=== PATIENT | male | born 1950 | race Caucasian/White ===

== ENCOUNTER 2022-05-01 18:00 | Inpatient (IN) ==
[2022-05-01] MEDS ORDERED: SODIUM CHLORIDE 0.9% 500 ML IV ONE (18:33)
[2022-05-01] MEDS ORDERED: METOPROLOL TARTRATE 1 MG/ML VIAL IV STA (18:33)
--- NOTE | 2022-05-01 18:46 | Emergency Department Note ---
Impression & Plan Breathlessness, Hypoxia, Multiple lung nodules, Elevated troponin, Tachycardia ED Provider Note Provider: Aniceto Tavarez MD DATE OF SERVICE: 04/26/2022 CHIEF COMPLAINT: Referred due to pneumonia x-ray HISTORY OF PRESENT ILLNESS: Patient is a 72-year-old gentleman previous history of hypertension but has not seen a doctor in several years presenting today after initial visits to urgent care last week and completion of blood work and x-ray today because them to be referred here. Patient evidently has been ill since Julio for about a week or 2. Has been short of breath for sometimes. States gets winded and lightheaded but has not collapsed. A bit of chest pressure and beating of the heart at times. Denies any nausea vomiting or abdominal pain. Denies leg swelling. Very distant history of smoking but quit a long time ago. Had a negative COVID test and started on an antibiotic Augmentin end of last week from urgent care. Finally had the recommended x-ray and blood work today and referred here. X-ray reportedly with findings concerning for some possible pneumonia. Patient feels short of breath and very fatigued. PAST MEDICAL HISTORY: As noted above MEDICATIONS: Denies current medications SOCIAL HISTORY: Distant history of smoking, retired PHYSICAL EXAM: GENERAL: alert and oriented in no acute distress on stretcher Head: normocephalic and atraumatic EYES: No injection, discharge or icterus. NECK: Trachea midline. Supple. ENT: Mucous membranes pink and moist. Pharynx without erythema or exudate. LUNGS: Airway patent. No retractions. Breath sounds clear without significant wheezing. HEART: Irregular and at times tachycardic rate and rhythm. No chest wall tenderness ABDOMEN: Soft and non-tender, without guarding or rebound. SKIN: Acyanotic, warm, dry, without rashes EXTREMITIES: Without swelling, tenderness or deformity NEUROLOGICAL: No focal deficits. No aphasia. No facial droop or slurred speech. Ambulatory. EK bpm appears to be fairly regular narrow complex tachycardia with occasional PVCs but not clearly atrial fibrillation. No clear ST segment elevation with a right bundle branch block. QTc 461. CONTINUOUS CARDIAC MONITORING: was ordered and showed a heart rate of 90s-150s bpm in normal sinus rhythm to sinus tachycardia superiors of narrow complex tachycardia with frequent PVCs Patient's laboratory studies and imaging reviewed. Differential includes Reactive airway disease, pneumonia, pneumothorax, COPD, CHF, infections, cardiac ischemia, pulmonary embolism, musculoskeletal, gastrointestinal, as well as other pathologies. IMPRESSION/MEDICAL DECISION MAKING: Short of breath and fatigue for some time worse the last several weeks. X-ray of completed earlier concerning with bilateral airspace opacities. Blood work thoroughly reviewed without significant anemia or leukocytosis. Mild troponin elevation. We will repeat troponin but having some palpitations and pressure in his chest. Telemetry appears to show episodes of regular narrow complex tachycardia at times that then resolves with episodes of PVCs and bigeminy with heart rates into the 90s up to the 150s. Very irregular and does not seem to be A. fib. Could possibly represent an SVT versus sinus tachycardia. Given some IV fluid. We will complete a CT of the chest to exclude PE as well as further differentiation of the lung findings noted on the imaging. COVID flu test sent. Patient will require admission. Hypoxic into the high 90s. Does not seem to have significant swelling in the lower extremities and lower suspicion for heart failure. Troponin mildly elevated at 51.7 on the recheck compared to 43 at 1717 hrs. We will give a dose of aspirin. Doubt acute ACS but wonder if some of this is from his transient episodes of elevated heart rate. Some magnesium supplementation ordered as well. Negative COVID and influenza testing. CT report without evidence of PE but questions possible pneumonia and a bit of pulmonary edema however more significantly pulmonary nodules and lymphadenopathy concerning for metastatic disease. Did discuss with patient and his family member at bedside. Discussed the need for further work-up here. Discussed possibility this could represent oncological process but unsure pending further work-up and biopsy. He was in agreement. Given some Ativan for anxiety. Given the question of pneumonia on the scan findings, given a dose of ceftriaxone. Daughter in law wishes to be closely involved in care with all developments particularly with further treatment plan in the morning. We will attempt to arrange a chair/recliner as the patient is more comfortable sitting. DIAGNOSIS: Hypoxia, elevated troponin, palpitations, lung masses/lymphadenopathy DISPOSITION: Hospitalist will evaluate Patient was agreeable with this plan. Past Med/Surg History Social History Smoking Status: Never smoker Preferred Language: Fijian Feels Safe at Home: Yes Allergies Allergies Allergy/AdvReac Type Severity Reaction Status Date / Time No Known Allergies Allergy Verified 05/01/22 21:09 Home Meds Home Medications Medication Instructions Recorded Confirmed albuterol sulfate 90 mcg/actuation 2 puff inhalation Q4H PRN 05/01/22 05/01/22 aerosol inhaler Shortness Of Breath Or Wheezing amoxicillin 875 mg-potassium 1 tab PO BID 05/01/22 05/01/22 clavulanate 125 mg tablet clotrimazole 10 mg daisha 10 mg PO 5XD 05/01/22 05/01/22 Results & Data (ED) Vital Signs Vital Signs - 24 hr 05/01/22 18:05 05/01/22 20:23 05/01/22 22:15 Temperature 36.9 C Temperature Source Temporal Artery Scan Pulse Rate 160 H Pulse Rate [Finger] 96 H 96 H Pulse Rhythm [Finger] Irregular Respiratory Rate 22 20 20 Respiratory Effort / Characteristics Non-Labored Spontaneous Short of Breath Short of Breath Blood Pressure 152/89 H Blood Pressure [Right Arm] 155/100 H 160/91 H Blood Pressure Mean 110 Blood Pressure Mean [Right Arm] 118 114 Blood Pressure Position [Right Arm] Sitting Pulse Oximetry 89 L 92 92 Oxygen Delivery Method Room Air Nasal Cannula Nasal Cannula Oxygen Flow Rate 3 4 Sepsis Recent Fever Within 48 Hours No Sepsis New/Unexplained Change in Mental Status N/A Sepsis Action Taken by Nursing No Action Required 05/01/22 22:40 05/01/22 22:41 Temperature Temperature Source Pulse Rate 89 Pulse Rate [Finger] Pulse Rhythm [Finger] Respiratory Rate 22 20 Respiratory Effort / Characteristics Blood Pressure Blood Pressure [Right Arm] Blood Pressure Mean Blood Pressure Mean [Right Arm] Blood Pressure Position [Right Arm] Pulse Oximetry 85 L 88 L Oxygen Delivery Method Nasal Cannula Oxymask Oxygen Flow Rate 4 6 Sepsis Recent Fever Within 48 Hours Sepsis New/Unexplained Change in Mental Status Sepsis Action Taken by Nursing Laboratory Data Lab Results 05/01/22 05/01/22 Range/Units 18:19 18:50 Magnesium 1.7 (1.7-2.4) mg/dl Troponin I High Sens 51.7 H* (0-20) pg/ml SARS-CoV-2 (PCR) NEGATIVE (Negative) Influenza Type A (PCR) Negative (Neg) Influenza Type B (PCR) Negative (Neg) RSV (RT-PCR) Negative (Neg) Administered Medications Discontinued Medications Aspirin (Aspirin 81 Mg Chew) 324 mg PO NOW STA Stop: 05/01/22 19:54 Last Admin: 05/01/22 20:12 Dose: 324 mg Documented By: NUBIA Sodium Chloride (Nss) 500 mls @ 999 mls/hr IV .Q31M ONE Stop: 05/01/22 19:03 Last Infusion: 05/01/22 21:26 Dose: 0 mls/hr Documented By: Admin: 05/01/22 20:12 Dose: 999 mls/hr Documented By: NUBIA Magnesium Sulfate/Dextrose (Magnesium Sulfate / D5w) 1 gm in 100 mls @ 200 mls/hr IV Q30M ASHLEY Stop: 05/01/22 20:53 Last Infusion: 05/01/22 21:56 Dose: 0 mls/hr Documented By: Admin: 05/01/22 21:04 Dose: 200 mls/hr Documented By: Infusion: 05/01/22 20:55 Dose: 0 mls/hr Documented By: Admin: 05/01/22 20:13 Dose: 200 mls/hr Documented By: NUBIA Ceftriaxone Sodium (Rocephin) 2,000 mg in 70 mls @ 140 mls/hr IV NOW STA Stop: 05/01/22 21:34 Last Infusion: 05/01/22 22:48 Dose: 0 mls/hr Documented By: Admin: 05/01/22 22:12 Dose: 140 mls/hr Documented By: MATT Ioversol (Optiray 320 500ml) 122 ml IV ONCE ONE Stop: 05/01/22 19:54 Last Admin: 05/01/22 19:56 Dose: 122 ml Documented By: JHOANA Lorazepam (Lorazepam 2 Mg/1 Ml Vial) 1 mg IV NOW STA Stop: 05/01/22 20:54 Last Admin: 05/01/22 21:03 Dose: 1 mg Documented By: NUBIA Metoprolol Tartrate (Metoprolol Tartrate 1 Mg/Ml Vial) 5 mg IV NOW STA Stop: 05/01/22 18:34 Last Admin: 05/01/22 18:50 Dose: Not Given Documented By: NRB Imaging Data Radiologist's Impression: Chest CTA 05/01/22 18:33 CHEST CTA for PULMONARY ARTERIES CT DOSE: 390.96 mGy.cm HISTORY: Shortness of breath. PE, tachy, PNA vs PE TECHNIQUE: Multiaxial CT images of the chest were performed following the intravenous administration of contrast to evaluate the pulmonary arteries. Maximal intensity projection images were also obtained. A dose lowering technique was utilized adhering to the principles of ALARA. COMPARISON STUDY: None. FINDINGS: Moderate anterior wedging at T5. This is likely chronic. No acute fractures identified within the chest. No suspicious lytic or blastic osseous lesions. No pneumothorax. The central airways are patent. Mild emphysema. There are innumerable scattered pulmonary nodules measuring up to 2 cm. There are small bilateral pleural effusions with mild interlobular septal thickening consistent with pulmonary edema. There are also patchy airspace opacities within the bilateral lower lobes posteriorly. Pneumobilia is present within the liver. The visualized spleen and adrenal glands are unremarkable. No pericardial effusion. The heart is borderline enlarged. There is a small hiatus hernia. The thyroid gland enhances normally. Extensive mediastinal and bilateral hilar lymphadenopathy. The hilar lymph nodes result in mild mass effect within the central pulmonary arteries. A dominant subcarinal lymph node measures approximately 3.1 x 3.0 cm. Normal caliber thoracic aorta with no evidence for a dissection. Mild respiratory motion artifact. No filling defects within the pulmonary arteries to suggest a pulmonary embolus. IMPRESSION: 1. No evidence for a pulmonary embolus. 2. Innumerable bilateral pulmonary nodules as well as mediastinal and bilateral hilar lymphadenopathy. This is consistent with metastatic disease. 3. Mild interstitial pulmonary edema and small bilateral pleural effusions. 4. Patchy airspace opacities within the bilateral lower lobes which could represent a superimposed pneumonia. ACT 112: Negative or not required by law. Electronically signed by: Tang Lyons M.D. 05/01/2022 8:48 PM Discharge Plan Visit Data Chief Complaint: Abnormal Labs/Diagnostic Testing Stated Complaint: REF BY DOC,ABNORMAL LABS ED Provider: Aniceto Tavarez Discharge Problem: Breathlessness, Hypoxia, Multiple lung nodules, Elevated troponin, Tachycardia Patient Disposition: Being Evaluated by Hospitalist Forms Stand Alone Forms: My [facility] Prescriptions Prescriptions: No Action clotrimazole 10 mg daisha 10 mg PO 5XD Rx Instructions: STARTED 04/26/22 FOR 14 DAYS. albuterol sulfate 90 mcg/actuation HFA aerosol inhaler 2 puff INHALATION Q4H PRN (Reason: Shortness Of Breath Or Wheezing) amoxicillin-pot clavulanate 875-125 mg tablet 1 tab PO BID Rx Instructions: STARTED 04/26/22 FOR 10 DAYS. Referrals Referrals: PCP,NO [Physician] -
[2022-05-01 19:34] LABS: Magnesium 1.7 mg/dl (1.7-2.4)
[2022-05-01 19:38] LABS: Troponin I High Sensitivity 51.7 pg/ml (0-20)
[2022-05-01] MEDS ORDERED: OPTIRAY 320 500ml IV ONE (19:53)
[2022-05-01] MEDS ORDERED: ASPIRIN 81 MG CHEW PO STA (19:53)
[2022-05-01 20:01] LABS: Influenza A virus by PCR Negative (Neg); Influenza B virus by PCR Negative (Neg); RSV by PCR Negative (Neg); SARS CoV2 RNA(COVID-19) Ceph NEGATIVE (Negative)
[2022-05-01] MEDS: MAGNESIUM SULFATE / D5W 1 GM/100 ML BAG IV SCH ×2 (20:13→21:04)
--- NOTE | 2022-05-01 20:50 | CT Scan Report ---
CHEST CTA for PULMONARY ARTERIES CT DOSE: 390.96 mGy.cm HISTORY: Shortness of breath. PE, tachy, PNA vs PE TECHNIQUE: Multiaxial CT images of the chest were performed following the intravenous administration of contrast to evaluate the pulmonary arteries. Maximal intensity projection images were also obtaine d. A dose lowering technique was utilized adhering to the principles of ALARA. COMPARISON STUDY: None. FINDINGS: Moderate anterior wedging at T5. This is likely chronic. No acute fractures identified with in the chest. No suspicious lytic or blastic osseous lesions. No pneumothorax. The central airways ar e patent. Mild emphysema. There are innumerable scattered pulmonary nodules measuring up to 2 cm. The re are small bilateral pleural effusions with mild interlobular septal thickening consistent with pul monary edema. There are also patchy airspace opacities within the bilateral lower lobes posteriorly. Pneumobilia is present within the liver. The visualized spleen and adrenal glands are unremarkable. N o pericardial effusion. The heart is borderline enlarged. There is a small hiatus hernia. The thyroid gland enhances normally. Extensive mediastinal and bilateral hilar lymphadenopathy. The hilar lymph nodes result in mild mass effect within the central pulmonary arteries. A dominant subcarinal lymph n ode measures approximately 3.1 x 3.0 cm. Normal caliber thoracic aorta with no evidence for a dissect ion. Mild respiratory motion artifact. No filling defects within the pulmonary arteries to suggest a pulmonary embolus. IMPRESSION: 1. No evidence for a pulmonary embolus. 2. Innumerable bilateral pulmonary nodules as well as mediastinal and bilateral hilar lymphadenopathy . This is consistent with metastatic disease. 3. Mild interstitial pulmonary edema and small bilateral pleural effusions. 4. Patchy airspace opacities within the bilateral lower lobes which could represent a superimposed pn eumonia. ACT 112: Negative or not required by law. Electronically signed by: Tang Lyons M.D. 05/01/2022 8:48 PM
[2022-05-01] MEDS ORDERED: LORazepam 2 MG/1 ML VIAL IV STA (20:53)
[2022-05-01] MEDS ORDERED: cefTRIAXone SODIUM 2,000 MG/70 ML BAG IV STA (21:05)
[2022-05-01] MEDS ORDERED: LEVALBUTEROL 1.25MG/0.5ML NEB NEB PRN (23:25)
[2022-05-01] MEDS ORDERED: ALBUTEROL HFA 8 GM INHALER INH PRN (23:25)
[2022-05-01] MEDS ORDERED: ACETAMINOPHEN 325 MG TAB PO PRN (23:25)
[2022-05-01] MEDS ORDERED: NITROGLYCERIN SL 0.4 MG/TAB TAB SL PRN (23:25)
[2022-05-01] MEDS ORDERED: POLYETHYLENE (MIRALAX) 17 GM PACK PO PRN (23:25)
[2022-05-01] MEDS ORDERED: DEXTROSE 50% 50 ML SYRINGE IV PRN (23:32)
[2022-05-01] MEDS ORDERED: GLUCOSE 10 TAB/TUBE PO PRN (23:32)
[2022-05-01] MEDS ORDERED: GLUCOSE 40% GEL 15 GM TUBE PO PRN (23:32)
[2022-05-01] MEDS ORDERED: CARBOHYDRATES FOR HYPOGLYCEMIA PO PRN (23:32)
[2022-05-01] MEDS ORDERED: GLUCAGON FOR INJ 1 MG VIAL SQ PRN (23:32)
[2022-05-01] MEDS ORDERED: METOPROLOL TARTRATE 1 MG/ML VIAL IV PRN (23:34)
[2022-05-01] MEDS ORDERED: methylPREDNISolone 60 MG in SYRINGE 0 ML IV STA (23:56)
[2022-05-02] MEDS ORDERED: ENOXAPARIN INJ 40 MG/0.4 ML SYR SQ STA (00:04)
[2022-05-02] MEDS: SODIUM CHLORIDE 0.9% 1000ML 1,000 ML IV SCH ×2 (01:01→13:38)
[2022-05-02] MEDS: DOXYCYCLINE HYCLATE 100 MG in DEXTROSE 5% 100 ML IV SCH ×2 (01:03→14:07)
[2022-05-02] MEDS: CLOTRIMAZOLE 10 MG TROCHE BUCCAL SCH ×6 (01:05→19:13)
[2022-05-02] MEDS: INSULIN ASPART PER UNIT SC SCH ×5 (01:17→21:50)
--- NOTE | 2022-05-02 01:40 | History and Physical Report ---
DATE OF ADMISSION: 05/01/2022. CHIEF COMPLAINT: Shortness of breath. HISTORY OF PRESENT ILLNESS: This is a 72-year-old male with past medical history significant for hypertension, dyslipidemia, prediabetes, history of tobacco abuse, history of hepatitis B surface antigen positive. Currently, did not see doctors for some time, says since the last couple of months, he is feeling short of breath. He went to urgent care last week and prescribed Augmentin for possible pneumonia and he was referred here. The patient states he is sometimes coughing, sometimes get some blood in it and he was feeling dizzy while ambulating. Denies any fever or chills, sometimes chest pressure, palpitations. No headache, no blurred visions, no earache, no runny nose, no sore throat. Appetite is okay. No difficulty swallowing. No nausea, no vomiting. Denies any abdominal pain. He was constipated, but says that has resolved. He did not notice any blood in the stools. Normal bladder movements. Currently no swelling in the legs, requiring oxygen in the ER.Had episodes of on and off of tachycardia in ER. ALLERGIES: No known drug allergies. PAST MEDICAL HISTORY: As mentioned above. PAST SURGICAL HISTORY: Colonoscopy, EGD, cholecystectomy. MEDICATIONS: The patient is on albuterol 2 puffs inhalation q. 4 hours p.r.n., Augmentin 1 tablet p.o. b.i.d., clotrimazole 10 mg buccal for 14 days. FAMILY HISTORY: Significant for mother had diabetes; father of pneumonia. SOCIAL HISTORY: He says he quit smoking 12 years ago. Denies alcohol or drug use. REVIEW OF SYSTEMS: As per HPI. Rest of the systems is negative. PHYSICAL EXAMINATION: GENERAL: The patient is of moderate build, not in acute distress. VITAL SIGNS: Temperature 36.9, pulse 94. Currently, blood pressure 155/107, oxygen 93% on OxyMask. HEENT: Pupils equal, round and reactive to light. Oral mucosa moist. NECK: No JVD, no neck masses. CARDIOVASCULAR: S1 and S2 heard. Tachycardia. No murmurs. RESPIRATORY SYSTEM: Normal AP diameter. No accessory muscle use. No wheezing or crackles. ABDOMEN: Soft, bowel sounds present, nontender, no distention. CENTRAL NERVOUS SYSTEM: Cranial nerves II through XII are grossly intact, nonfocal. EXTREMITIES: No edema, no erythema. LABORATORY DATA: WBC 5.1, hemoglobin 13.6, hematocrit 41, platelets 199. Sodium 141, potassium 3.7, chloride 106, bicarb 28, BUN 20, creatinine 0.7, serum glucose 221, calcium 9.3, magnesium 1.7, total bilirubin 0.5, AST 42, ALT 52, alkaline phosphatase 84. Troponin I high sensitivity 1.7. BNP 41. SARS-CoV-2 PCR negative. Influenza A and B PCR negative. RSV PCR negative. IMAGING STUDIES: Chest x-ray, multifocal bilateral airspace opacities, favor viral atypical pneumonia. CTA chest showing no evidence of pulmonary embolus. Innumerable bilateral pulmonary nodules as well as mediastinal bilateral hilar lymphadenopathy consistent with metastatic disease, mild interstitial pulmonary edema, small bilateral effusions, patchy airspace opacities within the bilateral lower lobes, which could represent superimposed pneumonia. EKG: Sinus tachycardia at a rate of 146, no PVCs available. ASSESSMENT AND PLAN: This is a 72-year-old male who presents with ongoing shortness of breath. 1. Shortness of breath. CT chest showing multiple lung nodules possible metastatic disease and superimposed pneumonia. The patient quit smoking 12 years ago. We will empirically start him on Rocephin and doxycycline nebs around the clock and p.r.n.IV steroids. Consult Pulmonary in the a.m. and closely monitor. We will also get a CT of the abd/ pelvis to look for any primary. 2. Elevated troponin. We will follow serial enzymes, echocardiogram. Monitor in the tele floor. 3. Tachycardia, questionable atrial fibrillation versus supraventricular tachycardia. Currently, received a dose of iv lopressor in the ER. We will place on IV Lopressor p.r.n. Follow echocardiogram. Monitor in the tele. Consult Cardiology for further recommendations. 4. History of hepatitis B surface antigen positive. We will get a hepatitis panel. 5. History of prediabetes, Will follow HbA1c levels. Monitor the blood sugars. ISS 6. Hyperlipidemia. Currently not taking any medication. Follow lipid profile. 7. Deep venous thrombosis prophylaxis. We will place him on Lovenox. DISPOSITION: Closely monitor in the tele floor. Level 1 full code. Expect to discharge home and follow with family doctor. Job ID: [id number] [facility] HOSPITALJenae
[2022-05-02 04:49] LABS: Hematocrit (blood only) 42.4 % (40.1-51.0); Hemoglobin 13.6 g/dl (14.0-18.0); Mean Corpuscular Hgb Conc 32.1 g/dL (32.0-36.0); Mean Corpuscular Volume 90.4 fL (80.0-100.0); Mean Platelet Volume 10.3 fL (9.4-12.4); Platelet Count 189 K/uL (130-400); RDW Coefficient of Variation 12.7 % (11.5-14.5); RDW Standard Deviation 41.7 fL (36.4-46.3); Red Blood Count 4.69 M/uL (4.63-6.08); White Blood Count 6.28 K/ul (4.8-10.8)
[2022-05-02 05:08] LABS: Basophils # (auto) 0.02 K/uL (0-0.2); Basophils % (auto) 0.3 %; Eosinophils # (auto) 0.01 K/uL (0-0.50); Eosinophils % (auto) 0.2 %; Immature Granulocytes # (auto) 0.02 K/uL (0.00-0.02); Immature Granulocytes % (auto) 0.3 %; Lymphocytes # (auto) 0.43 K/uL (1.2-3.4); Lymphocytes % (auto) 6.8 %; Monocytes # (auto) 0.06 K/uL (0.24-0.82); Neutrophils # (auto) 5.74 K/uL (1.4-6.5); Neutrophils % (auto) 91.4 %
[2022-05-02 05:19] LABS: Calcium 8.9 mg/dl (8.5-10.1); Creatinine Clr Calc Pharmacy 90.3 ml/min; Est GFR (African American) 114.8 ml/min; Est GFR (Non-African American) 99.1 ml/min; Magnesium 1.9 mg/dl (1.7-2.4); Potassium 4.5 mmol/L (3.5-5.1)
[2022-05-02] MEDS: LEVALBUTEROL 1.25MG/0.5ML NEB NEB SCH ×3 (06:57→19:37)
--- NOTE | 2022-05-02 08:05 | Electrocardiogram Report ---
Test Reason : Blood Pressure : / mmHG Vent. Rate : 146 BPM Atrial Rate : 078 BPM P-R Int : 000 ms QRS Dur : 116 ms QT Int : 296 ms P-R-T Axes : 000 046 040 degrees QTc Int : 461 ms Poor data quality, interpretation may be adversely affected Atrial fibrillation with rapid ventricular response with premature ventricular or aberrantly conducte d complexes Right bundle branch block Abnormal ECG No previous ECGs available Confirmed by Demond Dinh ([id number]) on 05/02/2022 8:05:39 AM Referred By: Luc Guevara Confirmed By:Demond Dnih
--- NOTE | 2022-05-02 08:07 | Pulmonary Consultation ---
Date of Consultation May 02, 2022 Assessment & Plan (1) Multiple lung nodules: (2) Mediastinal adenopathy: (3) Abnormal CT scan of lung: (4) Hypoxia: Plan Impression: 72-year-old male with prior history of tobacco abuse presenting with innumerable pulmonary nodules and areas of airspace consolidation with extensive mediastinal adenopathy. Pattern is concerning for malignancy. Other diagnoses such as sarcoid would be in the differential as well. Atypical infections felt to be much less likely. Recommendations: 1. Findings were reviewed with the patient. Recommended a tissue diagnosis. We discussed bronchoscopy with endobronchial ultrasound and transbronchial needl e aspiration. The patient is agreeable to proceed. This will be scheduled for today. Patient will be made NPO. We will check coagulation studies. 2. Depending on results of bronchoscopy, the patient may require additional imaging including MRI brain with and without contrast. He may require medical oncology consultation. 3. Continue supplemental oxygen titrated to keep saturations at or above 88%. 4. Patient's been initiated on antibiotics for suspected infection. He does not report fevers and does not have leukocytosis. Will check procalcitonin. Will obtain cultures at the time of bronchoscopy. Continue antibiotics for now. Above recommendations and plan were extensively discussed with patient. Questions were answered to the best my ability. He expressed understanding and is in agreement with plan as outlined. History of Present Illness Attending Physician: Cody Simmons MD History of Present Illness Asked by hospitalist to evaluate this patient with an abnormal CT scan. History is obtained from discussion with the patient as well as review electronic medical record. The patient is a 72-year-old male with a 43-44-djde-year history of tobacco abuse who quit smoking about 10 years ago. Patient presented to the emergency room due to progressive shortness of breath over the last several weeks. He was apparently seen in urgent care within the last week and started on Augmentin for questionable pneumonia. He does not report any significant sputum production. He has a dry cough. He was found to be hypoxemic in the emergency room and started on oxygen. CT scan demonstrated multiple pulmonary nodules with extensive mediastinal adenopathy. The patient denies any prior personal history of malignancy. No family history of cancer or lung disease that he is aware of. He lives alone but does have family in the area. 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 He denies any unintentional weight loss. No new neurological complaints. He cannot recall having had prior CT scanning performed. Allergies Allergy/AdvReac Type Severity Reaction Status Date / Time No Known Allergies Allergy Verified 05/01/22 21:09 Home Medications Medication Instructions Recorded Confirmed Type albuterol sulfate 90 mcg/actuation 2 puff inhalation Q4H PRN 05/01/22 05/01/22 History aerosol inhaler Shortness Of Breath Or Wheezing amoxicillin 875 mg-potassium 1 tab PO BID 05/01/22 05/01/22 History clavulanate 125 mg tablet clotrimazole 10 mg daisha 10 mg PO 5XD 05/01/22 05/01/22 History Patient History Social History Smoking Status: Never smoker Hx Alcohol Use: No Hx Substance Use: No Preferred Language: Danish Communication Ability: Effective 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 Otherwise unremarkable 12 point review of systems Physical Exam Constitutional: WD/WN, vitals as above ENMT: Mallampati Class: III Neck: trachea midline, no thyromegaly Respiratory: normal respiratory effort, lungs clear to auscultation Cardiovascular: RRR, no murmur, no edema Gastrointestinal (Abdomen): normal bowel sounds, soft, nontender, no hepatosplenomegaly Musculoskeletal: Extremities: extremities normal to inspection Skin: no rashes, warm and dry Neurologic: Nonfocal exam Lymphatic: no cervical lymphadenopathy Results & Data Results & Data ([facility]) Vital Signs (Past 12 Hours) Vital Signs Pulse Pulse Resp BP Pulse Ox Pulse Ox O2 Del Method 05/02/22 06:57 81 18 94 Oxymask 05/02/22 04:00 67 20 145/72 H 92 Oxymask 05/02/22 01:00 85 22 107/72 92 Oxymask 05/02/22 00:00 98 H 20 154/96 H 93 Oxymask 05/02/22 00:00 93 05/01/22 23:00 94 H 22 151/107 H 93 Oxymask 05/01/22 22:41 89 20 88 L Oxymask 05/01/22 22:40 22 85 L Nasal Cannula 05/01/22 22:15 96 H 20 160/91 H 92 Nasal Cannula 05/01/22 20:23 96 H 20 155/100 H 92 Nasal Cannula O2 Del Method O2 Flow Rate O2 Flow Rate 05/02/22 06:57 10 05/02/22 04:00 10 05/02/22 01:00 9 05/02/22 00:00 9 05/02/22 00:00 Oxymask 9 05/01/22 23:00 9 05/01/22 22:41 6 05/01/22 22:40 4 05/01/22 22:15 4 05/01/22 20:23 3 Critical Care Results & Data Vital Signs (Past 12 Hours) Vital Signs Pulse Pulse Resp BP Pulse Ox Pulse Ox O2 Del Method 05/02/22 06:57 81 18 94 Oxymask 05/02/22 04:00 67 20 145/72 H 92 Oxymask 05/02/22 01:00 85 22 107/72 92 Oxymask 05/02/22 00:00 98 H 20 154/96 H 93 Oxymask 05/02/22 00:00 93 05/01/22 23:00 94 H 22 151/107 H 93 Oxymask 05/01/22 22:41 89 20 88 L Oxymask 05/01/22 22:40 22 85 L Nasal Cannula 05/01/22 22:15 96 H 20 160/91 H 92 Nasal Cannula 05/01/22 20:23 96 H 20 155/100 H 92 Nasal Cannula O2 Del Method O2 Flow Rate O2 Flow Rate 05/02/22 06:57 10 05/02/22 04:00 10 05/02/22 01:00 9 05/02/22 00:00 9 05/02/22 00:00 Oxymask 9 05/01/22 23:00 9 05/01/22 22:41 6 05/01/22 22:40 4 05/01/22 22:15 4 05/01/22 20:23 3 Lab & Micro Results (Past 24 Hours) RBC 4.69 M/uL (4.63-6.08) 05/02/22 WBC 6.28 K/ul (4.8-10.8) 05/02/22 Hgb 13.6 g/dl (14.0-18.0) L 05/02/22 Hct 42.4 % (40.1-51.0) 05/02/22 MCV 90.4 fL (80.0-100.0) 05/02/22 MCH 29.0 pg (25.0-34.0) 05/02/22 MCHC 32.1 g/dL (32.0-36.0) 05/02/22 RDW Standard Deviation 41.7 fL (36.4-46.3) 05/02/22 RDW Coefficient of Variation 12.7 % (11.5-14.5) 05/02/22 Plt Count 189 K/uL (130-400) 05/02/22 MPV 10.3 fL (9.4-12.4) 05/02/22 Neutrophils (%) (Auto) 91.4 % 05/02/22 Lymphocytes (%) (Auto) 6.8 % 05/02/22 Monocytes # (Auto) 0.06 K/uL (0.24-0.82) L 05/02/22 Eosinophils # (Auto) 0.01 K/uL (0-0.50) 05/02/22 Immature Granulocyte % (Auto) 0.3 % 05/02/22 Neutrophils # (Auto) 5.74 K/uL (1.4-6.5) 05/02/22 Lymphocytes # (Auto) 0.43 K/uL (1.2-3.4) L 05/02/22 Monocytes # (Auto) 0.06 K/uL (0.24-0.82) L 05/02/22 Eosinophils # (Auto) 0.01 K/uL (0-0.50) 05/02/22 Basophils # (Auto) 0.02 K/uL (0-0.2) 05/02/22 Immature Granulocyte # (Auto) 0.02 K/uL (0.00-0.02) 3 Na 140 mmol/L (136-145) 05/02/22 K 4.5 mmol/L (3.5-5.1) 05/02/22 Cl 105 mmol/L (98-107) 05/02/22 CO2 31 mmol/L (21-32) 05/02/22 Anion Gap 4 (3-11) 05/02/22 BUN 11 mg/dl (6-23) 05/02/22 Creatinine 0.61 mg/dl (0.6-1.4) 05/02/22 Estimated GFR ( Amer) 114.8 ml/min 05/02/22 Estimated GFR (Non-Af Amer) 99.1 ml/min 05/02/22 BUN/Creatinine Ratio 18.0 (10-20) 05/02/22 Glu 181 mg/dl (70-99(Fasting)) H 05/02/22 Ca 8.9 mg/dl (8.5-10.1) 05/02/22 Mg 1.9 mg/dl (1.7-2.4) 05/02/22 04:40 Calcium Level 8.9 mg/dl (8.5-10.1) 05/02/22 04:40 Diagnostic Findings (Past 24 Hours) Chest CTA 05/01/22 18:33 CHEST CTA for PULMONARY ARTERIES CT DOSE: 390.96 mGy.cm HISTORY: Shortness of breath. PE, tachy, PNA vs PE TECHNIQUE: Multiaxial CT images of the chest were performed following the intravenous administration of contrast to evaluate the pulmonary arteries. Maximal intensity projection images were also obtained. A dose lowering technique was utilized adhering to the principles of ALARA. COMPARISON STUDY: None. FINDINGS: Moderate anterior wedging at T5. This is likely chronic. No acute fractures identified within the chest. No suspicious lytic or blastic osseous lesions. No pneumothorax. The central airways are patent. Mild emphysema. There are innumerable scattered pulmonary nodules measuring up to 2 cm. There are small bilateral pleural effusions with mild interlobular septal thickening consistent with pulmonary edema. There are also patchy airspace opacities within the bilateral lower lobes posteriorly. Pneumobilia is present within the liver. The visualized spleen and adrenal glands are unremarkable. No pericardial effusion. The heart is borderline enlarged. There is a small hiatus hernia. The thyroid gland enhances normally. Extensive mediastinal and bilateral hilar lymphadenopathy. The hilar lymph nodes result in mild mass effect within the central pulmonary arteries. A dominant subcarinal lymph node measures appro ximately 3.1 x 3.0 cm. Normal caliber thoracic aorta with no evidence for a dissection. Mild respiratory motion artifact. No filling defects within the pulmonary arteries to suggest a pulmonary embolus. IMPRESSION: 1. No evidence for a pulmonary embolus. 2. Innumerable bilateral pulmonary nodules as well as mediastinal and bilateral hilar lymphadenopathy. This is consistent with metastatic disease. 3. Mild interstitial pulmonary edema and small bilateral pleural effusions. 4. Patchy airspace opacities within the bilateral lower lobes which could represent a superimposed pneumonia. ACT 112: Negative or not required by law. Electronically signed by: Tang Lyons M.D. 05/01/2022 8:48 PM I & O Totals 24 Hours 05/01/22 05/02/22 05/03/22 06:59 06:59 06:59 Intake Total 880 / 880 Output Total 1140 / 1140 Balance -260 / -260 Cumulative 05/01/22 18:00 thru 05/02/22 06:34 Intake Total 880 Output Total 1140 Balance -260 RT Ventilator Mngmt (Last Documented) Ventilator Ordered Settings Respiratory Rate 18 05/02/22 0 6:57 Ventilator - PT Measurements Respiratory Rate 18 PG Care Time/CCT Total # of Minutes Spent Total Time Spent with Patient: Total time spent is greater than 50% in coordination of care (as documented) at patient's floor/unit and/or counseling patient: Coding Level of Care Code 18810 INT INP/OBS CARE 3/75MIN Diagnoses Multiple lung nodules R91.8 Mediastinal adenopathy R59.[address] scan of lung R91.8 Hypoxia R09.02
--- NOTE | 2022-05-02 09:10 | Hospitalist Progress Note ---
Date of Service May 02, 2022 Assessment & Plan (1) Paroxysmal atrial fibrillation: Plan: This is a 72-year-old male who presents with ongoing shortness of breath. 1. Shortness of breath. CT chest showing multiple lung nodules possible metastatic disease and jacobo perimposed pneumonia. The patient quit smoking 12 years ago. Empirically started on Rocephin and doxycycline nebs around the clock and p.r.n.IV steroids. Pulmonary medicine consulted, and patient underwent bronchoscopy with biopsy today. Currently patient is on high flow nasal cannula. Continue to closely monitor on telemetry. CT of the abd/ pelvis to look for any primary - pending Brain MRI ordered, to look for possible metastases Oncology and palliative medicine consulted as well. 2. Elevated troponin. reviewed serial enzymes, echocardiogram. Monitor in the tele floor. Troponin elevation secondary to tachycardia/demand Echo LV is normal in size. Moderate concentric LVH. LV wall motion is normal. EF 60 to 65%. Aortic valve sclerosis moderate, without significant aortic valvular stenosis. There is mild mitral valve annular calcification. The mitral valve leaflets are mildly redundant with borderline prolapse of posterior leaflet. There is mild mitral regurg. LA size is normal. Doppler findings do not suggest pulmonary hypertension. 3. A. fib with RVR, spontaneously converted back to sinus. Received a dose of iv lopressor in the ER. Seen by cardiology, and started on low-dose beta-ezekiel. Plan to discuss anticoagulation. 4. History of hepatitis B surface antigen positive.Hepatitis panel ordered. 5. History of prediabetes, Will follow HbA1c levels. Monitor the blood sugars. ISS 6. Hyperlipidemia. Currently not taking any medication. Follow lipid profile. DVT prophylaxis. We will place him on Lovenox. DISPOSITION:tele floor. Code: full code (2) Abnormal CT scan of lung: (3) Mediastinal adenopathy: Admission and Anticipated Discharge Date Admission Date: May 01, 2022 Subjective Patient seen in follow-up of acute hypoxic respiratory failure. Multiple nodules noted on CT chest. Underwent bronchoscopy/biopsy by pulmonary medicine Currently on high flow nasal cannula Appears comfortable, and reports no complaints. Denies any chest pain palpitations. Feels hungry, asking about advancing diet. Cardiology also consulted as patient had episode of A. fib with RVR Review of Systems Review of Systems: All systems reviewed & are unremarkable except as noted in Subjective Physical Exam Physical Exam: GENERAL: The patient is of moderate build, not in acute distress. HEENT: Pupils equal, round and reactive to light. Oral mucosa moist. NECK: No JVD, no neck masses. CARDIOVASCULAR: S1 and S2 heard. RRR. No murmurs. RESPIRATORY: Normal AP diameter. No accessory muscle use. No wheezing or crackles. ABDOMEN: Soft, bowel sounds present, nontender, no distention. NEURO:Awake alert, able to answer simple questions appropriately. No facial asymmetry, moves extremities EXTREMITIES: No edema, no erythema. Results & Data Results & Data ([facility]) Vital Signs (Past 12 Hours) Vital Signs Pulse Pulse Resp BP Pulse Ox Pulse Ox O2 Del Method 05/02/22 06:57 81 18 94 Oxymask 05/02/22 04:00 67 20 145/72 H 92 Oxymask 05/02/22 01:00 85 22 107/72 92 Oxymask 05/02/22 00:00 98 H 20 154/96 H 93 Oxymask 05/02/22 00:00 93 05/01/22 23:00 94 H 22 151/107 H 93 Oxymask 05/01/22 22:41 89 20 88 L Oxymask 05/01/22 22:40 22 85 L Nasal Cannula 05/01/22 22:15 96 H 20 160/91 H 92 Nasal Cannula O2 Del Method O2 Flow Rate O2 Flow Rate 05/02/22 06:57 10 05/02/22 04:00 10 05/02/22 01:00 9 05/02/22 00:00 9 05/02/22 00:00 Oxymask 9 05/01/22 23:00 9 05/01/22 22:41 6 05/01/22 22:40 4 05/01/22 22:15 4 Laboratory Results 05/02/22 05/02/22 05/02/22 Range/Units 05:43 04:40 04:40 WBC (4.8-10.8) K/ul RBC (4.63-6.08) M/uL Hgb (14.0-18.0) g/dl Hct (40.1-51.0) % MCV (80.0-100.0) fL MCH (25.0-34.0) pg MCHC (32.0-36.0) g/dL RDW Std Deviation (36.4-46.3) fL RDW Coeff of Dean (11.5-14.5) % Plt Count (130-400) K/uL MPV (9.4-12.4) fL Immature Gran % (Auto) % Neut % (Auto) % Lymph % (Auto) % Cochran % (Auto) % Eos % (Auto) % Baso % (Auto) % Neut # (Auto) (1.4-6.5) K/uL Lymph # (Auto) (1.2-3.4) K/uL Cochran # (Auto) (0.24-0.82) K/uL Eos # (Auto) (0-0.50) K/uL Baso # (Auto) (0-0.2) K/uL Immature Gran # (Auto) (0.00-0.02) K/uL Sodium 140 (136-145) mmol/L Potassium 4.5 D (3.5-5.1) mmol/L Chloride 105 (98-107) mmol/L Carbon Dioxide 31 (21-32) mmol/L Anion Gap 4 (3-11) BUN 11 (6-23) mg/dl Creatinine 0.61 (0.6-1.4) mg/dl Est Cr Clr Drug Dosing 90.3 ml/min Est GFR ( Amer) 114.8 ml/min Est GFR (Non-Af Amer) 99.1 ml/min BUN/Creatinine Ratio 18.0 (10-20) Glucose 181 H (70-99(Fasting)) mg/dl POC Glucose 168 H (70-99) mg/dl Calcium 8.9 (8.5-10.1) mg/dl Magnesium 1.9 (1.7-2.4) mg/dl Troponin I High Sens (0-20) pg/ml SARS-CoV-2 (PCR) (Negative) Hepatitis A IgM Ab Hep Bs Antigen Hep Bs Ag Confirmation Hep B Core IgM Ab Hepatitis C Ab (EIA) Pending Hep C Ab Signal/Cutoff Pending Influenza Type A (PCR) (Neg) Influenza Type B (PCR) (Neg) RSV (RT-PCR) (Neg) 05/02/22 05/02/22 05/02/22 Range/Units 04:40 04:40 01:15 WBC 6.28 (4.8-10.8) K/ul RBC 4.69 (4.63-6.08) M/uL Hgb 13.6 L (14.0-18.0) g/dl Hct 42.4 (40.1-51.0) % MCV 90.4 (80.0-100.0) fL MCH 29.0 (25.0-34.0) pg MCHC 32.1 (32.0-36.0) g/dL RDW Std Deviation 41.7 (36.4-46.3) fL RDW Coeff of Dean 12.7 (11.5-14.5) % Plt Count 189 (130-400) K/uL MPV 10.3 (9.4-12.4) fL Immature Gran % (Auto) 0.3 % Neut % (Auto) 91.4 % Lymph % (Auto) 6.8 % Cochran % (Auto) 1.0 % Eos % (Auto) 0.2 % Baso % (Auto) 0.3 % Neut # (Auto) 5.74 (1.4-6.5) K/uL Lymph # (Auto) 0.43 L (1.2-3.4) K/uL Cochran # (Auto) 0.06 L (0.24-0.82) K/uL Eos # (Auto) 0.01 (0-0.50) K/uL Baso # (Auto) 0.02 (0-0.2) K/uL Immature Gran # (Auto) 0.02 (0.00-0.02) K/uL Sodium (136-145) mmol/L Potassium (3.5-5.1) mmol/L Chloride (98-107) mmol/L Carbon Dioxide (21-32) mmol/L Anion Gap (3-11) BUN (6-23) mg/dl Creatinine (0.6-1.4) mg/dl Est Cr Clr Drug Dosing ml/min Est GFR ( Amer) ml/min Est GFR (Non-Af Amer) ml/min BUN/Creatinine Ratio (10-20) Glucose (70-99(Fasting)) mg/dl POC Glucose 126 H (70-99) mg/dl Calcium (8.5-10.1) mg/dl Magnesium (1.7-2.4) mg/dl Troponin I High Sens (0-20) pg/ml SARS-CoV-2 (PCR) (Negative) Hepatitis A IgM Ab Pending Hep Bs Antigen Pending Hep Bs Ag Confirmation Pending Hep B Core IgM Ab Pending Hepatitis C Ab (EIA) Pending Hep C Ab Signal/Cutoff Pending Influenza Type A (PCR) (Neg) Influenza Type B (PCR) (Neg) RSV (RT-PCR) (Neg) 05/01/22 05/01/22 Range/Units 18:50 18:19 WBC (4.8-10.8) K/ul RBC (4.63-6.08) M/uL Hgb (14.0-18.0) g/dl Hct (40.1-51.0) % MCV (80.0-100.0) fL MCH (25.0-34.0) pg MCHC (32.0-36.0) g/dL RDW Std Deviation (36.4-46.3) fL RDW Coeff of Dean (11.5-14.5) % Plt Count (130-400) K/uL MPV (9.4-12.4) fL Immature Gran % (Auto) % Neut % (Auto) % Lymph % (Auto) % Cochran % (Auto) % Eos % (Auto) % Baso % (Auto) % Neut # (Auto) (1.4-6.5) K/uL Lymph # (Auto) (1.2-3.4) K/uL Cochran # (Auto) (0.24-0.82) K/uL Eos # (Auto) (0-0.50) K/uL Baso # (Auto) (0-0.2) K/uL Immature Gran # (Auto) (0.00-0.02) K/uL Sodium (136-145) mmol/L Potassium (3.5-5.1) mmol/L Chloride (98-107) mmol/L Carbon Dioxide (21-32) mmol/L Anion Gap (3-11) BUN (6-23) mg/dl Creatinine (0.6-1.4) mg/dl Est Cr Clr Drug Dosing ml/min Est GFR ( Amer) ml/min Est GFR (Non-Af Amer) ml/min BUN/Creatinine Ratio (10-20) Glucose (70-99(Fasting)) mg/dl POC Glucose (70-99) mg/dl Calcium (8.5-10.1) mg/dl Magnesium 1.7 (1.7-2.4) mg/dl Troponin I High Sens 51.7 H* (0-20) pg/ml SARS-CoV-2 (PCR) NEGATIVE (Negative) Hepatitis A IgM Ab Hep Bs Antigen Hep Bs Ag Confirmation Hep B Core IgM Ab Hepatitis C Ab (EIA) Hep C Ab Signal/Cutoff Influenza Type A (PCR) Negative (Neg) Influenza Type B (PCR) Negative (Neg) RSV (RT-PCR) Negative (Neg) Medications Administered Current Inpatient Medications Acetaminophen (Acetaminophen 325 Mg Tab) 650 mg PO Q4H PRN PRN Reason: Pain or Fever Stop: 05/31/22 23:24 Albuterol (Albuterol Hfa 8 Gm Inhaler) 2 puffs INH Q4H PRN PRN Reason: Shortness Of Breath Or Wheezing Stop: 05/31/22 23:24 Clotrimazole (Clotrimazole 10 Mg Josiah) 10 mg BUCCAL [id number] ASHLEY Stop: 05/08/22 16:01 Last Admin: 05/02/22 06:30 Dose: 10 mg Dextrose (Dextrose 50% 50 Ml Syringe) 25 - 50 ml IV UD PRN; Protocol PRN Reason: Hypoglycemia Protocol Stop: 05/31/22 23:31 Enoxaparin Sodium (Enoxaparin Inj 40 Mg/0.4 Ml Syr) 40 mg SQ HS ASHLEY Stop: 06/01/22 20:59 Glucagon (Glucagon For Inj 1 Mg Vial) 1 mg SQ UD PRN; Protocol PRN Reason: Hypoglycemia Protocol Stop: 05/31/22 23:31 Glucose (Glucose 40% Gel 15 Gm Tube) 15 - 30 gm PO UD PRN; Protocol PRN Reason: Hypoglycemia Protocol Stop: 05/31/22 23:31 Glucose (Glucose 10 Tab/Tube) 4 - 8 tab PO UD PRN; Protocol PRN Reason: Hypoglycemia Treatment Stop: 05/31/22 23:31 Sodium Chloride (Nss 1000ml) 1,000 mls @ 80 mls/hr IV .[id number] [facility] Stop: 05/31/22 23:24 Last Admin: 05/02/22 01:01 Dose: 80 mls/hr Ceftriaxone Sodium 2,000 mg/ (Dextrose) 70 mls @ 100 mls/hr IV Q24H ASHLEY; Protocol Stop: 05/09/22 21:59 Doxycycline Hyclate 100 mg/ (Dextrose) 110 mls @ 50 mls/hr IV Q12H ASHLEY Stop: 05/08/22 23:24 Last Infusion: 05/02/22 03:12 Dose: Infused Methylprednisolone 40 mg/ (Syringe) 0.64 mls @ 1.5 mls/min IV BID [facility] Stop: 06/01/22 08:59 Insulin Aspart (Insulin Aspart Per Unit) 0 units SC Q6 ASHLEY Stop: 06/01/22 00:00 Last Admin: 05/02/22 06:00 Dose: 1 units Levalbuterol HCl (Levalbuterol 1.25mg/0.5ml Neb) 1.25 mg NEB TIDR ASHLEY; Protocol Stop: 06/01/22 06:59 Last Admin: 05/02/22 06:57 Dose: 1.25 mg Levalbuterol HCl (Levalbuterol 1.25mg/0.5ml Neb) 1.25 mg NEB Q2H PRN; Protocol PRN Reason: Shortness Of Breath Or Wheezing Stop: 05/31/22 23:24 Metoprolol Tartrate (Metoprolol Tartrate 1 Mg/Ml Vial) 5 mg IV Q6 PRN PRN Reason: Tachycardia Stop: 06/01/22 00:00 Miscellaneous (Carbohydrates For Hypoglycemia ) 15 - 30 gm PO UD PRN PRN Reason: Hypoglycemia Protocol Stop: 05/31/22 23:31 Nitroglycerin (Nitroglycerin Sl 0.4 Mg/Tab Tab) 0.4 mg SL UD PRN PRN Reason: Chest Pain Stop: 05/31/22 23:24 Polyethylene Glycol (Polyethylene (Miralax) 17 Gm Pack) 17 gm PO DAILY PRN PRN Reason: Constipation Stop: 05/31/22 23:24
[2022-05-02] MEDS: methylPREDNISolone 40 MG in SYRINGE 0 ML IV SCH ×2 (09:14→21:54)
[2022-05-02 09:42] LABS: INR 1.1 (0.9-1.1); Partial Thromboplastin Time 27.8 Seconds (21.0-31.0); Prothrombin Time 11.2 Seconds (9.0-12.0)
[2022-05-02] MEDS ORDERED: MIDAZOLAM HCL 5 MG/ML 1 ML VIAL ONE (09:48)
[2022-05-02] MEDS ORDERED: fentaNYL citrate 100 MCG/2 ML VIAL ONE (09:48)
--- NOTE | 2022-05-02 10:03 | Pre Anesthesia Assessment ---
Date of Service May 02, 2022 Pre Sedation Assessment Vital Signs Temp Pulse Pulse Resp BP BP Pulse Ox 05/02/22 06:57 81 18 94 05/02/22 04:00 67 20 145/72 H 92 05/02/22 01:00 85 22 107/72 92 05/02/22 00:00 98 H 20 154/96 H 93 05/02/22 00:00 05/01/22 23:00 94 H 22 151/107 H 93 05/01/22 22:41 89 20 88 L 05/01/22 22:40 22 85 L 05/01/22 22:15 96 H 20 160/91 H 92 05/01/22 20:23 96 H 20 155/100 H 92 05/01/22 18:05 36.9 C 160 H 22 152/89 H 89 L Pulse Ox O2 Del Method O2 Del Method O2 Flow Rate O2 Flow Rate 05/02/22 06:57 Oxymask 10 05/02/22 04:00 Oxymask 10 05/02/22 01:00 Oxymask 9 05/02/22 00:00 Oxymask 9 05/02/22 00:00 93 Oxymask 9 05/01/22 23:00 Oxymask 9 05/01/22 22:41 Oxymask 6 05/01/22 22:40 Nasal Cannula 4 05/01/22 22:15 Nasal Cannula 4 05/01/22 20:23 Nasal Cannula 3 05/01/22 18:05 Room Air Pre-Sedation Airway Assessment Smoking Status: Never smoker Hx Sleep Apnea: No Short, Thick Neck: No Thyromental Distance: > or= 3.5 Finger Breadths Oral Cavity: + Dentures Mallampati Class: III ASA: ASA3 NPO Status Date of Last Intake of Fluids: 05/02/22 Time of Last Intake of Fluids: 06:00 Last Oral Intake of Fluids Comment: sips with pills Date of Last Intake of Solid Food: 05/01/22 Time of Last Intake of Solid Foods: 20:00 Notes The planned sedation has been discussed with the patient. Informed Consent was obtained. I have identified the patient, determined the appropriateness of sedation and have assessed the patient immediately prior to the procedure. All medicine(s) and interventions are by my order.
--- NOTE | 2022-05-02 10:37 | Post Anesthesia Assessment ---
Date of Service May 02, 2022 Post Sedation Assessment Vital Signs Temp Pulse Pulse Resp BP BP Pulse Ox 05/02/22 10:30 95 H 14 154/113 H 97 05/02/22 10:25 84 14 151/70 H 93 05/02/22 10:20 85 14 150/85 H 91 05/02/22 10:15 85 14 144/78 H 93 05/02/22 10:10 88 16 153/79 H 95 05/02/22 06:57 81 18 94 05/02/22 04:00 67 20 145/72 H 92 05/02/22 01:00 85 22 107/72 92 05/02/22 00:00 98 H 20 154/96 H 93 05/02/22 00:00 05/01/22 23:00 94 H 22 151/107 H 93 05/01/22 22:41 89 20 88 L 05/01/22 22:40 22 85 L 05/01/22 22:15 96 H 20 160/91 H 92 05/01/22 20:23 96 H 20 155/100 H 92 05/01/22 18:05 36.9 C 160 H 22 152/89 H 89 L Pulse Ox O2 Del Method O2 Del Method O2 Flow Rate O2 Flow Rate 05/02/22 10:30 High Flow Nasal Cannula 05/02/22 10:25 High Flow Nasal Cannula 05/02/22 10:20 High Flow Nasal Cannula 05/02/22 10:15 High Flow Nasal Cannula 05/02/22 10:10 High Flow Nasal Cannula 05/02/22 06:57 Oxymask 10 05/02/22 04:00 Oxymask 10 05/02/22 01:00 Oxymask 9 05/02/22 00:00 Oxymask 9 05/02/22 00:00 93 Oxymask 9 05/01/22 23:00 Oxymask 9 05/01/22 22:41 Oxymask 6 05/01/22 22:40 Nasal Cannula 4 05/01/22 22:15 Nasal Cannula 4 05/01/22 20:23 Nasal Cannula 3 05/01/22 18:05 Room Air Discharge Sedation Level of Care: Fast Track Phase II Post Sedation Plan On clinical assessment, the patient appears to have tolerated the sedation without complications. Patient is recovering as anticipated. Patient will continue to be monitored by nursing and may be discharged when sedation discharge criteria are met per below protocol. Upon Completions of procedure up to 15 minutes continue every 5 minute vital signs and the P.A.R. score; then discharge to a Phase I or Fast Track to Phase II per the following guidelines: * Discharge Patient to appropriate Phase II area if PAR is 8 or greater or return to pre- procedure baseline. The post - procedure orders will be as directed. * If PAR score is less than 8 or not return to pre-procedure baseline then patient will follow Phase I monitoring till PAR is reached for Phase II. The Phase I may be done in procedure room or may call to secure a Phase I area. * If naloxone or flumazenil are used for reversal, hold in Phase I for continued monitoring from when last reversal dose was given for a minimum of 60 minutes or longer pending the nurse and/or physician discretion of patient condition before discharge to Phase II. Please call the Sedation Physician to re-evaluate and complete post-note for discharge to Phase II area. Do NOT discharge from procedure sedation or Phase 1 until post- sedation evaluation note is complete by procedure /sedation MD Sedation Discharge Instructions to be given to the patient at discharge to home.
--- NOTE | 2022-05-02 10:57 | Procedure Note ---
Procedure Note Date of Service May 02, 2022 Note Procedure: Fiberoptic bronchoscopy Endobronchial ultrasound evaluation during bronchoscopy Endobronchial ultrasound with transbronchial needle aspiration of lymph nodes, single station Endobronchial biopsy of endobronchial lesion Conscious sedation Provider: Pedro Luis Hammonds MD Consent: Signed by patient and timeout verified prior to procedure. Sedation start: 1009 Sedation end: 1040 Conscious sedation: 125 mcg fentanyl, 5 mg Versed, topical lidocaine per RT protocol Estimated blood loss: 10 mL Indication: Abnormal CT scan Procedure: Patient was brought to the bronchoscopy suite. Consent was verified. Appropriate radiographic studies had been reviewed prior to the procedure. Standard monitoring was applied. Oxygen was administered via high flow nasal cannula as well as the facemask. After topical anesthesia of the airways per respiratory therapy protocol, the fiberoptic scope was advanced through the oropharynx via the bite-block. Oropharynx was unremarkable. Vocal cords were visualized and were normal in f unction and appearance. Topical anesthesia of the cords was achieved with instillation of lidocaine through the scope. Scope was then passed through the vocal cords. The trachea was slightly tortuous. Main marek was splayed. Anesthesia of the lower airways was achieved with instillation of lidocaine through the scope. A sequential and systematic examination of the lower airways was conducted. The right-sided airways were patent and the mucosa appeared hyperemic with prominent submucosal lymphatics. Left-sided airways were then examined. The left mainstem bronchus was widely patent. The takeoff to the left upper lobe and lingula was also patent. Just distal to the takeoff of the left upper lobe at L C2, there was a friable mucosal lesion extending from the 7 o'clock position and occluding 80 to 90% of the airway extending into the left lower lobe. I was able to pass the scope beyond this lesion and the distal airways appeared patent including the superior segment. The fiberoptic bronchoscope was then removed and the endobronchial ultrasound passed into the airway via the bite-block and through the vocal cords. A survey of mediastinal lymph node stations was conducted. Pathologic adenopathy was identified in the 4R and 7 stations. There was small lymph nodes identified in 4L. No significant adenopathy in the 10 or 11 L regions. Small mediastinal adenopathy identified in 10 R. The scope was then directed to the level 4R station. A total of 8 passes using a 21-gauge needle were conducted. Rapid onsite pathology confirmed adequacy of the specimen. The endobronchial ultrasound scope was then withdrawn. The fiberoptic scope was readvanced through the airway via the bite-block. It was directed to the left lower lobe. Forceps were used to take a single biopsy of the endobronchial lesion. Significant bleeding ensued requiring instillation of chilled saline to obtain hemostasis. At that point time the patient had a slight decrease in his oxygen saturations to 86% and developed tachycardia with heart rate in the 130s. It was deemed prudent to avoid any additional procedures so the scope was withdrawn once hemostasis was confirmed. Patient was returned to the recovery room. Impression: 1. Endobronchial lesion within the left lower lobe, status post endobronchial biopsy 2. Extensive mediastinal and hilar adenopathy. Status post endobronchial ultrasound fine-needle aspiration of level 4R lymph node. Await final pathology 3. Recommend hematology oncology consultation and consideration of palliative care consultation and discussion regarding CODE STATUS. Coding CPT Codes Pulmonary/Thoracic - Pulmonary and Thoracic: 57272 Bronchoscopy w bronchial or endobronchial bx ([id number]) Pulmonary/Thoracic - Pulmonary and Thoracic: 84110 Bronchoscopy, w/EBUS 1 or 2 mediastinal ([id number]) Sedation/Anesthesia - Sedation/Anesthesia: 33564 Mod Sedation by the same physician;Init15 Min Child Age 5 & Up ([id number]) Sedation/Anesthesia - Sedation/Anesthesia: 48150 Mod Sedation by the same physician; Ea [id number] Minutes ([id number]) [facility] [place]odes (Charges) Pulmonary/Thoracic Procedure 1: Pulmonary and Thoracic: 42166 Bronchoscopy w bronchial or endobronchial bx Procedure 2: Pulmonary and Thoracic: 81384 Bronchoscopy, w/EBUS 1 or 2 mediastinal Sedation/Anesthesia Procedure 3: Sedation/Anesthesia: 16073 Mod Sedation by the same physician;Init15 Min Child Age 5 & Up Total Sedation Time (minutes): 35 Procedure 4: Sedation/Anesthesia: 36881 Mod Sedation by the same physician; Ea [id number] Minutes
--- NOTE | 2022-05-02 11:24 | XRay Report ---
XR chest 1V portable CLINICAL HISTORY: Post Bronchoscopy COMPARISON STUDY: Chest radiograph and chest CT May 01, 2022. FINDINGS: There is no pneumothorax following bronchoscopy. Small bilateral pleural effusions are agai n noted. Interstitial thickening persists. Mediastinal and bilateral hilar lymphadenopathy as well as innumerable pulmonary nodules are better are better depicted on prior chest CT. IMPRESSION: 1. No pneumothorax status post bronchoscopy. 2. Pulmonary nodules, airspace opacities and mediastinal and bilateral hilar lymphadenopathy better d epicted on prior chest CT. 3. Small bilateral pleural effusions. Interstitial pulmonary edema. ACT 112: Negative or not required by law. Electronically signed by: Bernardo Phelps M.D. 05/02/2022 11:21 AM
[2022-05-02] MEDS ORDERED: Nursing to Pharmacy Communication SCH (17:00)
--- NOTE | 2022-05-02 17:36 | Cardiology Consultation ---
Date of Consultation May 02, 2022 Assessment & Plan (1) Paroxysmal atrial fibrillation: (2) Elevated troponin: Plan 72-year-old male referred for evaluation after recent treatment for possible pneumonia with notable history of increasing dyspnea times several months. CT and chest x-ray revealed pulmonary mass confirmed on bronchoscopy now status postbiopsy. On initial presentation patient found to be in atrial fibrillation with rapid response with spontaneous conversion to sinus rhythm Recommendations: We will add low-dose beta-ezekiel to her regimen to hopefully reduce episodes of atrial fibrillation and control rates of occurring. We will need to discuss anticoagulation as clinical course progresses. Echocardiogram will be reviewed. Repeat EKG in a.m. given mild elevation troponin likely secondary to rate and current demands History of Present Illness Reason for Consultation: Paroxysmal atrial fibrillation Requesting Physician: Dr. Simmons Attending Physician: Cody Simmons MD History of Present Illness Patient is a 72-year-old male without prior history of cardiac disease per patient description. Underlying history of hypertension, type 2 diabetes mellitus, Hyperlipidemia. Patient currently on no medication other than treatme nt of upper respiratory infection recently. Per report patient with increasing dyspnea for several weeks or months. Sought evaluation at urgent care and was treated for possible pneumonia with oral r egimen. Chest x-ray performed in evaluation after initial treatment demonstrated concerning findings and patient referred to emergency room. On presentation patient found to be in a narrow complex tachycardia/atrial fibrillation. Patient was treated with 5 mg IV metoprolol with ultimate conversion to sinus rhythm. He is referred now for further evaluation. Patient poor historian but denies prior history of cardiac disease or arrhythmias. Has not sought medical care until recent events Chest x-ray and CT scan suggest pulmonary malignancy with patient undergoing bronchoscopy today demonstrating endobronchial lesion and hilar adenopathy Time of examination patient in sinus rhythm and in no distress Allergies Allergy/AdvReac Type Severity Reaction Status Date / Time No Known Allergies Allergy Verified 05/01/22 21:09 Home Medications Medication Instructions Recorded Confirmed Type albuterol sulfate 90 mcg/actuation 2 puff inhalation Q4H PRN 05/01/22 05/01/22 History aerosol inhaler Shortness Of Breath Or Wheezing amoxicillin 875 mg-potassium 1 tab PO BID 05/01/22 05/01/22 History clavulanate 125 mg tablet clotrimazole 10 mg daisha 10 mg PO 5XD 05/01/22 05/01/22 History Patient History Social History Smoking Status: Never smoker Hx Alcohol Use: No Hx Substance Use: No Preferred Language: Mongolian Communication Ability: Effective Repairer Controller Tester Required: No Beliefs That Will Affect Care: None Current Living Situation: Alone Feels Safe at Home: Yes Assistive Devices: None Review of Systems Review of Systems: All systems reviewed & are unremarkable except as noted in HPI & below Physical Exam Constitutional: + ill appearing; no acute distress Eyes: PERRL, conjunctivae normal, anicteric sclerae ENMT: external ear and nose normal, oropharynx normal Neck: trachea midline, no thyromegaly Cardiovascular: Rate/Rhythm: regular rate and regular rhythm Gastrointestinal (Abdomen): normal bowel sounds, soft, nontender, no hepatosplenomegaly Results & Data ([facility]) Vital Signs (Past 12 Hours) Vital Signs Temp Pulse Pulse Resp BP Pulse Ox O2 Del Method 05/02/22 14:00 36.7 C 77 20 152/74 H 95 Nasal Cannula 05/02/22 14:55 75 20 90 High Flow Nasal Cannula 05/02/22 12:20 79 05/02/22 14:27 High Flow Nasal Cannula 05/02/22 14:21 36.6 C 73 28 H 158/81 H 89 L High Flow Nasal Cannula 05/02/22 13:27 79 19 93 High Flow Nasal Cannula 05/02/22 13:20 36.6 C 77 26 H 148/78 H 91 High Flow Nasal Cannula 05/02/22 12:50 36.5 C 77 26 H 141/70 H 92 High Flow Nasal Cannula 05/02/22 12:20 36.5 C 76 26 H 138/79 90 High Flow Nasal Cannula 05/02/22 13:11 79 19 95 High Flow Nasal Cannula 05/02/22 12:00 79 16 133/68 91 High Flow Nasal Cannula 05/02/22 10:00 Oxymask, High Flow Nasal Cannula 05/02/22 11:30 85 16 145/72 H 91 High Flow Nasal Cannula 05/02/22 11:15 77 16 145/72 H 92 High Flow Nasal Cannula 05/02/22 11:08 74 16 148/81 H 93 High Flow Nasal Cannula 05/02/22 10:30 95 H 14 154/113 H 97 High Flow Nasal Cannula 05/02/22 10:25 84 14 151/70 H 93 High Flow Nasal Cannula 05/02/22 10:20 85 14 150/85 H 91 High Flow Nasal Cannula 05/02/22 10:15 85 14 144/78 H 93 High Flow Nasal Cannula 05/02/22 11:00 80 16 137/67 91 High Flow Nasal Cannula 05/02/22 10:45 86 16 133/68 90 Oxymask, High Flow Nasal Cannula 05/02/22 10:35 88 16 137/70 86 L Oxymask, High Flow Nasal Cannula 05/02/22 10:10 88 16 153/79 H 95 High Flow Nasal Cannula 05/02/22 06:57 81 18 94 Oxymask O2 Flow Rate FiO2 05/02/22 14:00 05/02/22 14:55 30 60 05/02/22 12:20 05/02/22 14:27 25 50 05/02/22 14:21 25 50 05/02/22 13:27 25 50 05/02/22 13:20 30 80 05/02/22 12:50 30 80 05/02/22 12:20 30 100 05/02/22 13:11 30 80 05/02/22 12:00 05/02/22 10:00 05/02/22 11:30 05/02/22 11:15 05/02/22 11:08 05/02/22 10:30 05/02/22 10:25 05/02/22 10:20 05/02/22 10:15 05/02/22 11:00 05/02/22 10:45 05/02/22 10:35 05/02/22 10:10 05/02/22 06:57 10
[2022-05-02] MEDS ORDERED: FUROSEMIDE INJ 20 MG/2 ML VIAL IV ONE (18:42)
[2022-05-02] MEDS: METOPROLOL SUCC 25MG EXT REL TAB PO SCH (20:59)
[2022-05-02] MEDS: cefTRIAXone SODIUM 2,000 MG in DEXTROSE 5% 50 ML IV SCH (21:30)
[2022-05-02] MEDS ORDERED: MoRPHine SULFATE 2 MG/ML CARP IV STA (23:31)
[2022-05-03] MEDS: DOXYCYCLINE HYCLATE 100 MG CAP PO SCH (00:15)
[2022-05-03] MEDS ORDERED: OPTIRAY 350 100ml IV ONE (00:46)
[2022-05-03] MEDS ORDERED: GADOBUTROL 65ML VIAL IV ONE (01:15)
[2022-05-03] MEDS: DOXYCYCLINE HYCLATE 100 MG in DEXTROSE 5% 100 ML IV SCH ×2 (02:14→12:52)
[2022-05-03 07:03] LABS: Hemoglobin 12.6 g/dl (14.0-18.0); Mean Corpuscular Hemoglobin 28.8 pg (25.0-34.0); Mean Corpuscular Hgb Conc 32.3 g/dL (32.0-36.0); Mean Platelet Volume 10.1 fL (9.4-12.4); Platelet Count 215 K/uL (130-400); RDW Coefficient of Variation 12.4 % (11.5-14.5); RDW Standard Deviation 40.8 fL (36.4-46.3); Red Blood Count 4.38 M/uL (4.63-6.08); White Blood Count 7.11 K/ul (4.8-10.8)
[2022-05-03] MEDS: LEVALBUTEROL 1.25MG/0.5ML NEB NEB SCH ×3 (07:11→19:32)
[2022-05-03] MEDS: CLOTRIMAZOLE 10 MG TROCHE BUCCAL SCH ×6 (07:29→20:52)
[2022-05-03 07:39] LABS: BUN Creatinine Ratio 28.4 (10-20); Calcium 9.2 mg/dl (8.5-10.1); Est GFR (African American) 102.2 ml/min; Est GFR (Non-African American) 88.2 ml/min; Magnesium 1.8 mg/dl (1.7-2.4); Potassium 4.7 mmol/L (3.5-5.1)
--- NOTE | 2022-05-03 07:41 | CT Scan Report ---
ABDOMEN AND PELVIS CT WITH IV CONTRAST CT DOSE: 413.16 mGy.cm HISTORY: metastatic pulmonary disease. Primary? TECHNIQUE: Multiaxial CT images of the abdomen and pelvis were performed following the use of intrave nous contrast. A dose lowering technique was utilized adhering to the principles of ALARA. COMPARISON STUDY: Chest CTA 05/01/2022. FINDINGS: Focal indentation at the superior endplate of L1 favors a Schmorl's node. Innumerable bilat eral pulmonary nodules, patchy bilateral lower lobe densities, and small bilateral pleural effusions are again noted. Interlobular septal thickening likely represents a superimposed pulmonary edema. No pneumoperitoneum. No pneumatosis. No suspicious lytic or blastic osseous lesions. There is a small hi atus hernia. Prior cholecystectomy. Pneumobilia. No hepatic masses. Wedge-shaped hypodensity within t he splenic dome consistent with a splenic infarct. Normal right adrenal gland. There is an indetermin ate 16 mm left adrenal gland nodule. The main portal vein is patent. No retroperitoneal lymphadenopat hy. Calcified plaque within the normal caliber abdominal aorta. No pelvic lymphadenopathy or pelvic f ree fluid. The bladder is unremarkable. The prostate gland is mildly enlarged. No bowel wall thickeni ng or obstruction. Normal appendix. Bile duct dilatation may be due to the patient's postcholecystect torito state. The pancreas enhances normally. Small wedge-shaped hypodensity within the upper pole of th e right kidney favors a small renal infarct. The left kidney enhances normally. No hydronephrosis. IMPRESSION: 1. No evidence for metastatic disease within the abdomen or pelvis. 2. Innumerable bilateral pulmonary nodules again noted. This could represent metastatic disease or po ssibly septic pulmonary emboli. 3. 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 4. Mild pulmonary edema and small bilateral pleural effusions persist. 5. No bowel wall thickening or obstruction. 6. A 16 mm indeterminate left adrenal nodule. ACT 112: Negative or not required by law. Electronically signed by: Tang Lyons M.D. 05/03/2022 7:39 AM
--- NOTE | 2022-05-03 07:59 | Oncology Consultation ---
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 Bronchoscopy/EBUS with biopsies performed yesterday with pathology pending. Discussion with pathology indicates that he likely has adenocarcinoma of the lung. Discussed my thoughts with patient, his son and brother. Explained to them that imaging studies are concerning for metastatic disease. -Discussed treatment options for stage IV lung cancer including targeted treatment if he has an actionable mutation or combination chemoimmunotherapy treatment if no actionable mutation is found on NGS. -Since he is very symptomatic requiring 10 L oxygen per minute, would recommend evaluation by radiation oncology to see if palliative radiation to the lung would be an option for initial treatment since response may be more rapid with radiation treatment -His imaging studies are concerning for septic emboli. Would recommend work-up for underlying infection with blood cultures. 2D echocardiogram was unremarkable Thank you for this consult. Oncology will continue following patient while in the hospital. Please feel free to call if you have any further questions History of Present Illness Reason for Consultation: probable new metastatic cancer Attending Physician: Cody Simmons MD History of Present Illness Mr. Penaloza is a pleasant 72-year-old gentleman with history of hypertension, prediabetes as well as reported history positive hepatitis B surface antigen who presented to the ER at [facility] on 05/01/2022 after being referred from urgent care. He presented to urgent care last week with complaints of shortness of breath for which he was placed on Augmentin due to concern for pneumonia. Chest x-ray obtained at while in the ED on 05/01/2022 revealed multifocal bilateral airspace opacities favor a viral/atypical pneumonia. CTA chest revealed no evidence for a pulmonary embolus, Innumerable bilateral pulmonary nodules as well as mediastinal and bilateral hilar lymphadenopathy consistent with metastatic disease, mild interstitial pulmonary edema and small bilateral pleural effusions as well as patchy airspace opacities within the bilateral lower lobes which could represent a superimposed pneumonia.bronchoscopy/EBUS with biopsies performed by pulmonology on 05/02/2022 revealed endobronchial lesion within the left lower lobe which was biopsied as well as extensive mediastinal and hilar adenopathy with EBUS FNA of level 4R lymph node. Final pathology was pending at the time of today's visit but per discussion with pathology was concerning for adenocarcinoma of the lung. He had a CT abdomen and pelvis performed yesterday which revealed innumerable bilateral pulmonary nodules possibly representing metastatic disease or septic pulmonary emboli, Splenic and right renal infarcts, mild pulmonary edema and small bilateral pleural effusions as well as 16 mm indeterminate left adrenal nodule. During my evaluation of patient today, he endorses shortness of breath. States that he quit smoking about 10 years ago but prior to that smoked 1 to 2 packs of cigarettes per day 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 Advanced care planning/counseling discussion Cancer related pain Dyspnea and respiratory abnormalities Palliative care encounter Social History Smoking Status: Never smoker Hx Alcohol Use: No Hx Substance Use: No Preferred Language: Upper Sorbian Communication Ability: Effective Arts Administrator Or Manager Required: No Beliefs That Will Affect Care: Quaker Current Living Situation: Alone Feels Safe at Home: Yes Assistive Devices: None Review of Systems Review of Systems: All systems reviewed & are unremarkable except as noted in HPI & below Physical Exam Constitutional: WD/WN, vitals as above Eyes: PERRL, conjunctivae normal, anicteric sclerae Respiratory: normal respiratory effort, lungs clear to auscultation Cardiovascular: Rate/Rhythm: + irregularly irregular Results & Data ([facility]) Vital Signs (Past 12 Hours) Vital Signs Temp Pulse Pulse Resp BP BP Pulse Ox 05/03/22 07:36 36.8 C 60 18 147/73 H 95 05/03/22 07:13 70 18 94 05/02/22 22:00 87 05/03/22 02:30 36.3 C L 79 18 154/72 H 95 05/02/22 20:15 05/03/22 00:00 05/02/22 23:09 36.5 C 82 20 140/64 93 05/02/22 22:06 85 94 05/02/22 20:53 108 H 153/85 H Pulse Ox O2 Del Method O2 Del Method O2 Flow Rate O2 Flow Rate 05/03/22 07:36 Nasal Cannula 2 05/03/22 07:13 Oxymask 10 05/02/22 22:00 05/03/22 02:30 Oxymask 12 05/02/22 20:15 Oxymask 15 05/03/22 00:00 94 Oxymask 14 05/02/22 23:09 High Flow Nasal Cannula 15 05/02/22 22:06 Nasal Cannula 15 05/02/22 20:53
--- NOTE | 2022-05-03 07:59 | Hospitalist Progress Note ---
Date of Service May 03, 2022 Assessment & Plan (1) Paroxysmal atrial fibrillation: Plan: Lung adenocarcinoma, with metastases This is a 72-year-old male who presents with ongoing shortness of breath. 1. Shortness of breath. CT chest showing multiple lung nodules possible metastatic disease and superimposed pneumonia. The patient quit smoking 12 years ago. Empirically started on Rocephin and doxycycline nebs around the clock and p.r.n.IV steroids. Pulmonary medicine consulted, and patient underwent bronchoscopy with biopsy Biopsy c/w metastatic adenocarcinoma, lung primary. Currently patient is on oxymask 9L Continue to closely monitor on telemetry. CT of the abd/ pelvis to look for any primary 1. No evidence for metastatic disease within the abdomen or pelvis. 2. Innumerable bilateral pulmonary nodules again noted. This could represent metastatic disease or possibly septic pulmonary emboli. 3. 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 4. Mild pulmonary edema and small bilateral pleural effusions persist. 5. No bowel wall thickening or obstruction. 6. A 16 mm indeterminate left adrenal nodule. Because of possible septic emboli appearance, blood cultures also ordered - pending Brain MRI ordered, to look for possible metastases - negative Oncology and palliative medicine consulted as well. Discussed with medical oncology, and consulted radiation oncology as well. 2. Elevated troponin. reviewed serial enzymes, echocardiogram. Monitor in the tele floor. Troponin elevation secondary to tachycardia/demand Echo LV is normal in size. Moderate concentric LVH. LV wall motion is normal. EF 60 to 65%. Aortic valve sclerosis moderate, without significant aortic valvular stenosis. There is mild mitral valve annular calcification. The mitral valve leaflets are mildly redundant with borderline prolapse of posterior leaflet. There is mild mitral regurg. LA size is normal. Doppler findings do not suggest pulmonary hypertension. 3. A. fib with RVR, spontaneously converted back to sinus. Received a dose of iv lopressor in the ER. Seen by cardiology, and started on low-dose beta-ezekiel. Plan to discuss anticoagulation. 4. History of hepatitis B surface antigen positive.Hepatitis panel ordered. 5. History of prediabetes, Will follow HbA1c levels. Monitor the blood sugars. ISS 6. Hyperlipidemia. Currently not taking any medication. Follow lipid profile. DVT prophylaxis.Lovenox. DISPOSITION:tele floor. Code: full code (2) Abnormal CT scan of lung: (3) Mediastinal adenopathy: Admission and Anticipated Discharge Date Admission Date: May 01, 2022 Subjective Patient seen in follow-up of acute hypoxic respiratory failure. Multiple nodules noted on CT chest. Underwent bronchoscopy/biopsy by pulmonary medicine Currently on 9L Oxymask Appears comfortable, and reports no complaints. Denies any chest pain or palpitations. Discussed with oncology over the phone this AM, CT abdomen results. Ordered blood cultures. Review of Systems Review of Systems: All systems reviewed & are unremarkable except as noted in Subjective Physical Exam Physical Exam: GENERAL: The patient is of moderate build, not in acute distress. on oxymask HEENT: Pupils equal, round and reactive to light. Oral mucosa moist. NECK: No JVD, no neck masses. CARDIOVASCULAR: S1 and S2 heard. RRR. No murmurs. RESPIRATORY: Normal AP diameter. No accessory muscle use. No wheezing or crackles. ABDOMEN: Soft, bowel sounds present, nontender, no distention. NEURO:Awake alert, able to answer simple questions appropriately. No facial asymmetry, moves extremities EXTREMITIES: No edema, no erythema. Results & Data Results & Data ([facility]) Vital Signs (Past 12 Hours) Vital Signs Temp Pulse Pulse Resp BP BP Pulse Ox 05/03/22 07:36 36.8 C 60 18 147/73 H 95 05/03/22 07:13 70 18 94 05/02/22 22:00 87 05/03/22 02:30 36.3 C L 79 18 154/72 H 95 05/02/22 20:15 05/03/22 00:00 05/02/22 23:09 36.5 C 82 20 140/64 93 05/02/22 22:06 85 94 05/02/22 20:53 108 H 153/85 H Pulse Ox O2 Del Method O2 Del Method O2 Flow Rate O2 Flow Rate 05/03/22 07:36 Nasal Cannula 2 05/03/22 07:13 Oxymask 10 05/02/22 22:00 05/03/22 02:30 Oxymask 12 05/02/22 20:15 Oxymask 15 05/03/22 00:00 94 Oxymask 14 05/02/22 23:09 High Flow Nasal Cannula 15 05/02/22 22:06 Nasal Cannula 15 05/02/22 20:53 Laboratory Results 05/03/22 05/03/22 05/03/22 Range/Units 07:27 06:47 06:47 WBC 7.11 (4.8-10.8) K/ul RBC 4.38 L (4.63-6.08) M/uL Hgb 12.6 L (14.0-18.0) g/dl Hct 39.0 L (40.1-51.0) % MCV 89.0 (80.0-100.0) fL MCH 28.8 (25.0-34.0) pg MCHC 32.3 (32.0-36.0) g/dL RDW Std Deviation 40.8 (36.4-46.3) fL RDW Coeff of Dean 12.4 (11.5-14.5) % Plt Count 215 (130-400) K/uL MPV 10.1 (9.4-12.4) fL PT (9.0-12.0) Seconds INR (0.9-1.1) APTT (21.0-31.0) Seconds PTT Ratio Sodium 138 (136-145) mmol/L Potassium 4.7 (3.5-5.1) mmol/L Chloride 100 (98-107) mmol/L Carbon Dioxide 33 H (21-32) mmol/L Anion Gap 5 (3-11) BUN 23 (6-23) mg/dl Creatinine 0.81 (0.6-1.4) mg/dl Est Cr Clr Drug Dosing 68.0 ml/min Est GFR ( Amer) 102.2 ml/min Est GFR (Non-Af Amer) 88.2 ml/min BUN/Creatinine Ratio 28.4 H (10-20) Glucose 174 H (70-99(Fasting)) mg/dl POC Glucose 152 H (70-99) mg/dl Calcium 9.2 (8.5-10.1) mg/dl Phosphorus 4.0 (2.5-4.9) mg/dl Magnesium 1.8 (1.7-2.4) mg/dl Procalcitonin (0-0.5) ng/ml 05/02/22 05/02/22 05/02/22 Range/Units 20:20 16:41 16:40 WBC (4.8-10.8) K/ul RBC (4.63-6.08) M/uL Hgb (14.0-18.0) g/dl Hct (40.1-51.0) % MCV (80.0-100.0) fL MCH (25.0-34.0) pg MCHC (32.0-36.0) g/dL RDW Std Deviation (36.4-46.3) fL RDW Coeff of Dean (11.5-14.5) % Plt Count (130-400) K/uL MPV (9.4-12.4) fL PT (9.0-12.0) Seconds INR (0.9-1.1) APTT (21.0-31.0) Seconds PTT Ratio Sodium (136-145) mmol/L Potassium (3.5-5.1) mmol/L Chloride (98-107) mmol/L Carbon Dioxide (21-32) mmol/L Anion Gap (3-11) BUN (6-23) mg/dl Creatinine (0.6-1.4) mg/dl Est Cr Clr Drug Dosing ml/min Est GFR ( Amer) ml/min Est GFR (Non-Af Amer) ml/min BUN/Creatinine Ratio (10-20) Glucose (70-99(Fasting)) mg/dl POC Glucose 172 H 252 H 141 H (70-99) mg/dl Calcium (8.5-10.1) mg/dl Phosphorus (2.5-4.9) mg/dl Magnesium (1.7-2.4) mg/dl Procalcitonin (0-0.5) ng/ml 05/02/22 05/02/22 05/02/22 Range/Units 13:28 08:53 08:53 WBC (4.8-10.8) K/ul RBC (4.63-6.08) M/uL Hgb (14.0-18.0) g/dl Hct (40.1-51.0) % MCV (80.0-100.0) fL MCH (25.0-34.0) pg MCHC (32.0-36.0) g/dL RDW Std Deviation (36.4-46.3) fL RDW Coeff of Dean (11.5-14.5) % Plt Count (130-400) K/uL MPV (9.4-12.4) fL PT 11.2 (9.0-12.0) Seconds INR 1.1 (0.9-1.1) APTT 27.8 (21.0-31.0) Seconds PTT Ratio 1.0 Sodium (136-145) mmol/L Potassium (3.5-5.1) mmol/L Chloride (98-107) mmol/L Carbon Dioxide (21-32) mmol/L Anion Gap (3-11) BUN (6-23) mg/dl Creatinine (0.6-1.4) mg/dl Est Cr Clr Drug Dosing ml/min Est GFR ( Amer) ml/min Est GFR (Non-Af Amer) ml/min BUN/Creatinine Ratio (10-20) Glucose (70-99(Fasting)) mg/dl POC Glucose 166 H (70-99) mg/dl Calcium (8.5-10.1) mg/dl Phosphorus (2.5-4.9) mg/dl Magnesium (1.7-2.4) mg/dl Procalcitonin < 0.05 (0-0.5) ng/ml Medications Administered Current Inpatient Medications Acetaminophen (Acetaminophen 325 Mg Tab) 650 mg PO Q4H PRN PRN Reason: Pain or Fever Stop: 05/31/22 23:24 Last Admin: 05/02/22 20:49 Dose: 650 mg Albuterol (Albuterol Hfa 8 Gm Inhaler) 2 puffs INH Q4H PRN PRN Reason: Shortness Of Breath Or Wheezing Stop: 05/31/22 23:24 Clotrimazole (Clotrimazole 10 Mg Josiah) 10 mg BUCCAL [id number] ASHLEY Stop: 05/08/22 16:01 Last Admin: 05/03/22 07:29 Dose: Not Given Dextrose (Dextrose 50% 50 Ml Syringe) 25 - 50 ml IV UD PRN; Protocol PRN Reason: Hypoglycemia Protocol Stop: 05/31/22 23:31 Enoxaparin Sodium (Enoxaparin Inj 40 Mg/0.4 Ml Syr) 40 mg SQ HS ASHLEY Stop: 06/01/22 20:59 Glucagon (Glucagon For Inj 1 Mg Vial) 1 mg SQ UD PRN; Protocol PRN Reason: Hypoglycemia Protocol Stop: 05/31/22 23:31 Glucose (Glucose 40% Gel 15 Gm Tube) 15 - 30 gm PO UD PRN; Protocol PRN Reason: Hypoglycemia Protocol Stop: 05/31/22 23:31 Glucose (Glucose 10 Tab/Tube) 4 - 8 tab PO UD PRN; Protocol PRN Reason: Hypoglycemia Treatment Stop: 05/31/22 23:31 Ceftriaxone Sodium 2,000 mg/ (Dextrose) 70 mls @ 100 mls/hr IV Q24H [facility]; Protocol Stop: 05/09/22 21:59 Last Infusion: 05/02/22 21:59 Dose: Infused Doxycycline Hyclate 100 mg/ (Dextrose) 110 mls @ 50 mls/hr IV Q12H [facility] Stop: 05/08/22 23:24 Last Infusion: 05/03/22 04:43 Dose: Infused Methylprednisolone 40 mg/ (Syringe) 0.64 mls @ 1.5 mls/min IV BID [facility] Stop: 06/01/22 08:59 Last Admin: 05/02/22 21:54 Dose: 1.5 mls/min Insulin Aspart (Insulin Aspart Per Unit) 0 units SC ACHS [facility] Stop: 06/01/22 16:59 Last Admin: 05/02/22 21:50 Dose: Not Given Levalbuterol HCl (Levalbuterol 1.25mg/0.5ml Neb) 1.25 mg NEB TIDR ASHLEY; Protocol Stop: 06/01/22 06:59 Last Admin: 05/03/22 07:11 Dose: 1.25 mg Levalbuterol HCl (Levalbuterol 1.25mg/0.5ml Neb) 1.25 mg NEB Q2H PRN; Protocol PRN Reason: Shortness Of Breath Or Wheezing Stop: 05/31/22 23:24 Metoprolol Succinate (Metoprolol Succ 25mg Ext Rel Tab) 12.5 mg PO BID [facility] Stop: 06/01/22 20:59 Last Admin: 05/02/22 20:59 Dose: 12.5 mg Metoprolol Tartrate (Metoprolol Tartrate 1 Mg/Ml Vial) 5 mg IV Q6 PRN PRN Reason: Tachycardia Stop: 06/01/22 00:00 Miscellaneous (Carbohydrates For Hypoglycemia ) 15 - 30 gm PO UD PRN PRN Reason: Hypoglycemia Protocol Stop: 05/31/22 23:31 Nitroglycerin (Nitroglycerin Sl 0.4 Mg/Tab Tab) 0.4 mg SL UD PRN PRN Reason: Chest Pain Stop: 05/31/22 23:24 Polyethylene Glycol (Polyethylene (Miralax) 17 Gm Pack) 17 gm PO DAILY PRN PRN Reason: Constipation Stop: 05/31/22 23:24
[2022-05-03] MEDS: INSULIN ASPART PER UNIT SC SCH ×4 (08:16→21:34)
[2022-05-03] MEDS: METOPROLOL SUCC 25MG EXT REL TAB PO SCH ×2 (08:19→21:47)
[2022-05-03] MEDS: methylPREDNISolone 40 MG in SYRINGE 0 ML IV SCH ×2 (08:20→21:44)
--- NOTE | 2022-05-03 08:26 | Magnetic Resonance Report ---
Brain MRI WITH AND WITHOUT CONTRAST HISTORY: Pulmonary nodules. lung lesions, eval for metastatic dz TECHNIQUE: Multiplanar multisequence MRI of the brain was performed both before and after the intrave nous administration of contrast. COMPARISON STUDY: None. FINDINGS: Motion artifact. There is no mass, hematoma, midline shift, or acute infarct. The paranasal sinuses are clear. The mastoid air cells are clear. The ventricles and sulci demonstrate mild age-re lated involutional changes. Scattered foci of T2 hyperintensity seen within the periventricular and s ubcortical white matter are nonspecific but suggestive of mild microvascular ischemic changes. The ma abhijit vascular flow voids at the skull base are well-maintained. No enhancing intracranial lesions to s uggest metastatic disease. IMPRESSION: 1. Motion artifact. 2. No acute infarct or intracranial hemorrhage. 3. No intracranial lesions to suggest metastatic disease. ACT 112: Negative or not required by law. Electronically signed by: Tang Lyons M.D. 05/03/2022 8:24 AM
--- NOTE | 2022-05-03 09:31 | Palliative Care Consultation ---
Date of Consultation May 03, 2022 Assessment & Plan (1) Palliative care encounter: Met with pt/family. Provided overview of Palliative Medicine, a subspecialty that provides specialized medical care for people living with a serious illness by offering a focus on quality of life. Palliative Medicine is often conflated with hospice: I advised patient/family that Palliative and hospice can be partners but we are not the same. It is important to understand the difference so that we may be informed, and not afraid. Palliative Medicine works to improve QOL through reduction of symptom burden/more control over their illness, for both the patient and family. Palliative medicine clinicians are board certified, specially-trained and another member of the patient's medical care team. We often provide an extra layer of support because our care is based on the needs of the patient, not the prognosis; as such, it's appropriate at any age/advancing stage of a serious illness and can be provided along with curative treatment. Palliative Medicine clinicians are also trained in advanced communication methodologies, to facilitate complex discussions about advanced illness planning, which are needed to help assure that the treatment choices match the patient's goals, aka delivering Goal Concordant care. Finally, we discussed that hospice is a visiting nurse service that focuses on care delivered at the very end of life for patients with terminal illness, with life expectancy less than 6 month. (2) Advanced care planning/counseling discussion: We discussed that cancer patients experience significant symptom and psychosocial burden for which the early integration of supportive oncology with palliative medicine (early findings from the research of [facility]) help address a growing need to manage patients comprehensively, with an emphasis on symptom control, nutritional and psychosocial support, and pharmaceutical review. Palliative care consultation in patients with advanced cancer is not only associated with an improvement in the quality of oncology care, but also a reduction in downstream healthcare utilization. In Ramo et al 2017, when the automatic palliative medicine consult was triggered by specific oncology criteria, 30-day readmission rates and use of chemotherapy after discharge declined, whereas hospice referrals and uptake of support services post- discharge increased. Patients with advanced cancer admitted to an acute care hospital often have short life expectancies and high morbidity - for these patients, the integration of palliative care has improved symptom burden, reduced patient and caregiver distress, increased referral to hospice, and improved outcomes. Pt is aware he has a lung cancer and that it is metastatic. What is less clear is his grasp of how this translates to an incurable albeit potentially controllable cancer. I advised Mcihi and family that cancer today can be managed like a chronic illness and therapy options have come a long way from "only chemo." We spoke about how chronic/progressive disease has a declining trajectory over time where facets of patient self-identity and independence are lost. Every acute event leads to a further decline, resulting- many times, in a new baseline. Advised that the greatest priority is to determine what matters most to pt, then family and to develop a plan of care that is aligned with those priorities. A discussion was held with patient, his son Michi Cortez and his nephew Margarito at the bedside, to determine the Goals of Care (GOC). We spoke about using The Five Questions approach for goals of care delineation, because we want everyone to understand what his goals are, in other words, what is our patient "fighting" for? I asked the followin. What is your understanding of where you are and of your illness?Michi states he knows he has a lung cancer but the medical teams have to tell him what to do, he is not the expert and this si why he came to us. He does not seem to solidly grasp the implication that this metastatic cancer is Stage IV and incurable thought it may well be something he can live with as a chronic cancer illness. He repeatedly states "If they think they can heal me, cure me then I will take 'the poison' {I clarified that he is referring to chemo} but if they say they can't, then I gonna , just let me . That's what." 2. Your fears or worries for the future:He worries about burdening his son and causing sadness. He wants help but is unsure what that will look like or what he needs right now. 3. Your goals and priorities:get options figured out so I can make some choices 4. What outcomes are unacceptable to you? What are you willing to sacrifice and not?:Michi does not want to pursue treatments that will not assure a good outcome: "I don't want to do something that will waste my time." 5. As your disease progresses and your life begins to change even more, what would a good day look like? Michi was unable to answer this question/states he would look to medical team to provide these answers. I tried to address code status and Michi could only say that as medical providers we should know what to do. I explained that medical teams need input from our patients because we want to deliver care that is in accordance with our patient's wishes, goals and preferences for themselves. we do not want to do anything to him that he does not want done, which is why these conversations are so vital. Michi Cortez seemed to have more understanding of the concerns. I reviewed CPR survival: Only about 10% of patients who have bpc-ia-aqeipmck sudden cardiac arrest survive to hospital discharge, with many survivors having neurologic impairment. This rate is even lower among patients with serious coexisting conditions, ie chance of survival to hospital discharge for in- hospital CPR in older people is low to moderate (15%) and decreases with age, comorbidities, performance status and frailty: for pts > 70 yo, more than half of the patients who initially survived resuscitation in the hospital before hospital discharge. The pooled survival to discharge after in-hospital CPR was 1 8% for patients between 70 and 79 years old, 15% for patients between 80 and 89 years old and 11% for patients of 90 years and older. (Danny AVALOSY, Renny LJ, Eros F, et al. Trends in short- and long-term survival among iqj-[id number]-[id number] cardiac arrest patients alive at hospital arrival. Circulation 2014;130:1883- 1890. AND Cheyenne C, Adolph T, Robert R, et al. Performance of clinical risk scores to predict mortality and neurological outcome in cardiac arrest patients. Resuscitation 2019;136:21-29.) I specifically advised patient and family that CPR can be helpful when the reason we need it is from an underlying, fixable issue but when the need for CPR arises from complications of an advanced, incurable medical illness such as Stage IV met lung cancer, then it will not help, reverse or cure the underlying issue to adv Stage IV lung cancer. Furthermore, patient's extensive smoking history portends a high likelihood of smoking related lung disease, for which CPR is also not likely to be of significant benefit in the context of adv COPD/smoking related + Stage IV met lung cancer. I encouraged patient to keep an open mind as he explores options with Dr Alonso later today. I encouraged him to ask questions about the risks/benefits as well as potentials for anticipated survivals with options presented and to weight these risks.benefits against his own wishes for himself and what benefits would mean the most to him. The total time spent in this ACP discussion was 60 min face to face with pt and family as outlined above. (3) Dyspnea and respiratory abnormalities: improved from admission though he is requiring face mask oxygen. He denies air hunger or other distressing symptoms at this time. 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 Patient has some guarded emotions and he was at times impatient with our discussion. He feels very strongly that medical providers should be making the decisions for him about cancer treatment, CPR etc. He has trouble understanding why his input into these matters is important but I am hopeful that with some time and private discussions as a family, some decisions will emerge. Son exhibits some PTSD like behavior as we moved through the discussion and patient discussed his 's cancer journey, which began when their son was young and required he come along for the cancer clinic visits. This should be taken into consideration when discussions are held, I believe we are triggering some painful memories. Michi CORTEZ is the only child, there are no siblings. Patient is Sic[place] and holds fast to his deeply ingrained cultural beliefs and jew. Running Rigger support will be important and I have notified Chapfelicity Gleason. Patient designates his son as HCP, I suggest a POLST be completed prior to DC if pt is willing to make a decision about code status. If not, either a straighforward [place] State Adv Directive can be completed OR we can follow [place] Act 169 for NOK decision making which would designate son as HCP. Palliative Medicine will continue to follow this patient. Thank you for this consult. Iesha Lockett DNP Clinical Director, Palliative Medicine History of Present Illness Reason for Consultation: " On 05/02/22 @ 16:16 Pedro Luis Hammonds Wrote To Inez Fofana metastatic cancer" Attending Physician: Cody Simmons MD History of Present Illness Per excellent admission note: "This is a 72-year-old male with past medical history significant for hypertension, dyslipidemia, prediabetes, history of tobacco abuse, history of hepatitis B surface antigen positive. Currently, did not see doctors for some time, says since the last couple of months, he is feeling short of breath. He went to urgent care last week and prescribed Augmentin for possible pneumonia and he was referred here. The patient states he is sometimes coughing, sometimes get some blood in it and he was feeling dizzy while ambulating. Denies any fever or chills, sometimes chest pressure, palpitations. No headache, no blurred visions, no earache, no runny nose, no sore throat. Appetite is okay. No difficulty swallowing. No nausea, no vomiting. Denies any abdominal pain. He was constipated, but says that has resolved. He did not notice any blood in the stools. Normal bladder movements. Currently no swelling in the legs, requiring oxygen in the ER.Had episodes of on and off of tachycardia in ER." The Chest CT demonstrated multiple lung nodules, suspicious for metastatic disea se along with a superimposed PNA. CT abdomen and pelvis performed today which revealed innumerable bilateral pulmonary nodules possibly representing metastatic disease or septic pulmonary emboli, Splenic and right renal infarcts, mild pulmonary edema and small bilateral pleural effusions as well as 16 mm indeterminate left adrenal nodule. Dr. hammonds performed a bronchoscopy 05/02/2022, which revealed endobronchial lesion within LLL along with extensive mediastinal and hilar adenopathy, EBUS FNA of level 4R lymph node--> preliminary results = probable adenocarcinoma. These findings were reviewed with pt. An initial GOC discussion was held, pt noted to be unsure and deferring to medical providers. Palliative Medicine was consulted to assist with clarifying the GOC and ACP for this pt with newly discovered advanced metastatic lung cancer. Pt is seen with son and nephew present. Patient and his nephew are both from [facility]) in [place]. 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 He lives alone in a single story home with 13 steps to the basement laundry room, in [facility]. There are no pets at home, he has never fallen or had any syncopal episodes.His son and nephew both live towards [facility]. Pt shares he knows about cancer, his from cancer and son used to have to go with her when she went for her treatments because he was too young to be left alone. Patient states he is a former smoker who quit 15 yr ago, prior to this he smoked 2PPD for about 40 years. Pt states he believes he has good support from his friends and neighbors. He does not anticipate having support issues. Pt denies chest pain, headaches, visual changes, loss of weight or appetite, n/v/d/c. Pt admits to dyspnea that has been increasing for a few weeks and some generalized fatigue. He has trouble sleeping which is a lifelong affliction, his family admits he always snores but they have never noticed apnea or any choking/gurgling sounds. He has never been seen by a lung doctor prior to this admission, was never evaluated for smoking related disease. No history of prior PFT. He states he would go for an annual physical most years but in general had good health and did not feel he needed to be seen by numerous specialists. Pt is aware he has a lung cancer and that it is metastatic. 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 Advanced care planning/counseling discussion Cancer related pain Dyspnea and respiratory abnormalities Palliative care encounter Social History Smoking Status: Never smoker Hx Alcohol Use: No Hx Substance Use: No Preferred Language: Brazilian Communication Ability: Effective Area Operations Director Required: No Beliefs That Will Affect Care: None Current Living Situation: Alone Feels Safe at Home: Yes Assistive Devices: None Review of Systems Review of Systems: All systems reviewed & are unremarkable except as noted in Subjective Physical Exam Physical Exam: semi reclined in bed intermittent bronchitic cough some use of accessory muscle coarse rhonchi superimposed on diminished lung field mild barrel chest RRR Abd soft, non tender JAQUEZ, following commands; pt sat up unassisted, removed face mask and ambulated by himself to use the bathroom AAOx3 Skin pale, +warm, no ecchymoses Results & Data ([facility]) Vital Signs (Past 12 Hours) Vital Signs Temp Pulse Pulse Resp BP BP Pulse Ox 05/03/22 07:36 36.8 C 60 18 147/73 H 95 05/03/22 07:13 70 18 94 05/02/22 22:00 87 05/03/22 02:30 36.3 C L 79 18 154/72 H 95 05/03/22 00:00 05/02/22 23:09 36.5 C 82 20 140/64 93 05/02/22 22:06 85 94 Pulse Ox O2 Del Method O2 Del Method O2 Flow Rate O2 Flow Rate 05/03/22 07:36 Nasal Cannula 2 05/03/22 07:13 Oxymask 10 05/02/22 22:00 05/03/22 02:30 Oxymask 12 05/03/22 00:00 94 Oxymask 14 05/02/22 23:09 High Flow Nasal Cannula 15 05/02/22 22:06 Nasal Cannula 15 Laboratory Results reviewed Diagnostic Findings reviewed PG Care Time/CCT Total # of Minutes Spent Total Time Spent with Patient: Total time spent is greater than 50% in coordination of care (as documented) at patient's floor/unit and/or counseling patient: I spent 100 minutes overall addressing this complicated case: 10 in medical data review/discussion with referring provider(s) and/or preparation for the visit 75 in direct interaction with the patient and family (60 of 75min) spent on Advance Care Planning/Goals of Care discussions as detailed above in note (must be >16min) 5 in subsequent review and synthesis of assessment and plan 10 in communicating with other providers regarding the patient's case: oncology, CM, primary team Prolonged Care Time Prolonged Care Time: Yes Advanced Care Planning 79093 Advanced Care Planning Additional 30 Min Coding Level of Care Code New Pt INP/OBS CONSULT LVL 5, 80 MIN Patient Type New History Comprehensive Exam Comprehensive Medical Decision Making High Complexity Diagnoses Palliative care encounter Z51.5 Advanced care planning/counseling discussion Z71.89 Dyspnea and respiratory abnormalities R06.00; R06.89 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
[2022-05-03 11:12] LABS: HBSAG REACTIVE (NON-REACTIVE); Hepatitis A Antibody IgM NON-REACTIVE (NON-REACTIVE); Hepatitis B Core Antibody IgM NON-REACTIVE (NON-REACTIVE)
--- NOTE | 2022-05-03 11:25 | Electrocardiogram Report ---
Test Reason : Blood Pressure : / mmHG Vent. Rate : 068 BPM Atrial Rate : 068 BPM P-R Int : 180 ms QRS Dur : 126 ms QT Int : 396 ms P-R-T Axes : 062 029 040 degrees QTc Int : 421 ms Normal sinus rhythm Right bundle branch block Moderate voltage criteria for LVH, may be normal variant Abnormal ECG When compared with ECG of 01-MAY-2022 18:13, Sinus rhythm has replaced Atrial fibrillation Vent. rate has decreased BY 78 BPM T wave inversion no longer evident in Anterior leads Confirmed by Carmine Bran ([id number]) on 05/03/2022 11:25:17 AM Referred By: Luc Guevara Confirmed By:Carmine Bran
--- NOTE | 2022-05-03 14:00 | Cardiology Progress Note ---
Date of Service May 03, 2022 Assessment & Plan (1) Paroxysmal atrial fibrillation: (2) Elevated troponin: Plan 72-year-old male referred for evaluation after recent treatment for possible pneumonia with notable history of increasing dyspnea times several months. CT and chest x-ray revealed pulmonary mass confirmed on bronchoscopy now status postbiopsy. On initial presentation patient found to be in atrial fibrillation with rapid response with spontaneous conversion to sinus rhythm Recommendations: We will add low-dose beta-ezekiel to her regimen to hopefully reduce episodes of atrial fibrillation and control rates of occurring. We will need to discuss anticoagulation as clinical course progresses. Echocardiogram will be reviewed. Repeat EKG in a.m. given mild elevation troponin likely secondary to rate and current demands 05/03/2022 No further atrial arrhythmias overnight. Issues addressed as follows 1. Paroxysmal atrial fibrillation with spontaneous conversion to sinus rhythm. We will continue low-dose beta-ezekiel with metoprolol succinate to control rhythm. Depending on plans for future interventions would add anticoagulant either with warfarin or Eliquis from cardiac standpoint. Continue oxygen supplementation 2. Elevated troponin without evolution: EKG with right bundle branch block but no acute changes. Echocardiogram demonstrates preserved LV systolic function. Do not suspect acute coronary syndrome Admission and Anticipated Discharge Date Admission Date: May 01, 2022 Subjective Patient was seen and examined, chart, medications, telemetry reviewed. Currently without acute complaints. Continues to require oxygen supplementation No further atrial arrhythmias Physical Exam Constitutional: + ill appearing; no acute distress Eyes: PERRL, conjunctivae normal, anicteric sclerae ENMT: external ear and nose normal, oropharynx normal Neck: trachea midline, no thyromegaly Cardiovascular: Rate/Rhythm: regular rate and regular rhythm Gastrointestinal (Abdomen): normal bowel sounds, soft, nontender, no hepatosplenomegaly Results & Data ([facility]) Vital Signs (Past 12 Hours) Vital Signs Temp Pulse Resp BP Pulse Ox O2 Del Method O2 Flow Rate 05/03/22 13:49 78 18 94 Oxymask 05/03/22 11:36 36.7 C 77 16 149/76 H 93 Oxymask 05/03/22 08:00 Oxymask 05/03/22 07:36 36.8 C 60 18 147/73 H 95 Oxymask 05/03/22 07:13 70 18 94 Oxymask 05/03/22 02:30 36.3 C L 79 18 154/72 H 95 Oxymask 12
--- NOTE | 2022-05-03 14:35 | Pulmonology Progress Note ---
Date of Service May 03, 2022 Assessment & Plan (1) Multiple lung nodules: (2) Mediastinal adenopathy: (3) Abnormal CT scan of lung: (4) Hypoxia: Plan Impression: 72-year-old male with prior history of tobacco abuse presenting with innumerable pulmonary nodules and areas of airspace consolidation with extensive mediastinal adenopathy. Bronchoscopy confirms adenocarcinoma in the bilateral lungs. The 4R lymph node appeared to show adenocarcinoma and the biopsy of the left endobronchial lesion also showed adenocarcinoma. Medical oncology consultation has been completed. Recommendations: 1. Reviewed preliminary diagnosis with patient son and nephew at bedside. They are awaiting discussion with medical oncology as well as palliative care. 2. Patient will require outpatient PET scanning to complete staging process. 3. Continue supplemental oxygen titrated to keep saturations at or above 88%. Patient will likely require supplemental oxygen going home. 4. Cannot rule out superimposed pneumonia although it appears less likely given the lack of fevers, normal white blood cell count, and negative procalcitonin. Seems reasonable to complete 5 days of antibiotics. Could transition to oral Levaquin to complete the course when the patient is ready for hospital dismissal This point time the patient's care will be primarily directed by medical oncology and palliative care. We would be happy to see him back should he develop additional or progressive pulmonary issues. Pulmonary will sign off Admission and Anticipated Discharge Date Admission Date: May 01, 2022 Subjective Patient seen and examined. EMR reviewed. The patient is doing well clinically. He continues to require oxygen at around 8 to 10 L/min. He is not coughing or expectorating phlegm. He recovered from the bronchoscopy well. No fevers chills or night sweats. Review of Systems Review of Systems: All systems reviewed & are unremarkable except as noted in Subjective Physical Exam Constitutional: WD/WN, vitals as above ENMT: Mallampati Class: III Neck: trachea midline, no thyromegaly Respiratory: normal respiratory effort, lungs clear to auscultation Cardiovascular: RRR, no murmur, no edema Gastrointestinal (Abdomen): normal bowel sounds, soft, nontender, no hepatosplenomegaly Musculoskeletal: Extremities: extremities normal to inspection Skin: no rashes, warm and dry Lymphatic: no cervical lymphadenopathy Results & Data Results & Data ([facility]) Vital Signs (Past 12 Hours) Vital Signs Temp Pulse Resp BP Pulse Ox O2 Del Method O2 Flow Rate 05/03/22 13:49 78 18 94 Oxymask 10 05/03/22 11:36 36.7 C 77 16 149/76 H 93 Oxymask 10 05/03/22 08:00 Oxymask 10 05/03/22 07:36 36.8 C 60 18 147/73 H 95 Oxymask 10 05/03/22 07:13 70 18 94 Oxymask 10 05/03/22 02:30 36.3 C L 79 18 154/72 H 95 Oxymask 12 Critical Care Results & Data Vital Signs (Past 12 Hours) Vital Signs Temp Pulse Resp BP Pulse Ox O2 Del Method O2 Flow Rate 05/03/22 13:49 78 18 94 Oxymask 10 05/03/22 11:36 36.7 C 77 16 149/76 H 93 Oxymask 10 05/03/22 08:00 Oxymask 10 05/03/22 07:36 36.8 C 60 18 147/73 H 95 Oxymask 10 05/03/22 07:13 70 18 94 Oxymask 10 Lab & Micro Results (Past 24 Hours) RBC 4.38 M/uL (4.63-6.08) L 05/03/22 WBC 7.11 K/ul (4.8-10.8) 05/03/22 Hgb 12.6 g/dl (14.0-18.0) L 05/03/22 Hct 39.0 % (40.1-51.0) L 05/03/22 MCV 89.0 fL (80.0-100.0) 05/03/22 MCH 28.8 pg (25.0-34.0) 05/03/22 MCHC 32.3 g/dL (32.0-36.0) 05/03/22 RDW Standard Deviation 40.8 fL (36.4-46.3) 05/03/22 RDW Coefficient of Variation 12.4 % (11.5-14.5) 05/03/22 Plt Count 215 K/uL (130-400) 05/03/22 MPV 10.1 fL (9.4-12.4) 05/03/22 Na 138 mmol/L (136-145) 05/03/22 K 4.7 mmol/L (3.5-5.1) 05/03/22 Cl 100 mmol/L (98-107) 05/03/22 CO2 33 mmol/L (21-32) H 05/03/22 Anion Gap 5 (3-11) 05/03/22 BUN 23 mg/dl (6-23) 05/03/22 Creatinine 0.81 mg/dl (0.6-1.4) 05/03/22 Estimated GFR ( Amer) 102.2 ml/min 05/03/22 Estimated GFR (Non-Af Amer) 88.2 ml/min 05/03/22 BUN/Creatinine Ratio 28.4 (10-20) H 05/03/22 Glu 174 mg/dl (70-99(Fasting)) H 05/03/22 Ca 9.2 mg/dl (8.5-10.1) 05/03/22 Phosphorus Level 4.0 mg/dl (2.5-4.9) 05/03/22 Lactate Dehydrogenase 336 U/L (86-244) H 05/03/22 Mg 1.8 mg/dl (1.7-2.4) 05/03/22 06:47 Calcium Level 9.2 mg/dl (8.5-10.1) 05/03/22 06:47 Diagnostic Findings (Past 24 Hours) Abdomen/Pelvis CT 05/02/22 23:[address] WITH IV CONTRAST CT DOSE: 413.16 mGy.cm HISTORY: metastatic pulmonary disease. Primary? TECHNIQUE: Multiaxial CT images of the abdomen and pelvis were performed following the use of intravenous contrast. A dose lowering technique was utilized adhering to the principles of ALARA. COMPARISON STUDY: Chest CTA 05/01/2022. FINDINGS: Focal indentation at the superior endplate of L1 favors a Schmorl's node. Innumerable bilateral pulmonary nodules, patchy bilateral lower lobe densities, and small bilateral pleural effusions are again noted. Interlobular septal thickening likely represents a superimposed pulmonary edema. No pneumoperitoneum. No pneumatosis. No suspicious lytic or blastic osseous lesions. There is a small hiatus hernia. Prior cholecystectomy. Pneumobilia. No hepatic masses. Wedge-shaped hypodensity within the splenic dome consistent with a splenic infarct. Normal right adrenal gland. There is an indeterminate 16 mm left adrenal gland nodule. The main portal vein is patent. No retroperitoneal lymphadenopathy. Calcified plaque within the normal caliber abdominal aorta. No pelvic lymphadenopathy or pelvic free fluid. The bladder is unremarkable. The prostate gland is mildly enlarged. No bowel wall thickening or obstruction. Normal appendix. Bile duct dilatation may be due to the patient's postcholecystectomy state. The pancreas enhances normally. Small wedge-shaped hypodensity within the upper pole of the right kidney favors a small renal infarct. The left kidney enhances normally. No hydronephrosis. IMPRESSION: 1. No evidence for metastatic disease within the abdomen or pelvis. 2. Innumerable bilateral pulmonary nodules again noted. This could represent metastatic disease or possibly septic pulmonary emboli. 3. 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 4. Mild pulmonary edema and small bilateral pleural effusions persist. 5. No bowel wall thickening or obstruction. 6. A 16 mm indeterminate left adrenal nodule. ACT 112: Negative or not required by law. Electronically signed by: Tang Lyons M.D. 05/03/2022 7:39 AM Brain MRI 05/03/22 00:14 Brain MRI WITH AND WITHOUT CONTRAST HISTORY: Pulmonary nodules. lung lesions, eval for metastatic dz TECHNIQUE: Multiplanar multisequence MRI of the brain was performed both before and after the intravenous administration of contrast. COMPARISON STUDY: None. FINDINGS: Motion artifact. There is no mass, hematoma, midline shift, or acute infarct. The paranasal sinuses are clear. The mastoid air cells are clear. The ventricles and sulci demonstrate mild age-related involutional changes. Scattered foci of T2 hyperintensity seen within the periventricular and subcortical white matter are nonspecific but suggestive of mild microvascular ischemic changes. The major vascular flow voids at the skull base are well- maintained. No enhancing intracranial lesions to suggest metastatic disease. IMPRESSION: 1. Motion artifact. 2. No acute infarct or intracranial hemorrhage. 3. No intracranial lesions to suggest metastatic disease. ACT 112: Negative or not required by law. Electronically signed by: Tang Lyons M.D. 05/03/2022 8:24 AM I & O Totals 24 Hours 05/02/22 05/03/22 05/04/22 06:59 06:59 06:59 Intake Total 880 / 880 2900 / 2900 550 / 550 Output Total 1140 / 1140 900 / 900 Balance -260 / -260 1999 / 1999 550 / 550 Cumulative 05/01/22 18:00 thru 05/03/22 14:00 Intake Total 4330 Output Total 2040 Balance 2290 RT Ventilator Mngmt (Last Documented) Ventilator Ordered Settings Respiratory Rate 18 05/03/22 13:49 Fraction of Inspired Oxygen 60 05/02/22 14:55 Ventilator - PT Measurements Respiratory Rate 18 PG Care Time/CCT Total # of Minutes Spent Total Time Spent with Patient: Total time spent is greater than 50% in coordination of care (as documented) at patient's floor/unit and/or counseling patient: Coding Level of Care Code 26426 SUB INP/OBS CARE 2/35MIN Diagnoses Multiple lung nodules R91.8 Mediastinal adenopathy R59.[address] scan of lung R91.8 Hypoxia R09.02
[2022-05-03] MEDS: ENOXAPARIN INJ 40 MG/0.4 ML SYR SQ SCH (21:45)
[2022-05-03] MEDS: cefTRIAXone SODIUM 2,000 MG in DEXTROSE 5% 50 ML IV SCH (22:00)
[2022-05-03] MEDS ORDERED: hydrOXYzine HCl 10 MG TAB PO STA (22:33)
[2022-05-04] MEDS ORDERED: DOXYCYCLINE HYCLATE 100 MG CAP PO SCH (01:00)
[2022-05-04 06:51] LABS: Hematocrit (blood only) 38.5 % (40.1-51.0); Hemoglobin 12.3 g/dl (14.0-18.0); Mean Corpuscular Hemoglobin 28.8 pg (25.0-34.0); Mean Corpuscular Hgb Conc 31.9 g/dL (32.0-36.0); Mean Corpuscular Volume 90.2 fL (80.0-100.0); Mean Platelet Volume 10.8 fL (9.4-12.4); Platelet Count 224 K/uL (130-400); RDW Coefficient of Variation 12.9 % (11.5-14.5); RDW Standard Deviation 42.2 fL (36.4-46.3); Red Blood Count 4.27 M/uL (4.63-6.08); White Blood Count 6.91 K/ul (4.8-10.8)
[2022-05-04] MEDS: LEVALBUTEROL 1.25MG/0.5ML NEB NEB SCH ×3 (07:16→19:48)
[2022-05-04] MEDS: CLOTRIMAZOLE 10 MG TROCHE BUCCAL SCH ×5 (08:16→20:42)
[2022-05-04] MEDS: INSULIN ASPART PER UNIT SC SCH ×4 (08:16→20:28)
[2022-05-04] MEDS: methylPREDNISolone 40 MG in SYRINGE 0 ML IV SCH ×2 (08:20→20:37)
[2022-05-04] MEDS: METOPROLOL SUCC 25MG EXT REL TAB PO SCH ×2 (08:21→20:42)
[2022-05-04 09:21] LABS: Calcium 9.3 mg/dl (8.5-10.1); Creatinine Clr Calc Pharmacy 73.5 ml/min; Est GFR (African American) 105.5 ml/min; Magnesium 1.9 mg/dl (1.7-2.4); Phosphorus 4.4 mg/dl (2.5-4.9); Potassium 4.5 mmol/L (3.5-5.1)
[2022-05-04] MEDS: DOXYCYCLINE HYCLATE 100 MG CAP PO SCH ×2 (12:19→23:26)
--- NOTE | 2022-05-04 13:04 | Radiation OncologyConsultation ---
Date of Consultation May 04, 2022 Assessment & Plan (1) 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: Plan Assessment: Mr. Penaloza is a 72-year-old gentleman who presents with extensive metastatic lung adenocarcinoma involving the lungs and mediastinum bilaterally. The patient is currently admitted to the hospital due to respiratory symptoms and requires significant supplemental oxygen for relief from shortness of breath. The patient has been evaluated by Dr. Alonso from medical oncology who is recommending consideration for systemic therapy in the outpatient setting. Radiation oncology consultation has been requested to determine if there is any role for palliative radiation therapy. Recommendation: The patient's case was discussed at our multidisciplinary lung cancer conference. The recommendation was to hold on radiation therapy given no clear perceived benefit to treatment as well as risk of radiation pneumonitis which could exacerbate patient's pulmonary condition. Plan: 1. No plan for radiation therapy this point. 2. Palliative care input appreciated. 3. Medical oncology input appreciated. 4. Please call us if there is any further questions or concerns. History of Present Illness Reason for Consultation: Dyspnea due to malignancy Requesting Physician: Dr. Alonso. Attending Physician: Arnel Lund MD History of Present Illness 05/01/2022. Chest x-ray. IMPRESSION: Multifocal bilateral airspace opacities favor a viral/atypical pneumonia. 2-3 month chest x-ray follow-up recommended to ensure resolution. 05/01/2022. CTA chest. IMPRESSION: 1. No evidence for a pulmonary embolus. 2. Innumerable bilateral pulmonary nodules as well as mediastinal and bilateral hilar lymphadenopathy. This is consistent with metastatic disease. 3. Mild interstitial pulmonary edema and small bilateral pleural effusions. 4. Patchy airspace opacities within the bilateral lower lobes which could represent a superimposed pneumonia. 05/02/2022. Chest x-ray. IMPRESSION: 1. No pneumothorax status post bronchoscopy. 2. Pulmonary nodules, airspace opacities and mediastinal and bilateral hilar lymphadenopathy better depicted on prior chest CT. 3. Small bilateral pleural effusions. Interstitial pulmonary edema. 05/02/2022. CT of abdomen/pelvis. IMPRESSION: 1. No evidence for metastatic disease within the abdomen or pelvis. 2. Innumerable bilateral pulmonary nodules again noted. This could represent metastatic disease or possibly septic pulmonary emboli. 3. 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 4. Mild pulmonary edema and small bilateral pleural effusions persist. 5. No bowel wall thickening or obstruction. 6. A 16 mm indeterminate left adrenal nodule. 05/02/2022. Bronchoscopy with EBUS FNA by Dr. Hammonds. Endobronchial lesion noted in the left upper lobe. Biopsy of 4R LN and Left lower lobe bronchus revealed moderately differentiated adenocarcinoma consistent with lung primary. 05/03/2022. MRI brain. IMPRESSION: 1. Motion artifact. 2. No acute infarct or intracranial hemorrhage. 3. No intracranial lesions to suggest metastatic disease. 05/03/2022. Medical oncology consultation with Dr. Alonso. Systemic therapy should be considered in the outpatient setting. Radiation oncology consultation to determine if role is there for treatment. 05/03/2022. Palliative care consultation with Dr. Lockett. Allergies Allergy/AdvReac Type Severity Reaction Status Date / Time No Known Allergies Allergy Verified 05/01/22 21:09 Home Medications Medication Instructions Recorded Confirmed Type albuterol sulfate 90 mcg/actuation 2 puff inhalation Q4H PRN 05/01/22 05/01/22 History aerosol inhaler Shortness Of Breath Or Wheezing amoxicillin 875 mg-potassium 1 tab PO BID 05/01/22 05/01/22 History clavulanate 125 mg tablet clotrimazole 10 mg daisha 10 mg PO 5XD 05/01/22 05/01/22 History Patient History Medical History (Updated 05/03/22 @ 09:42 by Iesha Lockett, PATEL) 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 Advanced care planning/counseling discussion Cancer related pain Dyspnea and respiratory abnormalities Palliative care encounter Social History Smoking Status: Never smoker Hx Alcohol Use: No Hx Substance Use: No Preferred Language: Qatari Communication Ability: Effective Continuity Clerk Required: No Beliefs That Will Affect Care: Sikh Current Living Situation: Alone Feels Safe at Home: Yes Assistive Devices: None Review of Systems Review of Systems: Dyspnea on rest. Cough. No hemoptysis. Physical Exam Constitutional: WD/WN, vitals as above Respiratory: Auscultation: + diminished lung sounds Psychiatric: A+Ox3, euthymic affect
[2022-05-04] MEDS: FOLIC ACID 1 MG TAB PO SCH (17:08)
[2022-05-04] MEDS: CYANOCOBALAMIN 1000 MCG/ML VIAL IM SCH (17:08)
--- NOTE | 2022-05-04 17:30 | Hematology/Oncology Prog Note ---
Date of Service May 04, 2022 Assessment & Plan (1) Adenocarcinoma of lung, stage 4: (2) Mediastinal adenopathy: (3) Paroxysmal atrial fibrillation: Plan 72-year-old gentleman with metastatic lung cancer. Pathology revealed adenocarcinoma. He was evaluated by radiation oncology who did not feel radiation would be beneficial at this time given extensive disease. Since patient continues to require significant supplemental oxygen, would recommend inpatient chemotherapy administration with carboplatin AUC 5/pemetrexed 500 mg/m2 given IV. Discussed potential side effects of treatment with patient who agreed to go ahead with treatment -Carboplatin/pemetrexed IV every 3 weeks for 4-6 cycles of treatment. He will receive cycle 1 of treatment tomorrow (consent signed and written chemotherapy orders placed in chart) -Zofran 8 mg p.o. every 8 hours as needed for nausea -Recommend starting folic acid 1 mg p.o. daily and give vitamin B12 1000 mcg IM today and every 9 weeks subsequently to reduce hematologic toxicity from pemetrexed Admission and Anticipated Discharge Date Admission Date: May 01, 2022 Subjective Denies new complaints. Remains on 10 L/min oxymask Review of Systems Review of Systems: All systems reviewed & are unremarkable except as noted in Subjective Results & Data ([facility]) Vital Signs (Past 12 Hours) Vital Signs Temp Pulse Resp BP Pulse Ox O2 Del Method O2 Flow Rate 05/04/22 16:23 36.8 C 77 16 124/69 97 Oxymask 05/04/22 14:08 65 20 96 Oxymask 05/04/22 11:00 36.8 C 63 18 134/77 92 Oxymask 05/04/22 08:00 Oxymask 05/04/22 07:48 36.9 C 72 16 143/68 H 95 Oxymask 05/04/22 07:16 78 20 92 Oxymask 10
[2022-05-04] MEDS: cefTRIAXone SODIUM 2,000 MG in DEXTROSE 5% 50 ML IV SCH (20:35)
[2022-05-04] MEDS: ENOXAPARIN INJ 40 MG/0.4 ML SYR SQ SCH (20:44)
[2022-05-04] MEDS ORDERED: DOCUSATE SODIUM/SENNA 50/8.6MG TAB PO STA (21:52)
--- NOTE | 2022-05-04 21:54 | Hospitalist Progress Note ---
Date of Service May 04, 2022 Assessment & Plan (1) Adenocarcinoma of lung, stage 4: Plan: heme/onco going to start chemo tomorrow radiation not planned at this time (2) Paroxysmal atrial fibrillation: Plan: on toprol xl and iv lopressor prn no anticoagulation at this time' cardiology following (3) Hypoxia: Plan: from above possible pneumonia on iv abx Admission and Anticipated Discharge Date Admission Date: May 01, 2022 Subjective sitting on the chair comfortably says his breathing is better says he is ambulating in room ok afebrile denies chest pain no nausea Review of Systems Review of Systems: ROS unremarkable Physical Exam Neck: trachea midline, no thyromegaly Respiratory: normal respiratory effort, lungs clear to auscultation Cardiovascular: RRR, no murmur, no edema Gastrointestinal (Abdomen): normal bowel sounds, soft, nontender, no hepatosplenomegaly Neurologic: PERRL, EOMI, accommodation nl, no face palsy, no dysarthria Results & Data Results & Data ([facility]) Vital Signs (Past 12 Hours) Vital Signs Temp Pulse Resp BP Pulse Ox O2 Del Method O2 Flow Rate 05/04/22 19:49 18 94 Oxymask 10 05/04/22 19:21 36.8 C 79 18 136/73 95 Oxymask 05/04/22 16:23 36.8 C 77 16 124/69 97 Oxymask 10 05/04/22 14:08 65 20 96 Oxymask 10 05/04/22 11:00 36.8 C 63 18 134/77 92 Oxymask 11
[2022-05-05 06:26] LABS: Basophils # (auto) 0.01 K/uL (0-0.2); Basophils % (auto) 0.1 %; Hematocrit (blood only) 39.1 % (40.1-51.0); Hemoglobin 12.7 g/dl (14.0-18.0); Immature Granulocytes # (auto) 0.04 K/uL (0.00-0.02); Immature Granulocytes % (auto) 0.5 %; Lymphocytes # (auto) 0.58 K/uL (1.2-3.4); Lymphocytes % (auto) 7.9 %; Mean Corpuscular Hemoglobin 28.9 pg (25.0-34.0); Mean Corpuscular Hgb Conc 32.5 g/dL (32.0-36.0); Mean Corpuscular Volume 88.9 fL (80.0-100.0); Mean Platelet Volume 10.7 fL (9.4-12.4); Monocytes # (auto) 0.47 K/uL (0.24-0.82); Monocytes % (auto) 6.4 %; Neutrophils # (auto) 6.22 K/uL (1.4-6.5); Neutrophils % (auto) 85.1 %; Platelet Count 231 K/uL (130-400); RDW Coefficient of Variation 12.8 % (11.5-14.5); RDW Standard Deviation 42.1 fL (36.4-46.3); White Blood Count 7.32 K/ul (4.8-10.8)
[2022-05-05 06:49] LABS: BUN Creatinine Ratio 43.8 (10-20); Calcium 9.4 mg/dl (8.5-10.1); Creatinine Clr Calc Pharmacy 75.5 ml/min; Est GFR (African American) 106.7 ml/min; Magnesium 1.9 mg/dl (1.7-2.4); Potassium 4.6 mmol/L (3.5-5.1)
[2022-05-05] MEDS: LEVALBUTEROL 1.25MG/0.5ML NEB NEB SCH ×2 (07:23→13:15)
[2022-05-05] MEDS: FOLIC ACID 1 MG TAB PO SCH (08:08)
[2022-05-05] MEDS: methylPREDNISolone 40 MG in SYRINGE 0 ML IV SCH ×2 (08:08→21:08)
[2022-05-05] MEDS: INSULIN ASPART PER UNIT SC SCH ×4 (08:09→21:22)
[2022-05-05] MEDS: CYANOCOBALAMIN 1000 MCG/ML VIAL IM SCH (08:09)
[2022-05-05] MEDS: CLOTRIMAZOLE 10 MG TROCHE BUCCAL SCH ×5 (08:30→21:07)
[2022-05-05] MEDS: METOPROLOL SUCC 25MG EXT REL TAB PO SCH ×2 (08:30→21:07)
[2022-05-05] MEDS: PANTOprazole 40 MG TAB PO SCH (11:04)
[2022-05-05] MEDS ORDERED: dexAMETHasone 4 MG TAB PO SCH (11:30)
[2022-05-05] MEDS ORDERED: FOSAPREPITANT DIMEGLUMINE 150 MG in SODIUM CHLORIDE 0.9% 145 ML IV SCH (11:30)
[2022-05-05] MEDS ORDERED: PALONOSETRON 0.25 MG in SYRINGE 0 ML IV SCH (11:30)
[2022-05-05] MEDS ORDERED: SODIUM CHLORIDE 0.9% IV SCH ×2 (12:00→12:10)
[2022-05-05] MEDS ORDERED: PEMETREXED DISODIUM IV SCH (12:00)
[2022-05-05] MEDS ORDERED: CARBOPLATIN IV SCH (12:10)
[2022-05-05] MEDS: DOXYCYCLINE HYCLATE 100 MG CAP PO SCH (12:34)
--- NOTE | 2022-05-05 19:51 | Hospitalist Progress Note ---
Date of Service May 05, 2022 Assessment & Plan (1) Adenocarcinoma of lung, stage 4: Plan: heme/onco going to start chemo today-had chemo radiation not planned at this time followup with heme/onco (2) Paroxysmal atrial fibrillation: Plan: on toprol xl and iv lopressor prn no anticoagulation at this time' cardiology following needs to check with cardio about anticoaglation (3) Hypoxia: Plan: from above possible pneumonia on iv abx requiring oxygen needs oxygen on discharge bertha wants to go home today but ok to stay until home oxygen setup needs two step possible d/c on sunday bertha wanst to see if he can be discharged tomorrow Admission and Anticipated Discharge Date Admission Date: May 01, 2022 Subjective sitting on the cahir comfortably says moved his bowels denies chest pain sob improved afebrile likes to go home Review of Systems Review of Systems: ROS unremarkable Physical Exam Neck: trachea midline, no thyromegaly Respiratory: normal respiratory effort, lungs clear to auscultation Cardiovascular: RRR, no murmur, no edema Gastrointestinal (Abdomen): normal bowel sounds, soft, nontender, no hepatosplenomegaly Skin: no rashes, warm and dry Neurologic: alert and oriented speech clear no facial droop obeys commands moves extremities Results & Data Results & Data ([facility]) Vital Signs (Past 12 Hours) Vital Signs Temp Pulse Pulse Resp BP Pulse Ox O2 Del Method 05/05/22 19:31 36.8 C 60 18 121/66 99 Oxymask 05/05/22 16:00 73 05/05/22 16:05 36.8 C 67 20 122/72 96 Oxymask 05/05/22 11:48 36.4 C L 66 22 141/73 H 95 Oxymask 05/05/22 09:00 52 L 05/05/22 09:00 Oxymask 05/05/22 08:01 36.5 C 60 20 130/71 97 Oxymask O2 Flow Rate 05/05/22 19:31 10 05/05/22 16:00 05/05/22 16:05 10.0 05/05/22 11:48 10.0 05/05/22 09:00 05/05/22 09:00 10 05/05/22 08:01 12.0
[2022-05-05] MEDS: ENOXAPARIN INJ 40 MG/0.4 ML SYR SQ SCH (21:08)
[2022-05-05] MEDS: cefTRIAXone SODIUM 2,000 MG in DEXTROSE 5% 50 ML IV SCH (21:23)
[2022-05-06] MEDS: DOXYCYCLINE HYCLATE 100 MG CAP PO SCH ×2 (01:45→12:14)
[2022-05-06] MEDS: FOLIC ACID 1 MG TAB PO SCH (08:30)
[2022-05-06] MEDS: CLOTRIMAZOLE 10 MG TROCHE BUCCAL SCH (08:30)
[2022-05-06] MEDS: PANTOprazole 40 MG TAB PO SCH (08:32)
[2022-05-06] MEDS: INSULIN ASPART PER UNIT SC SCH ×2 (08:39→12:13)
[2022-05-06] MEDS ORDERED: FUROSEMIDE INJ 20 MG/2 ML VIAL IV ONE (08:45)
--- NOTE | 2022-05-06 08:57 | Hematology/Oncology Prog Note ---
Date of Service May 06, 2022 Assessment & Plan (1) Adenocarcinoma of lung, stage 4: (2) 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: (3) Paroxysmal atrial fibrillation: Plan Pleasant 72-year-old gentleman recently diagnosed with stage IV adenocarcinoma of the lungs for which neotype molecular testing is pending. Due to high oxygen requirements of 10 L/min, he was treated with cycle 1 of chemotherapy while inpatient. He received cycle 1, day 1 of treatment with carboplatin/pemetrexed yesterday. Treatment has so far been well-tolerated. -Since patient is requesting to be discharged, would recommend weaning of supplemental oxygen to see if his supplemental oxygen requirement has reduced. If it has, home O2 would have to be arranged. -He can be switched to DOAC such as Eliquis for atrial fibrillation upon discharge -His next cycle of chemotherapy will be in about 3 weeks on 05/26/2022. Plan to add pembrolizumab to treatment regimen at that time as long as neotype shows no actionable mutations -We will arrange for outpatient PET/CT -Should be discharged home on Zofran 8 mg p.o. every 8 hours as well as folic acid 1 mg p.o. daily -If patient is able to go home today, will arrange for follow-up with me in about 1 to 2 weeks to assess for side effects to chemotherapy treatment Admission and Anticipated Discharge Date Admission Date: May 01, 2022 Subjective He states that he is feeling well. He received cycle 1, day 1 of chemotherapy treatment with carboplatin/pemetrexed yesterday. He is doing well after receiving cycle 1 of treatment with carboplatin/pemetrexed yesterday.. Denies nausea, vomiting, diarrhea, constipation or any other issues. Remains on 10 L/min via oxymask. Review of Systems Review of Systems: All systems reviewed & are unremarkable except as noted in Subjective Results & Data ([facility]) Vital Signs (Past 12 Hours) Vital Signs Temp Pulse Pulse Resp BP Pulse Ox Pulse Ox 05/05/22 22:30 60 05/06/22 00:00 94 05/06/22 02:58 36.5 C 61 18 121/66 94 05/05/22 22:00 05/05/22 22:43 36.4 C L 65 18 123/62 93 O2 Del Method O2 Del Method O2 Flow Rate 05/05/22 22:30 05/06/22 00:00 Oxymask 05/06/22 02:58 Oxymask 05/05/22 22:00 Oxymask 10 05/05/22 22:43 Oxymask
[2022-05-06] MEDS ORDERED: methylPREDNISolone 40 MG in SYRINGE 0 ML IV SCH (09:00)
[2022-05-06] MEDS: METOPROLOL SUCC 25MG EXT REL TAB PO SCH (09:22)
--- NOTE | 2022-05-06 11:57 | Hospitalist Progress Note ---
Date of Service May 06, 2022 Assessment & Plan (1) Adenocarcinoma of lung, stage 4: Plan: Computer Applications Instructor Dr. Hammonds consulted Biopsy performed, revealing Adenocarcinoma Dr Alonso- [facility] heme/onco consulted- started on chemotherapy 05/05/21 next cycle of chemotherapy on 05/26/22 radiation not planned at this time followup with heme/onco Dr. Alonso (2) Paroxysmal atrial fibrillation: Plan: plc technician consulted on toprol xl Eliquis 5mg BID prescribed ff up with Preconstruction Manager in 3-4 weeks (3) Hypoxia: Plan: from #1 possible pneumonia on Ceftriaxone and Doxycline change to Levaquin 500mg po daily x 5 days to complete 10 day course change solumedrol to Prednisone taper Nystatin for oral thrush 2 step exercise test: 2 L while at rest, 3 L with ambulation Plan plan of care discussed with patient in detail and at length all questions answered he is understanding, agreeable, comfortable with the plan of care Admission and Anticipated Discharge Date Admission Date: May 01, 2022 Subjective ff up for lung CA, etc seen resting in bedside chair, comfortable not in distress in good spirits states he feels fine overall on oxymask 10 L denies active shortness of breath, cough, chest pain, palpitations, dizziness denies hemoptysis, sputum production, fever/chills no nausea/vomiting no other symptoms states he is ready and would like to be discharged today Review of Systems Review of Systems: all noted and negative except for above Physical Exam Physical Exam: General- oriented x 3, not in distress, speaks in sentences with no effort or accessory muscle use Eyes- anicteric Neck- no JVD Lungs- clear breath sounds bilaterally, no rales/wheezes Heart- normal rate, regular rhythm; no murmurs Abdomen- normal bowel sounds, nondistended, soft, nontender Extremities- no pretibial edema, no calf tenderness Neuro- alert, oriented x 3; no gross focal neurologic deficits Skin- warm & dry Results & Data Results & Data ([facility]) Vital Signs (Past 12 Hours) Vital Signs Temp Pulse Pulse Pulse Pulse Pulse Pulse 05/06/22 11:34 37.4 C 61 05/06/22 08:30 05/06/22 10:27 71 75 80 72 05/06/22 07:46 37 C 57 L 05/06/22 00:00 05/06/22 02:58 36.5 C 61 Pulse Resp Resp Resp Resp Resp Resp 05/06/22 11:34 20 05/06/22 08:30 05/06/22 10:27 70 18 20 18 18 16 05/06/22 07:46 18 05/06/22 00:00 05/06/22 02:58 18 BP BP Pulse Ox Pulse Ox Pulse Ox Pulse Ox Pulse Ox 05/06/22 11:34 139/73 92 05/06/22 08:30 05/06/22 10:27 91 95 87 L 05/06/22 07:46 122/54 L 93 05/06/22 00:00 94 05/06/22 02:58 121/66 94 Pulse Ox Pulse Ox O2 Del Method O2 Del Method O2 Flow Rate O2 Flow Rate O2 Flow Rate 05/06/22 11:34 Oxymask 2 05/06/22 08:30 Oxymask 10 05/06/22 10:27 92 86 L 2 3 05/06/22 07:46 Oxymask 10 05/06/22 00:00 Oxymask 05/06/22 02:58 Oxymask O2 Flow Rate O2 Flow Rate 05/06/22 11:34 05/06/22 08:30 05/06/22 10:27 2 2 05/06/22 07:46 05/06/22 00:00 05/06/22 02:58 all noted and reviewed including below
[2022-05-06] MEDS ORDERED: NYSTATIN SUSP 500,000 U/5 ML UDC PO SCH (13:00)
--- NOTE | 2022-05-06 16:29 | Discharge Summary ---
Discharge Summary Date of Service May 06, 2022 Notes For Next Care Provider Needs ff up with: Oncologist Dr. Alonso ([facility]) in 2 weeks, next chemo in 3 weeks Design/Animation Instructor Dr. Baeza in 3-4 weeks Medication Changes From Visit Levaquin 500mg daily x 5 days Prednisone 40mg x 2 days, 20mg x 2 days, then 10mg x 2 days Metoprolol tartrate 12.5mg po BID Eliquis 5mg BID Nystatin 5ml QID x 7 days Folic acid 1mg po daily Protonix 50 m daily x 1 week Admission HPI Per Admitting Provider HISTORY OF PRESENT ILLNESS: This is a 72-year-old male with past medical history significant for hypertension, dyslipidemia, prediabetes, history of tobacco abuse, history of hepatitis B surface antigen positive. Currently, did not see doctors for some time, says since the last couple of months, he is feeling short of breath. He went to urgent care last week and prescribed Augmentin for possible pneumonia and he was referred here. The patient states he is sometimes coughing, sometimes get some blood in it and he was feeling dizzy while ambulating. Denies any fever or chills, sometimes chest pressure, palpitations. No headache, no blurred visions, no earache, no runny nose, no sore throat. Appetite is okay. No difficulty swallowing. No nausea, no vomiting. Denies any abdominal pain. He was constipated, but says that has resolved. He did not notice any blood in the stools. Normal bladder movements. Currently no swelling in the legs, requiring oxygen in the ER.Had episodes of on and off of tachycardia in ER. Admission Exam Per Admitting Provider GENERAL: The patient is of moderate build, not in acute distress. VITAL SIGNS: Temperature 36.9, pulse 94. Currently, blood pressure 155/107, oxygen 93% on OxyMask. HEENT: Pupils equal, round and reactive to light. Oral mucosa moist. NECK: No JVD, no neck masses. CARDIOVASCULAR: S1 and S2 heard. Tachycardia. No murmurs. RESPIRATORY SYSTEM: Normal AP diameter. No accessory muscle use. No wheezing or crackles. ABDOMEN: Soft, bowel sounds present, nontender, no distention. CENTRAL NERVOUS SYSTEM: Cranial nerves II through XII are grossly intact, nonfocal. EXTREMITIES: No edema, no erythema. Principal Dx & Hospital Course #1 = Principal Diagnosis (1) Adenocarcinoma of lung, stage 4: Heel Seat Filler Dr. Hammonds consulted Biopsy performed, revealing Adenocarcinoma Dr Alonso- [facility] heme/onco consulted- started on chemotherapy 05/05/21 next cycle of chemotherapy on 05/26/22 radiation not planned at this time Palliative care also consulted followup with heme/onco Dr. Alonso (2) Paroxysmal atrial fibrillation: mortgage advisor consulted on toprol xl Eliquis 5mg BID prescribed ff up with Design/Animation Instructor in 3-4 weeks (3) Hypoxia: from #1 possible pneumonia on Ceftriaxone and Doxycline change to Levaquin 500mg po daily x 5 days to complete 10 day course change solumedrol to Prednisone taper Nystatin for oral thrush 2 step exercise test: 2 L while at rest, 3 L with ambulation Plan plan of care discussed with patient in detail and at length all questions answered he is understanding, agreeable, comfortable with the plan of care Discharge Exam General- oriented x 3, not in distress, speaks in sentences with no effort or accessory muscle use Eyes- anicteric Neck- no JVD Lungs- clear breath sounds bilaterally, no rales/wheezes Heart- normal rate, regular rhythm; no murmurs Abdomen- normal bowel sounds, nondistended, soft, nontender Extremities- no pretibial edema, no calf tenderness Neuro- alert, oriented x 3; no gross focal neurologic deficits Skin- warm & dry Updated Medication List Medication Instructions Recorded Confirmed Type albuterol sulfate 90 mcg/actuation 2 puff inhalation Q4H PRN 05/01/22 05/01/22 History aerosol inhaler Shortness Of Breath Or Wheezing apixaban 5 mg tablet (Eliquis) 5 mg PO BID 30 days #60 tabs 05/06/22 Rx folic acid 1 mg tablet 1 mg PO QAM 30 days #30 tabs 05/06/22 Rx levofloxacin 500 mg tablet 500 mg PO DAILY 5 days #5 tabs 05/06/22 Rx metoprolol succinate 25 mg 12.5 mg PO BID 30 days #30 tabs 05/06/22 Rx tablet,extended release 24 hr nystatin 100,000 unit/mL oral 5 ml PO QID 7 days #140 mL 05/06/22 Rx suspension pantoprazole 40 mg tablet,delayed 40 mg PO QAM 7 days #7 tabs 05/06/22 Rx release prednisone 10 mg tablet 10 mg PO DAILY #14 tabs 05/06/22 Rx Hospital Stay Data Consultations 05/01/22 21:04 ED Decision to Admit Stat 05/02/22 08:00 Consult Cardiology Routine Consult Pulmonology Routine 05/02/22 16:14 Consult Oncology Routine 05/02/22 16:15 Consult Palliative Care Routine 05/03/22 18:45 Consult Radiation Oncology Routine Procedures Performed Operation Date: 05/02/22 10:00 Actual Procedures p Endobronchial Ultrasound (EBUS) - Pedro Luis Hammonds MD Diagnostic Imagining Performed 05/01/22 18:33 CT angio chest PE protocol Stat FINDINGS: Moderate anterior wedging at T5. This is likely chronic. No acute fractures identified within the chest. No suspicious lytic or blastic osseous lesions. No pneumothorax. The central airways are patent. Mild emphysema. There are innumerable scattered pulmonary nodules measuring up to 2 cm. There are small bilateral pleural effusions with mild interlobular septal thickening consistent with pulmonary edema. There are also patchy airspace opacities within the bilateral lower lobes posteriorly. Pneumobilia is present within the liver. The visualized spleen and adrenal glands are unremarkable. No pericardial effusion. The heart is borderline enlarged. There is a small hiatus hernia. The thyroid gland enhances normally. Extensive mediastinal and bilateral hilar lymphadenopathy. The hilar lymph nodes result in mild mass effect within the central pulmonary arteries. A dominant subcarinal lymph node measures approximately 3.1 x 3.0 cm. Normal caliber thoracic aorta with no evidence for a dissection. Mild respiratory motion artifact. No filling defects within the pulmonary arteries to suggest a pulmonary embolus. IMPRESSION: 1. No evidence for a pulmonary embolus. 2. Innumerable bilateral pulmonary nodules as well as mediastinal and bilateral hilar lymphadenopathy. This is consistent with metastatic disease. 3. Mild interstitial pulmonary edema and small bilateral pleural effusions. 4. Patchy airspace opacities within the bilateral lower lobes which could represent a superimposed pneumonia. ACT 112: Negative or not required by law. Electronically signed by: Tang Lyons M.D. 05/01/2022 8:48 PM 05/02/22 23:25 CT abd pelvis IV con only Routine FINDINGS: Focal indentation at the superior endplate of L1 favors a Schmorl's node. Innumerable bilateral pulmonary nodules, patchy bilateral lower lobe densities, and small bilateral pleural effusions are again noted. Interlobular septal thickening likely represents a superimposed pulmonary edema. No pneumoperitoneum. No pneumatosis. No suspicious lytic or blastic osseous lesions. There is a small hiatus hernia. Prior cholecystectomy. Pneumobilia. No hepatic masses. Wedge-shaped hypodensity within the splenic dome consistent with a splenic infarct. Normal right adrenal gland. There is an indeterminate 16 mm left adrenal gland nodule. The main portal vein is patent. No retroperitoneal lymphadenopathy. Calcified plaque within the normal caliber abdominal aorta. No pelvic lymphadenopathy or pelvic free fluid. The bladder is unremarkable. The prostate gland is mildly enlarged. No bowel wall thickening or obstruction. Normal appendix. Bile duct dilatation may be due to the patient's postcholecystectomy state. The pancreas enhances normally. Small wedge-shaped hypodensity within the upper pole of the right kidney favors a small renal infarct. The left kidney enhances normally. No hydronephrosis. IMPRESSION: 1. No evidence for metastatic disease within the abdomen or pelvis. 2. Innumerable bilateral pulmonary nodules again noted. This could represent metastatic disease or possibly septic pulmonary emboli. 3. 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 4. Mild pulmonary edema and small bilateral pleural effusions persist. 5. No bowel wall thickening or obstruction. 6. A 16 mm indeterminate left adrenal nodule. ACT 112: Negative or not required by law. 05/03/22 00:14 MR brain wo/w con Urgent FINDINGS: Motion artifact. There is no mass, hematoma, midline shift, or acute infarct. The paranasal sinuses are clear. The mastoid air cells are clear. The ventricles and sulci demonstrate mild age-related involutional changes. Scattered foci of T2 hyperintensity seen within the periventricular and subcortical white matter are nonspecific but suggestive of mild microvascular ischemic changes. The major vascular flow voids at the skull base are well- maintained. No enhancing intracranial lesions to suggest metastatic disease. IMPRESSION: 1. Motion artifact. 2. No acute infarct or intracranial hemorrhage. 3. No intracranial lesions to suggest metastatic disease. ACT 112: Negative or not required by law. Electronically signed by: Tang Lyons M.D. 05/03/2022 8:24 AM Pending Results Patient Have Any Pending Studies at Discharge: No Discharge Instructions Given to Patient (Per Discharging Provider) PLEASE REFER TO YOUR NEW MEDICATION LIST AND FOLLOW INSTRUCTIONS CAREFULLY. YOUR NEW MEDICATIONS INCLUDE: Levaquin- antibiotic for pneumonia Prednisone- steroid for lung cancer Metoprolol- for control of irregular heart beat (a fib) Eliquis- blood thinner for prevention of stroke if you have any head trauma, proceed to the ER immediately for evaluation, even if you have no symptoms Nystatin- for oral thrush Folic acid- supplement while on chemotherapy Protonix- antacid while on Prednisone Use 2 Liters of oxygen at rest, and 3 Liters while ambulating. NO SMOKING/ALCOHOL. PLEASE CALL YOUR PRIMARY CARE PHYSICIAN OR RETURN TO THE ER IF WITH WORSENING OF SYMPTOMS, INCLUDING shortness of breath, cough, blood in the sputum, chest pain, fever/chills. FOLLOW UP WITH PRIMARY CARE PHYSICIAN in 1 week. The clinic will be calling you soon for the appointment. FOLLOW UP WITH ONCOLOGIST DR. ALONSO, AND CARPENTRY SPECIALIST DR. BAEZA IN 3 WEEKS. PLEASE CALL THEIR OFFICE FOR AN APPOINTMENT. CONTACT INFORMATION OUTLINED ABOVE. Total Time Total Time Spent Total Time Spent (In Minutes): >30 minutes
--- NOTE | 2022-05-12 11:25 | Coding Query ---
PATHOLOGY To promote full compliance with coding requirements relating to patient care, physician participation is requested in all cases of residential collections uncertainty. Please assist us with the question(s) below: Please review the Pathology report and please document any relevant diagnosis(es) below. Thank you . [facility] Diagnosis(es): FINAL DIAGNOSIS Lung, left lower lobe bronchus, biopsy: - Moderately differentiated adenocarcinoma, lung primary. MTDD
== END 2022-05-06 14:07 | disposition home health service (06) | DRG 166 ==
LOC: ED 18:00 → SUATTDRO 23:08 → EDINP 23:08 → 2S 05-02 12:32
DX: J96.01 Acute respiratory failure with hypoxia; E78.5 Hyperlipidemia, unspecified; I45.10 Unspecified right bundle-branch block; C77.1 Secondary and unspecified malignant neoplasm of intrathoracic lymph nodes; B37.0 Candidal stomatitis; I48.0 Paroxysmal atrial fibrillation; R74.8 Abnormal levels of other serum enzymes; I10 Essential (primary) hypertension; R59.0 Localized enlarged lymph nodes; Z83.3 Family history of diabetes mellitus; Z87.891 Personal history of nicotine dependence; C34.32 Malignant neoplasm of lower lobe, left bronchus or lung; J18.9 Pneumonia, unspecified organism

== ENCOUNTER 2022-05-17 17:39 | Inpatient (IN) ==
[2022-05-17] MEDS ORDERED: ONDANSETRON INJ 2 MG/ML 2 ML VIAL IV STA (18:02)
[2022-05-17] MEDS ORDERED: SODIUM CHLORIDE 0.9% 500 ML IV ONE (18:02)
--- NOTE | 2022-05-17 18:07 | Emergency Department Note ---
Impression & Plan Atrial fibrillation with RVR, Hypoxia, Elevated troponin, Renal infarct ED Provider Note NAME: ZAHIDA VIDAL AGE: 72 SEX: M : 1950 ARRIVES VIA: Walk-In INFORMANT: Patient ED PROVIDER(S): Jerson Coleman DO CHIEF COMPLAINT: fall, weak HPI: Patient is a 72-year-old female who presents the ER for feeling sick to her stomach as well as weak and rundown. He notes he fell today as he was feeling very weak and could not get himself back. He was brought in. He did not hit his head or neck. He denies any headache or change in vision. No chest pain or shortness of breath. Chronically wears 2 to 4 L nasal cannula. Does have a history of lung cancer receiving chemo with last dose 2 weeks ago. No focal belly pain but notes he feels uncomfortable. No dysuria urgency or frequency. No other exacerbating or remitting factors. PAST MEDICAL HISTORY:See Below PAST SURGICAL HISTORY:See Below FAMILY HISTORY:See Below SOCIAL HISTORY:See Below HOME MEDICATIONS:See Below ALLERGIES:See Below VITALS:See Below PHYSICAL EXAMINATION: GENERAL: Sitting up in bed, alert, chronically ill-appearing, disheveled EYE EXAM: normal conjunctiva. PERRL and EOM's grossly intact. OROPHARYNX: no exudate, no erythema, lips, buccal mucosa, and tongue normal and mucous membranes are moist NECK: supple, no nuchal rigidity, no adenopathy, non-tender LUNGS: Diminished bilaterally. Normal chest wall mechanics HEART: Tachycardic and irregular regular, S1 normal and S2 normal ABDOMEN: abdomen soft, non-tender, normo-active bowel sounds, no masses, no rebound or guarding. BACK: Back is symmetrical on inspection and there is no deformity, no midline tenderness, no CVA tenderness. UPPER EXTREMITIES: No tenderness on palpation of entire bilateral left and right upper extremities. LOWER EXTREMITIES: Flexion-extension bilateral hips knees ankles and EHL intact 5 out of 5. NEURO EXAM: Normal sensorium, cranial nerves II-XII grossly intact, normal speech, no gross weakness of arms, no gross weakness of legs. No drift. Finger to nose intact. Gross sensation intact. MEDICAL DECISION MAKING: Patient is a 72-year-old male who presents to the ER for fall and weakness. Patient had no head or neck pain. Upon presentation found to be in A. fib with RVR. IVs were established blood work was obtained. Labs show no significant leukocytosis. Mild anemia. Thrombocytopenia 78. BMP with slightly elevated glucose 161. LFTs bilirubin was unremarkable. Troponin was elevated to 60. Lipase is unremarkable. UA was negative. Patient denies any chest pain or shortness of breath. Chest x-ray shows slight worsening of disease. CT abdomen pelvis shows new renal infarct/worsening renal infarcts. Patient has only missed 2 doses of his NOAC and consequently I did place him on heparin drip and bolus. External records were reviewed. I discussed the case with Dr. Sainz and patient was updated bedside will be admitted for further work-up. Patient was also given IV Lopressor x1 for the elevated heart rate/A. fib with RVR. I did not aggressively treat this as there is a chance that he could have PEs and did not want to bottom out his pressure. Initially did not think this was likely with the NOAC but in light of the renal infarcts this is a possibility and will cover with heparin as previously discussed. Heart rate trended down to the 1 teens. Triage Nursing notes reviewed. Limited review of prior medical records performed Vital Signs: reviewed and remarkable for tachy Differential diagnosis: Infection, dehydration, metabolic abnormality, hypo/hyperglycemia, electrolyte disturbance, anemia, hypoxia, cardiac sources, intracerebral event, toxicologic, neurologic, as well as other pathologies. ER treatment provided: See below Diagnostics interpreted by me include EKG and cardiac monitoring as listed below: -Cardiac Monitoring: An order was placed for continuous cardiac monitoring. The monitor shows a rate of 134 with Afib rhythm. -ECG: A. fib RVR rate of 105 Normal axis Right bundle branch block QTC 422 -Laboratory studies:Interpreted by me as stated above in MDM and shown below. Imaging studies: Xrays: As interpreted by me: Portable AP upright 1 view of the chest shows CTs show: CT abdomen pelvis shows new/worsening renal infarcts Consultation(s): Discussed with Dr. Giovani Dunne for further evaluation work-up and management Procedures:none Critical Care: I have personally spent 31 minutes of critical care time in the direct management of this patient. This includes bedside care, interpretation of diagnostic studies, and testing, discussion with consultants, patient, and family members, and other required patient management activities. This 31 minutes is in excess of all separately billable procedures. 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 Advanced care planning/counseling discussion Cancer related pain Dyspnea and respiratory abnormalities Palliative care encounter Social History Smoking Status: Former smoker Hx Alcohol Use: No Hx Substance Use: No Preferred Language: Mauritian Communication Ability: Effective Manager Hvac Required: No Beliefs That Will Affect Care: Yazidism Current Living Situation: Alone Feels Safe at Home: Yes Assistive Devices: None Allergies Allergies Allergy/AdvReac Type Severity Reaction Status Date / Time No Known Allergies Allergy Verified 05/17/22 20:17 Home Meds Home Medications Medication Instructions Recorded Confirmed albuterol sulfate 90 mcg/actuation 2 puff inhalation Q4H PRN 05/01/22 05/17/22 aerosol inhaler Shortness Of Breath Or Wheezing Previous Rx's Medication Instructions Recorded apixaban 5 mg tablet (Eliquis) 5 mg PO BID 30 days #60 tabs 05/06/22 folic acid 1 mg tablet 1 mg PO QAM 30 days #30 tabs 05/06/22 metoprolol succinate 25 mg 12.5 mg PO BID 30 days #30 tabs 05/06/22 tablet,extended release 24 hr Results & Data (ED) Vital Signs Vital Signs - 24 hr 05/17/22 17:42 05/17/22 18:08 05/17/22 18:09 Temperature 36.3 C L Temperature Source Temporal Artery Scan Pulse Rate 130 H Pulse Rate [Apical] Pulse Rate from SpO2 Sensor Respiratory Rate 18 Respiratory Effort / Characteristics Non-Labored Spontaneous Respiratory Depth Normal Blood Pressure 142/59 H Blood Pressure [Left Arm] Blood Pressure Mean 86 Blood Pressure Mean [Left Arm] Pulse Oximetry 88 L 89 L 91 Oxygen Delivery Method Room Air Room Air Nasal Cannula Oxygen Flow Rate 2 Sepsis Recent Fever Within 48 Hours No Sepsis New/Unexplained Change in Mental Status No Sepsis Action Taken by Nursing No Action Required 05/17/22 17:59 05/17/22 18:00 05/17/22 18:05 Temperature Temperature Source Pulse Rate 133 H 106 H 116 H Pulse Rate [Apical] Pulse Rate from SpO2 Sensor 137 H 119 H 110 H Respiratory Rate 31 H 24 38 H Respiratory Effort / Characteristics Respiratory Depth Blood Pressure Blood Pressure [Left Arm] Blood Pressure Mean Blood Pressure Mean [Left Arm] Pulse Oximetry 88 L 85 L 90 Oxygen Delivery Method Oxygen Flow Rate Sepsis Recent Fever Within 48 Hours Sepsis New/Unexplained Change in Mental Status Sepsis Action Taken by Nursing 05/17/22 18:05 05/17/22 18:30 05/17/22 19:30 Temperature Temperature Source Pulse Rate 153 H Pulse Rate [Apical] 122 H Pulse Rate from SpO2 Sensor 160 H Respiratory Rate 24 24 Respiratory Effort / Characteristics Respiratory Depth Blood Pressure 134/75 Blood Pressure [Left Arm] 155/99 H Blood Pressure Mean 94 Blood Pressure Mean [Left Arm] 117 Pulse Oximetry 92 91 Oxygen Delivery Method Nasal Cannula Nasal Cannula Oxygen Flow Rate 2.5 2 Sepsis Recent Fever Within 48 Hours Sepsis New/Unexplained Change in Mental Status Sepsis Action Taken by Nursing 05/17/22 20:31 Temperature Temperature Source Pulse Rate 119 H Pulse Rate [Apical] Pulse Rate from SpO2 Sensor Respiratory Rate Respiratory Effort / Characteristics Respiratory Depth Blood Pressure 107/84 Blood Pressure [Left Arm] Blood Pressure Mean Blood Pressure Mean [Left Arm] Pulse Oximetry Oxygen Delivery Method Oxygen Flow Rate Sepsis Recent Fever Within 48 Hours Sepsis New/Unexplained Change in Mental Status Sepsis Action Taken by Nursing Laboratory Data 05/17/22 18:00 05/17/22 18:00 Lab Results 05/17/22 05/17/22 05/17/22 Range/Units 18:00 18:00 18:39 WBC 8.40 (4.8-10.8) K/ul RBC 4.46 L (4.70-6.10) M/uL Hgb 13.0 L (14.0-18.0) g/dl Hct 39.0 L (42.0-52.0) % MCV 87.4 (80.0-100.0) fL MCH 29.1 (25.0-34.0) pg MCHC 33.3 (32.0-36.0) g/dL RDW Std Deviation 40.0 (36.4-46.3) fL RDW Coeff of Dean 12.9 (11.5-14.5) % Plt Count 78 L (130-400) K/uL MPV 11.2 (9.4-12.4) fL Immature Gran % (Auto) 0.4 % Neut % (Auto) 82.7 % Lymph % (Auto) 6.5 % Garvin % (Auto) 9.8 % Eos % (Auto) 0.4 % Baso % (Auto) 0.2 % Neut # (Auto) 6.95 H (1.40-6.50) K/uL Lymph # (Auto) 0.55 L (1.2-3.4) K/uL Garvin # (Auto) 0.82 H (0.11-0.59) K/uL Eos # (Auto) 0.03 (0-0.50) K/uL Baso # (Auto) 0.02 (0-0.2) K/uL Immature Gran # (Auto) 0.03 (0.01-0.20) K/uL Platelet Estimate Decreased L (Normal) Sodium 138 (136-145) mmol/L Potassium 3.9 (3.5-5.1) mmol/L Chloride 99 (98-107) mmol/L Carbon Dioxide 31 (21-32) mmol/L Anion Gap 8 (3-11) BUN 13 (6-23) mg/dl Creatinine 0.96 (0.6-1.4) mg/dl Est Cr Clr Drug Dosing Not Reportable Est GFR ( Amer) 90.5 ml/min Est GFR (Non-Af Amer) 78.1 ml/min BUN/Creatinine Ratio 13.5 (10-20) Glucose 161 H (70-99(Fasting)) mg/dl Calcium 9.5 (8.5-10.1) mg/dl Total Bilirubin 1.0 (0.2-1.0) mg/dl AST 38 (13-39) U/L ALT 40 (7-52) U/L Alkaline Phosphatase 92 (34-104) U/L Troponin I High Sens 258.8 H* (0-20) pg/ml Total Protein 6.5 (6.0-8.3) gm/dl Albumin 3.8 (3.4-5.0) gm/dl Globulin 2.7 (2.5-4.0) gm/dl Albumin/Globulin Ratio 1.4 (0.9-2) Lipase 17 (11-82) U/L Urine Color Yellow Urine Appearance Clear (Clear) Urine pH 8.5 H (4.5-7.5) Ur Specific [place] 1.010 (1.000-1.030) Urine Protein Negative (Negative) Urine Glucose (UA) Negative (Negative) Urine Ketones Negative (Negative) Urine Blood Negative (Negative) Urine Nitrite Negative (Negative) Urine Bilirubin Negative (Negative) Urine Urobilinogen Negative (Negative) Ur Leukocyte Esterase Negative (Negative) Administered Medications Heparin Sodium/Dextrose (Heparin Sodium/Dextrose) 25,000 units in 500 mls @ 28 mls/hr IV .[id number] [facility]; Protocol Stop: 06/16/22 20:59 Last Admin: 05/17/22 21:10 Dose: 1,400 units/hr, 28 mls/hr Documented By: AN Co-signed By: IRENE Discontinued Medications Heparin Sodium (Porcine) (Heparin Sod (Porcine) 1000 Unit/Ml) 1 units IV NOW ONE Stop: 05/17/22 20:50 Last Admin: 05/17/22 21:10 Dose: 6,000 units Documented By: AN Co-signed By: IRENE Heparin Sodium/Dextrose (Heparin Iv Adult Wt-Based Standard With Bolus Protocol) 1 each IV NOW STA; Protocol Stop: 05/17/22 20:35 Last Admin: 05/17/22 21:11 Dose: 1 each Documented By: BI Sodium Chloride (Nss) 500 mls @ 999 mls/hr IV .Q31M ONE Stop: 05/17/22 18:32 Last Infusion: 05/17/22 19:04 Dose: 0 mls/hr Documented By: Admin: 05/17/22 18:16 Dose: 999 mls/hr Documented By: RACHEL Ioversol (Optiray 350 100ml) 80 ml IV ONCE ONE Stop: 05/17/22 19:37 Last Admin: 05/17/22 19:40 Dose: 80 ml Documented By: INA Metoprolol Tartrate (Metoprolol Tartrate 1 Mg/Ml Vial) 5 mg IV NOW STA Stop: 05/17/22 20:26 Last Admin: 05/17/22 20:31 Dose: 5 mg Documented By: BI Ondansetron HCl (Ondansetron Inj 2 Mg/Ml 2 Ml Vial) 4 mg IV NOW STA Stop: 05/17/22 18:03 Last Admin: 05/17/22 18:16 Dose: 4 mg Documented By: RACHEL Imaging Data Radiologist's Impression: Abdomen/Pelvis CT 05/17/22 18:[address] WITH IV CONTRAST CT DOSE: 376.11 mGy.cm HISTORY: Acute generalized abdominal pain abd pain TECHNIQUE: Multiaxial CT images of the abdomen and pelvis were performed following the IV administration of 80 cc of Optiray, A dose lowering technique was utilized adhering to the principles of ALARA. COMPARISON STUDY: CT abdomen and pelvis May 03, 2022 FINDINGS: Innumerable pulmonary nodules are redemonstrated, several of which demonstrate central cavitation up to approximately 1.5 cm. There is mildly improved aeration of the lower lobes with decreased consolidative opacities and intralobular septal thickening. Trace pleural effusions have also decreased in size. No pneumatosis or pneumoperitoneum. The study is degraded by respiratory motion artifact. Coronary artery calcifications. Decreased attenuation of the splenic infarct compared to the prior study. Bilateral renal infarcts are present, left greater than right with the left infarcts new/progressed from the prior study. Mild left sided pelvocaliectasis. Prostamegaly. Unremarkable urinary bladder. Atherosclerosis of the aorta without aneurysm. No lymphadenopathy identified. Unremarkable spleen and right adrenal gland. Indeterminate 1.6 cm left adrenal gland nodule redemonstrated. Cholecystectomy with pneumobilia again noted. The liver is otherwise unremarkable. Patent portal vein. Small hiatal hernia. Colonic diverticulosis. Moderate fecal retention. Normal appendix. No ascites or mesenteric inflammation. Atrophy of the upper thigh musculature again noted. Degenerative changes of the spine, pelvis and hips. Unchanged mild superior endplate compression at L1. IMPRESSION: 1. Cardiomegaly with decreased pulmonary edema and pleural effusions. 2. Innumerable bibasilar pulmonary nodules are redemonstrated, several of which demonstrate central cavitation. Several of the nodules have decreased in size from the prior study suggestive of septic emboli. Continued follow-up recommended to exclude pulmonary metastasis. 3. Splenic and bilateral renal infarcts. The left renal infarcts are new/progressed from the May 03, 2022 exam. 4. No bowel obstruction or bowel wall thickening. 5. Additional findings as above. ACT 112: Negative or not required by law. The above report was generated using voice recognition software. It may contain grammatical, syntax or spelling errors. Electronically signed by: Emmanuel Montanez M.D. 05/17/2022 8:25 PM Chest X-Ray 05/17/22 18:02 XR chest 1V portable HISTORY: 72 years-old Male Chest pain, nonspecific acute chest pain COMPARISON: Chest radiograph May 02, 2022, CTA chest 05/01/2022. TECHNIQUE: AP view the chest FINDINGS: Cardiac silhouette is mildly enlarged. No pneumothorax or large pleural effusion. Persistent mediastinal lymphadenopathy. Mixed interstitial and alveolar opacities, right greater than left with pulmonary nodules are again noted. There is mildly improved aeration of the lung bases with resolution of the pulmonary nodules and interstitial pulmonary edema. IMPRESSION: 1. Interval resolution of the small pleural effusions and pulmonary edema. 2. Pulmonary nodules with intermixed airspace opacities and mediastinal lymphadenopathy is better appreciated on the comparison CTA of the chest. ACT 112: Negative or not required by law. The above report was generated using voice recognition software. It may contain grammatical, syntax or spelling errors. Electronically signed by: Emmanuel Montanez M.D. 05/17/2022 6:57 PM Discharge Plan Visit Data Chief Complaint: Fall Stated Complaint: FELL,BLOOD THINNER,NO FEELING IN LEGS,DIZZY ED Provider: Jerson Coleman Discharge Problem: Atrial fibrillation with RVR, Hypoxia, Elevated troponin, Renal infarct Forms Stand Alone Forms: My [facility] [employer] Prescriptions Prescriptions: No Action albuterol sulfate 90 mcg/actuation HFA aerosol inhaler 2 puff INHALATION Q4H PRN (Reason: Shortness Of Breath Or Wheezing) folic acid 1 mg Tablet 1 mg PO QAM 30 Days Qty: 30 0RF metoprolol succinate 25 mg Tablet Extended Release 24 Hr 12.5 mg PO BID 30 Days Qty: 30 0RF Eliquis 5 mg tablet 5 mg PO BID 30 Days Qty: 60 1RF Referrals Referrals: Luc Guevara MD [Primary Care Provider] -
[2022-05-17 18:37] LABS: Alanine Aminotransferase 40 U/L (7-52); Albumin Globulin Ratio 1.4 (0.9-2); Albumin Level 3.8 gm/dl (3.4-5.0); Alkaline Phosphatase 92 U/L (34-104); Anion Gap 8 (3-11); Aspartate Aminotransferase 38 U/L (13-39); BUN Creatinine Ratio 13.5 (10-20); Basophils # (auto) 0.02 K/uL (0-0.2); Basophils % (auto) 0.2 %; Blood Urea Nitrogen 13 mg/dl (6-23); Calcium 9.5 mg/dl (8.5-10.1); Carbon Dioxide 31 mmol/L (21-32); Chloride 99 mmol/L (98-107); Eosinophils # (auto) 0.03 K/uL (0-0.50); Eosinophils % (auto) 0.4 %; Est GFR (African American) 90.5 ml/min; Est GFR (Non-African American) 78.1 ml/min; Globulin 2.7 gm/dl (2.5-4.0); Glucose 161 mg/dl (70-99(Fasting)); Immature Granulocytes # (auto) 0.03 K/uL (0.01-0.20); Immature Granulocytes % (auto) 0.4 %; Lipase 17 U/L (11-82); Lymphocytes # (auto) 0.55 K/uL (1.2-3.4); Lymphocytes % (auto) 6.5 %; Mean Corpuscular Hemoglobin 29.1 pg (25.0-34.0); Mean Corpuscular Hgb Conc 33.3 g/dL (32.0-36.0); Mean Corpuscular Volume 87.4 fL (80.0-100.0); Mean Platelet Volume 11.2 fL (9.4-12.4); Monocytes # (auto) 0.82 K/uL (0.11-0.59); Monocytes % (auto) 9.8 %; Neutrophils # (auto) 6.95 K/uL (1.40-6.50); Neutrophils % (auto) 82.7 %; Platelet Count 78 K/uL (130-400); Platelet Estimate Decreased (Normal); Potassium 3.9 mmol/L (3.5-5.1); RDW Coefficient of Variation 12.9 % (11.5-14.5); Red Blood Count 4.46 M/uL (4.70-6.10); Sodium 138 mmol/L (136-145); Total Protein 6.5 gm/dl (6.0-8.3)
[2022-05-17 18:45] LABS: Troponin I High Sensitivity 258.8 pg/ml (0-20)
[2022-05-17 18:48] LABS: Appearance Urine Clear (Clear); Bilirubin Urine Negative (Negative); Blood Urine Negative (Negative); Color Urine Yellow; Glucose Urine UA Negative (Negative); Ketones Urine Negative (Negative); Leukocyte Esterase Urine Negative (Negative); Nitrite Urine Negative (Negative); Protein Urine Negative (Negative); Urobilinogen Urine Negative (Negative); pH Urine 8.5 (4.5-7.5)
--- NOTE | 2022-05-17 18:58 | XRay Report ---
XR chest 1V portable HISTORY: 72 years-old Male Chest pain, nonspecific acute chest pain COMPARISON: Chest radiograph May 02, 2022, CTA chest 05/01/2022. TECHNIQUE: AP view the chest FINDINGS: Cardiac silhouette is mildly enlarged. No pneumothorax or large pleural effusion. Persistent mediasti nal lymphadenopathy. Mixed interstitial and alveolar opacities, right greater than left with pulmonar y nodules are again noted. There is mildly improved aeration of the lung bases with resolution of the pulmonary nodules and interstitial pulmonary edema. IMPRESSION: 1. Interval resolution of the small pleural effusions and pulmonary edema. 2. Pulmonary nodules with intermixed airspace opacities and mediastinal lymphadenopathy is better timothy reciated on the comparison CTA of the chest. ACT 112: Negative or not required by law. The above report was generated using voice recognition software. It may contain grammatical, syntax o r spelling errors. Electronically signed by: Emmanuel Montanez M.D. 05/17/2022 6:57 PM
[2022-05-17] MEDS ORDERED: OPTIRAY 350 100ml IV ONE (19:36)
[2022-05-17] MEDS ORDERED: METOPROLOL TARTRATE 1 MG/ML VIAL IV STA (20:25)
--- NOTE | 2022-05-17 20:27 | CT Scan Report ---
ABDOMEN AND PELVIS CT WITH IV CONTRAST CT DOSE: 376.11 mGy.cm HISTORY: Acute generalized abdominal pain abd pain TECHNIQUE: Multiaxial CT images of the abdomen and pelvis were performed following the IV administrat ion of 80 cc of Optiray, A dose lowering technique was utilized adhering to the principles of ALARA. COMPARISON STUDY: CT abdomen and pelvis May 03, 2022 FINDINGS: Innumerable pulmonary nodules are redemonstrated, several of which demonstrate central cavi tation up to approximately 1.5 cm. There is mildly improved aeration of the lower lobes with decrease d consolidative opacities and intralobular septal thickening. Trace pleural effusions have also decre ased in size. No pneumatosis or pneumoperitoneum. The study is degraded by respiratory motion artifac t. Coronary artery calcifications. Decreased attenuation of the splenic infarct compared to the prior study. Bilateral renal infarcts are present, left greater than right with the left infarcts new/prog ressed from the prior study. Mild left sided pelvocaliectasis. Prostamegaly. Unremarkable urinary chapo dder. Atherosclerosis of the aorta without aneurysm. No lymphadenopathy identified. Unremarkable sple en and right adrenal gland. Indeterminate 1.6 cm left adrenal gland nodule redemonstrated. Cholecyste ctomy with pneumobilia again noted. The liver is otherwise unremarkable. Patent portal vein. Small hiatal hernia. Colonic diverticulosis. Moderate fecal retention. Normal appendix. No ascites or mesenteric inflammation. Atrophy of the upper thigh musculature again noted. Degenerative changes of the spine, pelvis and hips. Unchanged mild superior endplate compression at L1. IMPRESSION: 1. Cardiomegaly with decreased pulmonary edema and pleural effusions. 2. Innumerable bibasilar pulmonary nodules are redemonstrated, several of which demonstrate central c avitation. Several of the nodules have decreased in size from the prior study suggestive of septic em boli. Continued follow-up recommended to exclude pulmonary metastasis. 3. Splenic and bilateral renal infarcts. The left renal infarcts are new/progressed from the May 03, 2022 exam. 4. No bowel obstruction or bowel wall thickening. 5. Additional findings as above. ACT 112: Negative or not required by law. The above report was generated using voice recognition software. It may contain grammatical, syntax o r spelling errors. Electronically signed by: Emmanuel Montanez M.D. 05/17/2022 8:25 PM
[2022-05-17] MEDS ORDERED: Heparin IV Adult Wt-Based Standard WITH Bolus Protocol IV STA (20:34)
[2022-05-17] MEDS ORDERED: HEPARIN SOD (PORCINE) 1000 UNIT/ML IV ONE (20:49)
[2022-05-17] MEDS ORDERED: HEPARIN SODIUM/DEXTROSE 25,000 UNITS/500 ML BAG IV SCH (21:00)
[2022-05-17 21:29] LABS: Influenza A virus by PCR Negative (Neg); Influenza B virus by PCR Negative (Neg); RSV by PCR Negative (Neg); SARS CoV2 RNA(COVID-19) Ceph NEGATIVE (Negative)
[2022-05-17 21:35] LABS: INR 1.1 (0.9-1.1); Partial Thromboplastin Ratio 0.9; Partial Thromboplastin Time 25.1 Seconds (21.0-31.0); Prothrombin Time 11.9 Seconds (9.0-12.0)
[2022-05-17 21:52] LABS: Thyroid Stimulating Hormone 8.809 uIu/ml (0.300-4.500)
[2022-05-17 22:15] LABS: Magnesium 1.5 mg/dl (1.7-2.4)
[2022-05-17 22:27] LABS: T4 Free Thyroxine 1.03 ng/dl (0.61-1.60)
[2022-05-17 22:27] LABS: Base Excess ABG 3.9 mEq/L (-9-1.8); HCO3 ABG 29 mmol/L (19-24); Oxygen Saturation ABG 94.7 % (90-95); PCO2 ABG 42 mmHg (35-46); PO2 ABG 70 mmHg (80-95); pH ABG 7.44 (7.35-7.45)
[2022-05-17 22:30] LABS: Allen Test POS (Pos)
--- NOTE | 2022-05-18 00:06 | History & Physical Report ---
Date of Service May 18, 2022 Assessment & Plan (1) Subarachnoid hemorrhage: Plan: History AF on Eliquis chronic respiratory failure secondary to lung adenocarcinoma on chemotherapy Renal infarcts in the setting of patient's history of PAF and malignancy hypertension, stable DM2 diet controlled, hemoglobin A1c of 6.4 from November 2019 chronic anemia, hemoglobin at baseline past tobacco abuse. PCU Stop anticoagulation for now Neurochecks Repeat CT head after 6 hours N.p.o. until repeat CT head results available Neurology consult Re: Subarachnoid hemorrhage Basal bolus insulin adjusted for n.p.o. status, ISS BG goal 1 10-1 40, update hemoglobin A1c DVT prophylaxis. SCDs while Eliquis on hold DNR Case discussed with Dr. Walker ([facility] transfusion specialist). No benefit in Eliquis reversal given patient last dose of more than 48 hours ago. Text document was generated using [employer] voice recognition software. It may contain grammatical or spelling errors. Kindly contact undersigned for clarification of any documentation item in question. History of Present Illness Chief Complaint: Transient left leg weakness, fall Primary Care Provider: Luc Guevara MD History obtained from patient, family, and records. Medical history significant for chronic respiratory failure secondary to lung adenocarcinoma on chemotherapy, PAF on Eliquis, hypertension, DM2 diet- controlled, chronic anemia (baseline hemoglobin 12-13), past tobacco abuse. Last confinement 2 weeks ago for new diagnosis of lung adenocarcinoma stage IV. Chemotherapy initiated during confinement. Patient discharged on home O2. Paroxysmal A. fib also noted during confinement. Patient discharged on Eliquis. Patient not feeling well the last few days. Achy abdominal discomfort with nausea symptoms. Poor appetite. Patient stopped taking his pills 2 days ago because it hurts his stomach. Patient had transient left leg weakness today causing him to fall. Transient headache symptoms. No unusual chest pain, SOB, fever, chills, cough. Patient brought to the ER for evaluation. IV Heparin initiated at the ER with note of renal infarcts on CT. 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 Allergies Allergy/AdvReac Type Severity Reaction Status Date / Time No Known Allergies Allergy Verified 05/17/22 20:17 Home Medications Medication Instructions Recorded Confirmed Type albuterol sulfate 90 mcg/actuation 2 puff inhalation Q4H PRN 05/01/22 05/17/22 History aerosol inhaler Shortness Of Breath Or Wheezing apixaban 5 mg tablet (Eliquis) 5 mg PO BID 30 days #60 tabs 05/06/22 05/17/22 Rx folic acid 1 mg tablet 1 mg PO QAM 30 days #30 tabs 05/06/22 05/17/22 Rx metoprolol succinate 25 mg 12.5 mg PO BID 30 days #30 tabs 05/06/22 05/17/22 Rx tablet,extended release 24 hr Past Med/Surg History Medical History 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 Advanced care planning/counseling discussion Cancer related pain Dyspnea and respiratory abnormalities Palliative care encounter Social History Smoking Status: Former smoker Hx Alcohol Use: No Hx Substance Use: No Preferred Language: German Communication Ability: Effective Plastics Supervisor Required: No Beliefs That Will Affect Care: Adventist Current Living Situation: Alone Feels Safe at Home: Yes Safety Concerns: Feels Safe At This Time Assistive Devices: Glasses Review of Systems Review of Systems: As per HPI, all other systems reviewed and negative Physical Exam Physical Exam: GENERAL: Comfortable, pleasant, slightly hard of hearing, no respiratory distress SKIN: Pallor, warm HEENT: Pale palpebral conjunctivae, no ptosis, dry buccal mucosa NECK : Supple, no tenderness CHEST : Decreased breath sounds, no tenderness HEART : Irregular, no obvious murmurs ABDOMEN: Some distention, nontender EXTREMITIES : No LE swelling/tenderness, no other conspicuous deformities noted NEUROLOGIC : Coherent, no facial asymmetry, slightly hard of hearing, gait and stance not assessed Results & Data Results & Data ([facility]) Vital Signs (Past 12 Hours) Vital Signs Temp Pulse Pulse Resp BP BP Pulse Ox 05/17/22 23:30 99 H 26 H 130/85 92 05/17/22 21:30 88 20 108/65 90 05/17/22 20:31 119 H 107/84 05/17/22 19:30 122 H 24 155/99 H 91 05/17/22 18:30 153 H 24 92 05/17/22 18:05 134/75 05/17/22 18:05 116 H 38 H 90 05/17/22 18:00 106 H 24 85 L 05/17/22 17:59 133 H 31 H 88 L 05/17/22 18:09 91 05/17/22 18:08 89 L 05/17/22 17:42 36.3 C L 130 H 18 142/59 H 88 L O2 Del Method O2 Flow Rate 05/17/22 23:30 Nasal Cannula 3 05/17/22 21:30 Nasal Cannula 2 05/17/22 20:31 05/17/22 19:30 Nasal Cannula 2 05/17/22 18:30 Nasal Cannula 2.5 05/17/22 18:05 05/17/22 18:05 05/17/22 18:00 05/17/22 17:59 05/17/22 18:09 Nasal Cannula 2 05/17/22 18:08 Room Air 05/17/22 17:42 Room Air Laboratory Results Laboratory Results WBC 8.40 K/ul (4.8-10.8) 05/17/22 18:00 RBC 4.46 M/uL (4.70-6.10) L 05/17/22 18:00 Hgb 13.0 g/dl (14.0-18.0) L 05/17/22 18:00 Hct 39.0 % (42.0-52.0) L 05/17/22 18:00 MCV 87.4 fL (80.0-100.0) 05/17/22 18:00 MCH 29.1 pg (25.0-34.0) 05/17/22 18:00 MCHC 33.3 g/dL (32.0-36.0) 05/17/22 18:00 RDW Std Deviation 40.0 fL (36.4-46.3) 05/17/22 18:00 RDW Coeff of Dean 12.9 % (11.5-14.5) 05/17/22 18:00 Plt Count 78 K/uL (130-400) L 05/17/22 18:00 MPV 11.2 fL (9.4-12.4) 05/17/22 18:00 Immature Gran % (Auto) 0.4 % 05/17/22 18:00 Neut % (Auto) 82.7 % 05/17/22 18:00 Lymph % (Auto) 6.5 % 05/17/22 18:00 [place] % (Auto) 9.8 % 01/25/23 18:00 Eos % (Auto) 0.4 % 05/17/22 18:00 Baso % (Auto) 0.2 % 05/17/22 18:00 Neut # (Auto) 6.95 K/uL (1.40-6.50) H 05/17/22 18:00 Lymph # (Auto) 0.55 K/uL (1.2-3.4) L 05/17/22 18:00 [place] # (Auto) 0.82 K/uL (0.11-0.59) H 05/17/22 18:00 Eos # (Auto) 0.03 K/uL (0-0.50) 05/17/22 18:00 Baso # (Auto) 0.02 K/uL (0-0.2) 05/17/22 18:00 Immature Gran # (Auto) 0.03 K/uL (0.01-0.20) 05/17/22 18:00 Platelet Estimate Decreased (Normal) L 05/17/22 18:00 PT 11.9 Seconds (9.0-12.0) 05/17/22 18:00 INR 1.1 (0.9-1.1) 05/17/22 18:00 APTT 25.1 Seconds (21.0-31.0) 05/17/22 18:00 PTT Ratio 0.9 05/17/22 18:00 ABG pH 7.44 (7.35-7.45) 05/17/22 21:40 ABG pCO2 42 mmHg (35-46) 05/17/22 21:40 ABG pO2 70 mmHg (80-95) L 05/17/22 21:40 ABG HCO3 29 mmol/L (19-24) H 05/17/22 21:40 ABG O2 Saturation 94.7 % (90-95) 05/17/22 21:40 ABG Base Excess 3.9 mEq/L (-9-1.8) H 05/17/22 21:40 Parish Test POS (Pos) 05/17/22 21:40 Oxygen Given 2 L 05/17/22 21:40 Sodium 138 mmol/L (136-145) 05/17/22 18:00 Potassium 3.9 mmol/L (3.5-5.1) 05/17/22 18:00 Chloride 99 mmol/L (98-107) 05/17/22 18:00 Carbon Dioxide 31 mmol/L (21-32) 05/17/22 18:00 Anion Gap 8 (3-11) 05/17/22 18:00 BUN 13 mg/dl (6-23) 05/17/22 18:00 Creatinine 0.96 mg/dl (0.6-1.4) 05/17/22 18:00 Est Cr Clr Drug Dosing Not Reportable 05/17/22 18:00 Est GFR ( Amer) 90.5 ml/min 05/17/22 18:00 Est GFR (Non-Af Amer) 78.1 ml/min 05/17/22 18:00 BUN/Creatinine Ratio 13.5 (10-20) 05/17/22 18:00 Glucose 161 mg/dl (70-99(Fasting)) H 05/17/22 18:00 Calcium 9.5 mg/dl (8.5-10.1) 05/17/22 18:00 Magnesium 1.5 mg/dl (1.7-2.4) L 05/17/22 21:40 Total Bilirubin 1.0 mg/dl (0.2-1.0) 05/17/22 18:00 AST 38 U/L (13-39) 05/17/22 18:00 ALT 40 U/L (7-52) 05/17/22 18:00 Alkaline Phosphatase 92 U/L (34-104) 05/17/22 18:00 Troponin I High Sens 293.0 pg/ml (0-20) H* 05/17/22 21:40 Total Protein 6.5 gm/dl (6.0-8.3) 05/17/22 18:00 Albumin 3.8 gm/dl (3.4-5.0) 05/17/22 18:00 Globulin 2.7 gm/dl (2.5-4.0) 05/17/22 18:00 Albumin/Globulin Ratio 1.4 (0.9-2) 05/17/22 18:00 Lipase 17 U/L (11-82) 05/17/22 18:00 TSH 8.809 uIu/ml (0.300-4.500) H 05/17/22 18:00 Free T4 1.03 ng/dl (0.61-1.60) 05/17/22 18:00 Urine Color Yellow 05/17/22 18:39 Urine Appearance Clear (Clear) 05/17/22 18:39 Urine pH 8.5 (4.5-7.5) H 05/17/22 18:39 Ur Specific [place] 1.010 (1.000-1.030) 05/17/22 18:39 Urine Protein Negative (Negative) 05/17/22 18:39 Urine Glucose (UA) Negative (Negative) 05/17/22 18:39 Urine Ketones Negative (Negative) 05/17/22 18:39 Urine Blood Negative (Negative) 05/17/22 18:39 Urine Nitrite Negative (Negative) 05/17/22 18:39 Urine Bilirubin Negative (Negative) 05/17/22 18:39 Urine Urobilinogen Negative (Negative) 05/17/22 18:39 Ur Leukocyte Esterase Negative (Negative) 05/17/22 18:39 SARS-CoV-2 (PCR) NEGATIVE (Negative) 05/17/22 20:39 Influenza Type A (PCR) Negative (Neg) 05/17/22 20:39 Influenza Type B (PCR) Negative (Neg) 05/17/22 20:39 RSV (RT-PCR) Negative (Neg) 05/17/22 20:39 Impressions Abdomen/Pelvis CT 05/17/22 18:[address] WITH IV CONTRAST CT DOSE: 376.11 mGy.cm HISTORY: Acute generalized abdominal pain abd pain TECHNIQUE: Multiaxial CT images of the abdomen and pelvis were performed following the IV administration of 80 cc of Optiray, A dose lowering technique was utilized adhering to the principles of ALARA. COMPARISON STUDY: CT abdomen and pelvis May 03, 2022 FINDINGS: Innumerable pulmonary nodules are redemonstrated, several of which demonstrate central cavitation up to approximately 1.5 cm. There is mildly improved aeration of the lower lobes with decreased consolidative opacities and intralobular septal thickening. Trace pleural effusions have also decreased in size. No pneumatosis or pneumoperitoneum. The study is degraded by respiratory motion artifact. Coronary artery calcifications. Decreased attenuation of the splenic infarct compared to the prior study. Bilateral renal infarcts are present, left greater than right with the left infarcts new/progressed from the prior study. Mild left sided pelvocaliectasis. Prostamegaly. Unremarkable urinary bladder. Atherosclerosis of the aorta without aneurysm. No lymphadenopathy identified. Unremarkable spleen and right adrenal gland. Indeterminate 1.6 cm left adrenal gland nodule redemonstrated. Cholecystectomy with pneumobilia again noted. The liver is otherwise unremarkable. Patent portal vein. Small hiatal hernia. Colonic diverticulosis. Moderate fecal retention. Normal appendix. No ascites or mesenteric inflammation. Atrophy of the upper thigh musculature again noted. Degenerative changes of the spine, pelvis and hips. Unchanged mild superior endplate compression at L1. IMPRESSION: 1. Cardiomegaly with decreased pulmonary edema and pleural effusions. 2. Innumerable bibasilar pulmonary nodules are redemonstrated, several of which demonstrate central cavitation. Several of the nodules have decreased in size from the prior study suggestive of septic emboli. Continued follow-up recommended to exclude pulmonary metastasis. 3. Splenic and bilateral renal infarcts. The left renal infarcts are ne w/progressed from the May 03, 2022 exam. 4. No bowel obstruction or bowel wall thickening. 5. Additional findings as above. ACT 112: Negative or not required by law. The above report was generated using voice recognition software. It may contain grammatical, syntax or spelling errors. Electronically signed by: Emmanuel Montnaez M.D. 05/17/2022 8:25 PM Chest X-Ray 05/17/22 18:02 XR chest 1V portable HISTORY: 72 years-old Male Chest pain, nonspecific acute chest pain COMPARISON: Chest radiograph May 02, 2022, CTA chest 05/01/2022. TECHNIQUE: AP view the chest FINDINGS: Cardiac silhouette is mildly enlarged. No pneumothorax or large pleural effusion. Persistent mediastinal lymphadenopathy. Mixed interstitial and alveolar opacities, right greater than left with pulmonary nodules are again noted. There is mildly improved aeration of the lung bases with resolution of the pulmonary nodules and interstitial pulmonary edema. IMPRESSION: 1. Interval resolution of the small pleural effusions and pulmonary edema. 2. Pulmonary nodules with intermixed airspace opacities and mediastinal lymphadenopathy is better appreciated on the comparison CTA of the chest. ACT 112: Negative or not required by law. The above report was generated using voice recognition software. It may contain grammatical, syntax or spelling errors. Electronically signed by: Emmanuel Montanez M.D. 05/17/2022 6:[address] head initial read: Trace subarachnoid hemorrhage in the right parietal lobe sulci. Follow-up head CT recommended in 6 hours EKG as per my interpretation :Rate 105, A. fib, normal axis, RBBB, no ischemia
[2022-05-18] MEDS ORDERED: MELATONIN 3 MG TAB PO STA (00:36)
[2022-05-18] MEDS ORDERED: MELATONIN 3 MG TAB PO PRN (00:36)
[2022-05-18] MEDS ORDERED: CARBOHYDRATES FOR HYPOGLYCEMIA PO PRN (01:49)
[2022-05-18] MEDS ORDERED: DEXTROSE 50% 50 ML SYRINGE IV PRN (01:49)
[2022-05-18] MEDS ORDERED: GLUCOSE 40% GEL 15 GM TUBE PO PRN (01:49)
[2022-05-18] MEDS ORDERED: GLUCAGON FOR INJ 1 MG VIAL SQ PRN (01:49)
[2022-05-18] MEDS ORDERED: ACETAMINOPHEN 325 MG TAB PO PRN (01:49)
[2022-05-18] MEDS ORDERED: GLUCOSE 10 TAB/TUBE PO PRN (01:49)
[2022-05-18] MEDS ORDERED: PHARMACIST DISCHARGE MED REC CONSULT PRN (01:49)
[2022-05-18] MEDS: INSULIN ASPART PER UNIT SC SCH ×5 (01:59→20:25)
[2022-05-18 04:57] LABS: Partial Thromboplastin Time 27.4 Seconds (21.0-31.0)
[2022-05-18 09:00] LABS: Estimated Average Glucose 166 mg/dl; Hemoglobin A1C 7.4 % (4.5-5.6)
--- NOTE | 2022-05-18 09:05 | Electrocardiogram Report ---
Test Reason : Blood Pressure : / mmHG Vent. Rate : 105 BPM Atrial Rate : 220 BPM P-R Int : 000 ms QRS Dur : 114 ms QT Int : 320 ms P-R-T Axes : 000 005 021 degrees QTc Int : 422 ms Atrial fibrillation with rapid ventricular response Right bundle branch block Abnormal ECG When compared with ECG of 03-MAY-2022 06:42, Atrial fibrillation has replaced Sinus rhythm Vent. rate has increased BY [address] now depressed in Anterior leads Confirmed by Rajeev aLra ([id number]) on 05/18/2022 9:04:49 AM Referred By: REFERRED SELF Confirmed By:Alejandro Lara
--- NOTE | 2022-05-18 10:00 | CT Scan Report ---
CT head/brain wo con, CT head/brain wo con CLINICAL HISTORY: Headache Technique: Contiguous axial CT images of the head were acquired from the base of the skull to the candida kaylee without intravenous contrast administration. Images were viewed in brain, subdural and bone windo ws. Automated dose lowering techniques and/or adjustment according to patient size were utilized for this exam. Exams were performed at 12:33 AM and 6:04 AM. Comparison: Comparison is made to MRI brain 05/03/2022 Findings: 12:33 AM: There is a small focus of subarachnoid hemorrhage in the right posterior frontal lobe sulcus. No mass effect or midline shift is seen. Imaged portions of the paranasal sinuses and mastoid air cells are clear. The orbits appear normal. There is soft tissue thickening in the left parietal scalp which is unchanged. 6:04 AM: Subarachnoid hemorrhage in the right posterior frontal lobe is unchanged. There is no new hemorrhage. Impression: Subarachnoid hemorrhage in the right posterior frontal lobes which is stable across the 2 exams. ACT 112: Negative or not required by law. Electronically signed by: Vijay Ledezma M.D. 05/18/2022 7:12 AM
[2022-05-18] MEDS: FOLIC ACID 1 MG TAB PO SCH (10:46)
[2022-05-18] MEDS: METOPROLOL SUCC 25MG EXT REL TAB PO SCH ×2 (10:46→20:27)
--- NOTE | 2022-05-18 11:27 | Cardiology Consultation ---
Date of Consultation May 18, 2022 Assessment & Plan (1) Subarachnoid hemorrhage: (2) Atrial fibrillation with RVR: (3) Adenocarcinoma of lung, stage 4: - Of note, telemetry data stopped in this patient as of 6:00 a.m. this morning due to a technical issue. But data reviewed from overnight revealed evidence of atrial fibrillation with rapid ventricular response, with spontaneous conversion to sinus rhythm at just after 4:00 a.m.. At the time my evaluation, he was comfortable, and not tachycardic. He denies any recent cardiac symptoms such as subjective palpitations or chest discomfort. Recommend ongoing treatment with metoprolol succinate 12.5 milligrams twice daily. at present, would be hesitant to titrate any medication or consider anti rhythmic therapy until technical telemetry issue is resolved. Amiodarone to maintain sinus rhythm may be a useful consideration, his LFTs are normal, but does have an abnormal TSH at baseline. For now just continue heparin. The patient reports having had a fall due to week for this in his legs, and has a small subarachnoid hemorrhage. heparin discontinued. He had missed doses of Eliquis prior to hospital stay and he is to remain off Eliquis completely due to the findings on his CT of the brain. he has a noted mild elevation in his high sensitivity troponin of 258, 293 in 239 picogram per milliliter, however denies any anginal symptoms. This is likely due to demand ischemia in the setting of tachycardia, and his underlying lung pathology. He remains on 3 liters nasal canula. Repeat EKG ordered for AM. His presenting put count was 78K and Magnesium 1.5 .Recommend these are repeated. I discussed his case with Dr Horowitz by phone for the purpose of coordination of care. History of Present Illness Attending Physician: Joey Horowitz MD History of Present Illness Michi Penaloza is a 72-year-old male seen in cardiology consultation per the request of Dr. Garcia for the evaluation of atrial fibrillation. Earlier this month he had been hospitalized for complaint of shortness of breath as ultimately diagnosed with stage IV adenocarcinoma of the lung. Chemotherapy was started as an inpatient on 05/05/2021. An MRI of the brain performed 05/03/2022 was limited by motion artifact, but there were no intracranial lesions to suggest metastatic disease. The patient was seen by Dr. Baeza of our practice during that hospital stay on 05/02/2022 for episodes of paroxysmal atrial fibrillation. The patient had spontaneous reverted back to sinus rhythm. Low-dose metoprolol 12.5 milligrams twice daily added. Echocardiogram revealed normal LV function. The patient describes having weakness in his legs yesterday and a fall. No subjective palpitations. EKG performed on 05/17/2022 revealed atrial fibrillation 105 beats per minute with right bundle branch block and resultant repolarization changes. Patient apparently missed 2 days of medications including 2 days of missed Eliquis due to symptoms of upset stomach prompting him to stop his medications. Patient converted to sinus rhythm on telemetry at 4:[address] of the brain was performed on 05/18/2022 at 12:33 a.m. revealing a small focus of subarachnoid hemorrhage in the right posterior frontal lobe sulcus. No mass effect or midline shift noted per radiology report. Heparin infusion had initially been started due to his atrial fibrillation, but subsequently discontinued after the initial abnormal CT scan. Repeat study was performed at 6:04 a.m. revealing unchanged right posterior frontal lobe subarachnoid hemorrhage. Allergies Allergy/AdvReac Type Severity Reaction Status Date / Time No Known Allergies Allergy Verified 05/17/22 20:17 Home Medications Medication Instructions Recorded Confirmed Type albuterol sulfate 90 mcg/actuation 2 puff inhalation Q4H PRN 05/01/22 05/17/22 History aerosol inhaler Shortness Of Breath Or Wheezing apixaban 5 mg tablet (Eliquis) 5 mg PO BID 30 days #60 tabs 05/06/22 05/17/22 Rx folic acid 1 mg tablet 1 mg PO QAM 30 days #30 tabs 05/06/22 05/17/22 Rx metoprolol succinate 25 mg 12.5 mg PO BID 30 days #30 tabs 05/06/22 05/17/22 Rx tablet,extended release 24 hr Patient History Medical History 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 Advanced care planning/counseling discussion Cancer related pain Dyspnea and respiratory abnormalities Palliative care encounter Social History Smoking Status: Former smoker Hx Alcohol Use: No Hx Substance Use: No Preferred Language: P[place] Communication Ability: Effective Toll Lineman Required: No Beliefs That Will Affect Care: Orthodoxy Current Living Situation: Alone Feels Safe at Home: Yes Safety Concerns: Feels Safe At This Time Assistive Devices: Glasses Review of Systems Review of Systems: All systems reviewed & are unremarkable except as noted in HPI & below Physical Exam Constitutional: WD/WN, vitals as above Respiratory: normal respiratory effort, lungs clear to auscultation Cardiovascular: RRR, no murmur, no edema Gastrointestinal (Abdomen): normal bowel sounds, soft, nontender, no hepatosplenomegaly Neurologic: PERRL, EOMI, accommodation nl, no face palsy, no dysarthria Results & Data ([facility]) Vital Signs (Past 12 Hours) Vital Signs Temp Pulse Pulse Resp BP BP Pulse Ox 05/18/22 07:08 37.4 C 68 18 126/55 L 96 05/18/22 02:30 98 H 05/18/22 02:30 05/18/22 03:45 36.8 C 112 H 18 124/63 93 05/18/22 01:00 109 H 16 92 05/17/22 23:30 99 H 26 H 130/85 92 O2 Del Method O2 Flow Rate 05/18/22 07:08 Nasal Cannula 3 05/18/22 02:30 05/18/22 02:30 Nasal Cannula 4 05/18/22 03:45 Nasal Cannula 05/18/22 01:00 Nasal Cannula 4 05/17/22 23:30 Nasal Cannula 3 Laboratory Results Cardiac Enzymes 05/17/22 05/17/22 05/18/22 Range/Units 18:00 21:40 03:41 AST 38 (13-39) U/L Troponin I High Sens 258.8 H* 293.0 H* 239.3 H* (0-20) pg/ml Coagulation 05/17/22 05/18/22 Range/Units 18:00 03:35 PT 11.9 (9.0-12.0) Seconds APTT 25.1 27.4 (21.0-31.0) Seconds CBC 05/17/22 Range/Units 18:00 WBC 8.40 (4.8-10.8) K/ul RBC 4.46 L (4.70-6.10) M/uL Hgb 13.0 L (14.0-18.0) g/dl Hct 39.0 L (42.0-52.0) % Plt Count 78 L (130-400) K/uL Neut # (Auto) 6.95 H (1.40-6.50) K/uL Lymph # (Auto) 0.55 L (1.2-3.4) K/uL [place] # (Auto) 0.82 H (0.11-0.59) K/uL Eos # (Auto) 0.03 (0-0.50) K/uL Baso # (Auto) 0.02 (0-0.2) K/uL Comprehensive Metabolic Panel 05/17/22 Range/Units 18:00 Sodium 138 (136-145) mmol/L Potassium 3.9 (3.5-5.1) mmol/L Chloride 99 (98-107) mmol/L Carbon Dioxide 31 (21-32) mmol/L BUN 13 (6-23) mg/dl Creatinine 0.96 (0.6-1.4) mg/dl Glucose 161 H (70-99(Fasting)) mg/dl Calcium 9.5 (8.5-10.1) mg/dl AST 38 (13-39) U/L ALT 40 (7-52) U/L Alkaline Phosphatase 92 (34-104) U/L Total Protein 6.5 (6.0-8.3) gm/dl Albumin 3.8 (3.4-5.0) gm/dl Intake and Output 05/17/22 05/18/22 05/18/22 22:59 06:59 14:59 Intake Total 500 / 588.667 88.667 / 588.667 Output Total 250 / 250 Balance 500 / 338.667 -161.333 / 338.667 Intake: IV 500 / 588.667 88.667 / 588.667 Heparin Sodium/Dextrose 25,000 0 / 0 units In 500 ml @ 0 UNITS/HR IV .Q0M ASHLEY Rx#:[id number] Sodium Chloride 0.9% 500 ml @ 500 / 500 999 mls/hr IV .Q31M ONE Rx#: [id number] Output: Urine 250 / 250 Other: Other Intake Source Sips and chips Weight 78.4 kg 78.4 kg Weight Measurement Method Built in [facility] Patient Weight 05/19/22 06:59 Weight 78.4 kg
--- NOTE | 2022-05-18 12:08 | Hospitalist Progress Note ---
Date of Service May 18, 2022 Assessment & Plan (1) Subarachnoid hemorrhage: Plan: Subarachnoid hemorrhage, in the setting of Eliquis use Last dose of Eliquis was Sunday Repeat CT head this morning: Stable small subacute hemorrhage in the right frontoparietal lobe Discussed with neurologist, repeat CT head tomorrow morning unless patient develops new neurologic symptoms Atrial fibrillation RVR Troponin elevation No cardiac symptoms Cardiology service consulted Lung cancer with metastasis chronic respiratory failure secondary to lung adenocarcinoma on chemotherapy First chemotherapy session last admission Bilateral splenic and renal infarcts Progressing compared to CAT scan during last admission 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 Basal bolus insulin adjusted for n.p.o. status, ISS BG goal 1 10-1 40, update hemoglobin A1c DVT prophylaxis. SCDs while Eliquis on hold DNR Disposition PT and OT evaluation Lives with son at home Admission and Anticipated Discharge Date Admission Date: May 18, 2022 Subjective ff up for SAH, etc seen resting in bedside chair, sitting up Adamant on having his diet resumed States he has a mild headache, but no nausea, blurring of vision, or any other neurologic deficits Left lower extremity weakness improving No chest pain, palpitations, dizziness, shortness of breath No other symptoms Review of Systems Review of Systems: all noted and negative except for above Physical Exam Physical Exam: General- oriented x 3, not in distress, speaks in sentences with no effort or accessory muscle use Eyes- anicteric Neck- no JVD Lungs- clear breath sounds bilaterally, No crackles or wheezing Heart- normal rate, regular rhythm; no murmurs Abdomen- normal bowel sounds, nondistended, soft, No tenderness Extremities- no pretibial edema, no calf tenderness Neuro- alert, oriented x 3; no gross focal neurologic deficits Skin- warm & dry Results & Data Results & Data ([facility]) Vital Signs (Past 12 Hours) Vital Signs Temp Pulse Pulse Resp BP Pulse Ox O2 Del Method 05/18/22 07:08 37.4 C 68 18 126/55 L 96 Nasal Cannula 05/18/22 02:30 98 H 05/18/22 02:30 Nasal Cannula 05/18/22 03:45 36.8 C 112 H 18 124/63 93 Nasal Cannula 05/18/22 01:00 109 H 16 92 Nasal Cannula O2 Flow Rate 05/18/22 07:08 3 05/18/22 02:30 05/18/22 02:30 4 05/18/22 03:45 05/18/22 01:00 4
--- NOTE | 2022-05-18 13:38 | Neurology Consultation ---
Date of Consultation May 18, 2022 Assessment & Plan (1) Subarachnoid hemorrhage: Plan Neurology Consultation Patient seen in consultation for:SAH HISTORY OF PRESENT ILLNESS:pt with renal infarct and was on heparin and CT head noted for small SAH on rt frontal area. pt otherwise stable and not much deficits. mild headache today. chart reviewed. Admission/Initial HPI:Medical history significant for chronic respiratory failure secondary to lung adenocarcinoma on chemotherapy, PAF on Eliquis, hypertension, DM2 diet-controlled, chronic anemia (baseline hemoglobin 12-13), past tobacco abuse. Last confinement 2 weeks ago for new diagnosis of lung adenocarcinoma stage IV. Chemotherapy initiated during confinement. Patient discharged on home O2. Paroxysmal A. fib also noted during confinement. Patient discharged on Eliquis. Patient not feeling well the last few days. Achy abdominal discomfort with nausea symptoms. Poor appetite. Patient stopped taking his pills 2 days ago because it hurts his stomach. Patient had transient left leg weakness today causing him to fall. Transient headache symptoms. No unusual chest pain, SOB, fever, chills, cough. Patient brought to the ER for evaluation. IV Heparin initiated at the ER with note of renal infarcts on CT. Past Medical History: See chart Meds: See chart I personally reviewed all of the medications Social & Family History: See chart Review of Systems: Per HPI Physical Exam: General Statement: not in acute distress, well appearing Mental Status: Oriented fully. Normal comprehension, no neglect, Fluent speech, logical thought process, Visuo-spatial function was intact. No apraxia, no L/R confusion. Cranial Nerves: Visual alatorre were full.PERRL.Extraocular movements were full with no nystagmus. Normal pursuit.Facial movements were symmetric.Hearing was grossly intact.Palate elevated symmetrically.Sternocleidomastoid and trapezius muscles were 5/5 and equal bilaterally.Tongue extended midline. Motor: Strength was 5/5 and equal bilaterally. Normal tone.There were no abnormal movements or pronator drift. Sensory:intact to touch bilaterally Coordination: intact bilaterally Reflexes: Toes down bilaterally IMPRESSION: pt with small SAH on rt frontal area with repeat CT head stable. pt does have atrial fib and renal infarct. Recommendations: * Standard stroke work up as planned * Hold all antiplatelet and anticoagulations. * For patient who needs antiplatelet therapy, may consider restarting low dose ASA 81mg in about 7-10 days only if pt is stable and repeat imaging is reassuring. For patient who needs anticoagulation therapy, need to wait minimum of 3 weeks prior to restart of therapy and only if patient is clinically stable and follow up imaging is reassuring. * can try tylenol and antiemetics to treat his mild headache. avoid NSAIDs and triptans. * Images: repeat non-con CT head tomorrow and if stable, no need for repeat scan unless pt has new symptoms. * If any acute decline, need to call neurosurgery and repeat stat CT head. * Strict BP control: for patient with SBP in 150-200, keep SBP goal range below 140. For patient with SBP above 210, keep SBP range 140-160. Avoid Hypotension. * Long-term SBP goal less than 130. * Close monitoring for increase ICP and electrolyte imbalance, especially hyponatremia. Avoid hypovolemia and hypotension. * Initiate DVT prevention therapy: pneumatic compression. Do not use Lovenox or anticoagulation meds until further notice. * Avoid hypoglycemia, serum glucose goal during hospitalization: 140-180 * Long-term HgA1c goal less than 7 * Statin use: if patient was never on statin, do not start statin now, wait until pt is being discharged and start statin during discharge day.Long-term LDL goal of less than 70. If pt was on statin as outpt, it is okay to continue statin. * Avoid using gastric acid suppression meds (i.e. PPI, histamine-2 antagonists), as they are associated with increased risk of hospital- acquired pneumonia. * Head of bed up 30 degree if possible. * Seizure precaution. * Avoid agitation, may consider mild sedation as needed. * Physical/occupational therapy for any need for assisted device. please call again if new question. Chart reviewed I have spent more than 50% educating patient about potential diagnosis and neurological evaluation and coordinating care with patient's treatment team. Total time spent: 80 min (this includes chart review) Dr. Ralph Wheeler MD [facility] Neurology History of Present Illness Attending Physician: Joey Horowitz MD Allergies Allergy/AdvReac Type Severity Reaction Status Date / Time No Known Allergies Allergy Verified 05/17/22 20:17 Home Medications Medication Instructions Recorded Confirmed Type albuterol sulfate 90 mcg/actuation 2 puff inhalation Q4H PRN 05/01/22 05/17/22 History aerosol inhaler Shortness Of Breath Or Wheezing apixaban 5 mg tablet (Eliquis) 5 mg PO BID 30 days #60 tabs 05/06/22 05/17/22 Rx folic acid 1 mg tablet 1 mg PO QAM 30 days #30 tabs 05/06/22 05/17/22 Rx metoprolol succinate 25 mg 12.5 mg PO BID 30 days #30 tabs 05/06/22 05/17/22 Rx tablet,extended release 24 hr Patient History Medical History 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 Advanced care planning/counseling discussion Cancer related pain Dyspnea and respiratory abnormalities Palliative care encounter Social History Smoking Status: Former smoker Hx Alcohol Use: No Hx Substance Use: No Preferred Language: Czech Communication Ability: Effective Aircraft Accessories Mechanic Required: No Beliefs That Will Affect Care: Moravian Current Living Situation: Alone Feels Safe at Home: Yes Safety Concerns: Feels Safe At This Time Assistive Devices: Glasses Results & Data ([facility]) Vital Signs (Past 12 Hours) Vital Signs Temp Pulse Pulse Resp BP Pulse Ox O2 Del Method 05/18/22 12:27 37.5 C 81 18 130/68 92 Room Air 05/18/22 07:08 37.4 C 68 18 126/55 L 96 Nasal Cannula 05/18/22 02:30 98 H 05/18/22 02:30 Nasal Cannula 05/18/22 03:45 36.8 C 112 H 18 124/63 93 Nasal Cannula O2 Flow Rate 05/18/22 12:27 05/18/22 07:08 3 05/18/22 02:30 05/18/22 02:30 4 05/18/22 03:45
[2022-05-18 13:44] LABS: BUN Creatinine Ratio 19.8 (10-20); Creatinine Clr Calc Pharmacy 81.5 ml/min; Est GFR (African American) 99.7 ml/min; Potassium 3.9 mmol/L (3.5-5.1)
[2022-05-18 13:47] LABS: Hematocrit (blood only) 36.8 % (42.0-52.0); Hemoglobin 12.4 g/dl (14.0-18.0); Mean Corpuscular Hemoglobin 29.6 pg (25.0-34.0); Mean Corpuscular Hgb Conc 33.7 g/dL (32.0-36.0); Mean Corpuscular Volume 87.8 fL (80.0-100.0); Mean Platelet Volume 10.8 fL (9.4-12.4); Platelet Count 64 K/uL (130-400); RDW Coefficient of Variation 13.4 % (11.5-14.5); RDW Standard Deviation 40.9 fL (36.4-46.3); Red Blood Count 4.19 M/uL (4.70-6.10); White Blood Count 7.77 K/ul (4.8-10.8)
[2022-05-18 14:03] LABS: Basophils # (auto) 0.01 K/uL (0-0.2); Basophils % (auto) 0.1 %; Eosinophils # (auto) 0.04 K/uL (0-0.50); Eosinophils % (auto) 0.5 %; Immature Granulocytes # (auto) 0.04 K/uL (0.01-0.20); Immature Granulocytes % (auto) 0.5 %; Lymphocytes # (auto) 0.66 K/uL (1.2-3.4); Lymphocytes % (auto) 8.5 %; Monocytes # (auto) 0.89 K/uL (0.11-0.59); Monocytes % (auto) 11.5 %; Neutrophils # (auto) 6.13 K/uL (1.40-6.50); Neutrophils % (auto) 78.9 %
[2022-05-18] MEDS ORDERED: traMADol HCL 50 MG TABLET PO PRN (14:36)
[2022-05-18] MEDS ORDERED: Nursing to Pharmacy Communication SCH (14:45)
[2022-05-18] MEDS: PANTOprazole 40 MG TAB PO SCH (16:18)
[2022-05-18] MEDS ORDERED: LORATADINE 10 MG TAB PO ONE (22:23)
--- NOTE | 2022-05-18 22:33 | Communication Note ---
Date of Service: May 18, 2022 Patient noted to have a pruritic rash on his back, trunk, left leg as per RN. Rash not present prior to melatonin administration 2 hours prior. AP Melatonin hypersensitivity Loratadine 1 dose now Add melatonin to ADR list
[2022-05-19 06:26] LABS: Calcium 9.1 mg/dl (8.5-10.1)
[2022-05-19 06:31] LABS: Basophils # (auto) 0.01 K/uL (0-0.2); Basophils % (auto) 0.2 %; Eosinophils % (auto) 1.9 %; Hematocrit (blood only) 36.6 % (42.0-52.0); Hemoglobin 12.2 g/dl (14.0-18.0); Hypersegmented Neutrophils 1+; Immature Granulocytes # (auto) 0.01 K/uL (0.01-0.20); Immature Granulocytes % (auto) 0.2 %; Lymphocytes # (auto) 0.71 K/uL (1.2-3.4); Lymphocytes % (auto) 13.4 %; Mean Corpuscular Hemoglobin 29.2 pg (25.0-34.0); Mean Corpuscular Hgb Conc 33.3 g/dL (32.0-36.0); Mean Corpuscular Volume 87.6 fL (80.0-100.0); Mean Platelet Volume 10.6 fL (9.4-12.4); Monocytes # (auto) 0.65 K/uL (0.11-0.59); Monocytes % (auto) 12.3 %; Neutrophils # (auto) 3.81 K/uL (1.40-6.50); Platelet Count 54 K/uL (130-400); RDW Coefficient of Variation 13.3 % (11.5-14.5); RDW Standard Deviation 41.2 fL (36.4-46.3); Red Blood Count 4.18 M/uL (4.70-6.10); White Blood Count 5.29 K/ul (4.8-10.8)
[2022-05-19 06:32] LABS: BUN Creatinine Ratio 22.8 (10-20); Chol HDL Ratio 3.9 (0-5); Creatinine Clr Calc Pharmacy 88.7 ml/min; Est GFR (African American) 103.2 ml/min; Est GFR (Non-African American) 89.1 ml/min
--- NOTE | 2022-05-19 08:33 | Cardiology Progress Note ---
Date of Service May 19, 2022 Assessment & Plan (1) Subarachnoid hemorrhage: (2) Atrial fibrillation with RVR: (3) Adenocarcinoma of lung, stage 4: Plan - Self converted to NSR around 0400 on 05/18, regular rhythm today. At the time my evaluation, he was comfortable, and not tachycardic. He denies any recent cardiac symptoms such as subjective palpitations or chest discomfort. Recommend ongoing treatment with metoprolol succinate 12.5 milligrams twice daily. Should antiarrhythmics be necessary, amiodarone may considered, however he does have an abnormal TSH at baseline. LFTs normal Of note, there is concern regarding possible splenic infarcts on CT scan- plan with AC as below. -Patient is adamant that he did not fall or hit his head. Noted weakness that allowed him to lower himself to the ground. If the patient truly did not fall or injure his head there is concern for a spontaneous ICH making the use of blood thinners more risky. At this time the risk of bleeding greatly outweighs the use of AC (HAS BLED score of 5). Would recommend continuing to hold AC at this time. Given low platelet count, will hold off on ASA also. Case discussed with Dr. Genao- will follow. Admission and Anticipated Discharge Date Admission Date: May 18, 2022 Supervising Physician Co-Signing Physician Notes Reviewed the medical record and discussed the case with the nurse practitioner. I agree with the plan as outlined above. Due to the spontaneous ICH, anticoagulation is of a concern. Robin Penaloza is a 72-year-old male seen in cardiology consultation per the request of Dr. Garcia for the evaluation of atrial fibrillation. Earlier this month he had been hospitalized for complaint of shortness of breath as ultimately diagnosed with stage IV adenocarcinoma of the lung. Chemotherapy was started as an inpatient on 05/05/2021. An MRI of the brain performed 05/03/2022 was limited by motion artifact, but there were no intracranial lesions to suggest metastatic disease. During the hospital stay patient was diagnosed with episodes of paroxysmal atrial fibrillation and low-dose metoprolol succinate 12.5 mg twice daily was added + Eliquis. Echocardiogram revealed a normal LV systolic function. Unfortunately he fell on 05/17 due to leg weakness. EKG was performed showing atrial fibrillation, RVR 105 bpm. Patient apparently missed 2 days of medications including 2 days of missed Eliquis due to symptoms of upset stomach prompting him to stop his medications. Patient converted back to sinus rhythm on telemetry at 4:08 AM (05/18). CT of the brain was performed on 05/18/2022 at 12:33 a.m. revealing a small focus of subarachnoid hemorrhage in the right posterior frontal lobe sulcus. No mass effect or midline shift noted per radiology report. Heparin infusion had initially been started due to his atrial fibrillation, but subsequently discontinued after the initial abnormal CT scan. Repeat study was performed at 6:04 a.m. revealing unchanged right posterior frontal lobe subarachnoid hemorrhage. 05/18: Patient maintained sinus rhythm-continued on metoprolol succinate 12.5 mg twice daily Patient remained off anticoagulations due to subarachnoid hemorrhage Troponins elevated likely in the setting of demand ischemia 05/19: Upon entrance into the room patient resting in the chair without complaint. He became very upset when the word "fall" was mentioned. He goes on to explain that he "never fell". He felt "weakness" in his legs and slowly lowered himself to the ground. Denies hitting his head. Tele: SR with PVCs 70-80s. No PAF. Upon entrance into the room patient resting in the chair without acute concern. No neurologic changes over night or this am. No chest pain or shortness of breath. Denies palpitations. Review of Systems Review of Systems: All systems reviewed & are unremarkable except as noted in HPI & below Physical Exam Constitutional: WD/WN, vitals as above no acute distress Eyes: PERRL, conjunctivae normal, anicteric sclerae Neck: normal visual inspection and trachea midline Respiratory: normal respiratory effort, lungs clear to auscultation Cardiovascular: RRR, no murmur, no edema Heart Sounds: normal S1 and normal S2 Vessels: no JVD Extremities: no edema Gastrointestinal (Abdomen): normal bowel sounds, soft, nontender, no hepatosplenomegaly Musculoskeletal: no cyanosis or clubbing, extremities motor strength 5/5 Skin: no rashes, warm and dry Neurologic: PERRL, EOMI, accommodation nl, no face palsy, no dysarthria Results & Data ([facility]) Vital Signs (Past 12 Hours) Vital Signs Temp Pulse Pulse Resp BP Pulse Ox O2 Del Method 05/19/22 03:26 36.8 C 80 18 121/57 L 97 Room Air 05/18/22 23:00 94 H 05/19/22 00:05 36.7 C 77 16 132/68 92 Nasal Cannula O2 Flow Rate 05/19/22 03:26 05/18/22 23:00 05/19/22 00:05 2 Laboratory Results Lipids 05/19/22 Range/Units 05:25 Triglycerides 116 (0-150) mg/dl Cholesterol 176 (0-200) mg/dl HDL Cholesterol 45 mg/dl Cholesterol/HDL Ratio 3.9 (0-5) CBC 05/18/22 05/19/22 Range/Units 13:01 05:25 WBC 7.77 5.29 (4.8-10.8) K/ul RBC 4.19 L 4.18 L (4.70-6.10) M/uL Hgb 12.4 L 12.2 L (14.0-18.0) g/dl Hct 36.8 L 36.6 L (42.0-52.0) % Plt Count 64 L 54 L (130-400) K/uL Neut # (Auto) 6.13 3.81 (1.40-6.50) K/uL Lymph # (Auto) 0.66 L 0.71 L (1.2-3.4) K/uL [place] # (Auto) 0.89 H 0.65 H (0.11-0.59) K/uL Eos # (Auto) 0.04 0.10 (0-0.50) K/uL Baso # (Auto) 0.01 0.01 (0-0.2) K/uL Comprehensive Metabolic Panel 05/18/22 05/19/22 Range/Units 13:01 05:25 Sodium 136 137 (136-145) mmol/L Potassium 3.9 4.0 (3.5-5.1) mmol/L Chloride 99 101 (98-107) mmol/L Carbon Dioxide 30 28 (21-32) mmol/L BUN 17 18 (6-23) mg/dl Creatinine 0.86 0.79 (0.6-1.4) mg/dl Glucose 125 H 135 H (70-99(Fasting)) mg/dl Calcium 9.0 9.1 (8.5-10.1) mg/dl Intake and Output 05/18/22 05/19/22 05/19/22 22:59 06:59 14:59 Intake Total 510 / 510 360 / 360 Output Total 400 / 725 325 / 725 425 / 425 Balance 110 / -215 -325 / -215 -65 / -65 Intake: Oral 510 / 510 360 / 360 Output: Urine 400 / 725 325 / 725 425 / 425 # Bowel Movements 0 / 0
--- NOTE | 2022-05-19 08:43 | CT Scan Report ---
CT head/brain wo con CLINICAL HISTORY: ff up Subarachnoid hemorrhage Technique: Contiguous axial CT images of the head were acquired from the base of the skull to the candida kaylee without intravenous contrast administration. Images were viewed in brain, subdural and bone [facility]. Automated dose lowering techniques and/or adjustment according to patient size were utilized for this exam. Comparison: Comparison is made to CT head 05/18/2022 Findings: Redemonstration of subarachnoid hemorrhage in the right posterior frontal lobe. No new hemorrhage is seen. No mass effect or midline shift. Stable age-related changes. Imaged portions of the paranasal sinuses and mastoid air cells are clear. The orbits appear normal. There are no acute fractures of the calvaria or scalp swelling. Impression: Stable subarachnoid hemorrhage in the right posterior frontal lobe. No new hemorrhage is seen. ACT 112: Negative or not required by law. Electronically signed by: Vijay Ledezma M.D. 05/19/2022 8:41 AM
[2022-05-19] MEDS: FOLIC ACID 1 MG TAB PO SCH (09:20)
[2022-05-19] MEDS: METOPROLOL SUCC 25MG EXT REL TAB PO SCH ×2 (09:20→20:21)
[2022-05-19] MEDS: INSULIN ASPART PER UNIT SC SCH ×4 (09:20→21:00)
[2022-05-19] MEDS: PANTOprazole 40 MG TAB PO SCH (09:21)
--- NOTE | 2022-05-19 09:44 | Hospitalist Progress Note ---
Date of Service May 19, 2022 Assessment & Plan (1) Subarachnoid hemorrhage: Plan: (1) Subarachnoid hemorrhage: Plan: Subarachnoid hemorrhage likely due to anticoagulant therapy Last dose of Eliquis was Sunday Repeat CT head this morning May 15, 2022: Stable subarachnoid hemorrhage in the right posterior frontal lobe. No new hemorrhage is seen. Platelet count trended down to 50 K, 1 unit platelet pheresis ordered No other signs of active bleeding Will order Tylenol 1 g every 8 hours scheduled for headache Declining any other analgesic at this point Atrial fibrillation RVR Troponin elevation No cardiac symptoms Cardiology service consulted-appreciate recommendations Lung cancer with metastasis chronic respiratory failure secondary to lung adenocarcinoma on chemotherapy First chemotherapy session last admission Bilateral splenic and renal infarcts Progressing compared to CAT scan during last admission Will discuss with patient's project superintendent/oncologist--> recommend repeat CT head in 1 week and if subarachnoid hemorrhage is stable, trial of Lovenox 40 mg subcu or Eliquis 2.5 twice daily for DVT/infarcts prophylaxis hypertension, stable DM2 diet controlled, hemoglobin A1c of 6.4 from November 2019 chronic anemia, hemoglobin at baseline past tobacco abuse. Basal bolus insulin adjusted for n.p.o. status, ISS BG goal 1 10-1 40, update hemoglobin A1c DVT prophylaxis. SCDs while Eliquis on hold DNR Disposition PT and OT evaluation Lives with son at home Admission and Anticipated Discharge Date Admission Date: May 18, 2022 Subjective Follow-up for subarachnoid hemorrhage, etc. Was having headache this morning Taken for repeat CAT scan of the head, stable findings Seen sitting up in bedside chair, having breakfast, in good spirits States he is still having some headache, declines other analgesics aside from Tylenol No blurring of vision, focal neurologic deficits, nausea vomiting No shortness of breath, cough, chest pain, fevers or chills Left lower extremity still feeling weak, requesting PT and OT evaluation No other symptoms Review of Systems Review of Systems: all noted and negative except for above Physical Exam Physical Exam: General- oriented x 3, not in distress, speaks in sentences with no effort or accessory muscle use Eyes- anicteric Neck- no JVD Lungs- clear breath sounds bilaterally, no wheezing, no crackles Heart- normal rate, regular rhythm; no murmurs Abdomen- normal bowel sounds, nondistended, soft, no tenderness Extremities- no pretibial edema, no calf tenderness Neuro- alert, oriented x 3; no gross focal neurologic deficits Skin- warm & dry Results & Data Results & Data ([facility]) Vital Signs (Past 12 Hours) Vital Signs Temp Pulse Pulse Resp BP Pulse Ox O2 Del Method 05/19/22 08:00 Nasal Cannula 05/19/22 08:34 36.7 C 81 19 138/75 95 Nasal Cannula 05/19/22 03:26 36.8 C 80 18 121/57 L 97 Room Air 05/18/22 23:00 94 H 05/19/22 00:05 36.7 C 77 16 132/68 92 Nasal Cannula O2 Flow Rate 05/19/22 08:00 3 05/19/22 08:34 2.0 05/19/22 03:26 05/18/22 23:00 05/19/22 00:05 2 all noted and reviewed including below
[2022-05-19] MEDS: ACETAMINOPHEN 500 MG TAB PO SCH ×2 (10:06→18:02)
[2022-05-19] MEDS ORDERED: POLYETHYLENE (MIRALAX) 17 GM PACK PO PRN (13:23)
[2022-05-19] MEDS ORDERED: hydrALAZINE HCL 20 MG/ML VIAL IV PRN (14:41)
--- NOTE | 2022-05-19 15:33 | Electrocardiogram Report ---
Test Reason : Blood Pressure : / mmHG Vent. Rate : 094 BPM Atrial Rate : 094 BPM P-R Int : 146 ms QRS Dur : 116 ms QT Int : 364 ms P-R-T Axes : 035 -14 006 degrees QTc Int : 455 ms Poor data quality, interpretation may be adversely affected Sinus rhythm with Premature supraventricular complexes and Fusion complexes Right bundle branch block Abnormal ECG When compared with ECG of 17-MAY-2022 17:55, Sinus rhythm has replaced Atrial fibrillation Confirmed by Rajeev Lara ([id number]) on 05/19/2022 3:33:09 PM Referred By: REFERRED SELF Confirmed By:Alejandro Lara
[2022-05-19] MEDS ORDERED: ACETAMINOPHEN 1,000 MG/100 ML VIAL IV STA (15:38)
[2022-05-19] MEDS ORDERED: METOPROLOL TARTRATE 1 MG/ML VIAL IV STA (15:39)
[2022-05-19] MEDS ORDERED: FUROSEMIDE INJ 20 MG/2 ML VIAL IV ONE (15:48)
--- NOTE | 2022-05-19 15:52 | XRay Report ---
XR chest 1V portable CLINICAL HISTORY: Hypoxia, s/p platelet transfusion. Lung adenocarcinoma COMPARISON STUDY: Chest CT May 01, 2022 and chest radiograph May 17, 2022 FINDINGS: No pneumothorax or pleural effusion is present. Cardiac size is normal. Mediastinal and chris ateral hilar adenopathy is better depicted on prior chest CT. Numerous pulmonary nodules are again no zuleima. Mild airspace opacity and interstitial thickening has improved since prior exam. No evidence for overt pulmonary edema. IMPRESSION: 1. No evidence for pulmonary edema. 2. Redemonstration of numerous pulmonary nodules and mediastinal and bilateral hilar adenopathy consi stent with metastatic disease. ACT 112: Negative or not required by law. Electronically signed by: Bernardo Phelps M.D. 05/19/2022 3:51 PM
[2022-05-19 17:28] LABS: Blood Urine 1+ (Negative); RBC Urine Automated 0-4 /hpf (0-4)
--- NOTE | 2022-05-19 19:57 | CT Scan Report ---
CT OF THE HEAD WITHOUT CONTRAST CLINICAL HISTORY: Altered mental status. Follow-up subarachnoid hemorrhage. Lung cancer. COMPARISON STUDY: MRI of the brain May 03, [address] performed earlier today. CT DOSE: 773.57 mGy.cm TECHNIQUE: Helical axial images of the head were obtained without IV contrast. Automated exposure con trol was utilized for the study. A dose lowering technique was utilized adhering to the principles o f ALARA. FINDINGS: A small focus of acute subarachnoid hemorrhage overlying the posterior right frontal lobe r emains unchanged. No additional sites of hemorrhage are present. Ventricular system is normal. Basal cisterns are patent. A 9 mm hypodensity within the right aspect of the splenium of the corpus callosu m has developed. This favors a developing acute infarct. No additional infarcts are identified. There are no significant calvarial abnormalities. IMPRESSION: 1. 9 mm hypodensity within the right aspect of the splenium of the corpus callosum. This favors a dev eloping acute infarct. 2. Minimal acute subarachnoid hemorrhage overlying the posterior right frontal lobe, unchanged. ACT 112: Negative or not required by law. Electronically signed by: Bernardo Phelps M.D. 05/19/2022 7:55 PM
[2022-05-19] MEDS ORDERED: SODIUM CHLORIDE 0.9% 1000ML 1,000 ML IV SCH (20:45)
[2022-05-19] MEDS ORDERED: LORazepam 2 MG/1 ML VIAL IV ONE (21:00)
--- NOTE | 2022-05-19 22:02 | Communication Note ---
Date of Service: May 19, 2022 Made aware by RN of CT head report requested by AM provider after change in mentation noted in the afternoon. 1. 9 mm hypodensity within the right aspect of the splenium of the corpus callosum. This favors a developing acute infarct. 2. Minimal acute subarachnoid hemorrhage overlying the posterior right frontal lobe, unchanged. Patient complaining of some left-sided weakness on my evaluation. Denies headache symptoms PPE Oriented to day and month ? Mild nasolabial fold flattening left RUE/RLE 4/5 LUE/LLE 3/5 AP Acute CVA History Mikayla Banks currently on hold given recent subarachnoid hemorrhage Aspirin for secondary stroke prevention (okay with Dr. Wheeler, neurologist on- call) MRI brain, carotid Dopplers, TTE for additional stroke work-up in a.m. Will relay to AM provider.
[2022-05-19] MEDS ORDERED: PHARMACIST DISCHARGE MED REC CONSULT PRN (22:09)
[2022-05-19 22:33] LABS: Calcium 8.5 mg/dl (8.5-10.1); Magnesium 1.7 mg/dl (1.7-2.4); Potassium 3.9 mmol/L (3.5-5.1)
[2022-05-19] MEDS: ASPIRIN 81 MG ECTAB PO SCH (22:35)
[2022-05-19 22:38] LABS: BUN Creatinine Ratio 21.5 (10-20); Creatinine Clr Calc Pharmacy 75.3 ml/min; Est GFR (African American) 94.1 ml/min; Est GFR (Non-African American) 81.2 ml/min
[2022-05-19] MEDS ORDERED: SODIUM CHLORIDE 0.9% 1000ML 1,000 ML IV ONE (23:02)
[2022-05-19] MEDS: MAGNESIUM SULFATE / D5W 1 GM/100 ML BAG IV SCH (23:33)
[2022-05-20] MEDS ORDERED: ACETAMINOPHEN 325 MG TAB PO STA (00:15)
[2022-05-20 00:24] LABS: Appearance Urine Clear (Clear); Bacteria Urine Automated Negative (Negative); Bilirubin Urine Negative (Negative); Blood Urine 1+ (Negative); Cast Urine Automated 0 /lpf (0-5); Color Urine Yellow; Glucose Urine UA Negative (Negative); Ketones Urine Negative (Negative); Leukocyte Esterase Urine Negative (Negative); Nitrite Urine Negative (Negative); Protein Urine Negative (Negative); RBC Urine Automated 0-4 /hpf (0-4); Specific Gravity Urine 1.016 (1.000-1.030); Urobilinogen Urine Negative (Negative)
[2022-05-20] MEDS: MAGNESIUM SULFATE / D5W 1 GM/100 ML BAG IV SCH (01:34)
[2022-05-20] MEDS: ACETAMINOPHEN 500 MG TAB PO SCH ×3 (01:36→18:14)
--- NOTE | 2022-05-20 08:23 | CT Scan Report ---
HEAD CT NONCONTRAST CT DOSE: 1795.19 mGy.cm HISTORY: Headache. TECHNIQUE: Multiaxial CT images of the head were performed without the use of intravenous contrast. A utomated exposure control was utilized for this study. A dose lowering technique was utilized adheri ng to the principles of ALARA. Comparison: Head CT 05/19/2022. Findings: The paranasal sinuses and mastoid air cells are clear. The calvarium and skull base are int act. Trace subarachnoid hemorrhage within the right high convexity has slightly improved. Small hypod ensity near the right corpus callosum on image 19 is also similar to the prior study. This could repr esent an age-indeterminate infarct. Impression: 1. Trace subarachnoid hemorrhage within the right high convexity has slightly improved. 2. No change in the small hypodensity near the right corpus callosum which could represent an age-ind eterminate infarct. ACT 112: Negative or not required by law. Electronically signed by: Tang Lyons M.D. 05/20/2022 8:22 AM
[2022-05-20 08:24] LABS: Hematocrit (blood only) 34.4 % (42.0-52.0); Hemoglobin 11.5 g/dl (14.0-18.0); Mean Corpuscular Hgb Conc 33.4 g/dL (32.0-36.0); Mean Corpuscular Volume 86.9 fL (80.0-100.0); Mean Platelet Volume 11.1 fL (9.4-12.4); Platelet Count 58 K/uL (130-400); RDW Coefficient of Variation 13.5 % (11.5-14.5); RDW Standard Deviation 41.5 fL (36.4-46.3); Red Blood Count 3.96 M/uL (4.70-6.10); White Blood Count 3.93 K/ul (4.8-10.8)
[2022-05-20] MEDS ORDERED: AMIODARONE IV BOLUS & DRIP IV STA (08:31)
[2022-05-20] MEDS ORDERED: STAT IV Infusion **Titration per Protocol STA (08:31)
[2022-05-20] MEDS ORDERED: AMIODARONE / D5W 150 MG/100 ML BAG IV STA (08:31)
[2022-05-20] MEDS ORDERED: 0.2 MICRON FILTER SET 1 EACH IV STA (08:31)
[2022-05-20] MEDS ORDERED: AMIODARONE / D5W 360 MG/200 ML BAG IV ONE (08:41)
[2022-05-20 08:42] LABS: Calcium 8.7 mg/dl (8.5-10.1); Potassium 3.5 mmol/L (3.5-5.1)
[2022-05-20 08:47] LABS: Eosinophils % (auto) 2.5 %; Immature Granulocytes # (auto) 0.02 K/uL (0.01-0.20); Immature Granulocytes % (auto) 0.5 %; Lymphocytes # (auto) 0.49 K/uL (1.2-3.4); Lymphocytes % (auto) 12.5 %; Monocytes # (auto) 0.49 K/uL (0.11-0.59); Monocytes % (auto) 12.5 %; Neutrophils # (auto) 2.83 K/uL (1.40-6.50)
[2022-05-20 08:48] LABS: BUN Creatinine Ratio 23.7 (10-20); Creatinine Clr Calc Pharmacy 92.2 ml/min; Est GFR (African American) 104.9 ml/min; Est GFR (Non-African American) 90.5 ml/min
[2022-05-20] MEDS: INSULIN ASPART PER UNIT SC SCH ×4 (09:24→20:57)
[2022-05-20] MEDS: ASPIRIN 81 MG ECTAB PO SCH (09:26)
[2022-05-20] MEDS: FOLIC ACID 1 MG TAB PO SCH (09:26)
[2022-05-20] MEDS: ATORVASTATIN 20 MG TAB PO SCH (09:26)
[2022-05-20] MEDS: METOPROLOL SUCC 25MG EXT REL TAB PO SCH ×2 (09:27→21:03)
--- NOTE | 2022-05-20 09:55 | Cardiology Progress Note ---
Date of Service May 20, 2022 Assessment & Plan (1) Subarachnoid hemorrhage: Plan: - Per history obtained 05/19/2022, and corroborated again today, patient does not believe he fell down leading up to this hospital stay, but did have clumsiness of his legs and eased himself to the ground. Question if the subarachnoid hemorrhage was therefore the inciting factor of these changes, rather than occurring after trauma, and if this had occurred spontaneously prehospi talization. -He is off Eliquis, and off of heparin. -Aspirin 81 mg daily reinitiated overnight last night due to new findings of ischemic stroke on CT. -Patient's circumstances are difficult as he is at high risk for both bleeding and thrombosis. The subarachnoid hemorrhage however is felt to prevent use of anticoagulation at present due to risk of worsening bleeding. (2) Embolic stroke: Plan: - Likely with embolic stroke due to paroxysmal atrial fibrillation. Splenic and renal infarcts noted on recent CT of the abdomen pelvis proceeding the new finding of ischemic stroke. -Proceed with cautious use of aspirin 81 mg daily, holding use of aspirin. (3) Atrial fibrillation with RVR: Plan: - Patient and out of atrial fibrillation again on 05/19/2022. -Sinus rhythm noted thus far on 05/20/2022. -Continue metoprolol succinate 12.5 mg twice daily. Initiate amiodarone, loading by IV infusion while on telemetry. Baseline LFTs normal this hospital stay. TSH has been elevated. At this point, I believe the benefits of a rhythm control strategy in an effort to reduce his atrial fibrillation burden, and thus reduce risk of embolic stroke with the risks with regards to potential for thyroid or pulmonary toxicity from amiodarone. -Limited echo to be performed today as already requested by Dr. Garcia. (4) Adenocarcinoma of lung, stage 4: Plan: -thrombocytopenia noted this admission. -Fever after platelet transfusion. -Prognosis poor. DVT prophylaxis: SCDs . Admission and Anticipated Discharge Date Admission Date: May 18, 2022 Subjective Patient seen in cardiology follow-up. He is accompanied by his son at the bedside. Telemetry reveals sinus rhythm in the 70s. Sinus rhythm in the 70s observed overnight with occasional PACs and PVCs. Yesterday 05/19/2022 he reverted back to atrial fibrillation with rapid ventricular response at 11:20 AM. By 5 PM he was intermittently in atrial fibrillation in sinus rhythm, and since 9 PM he has been back in sinus rhythm. When he was in atrial fibrillation the ventricular rates were as high as 150 bpm. Yesterday afternoon. Been concerned about a change in mentation. A repeat CT of the brain has been performed therefore last evening revealing a new 9 mm hypodensity within the right aspect of the splenium of the corpus callosum with appearance favoring developing acute infarct as per the radiology report. The small acute subarachnoid hemorrhage overlying the posterior right frontal lobe is unchanged. Another CT had already been performed this morning 05/20/2022 that was unchanged compared to last evening. There has been concern yesterday with regards to a platelet transfusion reaction with patient having received 1 unit of platelets, with subsequent fever of 38.8. Subjectively, the patient's only complaint is that he is limited to a liquid diet. Physical Exam Constitutional: WD/WN, vitals as above Respiratory: normal respiratory effort, lungs clear to auscultation Cardiovascular: RRR, no murmur, no edema Gastrointestinal (Abdomen): normal bowel sounds, soft, nontender, no hepatosplenomegaly Neurologic: PERRL, EOMI, accommodation nl, no face palsy, no dysarthria Results & Data ([facility]) Vital Signs (Past 12 Hours) Vital Signs Temp Pulse Pulse Resp BP Pulse Ox O2 Del Method 05/20/22 08:34 36.9 C 89 21 123/52 L 93 Nasal Cannula 05/19/22 23:06 79 05/19/22 23:30 37.0 C 72 14 138/71 91 Room Air O2 Flow Rate 05/20/22 08:34 4.0 05/19/22 23:06 05/19/22 23:30 Laboratory Results CBC 05/20/22 Range/Units 07:59 WBC 3.93 L (4.8-10.8) K/ul RBC 3.96 L (4.70-6.10) M/uL Hgb 11.5 L (14.0-18.0) g/dl Hct 34.4 L (42.0-52.0) % Plt Count 58 L (130-400) K/uL Neut # (Auto) 2.83 (1.40-6.50) K/uL Lymph # (Auto) 0.49 L (1.2-3.4) K/uL [place]ett # (Auto) 0.49 (0.11-0.59) K/uL Eos # (Auto) 0.10 (0-0.50) K/uL Baso # (Auto) 0.00 (0-0.2) K/uL Comprehensive Metabolic Panel 05/19/22 05/20/22 Range/Units 21:32 07:59 Sodium 138 138 (136-145) mmol/L Potassium 3.9 3.5 (3.5-5.1) mmol/L Chloride 101 101 (98-107) mmol/L Carbon Dioxide 29 32 (21-32) mmol/L BUN 20 18 (6-23) mg/dl Creatinine 0.93 0.76 (0.6-1.4) mg/dl Glucose 132 H 145 H (70-99(Fasting)) mg/dl Calcium 8.5 8.7 (8.5-10.1) mg/dl Intake and Output 05/19/22 05/20/22 05/20/22 22:59 06:59 14:59 Intake Total 100 / 1154 432 / 1154 Output Total 200 / 1005 380 / 1005 Balance -100 / 149 52 / 149 Intake: IV 100 / 432 332 / 432 Acetaminophen 1,000 mg In 100 100 / 100 ml @ 400 mls/hr IV NOW STA Rx#: [id number] Magnesium Sulfate / D5w 1 gm In 200 / 200 100 ml @ 50 mls/hr IV Q2H ASHLEY Rx#:[id number] Sodium Chloride 0.9% 1000ML 1, 132 / 132 000 ml @ 60 mls/hr IV .[id number] ASHLEY Rx#:[id number] Oral 100 / 460 Output: Urine 200 / 1005 380 / 1005 Other: # Unmeasured Voids 1
--- NOTE | 2022-05-20 12:10 | Magnetic Resonance Report ---
Brain MRI WITHOUT CONTRAST HISTORY: Headache. Abnormal head CT. Subarachnoid hemorrhage. stroke TECHNIQUE: Multiplanar multisequence MRI of the brain was performed without the use of contrast. Of n ote, the patient was unable to complete the entire examination. Therefore the axial T2 and coronal FL AIR sequences were not obtained. COMPARISON STUDY: Head CT 05/12/2022. Brain MRI 05/03/2022. FINDINGS: Scattered small foci of restricted diffusion seen within the right parietal lobe, right occ ipital lobe, and left cerebellar hemisphere consistent with acute embolic infarcts. Dominant focus ad jacent to the right corpus callosum measures 1 cm. Otherwise, the midline structures are intact. No d efinite mass or midline shift. The patient's trace subarachnoid hemorrhage at the right high convexit y is better appreciated on the same day head CT. IMPRESSION: 1. Scattered small foci of restricted diffusion seen within the right parietal lobe, right occipital lobe, and left cerebellar hemisphere consistent with acute embolic infarcts. 2. The patient's trace subarachnoid hemorrhage at the right high convexity is better appreciated on t he same day head CT. ACT 112: Negative or not required by law. Electronically signed by: Tang Lyons M.D. 05/20/2022 12:07 PM
--- NOTE | 2022-05-20 12:19 | Ultrasound Report ---
BILATERAL CAROTID DOPPLER STUDY HISTORY: Right-sided stroke. COMPARISON: None. TECHNIQUE: Real-time, grayscale, and color Doppler sonography of the carotid arteries was performed. Imaging reviewed in the transverse and longitudinal planes. All measurements were calculated based on NASCET criteria. FINDINGS: Antegrade flow is seen in the bilateral vertebral arteries. Mild to moderate calcified plaque within the left carotid bifurcation. The peak systolic velocity within the right ICA is 87 cm/s. The right systolic ratio is 0.9. The peak systolic velocity within the left ICA is 58 cm/s. The left systolic ratio is 0.9. IMPRESSION: No hemodynamically significant stenosis seen within the carotid arteries. ACT 112: Negative or not required by law. Electronically signed by: Tang Lyons M.D. 05/20/2022 12:17 PM
[2022-05-20] MEDS: PANTOprazole 40 MG TAB PO SCH (13:23)
[2022-05-20] MEDS: AMIODARONE / D5W 360 MG/200 ML BAG IV SCH (14:43)
--- NOTE | 2022-05-20 15:01 | Hospitalist Progress Note ---
Date of Service May 20, 2022 Assessment & Plan (1) Subarachnoid hemorrhage: Plan: (1) Subarachnoid hemorrhage: Plan: Subarachnoid hemorrhage likely due to anticoagulant therapy Last dose of Eliquis was Sunday Repeat CT head this morning May 15, 2022: Stable subarachnoid hemorrhage in the right posterior frontal lobe. No new hemorrhage is seen. Platelet count trended down to 50 K, 1 unit platelet pheresis ordered No other signs of active bleeding Will order Tylenol 1 g every 8 hours scheduled for headache Declining any other analgesic at this point 05/[address] head: Stable subarachnoid hemorrhage Platelet count 50 8K No other signs of active bleeding Acute CVA, likely embolic infarcts Developed some alteration mental status 05/19/2022 Brain MRI:1. Scattered small foci of restricted diffusion seen within the right parietal lobe, right occipital lobe, and left cerebellar hemisphere consistent with acute embolic infarcts. 2. The patient's trace subarachnoid hemorrhage at the right high convexity is better appreciated on the same day head CT. Carotid Doppler study: No hemodynamically significant stenosis Aspirin 81 mg p.o. daily started Discussed with neurologist on-call Dr. Holt-recommend CT angiogram of head and neck Dr. Euceda will be reevaluating the patient today, possibly restarting Eliquis sooner given development of acute embolic infarcts Atrial fibrillation RVR Troponin elevation No cardiac symptoms Cardiology service consulted-appreciate recommendations Started on amiodarone drip today Echocardiogram: Unrevealing, no left ventricular wall mural thrombus Lung cancer with metastasis chronic respiratory failure secondary to lung adenocarcinoma on chemotherapy First chemotherapy session last admission Bilateral splenic and renal infarcts Progressing compared to CAT scan during last admission Eliquis on hold in light of subarachnoid hemorrhage Neurologist to discuss with patient today regarding resuming anticoagulation in light of acute embolic cerebral infarcts hypertension, stable DM2 diet controlled, hemoglobin A1c of 6.4 from November 2019 chronic anemia, hemoglobin at baseline past tobacco abuse. Basal bolus insulin adjusted for n.p.o. status, ISS BG goal 1 10-1 40, update hemoglobin A1c DVT prophylaxis. SCDs while Eliquis on hold DNR Disposition PT and OT evaluation Lives with son at home plan of care discussed with patient and patient's son at the bedside in detail and at length Also discussed plan of care with patient's daughter last night all questions answered they are understanding, agreeable, comfortable with the plan of care Admission and Anticipated Discharge Date Admission Date: May 18, 2022 Subjective ff up for SAH, acute cva, etc CT head overnight revealed acute infarct Seen resting in chair, comfortable, not in distress Awake, alert, oriented x3, conversant States he feels fine overall today Denies headache, dizziness, blurring of vision, Does report left lower extremity weakness No chest pain, palpitations, shortness of breath, or any other symptoms Review of Systems Review of Systems: all noted and negative except for above Physical Exam Physical Exam: General- oriented x 3, not in distress, speaks in sentences with no effort or accessory muscle use Eyes- anicteric Neck- no JVD Lungs- clear BS bilaterally, no rales/wheezes Heart- normal rate, regular rhythm; no murmurs Abdomen- normal bowel sounds, nondistended, soft, nontender Extremities- no pretibial edema, no calf tenderness Neuro- alert, oriented x 3; left lower extremity motor strength 4/5, sensation not present, otherwise no gross focal neurologic deficits Skin- warm & dry Results & Data Results & Data ([facility]) Vital Signs (Past 12 Hours) Vital Signs Temp Pulse Resp BP BP Pulse Ox O2 Del Method 05/20/22 12:40 36.7 C 61 20 114/70 96 Nasal Cannula 05/20/22 10:00 61 H 119/67 05/20/22 09:45 72 126/59 L 05/20/22 09:30 80 132/62 05/20/22 08:34 36.9 C 89 21 123/52 L 93 Nasal Cannula O2 Flow Rate 05/20/22 12:40 4.0 05/20/22 10:00 05/20/22 09:45 05/20/22 09:30 05/20/22 08:34 4.0 all noted and reviewed including below
[2022-05-20] MEDS ORDERED: OPTIRAY 320 500ml IV ONE (15:40)
--- NOTE | 2022-05-20 16:01 | CT Scan Report ---
HEAD & NECK CTA HISTORY: Right-sided acute stroke. TECHNIQUE: Multiaxial CT images of the head were performed following the intravenous administration o f contrast to evaluate the major cerebral vessels. Multiaxial CT images of the neck were also perform ed following the intravenous administration of contrast to evaluate the major cervical vessels. Maxim um intensity projection images were also obtained. A dose lowering technique was utilized adhering to the principles of ALARA. COMPARISON: Head CT and brain MRI 05/20/2022. FINDINGS: Small hypodensity adjacent to the right side of the corpus callosum is again noted and is consistent with the patient's known infarct. Trace subarachnoid hemorrhage at the right high convexity is also u nchanged. Visualized intracranial internal carotid arteries, distal vertebral arteries, and basilar a rtery are widely patent. There is no significant stenosis, occlusion, or aneurysm seen within the chris ateral ACAs, MCAs, or highway maintenance worker. The major dural venous sinuses appear patent. There is a persistent left posterior circulation noted. The aortic arch and proximal great vessels are widely patent. There is no significant stenosis, occ lusion, or dissection identified within the bilateral common carotid, internal carotid, or vertebral arteries. Multiple scattered pulmonary nodules and emphysema are again noted. Right paratracheal lymp hadenopathy persists. This is consistent with metastatic disease. Mild to moderate calcified plaque w ithin the left carotid bifurcation. There is a small pulmonary embolus seen within a right upper lobe subsegmental pulmonary. This is best seen on image 39. IMPRESSION: 1. No significant stenosis, occlusion, or aneurysm within the [place]. 2. No significant stenosis, occlusion, or dissection identified within the carotid or vertebral arter ies. 3. Small hypodensity adjacent to the right side of the corpus callosum is again noted and is consiste nt with the patient's known infarct. 4. Trace subarachnoid hemorrhage at the right high convexity is also unchanged. 5. Redemonstration of the pulmonary metastatic disease as described above. 6. There is a small age-indeterminate pulmonary embolus seen within a right upper lobe subsegmental p ulmonary. ACT 112: Negative or not required by law. Electronically signed by: Tang Lyons M.D. 05/20/2022 3:59 PM
--- NOTE | 2022-05-20 16:01 | CT Scan Report ---
HEAD & NECK CTA HISTORY: Right-sided acute stroke. TECHNIQUE: Multiaxial CT images of the head were performed following the intravenous administration o f contrast to evaluate the major cerebral vessels. Multiaxial CT images of the neck were also perform ed following the intravenous administration of contrast to evaluate the major cervical vessels. Maxim um intensity projection images were also obtained. A dose lowering technique was utilized adhering to the principles of ALARA. COMPARISON: Head CT and brain MRI 05/20/2022. FINDINGS: Small hypodensity adjacent to the right side of the corpus callosum is again noted and is consistent with the patient's known infarct. Trace subarachnoid hemorrhage at the right high convexity is also u nchanged. Visualized intracranial internal carotid arteries, distal vertebral arteries, and basilar a rtery are widely patent. There is no significant stenosis, occlusion, or aneurysm seen within the chris ateral ACAs, MCAs, or pediatric neurologist. The major dural venous sinuses appear patent. There is a persistent left posterior circulation noted. The aortic arch and proximal great vessels are widely patent. There is no significant stenosis, occ lusion, or dissection identified within the bilateral common carotid, internal carotid, or vertebral arteries. Multiple scattered pulmonary nodules and emphysema are again noted. Right paratracheal lymp hadenopathy persists. This is consistent with metastatic disease. Mild to moderate calcified plaque w ithin the left carotid bifurcation. There is a small pulmonary embolus seen within a right upper lobe subsegmental pulmonary. This is best seen on image 39. IMPRESSION: 1. No significant stenosis, occlusion, or aneurysm within the [place]. 2. No significant stenosis, occlusion, or dissection identified within the carotid or vertebral arter ies. 3. Small hypodensity adjacent to the right side of the corpus callosum is again noted and is consiste nt with the patient's known infarct. 4. Trace subarachnoid hemorrhage at the right high convexity is also unchanged. 5. Redemonstration of the pulmonary metastatic disease as described above. 6. There is a small age-indeterminate pulmonary embolus seen within a right upper lobe subsegmental p ulmonary. ACT 112: Negative or not required by law. Electronically signed by: Tang Lyons M.D. 05/20/2022 3:59 PM
--- NOTE | 2022-05-20 18:29 | Neurology Progress Note ---
Date of Service May 20, 2022 Assessment & Plan (1) Subarachnoid hemorrhage: Plan Assessment and plan: 1. Small subarachnoid hemorrhage, nontraumatic, located at right frontal convexity Impression: The patient initially presented with left lower extremity weakness a nd soft fall. He was started on heparin infusion with bolus. He was also on Eliquis, although, he missed a dose prior to emergency department visit.Next day, head CT showed small subarachnoid hemorrhage and anticoagulation has been on hold since then. Unfortunately, the patient has had multiorgan, probably cardioembolic ischemic strokes including brain, spleen and kidneys. He has atrial fibrillation. He has stage IV adenocarcinoma, which might cause hypercoagulable state. He has thrombocytopenia. Risks and benefits of anticoagulation is discussed with hospitalist physician, the patient and his family. Plan/recommendations: We will consult with hematology oncology and will try to infuse patient with thrombocyte solution tomorrow. If thrombocytopenia improves, we will repeat head CT Sunday. In case he will no enlargement of subarachnoid hemorrhage, with improvement of thrombocytopenia, we will start patient on Eliquis 5 mg twice a day. I believe risk of ongoing thromboembolic events is high, and enlargement of subarachnoid hemorrhage is relatively low. Evaluation for deep venous thrombosis. If we decide to start on Eliquis, then aspirin should be stopped. Other recommendations of post stroke care are as described in neurology consultation report. We will follow patient's with you. 2. Multifocal, bihemispheric, ischemic cerebrovascular accidents Impression: Brain MRI today showed acute, ischemic strokes as described above. Highly suggestive of central embolic etiology as seen in atrial fibrillation. The patient also has malignancy, which might cause hypercoagulable state. Plan/recommendations: As seen above. 3. Stage IV adenocarcinoma of lungs Impression: The patient was diagnosed with adenocarcinoma recently, and just started on chemotherapy. Plan/recommendations: The patient will be followed by hematology oncology. Admission and Anticipated Discharge Date Admission Date: May 18, 2022 Subjective HPI: The patient is a 72-year-old gentleman, who was recently diagnosed with stage IV adenocarcinoma of the lung, and was started on chemotherapy. Last hospital stay was 2 weeks ago. Because he was having atrial fibrillation, he was started on Eliquis then. Brain MRI did not show metastatic lesion or acute intracranial pathology, on 05/03/2022. The patient was discharged home, and feeling generalized weakness and stomach ache, and stopped taking medications Geno night including Eliquis. Next day, the patient presented emergency department after feeling left leg weakness, and soft fall without any injury or head trauma. He reports that his left leg weakness started just before he presented emergency department.He had chest, abdomen, and pelvic CT scans on May 17, which showed splenic and bilateral renal infarcts, and patient was started on heparin infusion with bolus. Next day on 05/18/2022, head CT was done, which showed right posterior frontal, small subarachnoid hemorrhage, and although anticoagulation and antiplatelet treatments were stopped. The patient was consulted with neurology, and Dr. Vela recommended holding anticoagulation and starting on aspirin. Unfortunately, brain MRI was done today, which showed multifocal, scattered restricted diffusion within the right parietal lobe, right occipital lobe, and left cerebellar hemisphere consistent with acute embolic infarcts. There was no enlargement of the trace subarachnoid hemorrhage at the right high convexity. Based on non-traumatic subarachnoid hemorrhage, we order CT angiogram of the head and neck, which did not show aneurysm, or hemodynamically significant stenosis. The patient was having thrombocytopenia, which has been worsened since admission, and the most recent level is 58. He had an allergic reaction to platelet solution infusion yesterday. Today, they have also noticed color and temperature change in the left lower extremity, which raised concern for DVT, and further testing is pending. Based on new cardioembolic ischemic strokes, not only affecting brain but also other organs, at the same time having small subarachnoid hemorrhage with thrombocytopenia, neurology reevaluation is requested to assess the patient's current condition, and decision making regarding treatment. I have reviewed the patient's chart including imaging studies. I have discussed the case with hospitalist physician. I have also discussed the patient's current critical condition with the patient and his son. They understood the risk and benefits of different treatments including anticoagulation. They are in agreement with initial treatment of thrombocytopenia, holding anticoagulation for next couple days, repeat head CT Sunday, and restarting on Eliquis if the patient stays stable with improvement of thrombocytopenia. Review of Systems Review of Systems: All systems reviewed & are unremarkable except as noted in Subjective Physical Exam Physical Exam: General Examination: Constitutional: Well developed ill-looking person in no acute distress. HENT: Normal exam with inspection. CV: Hearth rhythm is regular currently. Neck: Supple, no carotid bruits. Lungs: Non-labored and comfortable breathing on oxygen treatment Abdomen: Soft, non-tender, non-distended. Skin: No rash or ecchymosis. Extremities: No edema or cyanosis but slightly swollen left ankle and cold and pale left foot NEUROLOGICAL EXAMINATION: Mental Status: Alert and oriented to place, person and time. Cranial Nerves: II-XII are intact. No nystagmus. Funduscopy: Normal looking optic discs. Motor: 5/5 in upper extremities and right leg.Left leg motor strength is 4/5. Tone: Normal without spasticity or rigidity. Sensory: Decreased sensation in left leg. Coordination: No dysmetria with FTN testing. Speech: Fluent. Comprehension is intact. Gait: Not assessed Musculoskeletal: Normal muscle bulk, no atrophy. DTRs: 2+ in upper and lower extremities except ankles are 1+ symmetrically +/- left Babinsky Results & Data ([facility]) Vital Signs (Past 12 Hours) Vital Signs Temp Pulse Resp BP BP Pulse Ox O2 Del Method 05/20/22 16:00 36.9 C 70 22 121/68 97 Nasal Cannula 05/20/22 08:00 Nasal Cannula 05/20/22 12:40 36.7 C 61 20 114/70 96 Nasal Cannula 05/20/22 10:00 61 H 119/67 05/20/22 09:45 72 126/59 L 05/20/22 09:30 80 132/62 05/20/22 08:34 36.9 C 89 21 123/52 L 93 Nasal Cannula O2 Flow Rate 05/20/22 16:00 4.0 05/20/22 08:00 3 05/20/22 12:40 4.0 05/20/22 10:00 05/20/22 09:45 05/20/22 09:30 05/20/22 08:34 4.0 Laboratory Results Laboratory Results - last 24 hr 05/19/22 05/19/22 05/19/22 20:58 21:32 23:45 WBC RBC Hgb Hct MCV MCH MCHC RDW Std Deviation RDW Coeff of Dean Plt Count MPV Immature Gran % (Auto) Neut % (Auto) Lymph % (Auto) [place] % (Auto) Eos % (Auto) Baso % (Auto) Neut # (Auto) Lymph # (Auto) [place] # (Auto) Eos # (Auto) Baso # (Auto) Immature Gran # (Auto) Sodium 138 Potassium 3.9 Chloride 101 Carbon Dioxide 29 Anion Gap 8 BUN 20 Creatinine 0.93 Est Cr Clr Drug Dosing 75.3 Est GFR ( Amer) 94.1 Est GFR (Non-Af Amer) 81.2 BUN/Creatinine Ratio 21.5 H Glucose 132 H POC Glucose 153 H Calcium 8.5 Magnesium 1.7 Urine Color Yellow Urine Appearance Clear Urine pH 6.0 Ur Specific [place] 1.016 Urine Protein Negative Urine Glucose (UA) Negative Urine Ketones Negative Urine Blood 1+ H Urine Nitrite Negative Urine Bilirubin Negative Urine Urobilinogen Negative Ur Leukocyte Esterase Negative Urine WBC (Auto) 1-5 Urine RBC (Auto) 0-4 U Hyaline Cast (Auto) 0 U Epithel Cells (Auto) 5-10 H Urine Bacteria (Auto) Negative 05/20/22 05/20/22 05/20/22 07:59 07:59 08:16 WBC 3.93 L RBC 3.96 L Hgb 11.5 L Hct 34.4 L MCV 86.9 MCH 29.0 MCHC 33.4 RDW Std Deviation 41.5 RDW Coeff of Dean 13.5 Plt Count 58 L MPV 11.1 Immature Gran % (Auto) 0.5 Neut % (Auto) 72.0 Lymph % (Auto) 12.5 [place] % (Auto) 12.5 Eos % (Auto) 2.5 Baso % (Auto) 0.0 Neut # (Auto) 2.83 Lymph # (Auto) 0.49 L [place] # (Auto) 0.49 Eos # (Auto) 0.10 Baso # (Auto) 0.00 Immature Gran # (Auto) 0.02 Sodium 138 Potassium 3.5 Chloride 101 Carbon Dioxide 32 Anion Gap 5 BUN 18 Creatinine 0.76 Est Cr Clr Drug Dosing 92.2 Est GFR ( Amer) 104.9 Est GFR (Non-Af Amer) 90.5 BUN/Creatinine Ratio 23.7 H Glucose 145 H POC Glucose 160 H Calcium 8.7 Magnesium Urine Color Urine Appearance Urine pH Ur Specific [place] Urine Protein Urine Glucose (UA) Urine Ketones Urine Blood Urine Nitrite Urine Bilirubin Urine Urobilinogen Ur Leukocyte Esterase Urine WBC (Auto) Urine RBC (Auto) U Hyaline Cast (Auto) U Epithel Cells (Auto) Urine Bacteria (Auto) 05/20/22 05/20/22 12:00 16:49 WBC RBC Hgb Hct MCV MCH MCHC RDW Std Deviation RDW Coeff of Dean Plt Count MPV Immature Gran % (Auto) Neut % (Auto) Lymph % (Auto) [place] % (Auto) Eos % (Auto) Baso % (Auto) Neut # (Auto) Lymph # (Auto) [place] # (Auto) Eos # (Auto) Baso # (Auto) Immature Gran # (Auto) Sodium Potassium Chloride Carbon Dioxide Anion Gap BUN Creatinine Est Cr Clr Drug Dosing Est GFR ( Amer) Est GFR (Non-Af Amer) BUN/Creatinine Ratio Glucose POC Glucose 129 H 156 H Calcium Magnesium Urine Color Urine Appearance Urine pH Ur Specific [place] Urine Protein Urine Glucose (UA) Urine Ketones Urine Blood Urine Nitrite Urine Bilirubin Urine Urobilinogen Ur Leukocyte Esterase Urine WBC (Auto) Urine RBC (Auto) U Hyaline Cast (Auto) U Epithel Cells (Auto) Urine Bacteria (Auto) Diagnostic Findings Abdomen/Pelvis CT 05/17/22 18:[address] WITH IV CONTRAST CT DOSE: 376.11 mGy.cm HISTORY: Acute generalized abdominal pain abd pain TECHNIQUE: Multiaxial CT images of the abdomen and pelvis were performed following the IV administration of 80 cc of Optiray, A dose lowering technique was utilized adhering to the principles of ALARA. COMPARISON STUDY: CT abdomen and pelvis May 03, 2022 FINDINGS: Innumerable pulmonary nodules are redemonstrated, several of which demonstrate central cavitation up to approximately 1.5 cm. There is mildly improved aeration of the lower lobes with decreased consolidative opacities and intralobular septal thickening. Trace pleural effusions have also decreased in size. No pneumatosis or pneumoperitoneum. The study is degraded by respiratory motion artifact. Coronary artery calcifications. Decreased attenuation of the splenic infarct compared to the prior study. Bilateral renal infarcts are present, left greater than right with the left infarcts new/progressed from the prior study. Mild left sided pelvocaliectasis. Prostamegaly. Unremarkable urinary bladder. Atherosclerosis of the aorta without aneurysm. No lymphadenopathy identified. Unremarkable spleen and right adrenal gland. Indeterminate 1.6 cm left adrenal gland nodule redemonstrated. Cholecystectomy with pneumobilia again noted. The liver is otherwise unremarkable. Patent portal vein. Small hiatal hernia. Colonic diverticulosis. Moderate fecal retention. Normal appendix. No ascites or mesenteric inflammation. Atrophy of the upper thigh musculature again noted. Degenerative changes of the spine, pelvis and hips. Unchanged mild superior endplate compression at L1. IMPRESSION: 1. Cardiomegaly with decreased pulmonary edema and pleural effusions. 2. Innumerable bibasilar pulmonary nodules are redemonstrated, several of which demonstrate central cavitation. Several of the nodules have decreased in size from the prior study suggestive of septic emboli. Continued follow-up recommended to exclude pulmonary metastasis. 3. Splenic and bilateral renal infarcts. The left renal infarcts are new/progressed from the May 03, 2022 exam. 4. No bowel obstruction or bowel wall thickening. 5. Additional findings as above. ACT 112: Negative or not required by law. The above report was generated using voice recognition software. It may contain grammatical, syntax or spelling errors. Electronically signed by: Emmanuel Montanez M.D. 05/17/2022 8:25 PM Chest X-Ray 05/17/22 18:02 XR chest 1V portable HISTORY: 72 years-old Male Chest pain, nonspecific acute chest pain COMPARISON: Chest radiograph May 02, 2022, CTA chest 05/01/2022. TECHNIQUE: AP view the chest FINDINGS: Cardiac silhouette is mildly enlarged. No pneumothorax or large pleural effusion. Persistent mediastinal lymphadenopathy. Mixed interstitial and alveolar opacities, right greater than left with pulmonary nodules are again noted. There is mildly improved aeration of the lung bases with resolution of the pulmonary nodules and interstitial pulmonary edema. IMPRESSION: 1. Interval resolution of the small pleural effusions and pulmonary edema. 2. Pulmonary nodules with intermixed airspace opacities and mediastinal lymphadenopathy is better appreciated on the comparison CTA of the chest. ACT 112: Negative or not required by law. The above report was generated using voice recognition software. It may contain grammatical, syntax or spelling errors. Electronically signed by: Emmanuel Montanez M.D. 05/17/2022 6:[address] 05/18/22 00:06 CT head/brain wo con, CT head/brain wo con CLINICAL HISTORY: Headache Technique: Contiguous axial CT images of the head were acquired from the base of the skull to the vertex without intravenous contrast administration. Images were viewed in brain, subdural and bone windows. Automated dose lowering techniques and/or adjustment according to patient size were utilized for this exam. Exams were performed at 12:33 AM and 6:04 AM. Comparison: Comparison is made to MRI brain 05/03/2022 Findings: 12:33 AM: There is a small focus of subarachnoid hemorrhage in the right posterior frontal lobe sulcus. No mass effect or midline shift is seen. Imaged portions of the paranasal sinuses and mastoid air cells are clear. The orbits appear normal. There is soft tissue thickening in the left parietal scalp which is unchanged. 6:04 AM: Subarachnoid hemorrhage in the right posterior frontal lobe is unchanged. There is no new hemorrhage. Impression: Subarachnoid hemorrhage in the right posterior frontal lobes which is stable across the 2 exams. ACT 112: Negative or not required by law. Electronically signed by: Vijay Ledezma M.D. 05/18/2022 7:[address] 05/18/22 06:00 CT head/brain wo con, CT head/brain wo con CLINICAL HISTORY: Headache Technique: Contiguous axial CT images of the head were acquired from the base of the skull to the vertex without intravenous contrast administration. Images were viewed in brain, subdural and bone windows. Automated dose lowering techniques and/or adjustment according to patient size were utilized for this exam. Exams were performed at 12:33 AM and 6:04 AM. Comparison: Comparison is made to MRI brain 05/03/2022 Findings: 12:33 AM: There is a small focus of subarachnoid hemorrhage in the right posterior frontal lobe sulcus. No mass effect or midline shift is seen. Imaged portions of the paranasal sinuses and mastoid air cells are clear. The orbits appear normal. There is soft tissue thickening in the left parietal scalp which is unchanged. 6:04 AM: Subarachnoid hemorrhage in the right posterior frontal lobe is unchanged. There is no new hemorrhage. Impression: Subarachnoid hemorrhage in the right posterior frontal lobes which is stable across the 2 exams. ACT 112: Negative or not required by law. Electronically signed by: Vijay Ledezma M.D. 05/18/2022 7:[address] 05/19/22 08:00 CT head/brain wo con CLINICAL HISTORY: ff up Subarachnoid hemorrhage Technique: Contiguous axial CT images of the head were acquired from the base of the skull to the vertex without intravenous contrast administration. Images were viewed in brain, subdural and bone windows. Automated dose lowering techniques and/or adjustment according to patient size were utilized for this exam. Comparison: Comparison is made to CT head 05/18/2022 Findings: Redemonstration of subarachnoid hemorrhage in the right posterior frontal lobe. No new hemorrhage is seen. No mass effect or midline shift. Stable age-related changes. Imaged portions of the paranasal sinuses and mastoid air cells are clear. The orbits appear normal. There are no acute fractures of the calvaria or scalp swelling. Impression: Stable subarachnoid hemorrhage in the right posterior frontal lobe. No new hemorrhage is seen. ACT 112: Negative or not required by law. Electronically signed by: Vijay Ledezma M.D. 05/19/2022 8:41 AM Chest X-Ray 05/19/22 15:33 XR chest 1V portable CLINICAL HISTORY: Hypoxia, s/p platelet transfusion. Lung adenocarcinoma COMPARISON STUDY: Chest CT May 01, 2022 and chest radiograph May 17, 2022 FINDINGS: No pneumothorax or pleural effusion is present. Cardiac size is normal. Mediastinal and bilateral hilar adenopathy is better depicted on prior chest CT. Numerous pulmonary nodules are again noted. Mild airspace opacity and interstitial thickening has improved since prior exam. No evidence for overt pulmonary edema. IMPRESSION: 1. No evidence for pulmonary edema. 2. Redemonstration of numerous pulmonary nodules and mediastinal and bilateral hilar adenopathy consistent with metastatic disease. ACT 112: Negative or not required by law. Electronically signed by: Bernardo Phelps M.D. 05/19/2022 3:[address] 05/19/22 17:59 CT OF THE HEAD WITHOUT CONTRAST CLINICAL HISTORY: Altered mental status. Follow-up subarachnoid hemorrhage. Lung cancer. COMPARISON STUDY: MRI of the brain May 03, [address] performed earlier today. CT DOSE: 773.57 mGy.cm TECHNIQUE: Helical axial images of the head were obtained without IV contrast. Automated exposure control was utilized for the study. A dose lowering technique was utilized adhering to the principles of ALARA. FINDINGS: A small focus of acute subarachnoid hemorrhage overlying the posterior right frontal lobe remains unchanged. No additional sites of hemorrhage are present. Ventricular system is normal. Basal cisterns are patent. A 9 mm hy podensity within the right aspect of the splenium of the corpus callosum has developed. This favors a developing acute infarct. No additional infarcts are identified. There are no significant calvarial abnormalities. IMPRESSION: 1. 9 mm hypodensity within the right aspect of the splenium of the corpus callosum. This favors a developing acute infarct. 2. Minimal acute subarachnoid hemorrhage overlying the posterior right frontal lobe, unchanged. ACT 112: Negative or not required by law. Electronically signed by: Bernardo Phelps M.D. 05/19/2022 7:[address] 05/20/22 00:[address] DOSE: 1795.19 mGy.cm HISTORY: Headache. TECHNIQUE: Multiaxial CT images of the head were performed without the use of intravenous contrast. Automated exposure control was utilized for this study. A dose lowering technique was utilized adhering to the principles of ALARA. Comparison: Head CT 05/19/2022. Findings: The paranasal sinuses and mastoid air cells are clear. The calvarium and skull base are intact. Trace subarachnoid hemorrhage within the right high convexity has slightly improved. Small hypodensity near the right corpus call osum on image 19 is also similar to the prior study. This could represent an age-indeterminate infarct. Impression: 1. Trace subarachnoid hemorrhage within the right high convexity has slightly im proved. 2. No change in the small hypodensity near the right corpus callosum which could represent an age-indeterminate infarct. ACT 112: Negative or not required by law. Electronically signed by: Tang Lyons M.D. 05/20/2022 8:22 AM Head CTA 05/20/22 14:41 HEAD & NECK CTA HISTORY: Right-sided acute stroke. TECHNIQUE: Multiaxial CT images of the head were performed following the intravenous administration of contrast to evaluate the major cerebral vessels. Multiaxial CT images of the neck were also performed following the intravenous administration of contrast to evaluate the major cervical vessels. Maximum intensity projection images were also obtained. A dose lowering technique was utilized adhering to the principles of ALARA. COMPARISON: Head CT and brain MRI 05/20/2022. FINDINGS: Small hypodensity adjacent to the right side of the corpus callosum is again noted and is consistent with the patient's known infarct. Trace subarachnoid hemorrhage at the right high convexity is also unchanged. Visualized intracranial internal carotid arteries, distal vertebral arteries, and basilar artery are widely patent. There is no significant stenosis, occlusion, or aneurysm seen within the bilateral ACAs, MCAs, or access coordinator. The major dural venous sinuses appear patent. There is a persistent left posterior circulation noted. The aortic arch and proximal great vessels are widely patent. There is no significant stenosis, occlusion, or dissection identified within the bilateral common carotid, internal carotid, or vertebral arteries. Multiple scattered pulmonary nodules and emphysema are again noted. Right paratracheal lymphadenopathy persists. This is consistent with metastatic disease. Mild to moderate calcified plaque within the left carotid bifurcation. There is a small pulmonary embolus seen within a right upper lobe subsegmental pulmonary. This is best seen on image 39. IMPRESSION: 1. No significant stenosis, occlusion, or aneurysm within the [place]. 2. No significant stenosis, occlusion, or dissection identified within the carotid or vertebral arteries. 3. Small hypodensity adjacent to the right side of the corpus callosum is again noted and is consistent with the patient's known infarct. 4. Trace subarachnoid hemorrhage at the right high convexity is also unchanged. 5. Redemonstration of the pulmonary metastatic disease as described above. 6. There is a small age-indeterminate pulmonary embolus seen within a right upper lobe subsegmental pulmonary. ACT 112: Negative or not required by law. Electronically signed by: Tang Lyons M.D. 05/20/2022 3:59 PM Neck CTA 05/20/22 14:41 HEAD & NECK CTA HISTORY: Right-sided acute stroke. TECHNIQUE: Multiaxial CT images of the head were performed following the intravenous administration of contrast to evaluate the major cerebral vessels. Multiaxial CT images of the neck were also performed following the intravenous administration of contrast to evaluate the major cervical vessels. Maximum intensity projection images were also obtained. A dose lowering technique was utilized adhering to the principles of ALARA. COMPARISON: Head CT and brain MRI 05/20/2022. FINDINGS: Small hypodensity adjacent to the right side of the corpus callosum is again noted and is consistent with the patient's known infarct. Trace subarachnoid hemorrhage at the right high convexity is also unchanged. Visualized intracranial internal carotid arteries, distal vertebral arteries, and basilar artery are widely patent. There is no significant stenosis, occlusion, or aneurysm seen within the bilateral ACAs, MCAs, or access coordinator. The major dural venous sinuses appear patent. There is a persistent left posterior circulation noted. The aortic arch and proximal great vessels are widely patent. There is no significant stenosis, occlusion, or dissection identified within the bilateral common carotid, internal carotid, or vertebral arteries. Multiple scattered pulmonary nodules and emphysema are again noted. Right paratracheal lymphadenopathy persists. This is consistent with metastatic disease. Mild to moderate calcified plaque within the left carotid bifurcation. There is a small pulmonary embolus seen within a right upper lobe subsegmental pulmonary. This is best seen on image 39. IMPRESSION: 1. No significant stenosis, occlusion, or aneurysm within the [place]. 2. No significant stenosis, occlusion, or dissection identified within the carotid or vertebral arteries. 3. Small hypodensity adjacent to the right side of the corpus callosum is again noted and is consistent with the patient's known infarct. 4. Trace subarachnoid hemorrhage at the right high convexity is also unchanged. 5. Redemonstration of the pulmonary metastatic disease as described above. 6. There is a small age-indeterminate pulmonary embolus seen within a right upper lobe subsegmental pulmonary. ACT 112: Negative or not required by law. Electronically signed by: Tang Lyons M.D. 05/20/2022 3:59 PM Brain MRI 05/20/22 22:09 Brain MRI WITHOUT CONTRAST HISTORY: Headache. Abnormal head CT. Subarachnoid hemorrhage. stroke TECHNIQUE: Multiplanar multisequence MRI of the brain was performed without the use of contrast. Of note, the patient was unable to complete the entire examination. Therefore the axial T2 and coronal FLAIR sequences were not obtained. COMPARISON STUDY: Head CT 05/12/2022. Brain MRI 05/03/2022. FINDINGS: Scattered small foci of restricted diffusion seen within the right parietal lobe, right occipital lobe, and left cerebellar hemisphere consistent with acute embolic infarcts. Dominant focus adjacent to the right corpus callosum measures 1 cm. Otherwise, the midline structures are intact. No definite mass or midline shift. The patient's trace subarachnoid hemorrhage at the right high convexity is better appreciated on the same day head CT. IMPRESSION: 1. Scattered small foci of restricted diffusion seen within the right parietal lobe, right occipital lobe, and left cerebellar hemisphere consistent with acute embolic infarcts. 2. The patient's trace subarachnoid hemorrhage at the right high convexity is better appreciated on the same day head CT. ACT 112: Negative or not required by law. Electronically signed by: Tang Lyons M.D. 05/20/2022 12:07 PM Carotid Doppler Study 05/20/22 22:11 BILATERAL CAROTID DOPPLER STUDY HISTORY: Right-sided stroke. COMPARISON: None. TECHNIQUE: Real-time, grayscale, and color Doppler sonography of the carotid arteries was performed. Imaging reviewed in the transverse and longitudinal planes. All measurements were calculated based on NASCET criteria. FINDINGS: Antegrade flow is seen in the bilateral vertebral arteries. Mild to moderate calcified plaque within the left carotid bifurcation. The peak systolic velocity within the right ICA is 87 cm/s. The right systolic ratio is 0.9. The peak systolic velocity within the left ICA is 58 cm/s. The left systolic ratio is 0.9. IMPRESSION: No hemodynamically significant stenosis seen within the carotid arteries. ACT 112: Negative or not required by law. Electronically signed by: Tang Lyons M.D. 05/20/2022 12:17 PM
[2022-05-20] MEDS: MAGNESIUM HYDROXIDE SUSP 30 ML UDC PO PRN (21:16)
[2022-05-20] MEDS ORDERED: DOCUSATE SODIUM/SENNA 50/8.6MG TAB PO STA (22:01)
[2022-05-21] MEDS: AMIODARONE / D5W 360 MG/200 ML BAG IV SCH (01:41)
[2022-05-21] MEDS: ACETAMINOPHEN 500 MG TAB PO SCH ×2 (01:43→09:17)
--- NOTE | 2022-05-21 07:34 | Ultrasound Report ---
LEFT LOWER EXTREMITY VENOUS DOPPLER HISTORY: Left leg edema, r/o dvt COMPARISON STUDY: None. FINDINGS: There is normal compressibility, flow, and augmentation within the left lower extremity oneal p venous system. IMPRESSION: No DVT within the left lower extremity. ACT 112: Negative or not required by law. Electronically signed by: Tang Lyons M.D. 05/21/2022 7:33 AM
[2022-05-21 08:17] LABS: Basophils # (auto) 0.01 K/uL (0-0.2); Basophils % (auto) 0.3 %; Eosinophils % (auto) 3.3 %; Hematocrit (blood only) 32.8 % (42.0-52.0); Hemoglobin 10.8 g/dl (14.0-18.0); Immature Granulocytes # (auto) 0.05 K/uL (0.01-0.20); Immature Granulocytes % (auto) 1.7 %; Lymphocytes # (auto) 0.46 K/uL (1.2-3.4); Lymphocytes % (auto) 15.4 %; Mean Corpuscular Hgb Conc 32.9 g/dL (32.0-36.0); Mean Corpuscular Volume 87.9 fL (80.0-100.0); Mean Platelet Volume 11.6 fL (9.4-12.4); Monocytes # (auto) 0.52 K/uL (0.11-0.59); Monocytes % (auto) 17.4 %; Neutrophils # (auto) 1.85 K/uL (1.40-6.50); Neutrophils % (auto) 61.9 %; Platelet Count 73 K/uL (130-400); RDW Coefficient of Variation 13.6 % (11.5-14.5); RDW Standard Deviation 42.7 fL (36.4-46.3); Red Blood Count 3.73 M/uL (4.70-6.10); White Blood Count 2.99 K/ul (4.8-10.8)
[2022-05-21] MEDS ORDERED: MAGNESIUM HYDROXIDE SUSP 30 ML UDC PO PRN (08:56)
[2022-05-21] MEDS ORDERED: bisacodyL 10 MG SUPP PR ONE (09:10)
[2022-05-21] MEDS: INSULIN ASPART PER UNIT SC SCH ×4 (09:12→20:32)
[2022-05-21] MEDS: DOCUSATE SODIUM/SENNA 50/8.6MG TAB PO SCH (09:17)
[2022-05-21] MEDS: ATORVASTATIN 20 MG TAB PO SCH (09:17)
[2022-05-21] MEDS: METOPROLOL SUCC 25MG EXT REL TAB PO SCH ×2 (09:17→20:38)
[2022-05-21] MEDS: FOLIC ACID 1 MG TAB PO SCH (09:17)
[2022-05-21] MEDS: PANTOprazole 40 MG TAB PO SCH (09:17)
[2022-05-21] MEDS: ASPIRIN 81 MG ECTAB PO SCH (09:17)
[2022-05-21] MEDS ORDERED: methylPREDNISolone 100 MG in SYRINGE 0 ML IV SCH (11:00)
[2022-05-21] MEDS ORDERED: diphenhydrAMINE 50 MG/ML VIAL IV SCH (11:00)
[2022-05-21] MEDS ORDERED: ACETAMINOPHEN 325 MG TAB PO SCH (11:00)
[2022-05-21] MEDS: MAGNESIUM HYDROXIDE SUSP 30 ML UDC PO PRN (11:44)
--- NOTE | 2022-05-21 12:07 | XRay Report ---
XR foot LT 2V CLINICAL HISTORY: Left foot edema. Evaluate for fracture. COMPARISON: None FINDINGS: Tarsometatarsal joints are intact. No acute fractures are identified although sensitivity for detection of fractures within the toes is diminished given chronic deformities. Mild posterior an d plantar calcaneal spurring is noted. 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 Dorsal foot soft tis katy swelling is noted. IMPRESSION: No acute fracture or dislocation within the left foot. ACT 112: Negative or not required by law. Electronically signed by: Bernardo Phelps M.D. 05/21/2022 12:06 PM
--- NOTE | 2022-05-21 12:28 | Cardiology Progress Note ---
Date of Service May 21, 2022 Assessment & Plan (1) Paroxysmal atrial fibrillation: Plan: -Continue rhythm control strategy with metoprolol and amiodarone. Change amiodarone from IV to oral. -Continue ASA 81 mg daily (2) Embolic stroke: Plan: -Noted high risk for ongoing cardioembolic stroke, and systemic embolic events -Agree with plan for hematology evaluation of thrombocytopenia. -Will continue to weigh the risks/ benefits of resuming anticoagulation. (3) Subarachnoid hemorrhage: Plan: -Neurology input noted and appreciated (4) Adenocarcinoma of lung, stage 4: Plan: -prognosis poor. (5) Thrombocytopenia: Plan: -Question if the new thrombocytopenia is due to suppression from his single chemotherapy treatment performed 2 weeks ago or other. Agree with hematology / oncology consult for evaluation. DVT prophylaxis: knee high SCDs Admission and Anticipated Discharge Date Admission Date: May 18, 2022 Subjective Patient seen in follow up. He is discouraged but has no acute complaints. Telemetry reveals SR in the 70 with occasional PACs and PVCs and no atrial fibrillation. Physical Exam Constitutional: no acute distress Respiratory: Auscultation: + diminished lung sounds Cardiovascular: RRR, no murmur, no edema Gastrointestinal (Abdomen): normal bowel sounds, soft, nontender, no hepatosplenomegaly Neurologic: PERRL, EOMI, accommodation nl, no face palsy, no dysarthria Results & Data ([facility]) Vital Signs (Past 12 Hours) Vital Signs Temp Pulse Resp BP BP Pulse Ox O2 Del Method 05/21/22 12:23 36.7 C 66 21 117/70 96 Nasal Cannula 05/21/22 07:55 Nasal Cannula 05/21/22 07:35 36.6 C 64 20 130/69 94 Nasal Cannula 05/21/22 04:32 36.7 C 65 16 132/66 94 Nasal Cannula O2 Flow Rate 05/21/22 12:23 4.0 05/21/22 07:55 2.5 05/21/22 07:35 4.0 05/21/22 04:32 4.0 Laboratory Results CBC 05/21/22 Range/Units 07:15 WBC 2.99 L (4.8-10.8) K/ul RBC 3.73 L (4.70-6.10) M/uL Hgb 10.8 L (14.0-18.0) g/dl Hct 32.8 L (42.0-52.0) % Plt Count 73 L (130-400) K/uL Neut # (Auto) 1.85 (1.40-6.50) K/uL Lymph # (Auto) 0.46 L (1.2-3.4) K/uL [place] # (Auto) 0.52 (0.11-0.59) K/uL Eos # (Auto) 0.10 (0-0.50) K/uL Baso # (Auto) 0.01 (0-0.2) K/uL
[2022-05-21 14:49] LABS: Calcium 8.3 mg/dl (8.5-10.1)
[2022-05-21 14:55] LABS: BUN Creatinine Ratio 22.2 (10-20); Creatinine Clr Calc Pharmacy 86.5 ml/min; Est GFR (African American) 102.2 ml/min; Est GFR (Non-African American) 88.2 ml/min
--- NOTE | 2022-05-21 16:14 | Hospitalist Progress Note ---
Date of Service May 21, 2022 Assessment & Plan (1) Subarachnoid hemorrhage: Plan: (1) Subarachnoid hemorrhage: Plan: Subarachnoid hemorrhage likely due to anticoagulant therapy Last dose of Eliquis was Sunday Repeat CT head this morning May 15, 2022: Stable subarachnoid hemorrhage in the right posterior frontal lobe. No new hemorrhage is seen. Platelet count trended down to 50 K, 1 unit platelet pheresis ordered No other signs of active bleeding 05/[address] head: Stable subarachnoid hemorrhage Platelet count 50 K No other signs of active bleeding Acute CVA, likely embolic infarcts Developed some alteration mental status 05/19/2022 Brain MRI:1. Scattered small foci of restricted diffusion seen within the right parietal lobe, right occipital lobe, and left cerebellar hemisphere consistent with acute embolic infarcts. 2. The patient's trace subarachnoid hemorrhage at the right high convexity is better appreciated on the same day head CT. Carotid Doppler study: No hemodynamically significant stenosis Aspirin 81 mg p.o. daily started Discussed with neurologist on-call Dr. Holt-recommend CT angiogram of head and neck Dr. Euceda will be reevaluating the patient today, possibly restarting Eliquis sooner given development of acute embolic infarcts 05/21 Plan to resume therapeutic dose of Eliquis tomorrow Will transfuse with 1 unit of platelets today, with pretreatment Goal platelet more than 80-100,000 as per neurology service Constipation Laxatives ordered Left foot edema Doppler ultrasound: Negative for DVT From acute CVA? Elevate the foot Check foot x-ray Atrial fibrillation RVR Troponin elevation No cardiac symptoms Cardiology service consulted-appreciate recommendations Started on amiodarone drip Echocardiogram: Unrevealing, no left ventricular wall mural thrombus Lung cancer with metastasis chronic respiratory failure secondary to lung adenocarcinoma on chemotherapy First chemotherapy session last admission Bilateral splenic and renal infarcts Progressing compared to CAT scan during last admission Eliquis on hold in light of subarachnoid hemorrhage-- > plan to resume therapeutic dose of Eliquis tomorrow hypertension, stable DM2 diet controlled, hemoglobin A1c of 6.4 from November 2019 chronic anemia, hemoglobin at baseline past tobacco abuse. Basal bolus insulin adjusted for n.p.o. status, ISS BG goal 1 10-1 40, update hemoglobin A1c DVT prophylaxis. SCDs while Eliquis on hold DNR Disposition PT and OT evaluation Lives with son at home plan of care discussed with patient and patient's son at the bedside in detail and at length Also discussed plan of care with patient's daughter last night all questions answered they are understanding, agreeable, comfortable with the plan of care Admission and Anticipated Discharge Date Admission Date: May 18, 2022 Subjective Follow-up for subarachnoid hemorrhage, acute embolic infarcts, etc. Seen sitting up in bed side chair, on 4 L of oxygen, comfortable, not in distress Patient's son at the bedside visiting No other new focal neurologic deficits No headache, dizziness, nausea vomiting States he feels okay overall Still having left lower extremity weakness, swelling Denies pain No shortness of breath, chest pain, palpitation, dizziness No other symptoms Review of Systems Review of Systems: all noted and negative except for above Physical Exam Physical Exam: General- oriented x 3, not in distress, speaks in sentences with no effort or accessory muscle use Eyes- anicteric Neck- no JVD Lungs- clear BS BL Heart- normal rate, regular rhythm; no murmurs Abdomen- normal bowel sounds, nondistended, soft, nontender Extremities-left foot-mild edema, no warmth/tenderness, full range of motion, motor strength 3/5, good pulses Neuro- alert, oriented x 3; no gross focal neurologic deficits Skin- warm & dry Results & Data Results & Data ([facility]) Vital Signs (Past 12 Hours) Vital Signs Temp Pulse Pulse Resp BP BP BP 05/21/22 15:42 36.8 C 71 16 138/69 05/21/22 15:24 37.1 C 73 16 125/62 05/21/22 12:23 36.7 C 66 21 117/70 05/21/22 07:55 05/21/22 07:35 36.6 C 64 20 130/69 05/21/22 04:32 36.7 C 65 16 132/66 Pulse Ox O2 Del Method O2 Flow Rate 05/21/22 15:42 94 05/21/22 15:24 92 05/21/22 12:23 96 Nasal Cannula 4.0 05/21/22 07:55 Nasal Cannula 2.5 05/21/22 07:35 94 Nasal Cannula 4.0 05/21/22 04:32 94 Nasal Cannula 4.0 all noted and reviewed including below
[2022-05-21] MEDS: AMIODARONE 200 MG TAB PO SCH (17:28)
[2022-05-21] MEDS ORDERED: hydrOXYzine HCl 10 MG TAB PO STA (22:04)
[2022-05-21] MEDS: LORazepam 0.5 MG TAB PO PRN (23:25)
[2022-05-22 06:45] LABS: Eosinophils # (auto) 0.01 K/uL (0-0.50); Eosinophils % (auto) 0.3 %; Hematocrit (blood only) 32.7 % (42.0-52.0); Immature Granulocytes # (auto) 0.01 K/uL (0.01-0.20); Immature Granulocytes % (auto) 0.3 %; Lymphocytes % (auto) 11.7 %; Mean Corpuscular Hemoglobin 28.9 pg (25.0-34.0); Mean Corpuscular Hgb Conc 33.6 g/dL (32.0-36.0); Mean Corpuscular Volume 86.1 fL (80.0-100.0); Mean Platelet Volume 10.8 fL (9.4-12.4); Monocytes # (auto) 0.36 K/uL (0.11-0.59); Monocytes % (auto) 10.6 %; Neutrophils # (auto) 2.63 K/uL (1.40-6.50); Neutrophils % (auto) 77.1 %; Platelet Count 105 K/uL (130-400); RDW Coefficient of Variation 13.5 % (11.5-14.5); RDW Standard Deviation 41.2 fL (36.4-46.3); White Blood Count 3.41 K/ul (4.8-10.8)
[2022-05-22 07:19] LABS: Calcium 9.2 mg/dl (8.5-10.1); Potassium 4.3 mmol/L (3.5-5.1)
[2022-05-22 07:25] LABS: BUN Creatinine Ratio 25.3 (10-20); Creatinine Clr Calc Pharmacy 93.4 ml/min; Est GFR (African American) 105.5 ml/min
--- NOTE | 2022-05-22 07:42 | Cardiology Progress Note ---
Date of Service May 22, 2022 Assessment & Plan (1) Paroxysmal atrial fibrillation: Plan: -Continue rhythm control strategy with metoprolol and amiodarone. Change amiodarone from IV to oral. -Continue ASA 81 mg daily -EKG today pending to reassess QTC (2) Embolic stroke: Plan: -Noted high risk for ongoing cardioembolic stroke, and systemic embolic events -Agree with plan for hematology evaluation of thrombocytopenia. -Will continue to weigh the risks/ benefits of resuming anticoagulation. (3) Subarachnoid hemorrhage: Plan: -Neurology input noted and appreciated (4) Adenocarcinoma of lung, stage 4: Plan: -prognosis poor. (5) Thrombocytopenia: Plan: -Question if the new thrombocytopenia is due to suppression from his single chemotherapy treatment performed 2 weeks ago or other. Agree with hematology / oncology consult for evaluation. DVT prophylaxis: knee high SCDs Plan Case discussed with Dr. Long- will follow. Admission and Anticipated Discharge Date Admission Date: May 18, 2022 Supervising Physician Co-Signing Physician Notes Supervising Physician Attestation: I have personally performed a history and physical examination on the patient. I agree with the physician dental front office assistant's findings and plan as documented with the following additions. Subjective: No complaints. Less discouraged today. Telemetry reveals SR in the 70s with PACs, PVCs, ventricular couplets. Walked to rest room this am. Was not able to walk when he came to the hospital. Exam: CV: regular rhythm, no murmurs, no edema Data: Platelet count 105,/ul Assessment and Plan: As noted above. -Case discussed with Dr Horowitz. -Received ASA 81 mg this am, will stop aspirin now. -Cautiously start Eliquis 5mg BID this evening. -Continue metoprolol succinate 12.5 mg BID, amiodarone 200 mg TID with meals for rhythm control. Malcolm Long, DO Subjective Patient seen and examined at bedside. Telemetry and chart reviewed. 05/19: Patient reverted back into A. fib RVR rates around 150 around 11:20 AM. Intermittent A. fib noted by approximately 5 PM and was back in sinus rhythm by 9 PM. Developed mental status change. Repeat CT of the brain revealed a new acute infarct. Small acute subarachnoid hemorrhage unchanged. Aspirin 81 mg daily was started. Developed a fever after receiving 1 unit of platelets 05/20: Amiodarone infusion started. Patient continued on metoprolol succinate 12.5 mg twice daily. Limited echo-LVEF 60 to 65% with no left ventricular mural thrombus. Normal wall motion. Normal RV. No pericardial effusion. Mild AI. 05/21: IV amiodarone transition to oral. Aspirin continued. 05/22: Patient seen and examined at bedside. Chart and telemetry reviewed. Tele: SR with PVCs, 70s Upon entrance into the room patient was ambulating from the bathroom to the chair with the assist of a walker and a nurse. Denies any acute concerns. Denies chest pain, sob, palpitations. No unilateral weakness or neurologic changes over night/this am. Review of Systems Review of Systems: All systems reviewed & are unremarkable except as noted in HPI & below Physical Exam Constitutional: WD/WN, vitals as above no acute distress Eyes: PERRL, conjunctivae normal, anicteric sclerae Neck: normal visual inspection and trachea midline Respiratory: normal respiratory effort, lungs clear to auscultation Cardiovascular: RRR, no murmur, no edema Heart Sounds: normal S1 and normal S2 Vessels: no JVD Extremities: + edema (Trace BL nonpitting lower extremity edema) Gastrointestinal (Abdomen): normal bowel sounds, soft, nontender, no hepatosplenomegaly Musculoskeletal: no cyanosis or clubbing, extremities motor strength 5/5 Skin: no rashes, warm and dry Neurologic: PERRL, EOMI, accommodation nl, no face palsy, no dysarthria Psychiatric: A+Ox3, euthymic affect Results & Data ([facility]) Vital Signs (Past 12 Hours) Vital Signs Temp Pulse Pulse Resp BP BP Pulse Ox 05/22/22 02:40 36.5 C 80 18 161/64 H 90 05/21/22 20:00 05/22/22 00:34 78 05/21/22 22:57 36.8 C 81 18 143/71 H 92 05/21/22 20:04 36.9 C 77 18 128/75 93 05/21/22 19:52 36.9 C 77 18 128/75 93 O2 Del Method O2 Flow Rate 05/22/22 02:40 Room Air 05/21/22 20:00 Nasal Cannula 2 05/22/22 00:34 05/21/22 22:57 Nasal Cannula 05/21/22 20:04 05/21/22 19:52 Room Air Laboratory Results CBC 05/22/22 Range/Units 06:00 WBC 3.41 L (4.8-10.8) K/ul RBC 3.80 L (4.70-6.10) M/uL Hgb 11.0 L (14.0-18.0) g/dl Hct 32.7 L (42.0-52.0) % Plt Count 105 L (130-400) K/uL Neut # (Auto) 2.63 (1.40-6.50) K/uL Lymph # (Auto) 0.40 L (1.2-3.4) K/uL [place] # (Auto) 0.36 (0.11-0.59) K/uL Eos # (Auto) 0.01 (0-0.50) K/uL Baso # (Auto) 0.00 (0-0.2) K/uL Comprehensive Metabolic Panel 05/21/22 05/22/22 Range/Units 07:15 06:00 Sodium 145 138 (136-145) mmol/L Potassium 4.0 4.3 (3.5-5.1) mmol/L Chloride 107 103 (98-107) mmol/L Carbon Dioxide 25 27 (21-32) mmol/L BUN 18 19 (6-23) mg/dl Creatinine 0.81 0.75 (0.6-1.4) mg/dl Glucose 135 H 153 H (70-99(Fasting)) mg/dl Calcium 8.3 L 9.2 (8.5-10.1) mg/dl Intake and Output 05/21/22 05/22/22 05/22/22 22:59 06:59 14:59 Intake Total 550 / 732.865 Output Total 400 / 500 100 / 500 Balance 150 / 232.865 -100 / 232.865 Intake: Oral 550 / 550 Intake (Blood Product) Amt 0 / 0 Pathogen Reduced Plt Pheresis 0 / 0 Unit [id number] Output: Urine 400 / 500 100 / 500 Other: Other Intake Source sips # Unmeasured Voids 1
[2022-05-22] MEDS: INSULIN ASPART PER UNIT SC SCH ×4 (08:34→21:09)
[2022-05-22] MEDS: ASPIRIN 81 MG ECTAB PO SCH (08:35)
[2022-05-22] MEDS: AMIODARONE 200 MG TAB PO SCH ×3 (08:35→17:45)
[2022-05-22] MEDS: DOCUSATE SODIUM/SENNA 50/8.6MG TAB PO SCH (08:35)
[2022-05-22] MEDS: ATORVASTATIN 20 MG TAB PO SCH (08:35)
[2022-05-22] MEDS: METOPROLOL SUCC 25MG EXT REL TAB PO SCH ×2 (08:36→20:26)
[2022-05-22] MEDS: PANTOprazole 40 MG TAB PO SCH (08:36)
[2022-05-22] MEDS: FOLIC ACID 1 MG TAB PO SCH (08:36)
--- NOTE | 2022-05-22 11:07 | Pharmacy Report ---
- Date of Service May 22, 2022 - Pharmacy CVA/TIA Medication Review Medications to Prevent Stroke handout has been added to the patients discharge packet. Antiplatelet(s) * Antiplatelet therapy deferred due to starting Eliquis and risk for bleeding Cholesterol * Atorvastatin 20 mg daily * High intensity statin deferred due to recent bleed DVT Prophylaxis * Patient on therapeutic Eliquis Therapeutic Anticoagulation * Eliquis 5 mg twice daily Type 2 Diabetes * Patient has T2DM, but per Dr. Peres, a diabetes medication with proven CVD benefit will be deferred to their outpatient provider due to familiarity with risks/benefits of such therapies. "Medications to prevent stroke" handout has already been added to the patient's discharge packet, which instructs the patient to follow up with their outpatient provider to evaluate which diabetes medication with proven CVD benefit is best for them.
--- NOTE | 2022-05-22 16:08 | Neurology Progress Note ---
Date of Service May 22, 2022 Assessment & Plan (1) Subarachnoid hemorrhage: Plan Assessment and plan: 1. Small subarachnoid hemorrhage, nontraumatic, located at right frontal convexity Impression: The patient initially presented with left lower extremity weakness a nd soft fall. He was started on heparin infusion with bolus. He was also on Eliquis, although, he missed a dose prior to emergency department visit.Next day, head CT showed small subarachnoid hemorrhage and anticoagulation has been on hold since then. Unfortunately, the patient has had multiorgan, probably cardioembolic ischemic strokes including brain, spleen and kidneys. He has atrial fibrillation. He has stage IV adenocarcinoma, which might cause hypercoagulable state. He has thrombocytopenia. Risks and benefits of anticoagulation is discussed with hospitalist physician, the patient and his family. After platelet infusions now >100K. Eliquis is started and aspirin is stopped. Plan/recommendations: Continue on Eliquis 5 mg BID. Aspirin is stopped. --Close neurological monitoring for the next few days --Repeat HCT w/o contrast tomorrow. We will follow patient's with you. 2. Multifocal, bihemispheric, ischemic cerebrovascular accidents Impression: Brain MRI today showed acute, ischemic strokes as described above. Highly suggestive of central embolic etiology as seen in atrial fibrillation. The patient also has malignancy, which might cause hypercoagulable state. Plan/recommendations: As seen above. 3. Stage IV adenocarcinoma of lungs Impression: The patient was diagnosed with adenocarcinoma recently, and started on chemotherapy. Plan/recommendations: The patient will be followed by hematology oncology regarding continuation of chemotherapy and thrombocytopenia. Admission and Anticipated Discharge Date Admission Date: May 18, 2022 Subjective The patient has been stable neurologically without new neurological symptoms. After platelet solution infusion platellet count now >100 K. Eliquis is started meanwhile antiplatelet medications were stopped. Mental status has been improved back to baseline. His ambulation is better with improvement of leg strength. Heme Onc is evaluating the patient's current condition to decide next chemotx. Again risks and benefits of anticoagulation are explained to the patient and his son. They are willing to continue on Eliquis. Review of Systems Review of Systems: All systems reviewed & are unremarkable except as noted in Subjective Physical Exam Physical Exam: General Examination: Constitutional: Well developed ill-looking person in no acute distress. HENT: Normal exam with inspection. CV: Hearth rhythm is regular currently. Neck: Supple, no carotid bruits. Lungs: Non-labored and comfortable breathing on oxygen treatment Abdomen: Soft, non-tender, non-distended. Skin: No rash or ecchymosis. Extremities: No edema or cyanosis but slightly swollen left ankle and cold and pale left foot NEUROLOGICAL EXAMINATION: Mental Status: Alert and oriented to place, person and time. Cranial Nerves: II-XII are intact. No nystagmus. Funduscopy: Normal looking optic discs. Motor: 5/5 in upper extremities and right leg. Left leg strength has been improving with current strength of 5-/5. Tone: Normal without spasticity or rigidity. Sensory: Decreased sensation in left leg. Coordination: No dysmetria with FTN testing. Speech: Fluent. Comprehension is intact. Gait: Ambulates independently with walker Musculoskeletal: Normal muscle bulk, no atrophy. DTRs: 2+ in upper and lower extremities except ankles are 1+ symmetrically No Babinsky. Results & Data ([facility] [place]) Vital Signs (Past 12 Hours) Vital Signs Temp Pulse Pulse Resp BP Pulse Ox O2 Del Method 05/22/22 07:15 77 05/22/22 12:29 36.7 C 83 18 131/74 90 Room Air 05/22/22 11:40 Nasal Cannula 05/22/22 08:26 36.8 C 73 20 138/79 91 Room Air O2 Flow Rate 05/22/22 07:15 05/22/22 12:29 05/22/22 11:40 2 05/22/22 08:26 Laboratory Results Laboratory Results - last 24 hr 05/19/22 05/21/22 05/21/22 15:54 16:41 20:14 WBC RBC Hgb Hct MCV MCH MCHC RDW Std Deviation RDW Coeff of Dean Plt Count MPV Immature Gran % (Auto) Neut % (Auto) Lymph % (Auto) [place] % (Auto) Eos % (Auto) Baso % (Auto) Neut # (Auto) Lymph # (Auto) [place] # (Auto) Eos # (Auto) Baso # (Auto) Immature Gran # (Auto) Sodium Potassium Chloride Carbon Dioxide Anion Gap BUN Creatinine Est Cr Clr Drug Dosing Est GFR ( Amer) Est GFR (Non-Af Amer) BUN/Creatinine Ratio Glucose POC Glucose 185 H 359 H* Calcium Transfusion React Date 05/19/2022 Transfusion React Time 1530 Tx React Symptoms FEVER, CHILLS Reaction Clerical Check None Found Lab Clerical Err Check None Found React Component Return Platelets Volume Returned 0mL Pre-Trans Blood Type O POSITIVE Pre-Trans Vis Hemolysis No Pre-Trans MARIA M Negative Pre-Trans MARIA M IgG Neg Pre-Trans MARIA M Poly Neg Pre-Trans MARIA M C3b, C3d Neg Post-Trans Blood Type O POSITIVE Post-Tx Visible Hemolys No Post-Trans MARIA M Negative Post-Trans MARIA M IgG Neg Post-Trans MARIA M Poly Neg Post-Trans MARIA M C3b, C3d Neg Post-Trans Ur Hemoglobin Reaction Path Interpret Transfusion Serv Com NONE 05/21/22 05/22/22 05/22/22 20:15 06:00 06:00 WBC 3.41 L RBC 3.80 L Hgb 11.0 L Hct 32.7 L MCV 86.1 MCH 28.9 MCHC 33.6 RDW Std Deviation 41.2 RDW Coeff of Dean 13.5 Plt Count 105 L MPV 10.8 Immature Gran % (Auto) 0.3 Neut % (Auto) 77.1 Lymph % (Auto) 11.7 [place] % (Auto) 10.6 Eos % (Auto) 0.3 Baso % (Auto) 0.0 Neut # (Auto) 2.63 Lymph # (Auto) 0.40 L [place] # (Auto) 0.36 Eos # (Auto) 0.01 Baso # (Auto) 0.00 Immature Gran # (Auto) 0.01 Sodium 138 Potassium 4.3 Chloride 103 Carbon Dioxide 27 Anion Gap 8 BUN 19 Creatinine 0.75 Est Cr Clr Drug Dosing 93.4 Est GFR ( Amer) 105.5 Est GFR (Non-Af Amer) 91.0 BUN/Creatinine Ratio 25.3 H Glucose 153 H POC Glucose 308 H* Calcium 9.2 Transfusion React Date Transfusion React Time Tx React Symptoms Reaction Clerical Check Lab Clerical Err Check React Component Return Volume Returned Pre-Trans Blood Type Pre-Trans Vis Hemolysis Pre-Trans MARIA M Pre-Trans MARIA M IgG Pre-Trans MARIA M Poly Pre-Trans MARIA M C3b, C3d Post-Trans Blood Type Post-Tx Visible Hemolys Post-Trans MARIA M Post-Trans MARIA M IgG Post-Trans MARIA M Poly Post-Trans MARIA M C3b, C3d Post-Trans Ur Hemoglobin Reaction Path Interpret Transfusion Serv Com 05/22/22 05/22/22 08:08 12:04 WBC RBC Hgb Hct MCV MCH MCHC RDW Std Deviation RDW Coeff of Dean Plt Count MPV Immature Gran % (Auto) Neut % (Auto) Lymph % (Auto) [place] % (Auto) Eos % (Auto) Baso % (Auto) Neut # (Auto) Lymph # (Auto) [place] # (Auto) Eos # (Auto) Baso # (Auto) Immature Gran # (Auto) Sodium Potassium Chloride Carbon Dioxide Anion Gap BUN Creatinine Est Cr Clr Drug Dosing Est GFR ( Amer) Est GFR (Non-Af Amer) BUN/Creatinine Ratio Glucose POC Glucose 149 H 125 H Calcium Transfusion React Date Transfusion React Time Tx React Symptoms Reaction Clerical Check Lab Clerical Err Check React Component Return Volume Returned Pre-Trans Blood Type Pre-Trans Vis Hemolysis Pre-Trans MARIA M Pre-Trans MARIA M IgG Pre-Trans MARIA M Poly Pre-Trans MARIA M C3b, C3d Post-Trans Blood Type Post-Tx Visible Hemolys Post-Trans MARIA M Post-Trans MARIA M IgG Post-Trans MARIA M Poly Post-Trans MARIA M C3b, C3d Post-Trans Ur Hemoglobin Reaction Path Interpret Transfusion Serv Com Diagnostic Findings Abdomen/Pelvis CT 05/17/22 18:[address] WITH IV CONTRAST CT DOSE: 376.11 mGy.cm HISTORY: Acute generalized abdominal pain abd pain TECHNIQUE: Multiaxial CT images of the abdomen and pelvis were performed following the IV administration of 80 cc of Optiray, A dose lowering technique was utilized adhering to the principles of ALARA. COMPARISON STUDY: CT abdomen and pelvis May 03, 2022 FINDINGS: Innumerable pulmonary nodules are redemonstrated, several of which demonstrate central cavitation up to approximately 1.5 cm. There is mildly improved aeration of the lower lobes with decreased consolidative opacities and intralobular septal thickening. Trace pleural effusions have also decreased in size. No pneumatosis or pneumoperitoneum. The study is degraded by respiratory motion artifact. Coronary artery calcifications. Decreased attenuation of the splenic infarct compared to the prior study. Bilateral renal infarcts are present, left greater than right with the left infarcts new/progressed from the prior study. Mild left sided pelvocaliectasis. Prostamegaly. Unremarkable urinary bladder. Atherosclerosis of the aorta without aneurysm. No lymphadenopathy identified. Unremarkable spleen and right adrenal gland. Indeterminate 1.6 cm left adrenal gland nodule redemonstrated. Cholecystectomy with pneumobilia again noted. The liver is otherwise unremarkable. Patent portal vein. Small hiatal hernia. Colonic diverticulosis. Moderate fecal retention. Normal appendix. No ascites or mesenteric inflammation. Atrophy of the upper thigh musculature again noted. Degenerative changes of the spine, pelvis and hips. Unchanged mild superior endplate compression at L1. IMPRESSION: 1. Cardiomegaly with decreased pulmonary edema and pleural effusions. 2. Innumerable bibasilar pulmonary nodules are redemonstrated, several of which demonstrate central cavitation. Several of the nodules have decreased in size from the prior study suggestive of septic emboli. Continued follow-up recommended to exclude pulmonary metastasis. 3. Splenic and bilateral renal infarcts. The left renal infarcts are new/progressed from the May 03, 2022 exam. 4. No bowel obstruction or bowel wall thickening. 5. Additional findings as above. ACT 112: Negative or not required by law. The above report was generated using voice recognition software. It may contain grammatical, syntax or spelling errors. Electronically signed by: Emmanuel Montanez M.D. 05/17/2022 8:25 PM Chest X-Ray 05/17/22 18:02 XR chest 1V portable HISTORY: 72 years-old Male Chest pain, nonspecific acute chest pain COMPARISON: Chest radiograph May 02, 2022, CTA chest 05/01/2022. TECHNIQUE: AP view the chest FINDINGS: Cardiac silhouette is mildly enlarged. No pneumothorax or large pleural effusion. Persistent mediastinal lymphadenopathy. Mixed interstitial and alveolar opacities, right greater than left with pulmonary nodules are again noted. There is mildly improved aeration of the lung bases with resolution of t he pulmonary nodules and interstitial pulmonary edema. IMPRESSION: 1. Interval resolution of the small pleural effusions and pulmonary edema. 2. Pulmonary nodules with intermixed airspace opacities and mediastinal lymphadenopathy is better appreciated on the comparison CTA of the chest. ACT 112: Negative or not required by law. The above report was generated using voice recognition software. It may contain grammatical, syntax or spelling errors. Electronically signed by: Emmanuel Montanez M.D. 05/17/2022 6:[address] 05/18/22 00:06 CT head/brain wo con, CT head/brain wo con CLINICAL HISTORY: Headache Technique: Contiguous axial CT images of the head were acquired from the base of the skull to the vertex without intravenous contrast administration. Images were viewed in brain, subdural and bone windows. Automated dose lowering techniques and/or adjustment according to patient size were utilized for this exam. Exams were performed at 12:33 AM and 6:04 AM. Comparison: Comparison is made to MRI brain 05/03/2022 Findings: 12:33 AM: There is a small focus of subarachnoid hemorrhage in the right posterior frontal lobe sulcus. No mass effect or midline shift is seen. Imaged portions of the paranasal sinuses and mastoid air cells are clear. The orbits appear normal. There is soft tissue thickening in the left parietal s calp which is unchanged. 6:04 AM: Subarachnoid hemorrhage in the right posterior frontal lobe is unchanged. There is no new hemorrhage. Impression: Subarachnoid hemorrhage in the right posterior frontal lobes which is stable across the 2 exams. ACT 112: Negative or not required by law. Electronically signed by: Vijay Ledezma M.D. 05/18/2022 7:[address] 05/18/22 06:00 CT head/brain wo con, CT head/brain wo con CLINICAL HISTORY: Headache Technique: Contiguous axial CT images of the head were acquired from the base of the skull to the vertex without intravenous contrast administration. Images were viewed in brain, subdural and bone windows. Automated dose lowering techniques and/or adjustment according to patient size were utilized for this exam. Exams were performed at 12:33 AM and 6:04 AM. Comparison: Comparison is made to MRI brain 05/03/2022 Findings: 12:33 AM: There is a small focus of subarachnoid hemorrhage in the right posterior frontal lobe sulcus. No mass effect or midline shift is seen. Imaged portions of the paranasal sinuses and mastoid air cells are clear. The orbits appear normal. There is soft tissue thickening in the left parietal scalp which is unchanged. 6:04 AM: Subarachnoid hemorrhage in the right posterior frontal lobe is unchanged. There is no new hemorrhage. Impression: Subarachnoid hemorrhage in the right posterior frontal lobes which is stable across the 2 exams. ACT 112: Negative or not required by law. Electronically signed by: Vijay Ledezma M.D. 05/18/2022 7:[address] 05/19/22 08:00 CT head/brain wo con CLINICAL HISTORY: ff up Subarachnoid hemorrhage Technique: Contiguous axial CT images of the head were acquired from the base of the skull to the vertex without intravenous contrast administration. Images were viewed in brain, subdural and bone windows. Automated dose lowering techniques and/or adjustment according to patient size were utilized for this exam. Comparison: Comparison is made to CT head 05/18/2022 Findings: Redemonstration of subarachnoid hemorrhage in the right posterior frontal lobe. No new hemorrhage is seen. No mass effect or midline shift. Stable age-related changes. Imaged portions of the paranasal sinuses and mastoid air cells are clear. The orbits appear normal. There are no acute fractures of the calvaria or scalp swelling. Impression: Stable subarachnoid hemorrhage in the right posterior frontal lobe. No new hemorrhage is seen. ACT 112: Negative or not required by law. Electronically signed by: Vijay Ledezma M.D. 05/19/2022 8:41 AM Chest X-Ray 05/19/22 15:33 XR chest 1V portable CLINICAL HISTORY: Hypoxia, s/p platelet transfusion. Lung adenocarcinoma COMPARISON STUDY: Chest CT May 01, 2022 and chest radiograph May 17, 2022 FINDINGS: No pneumothorax or pleural effusion is present. Cardiac size is normal. Mediastinal and bilateral hilar adenopathy is better depicted on prior chest CT. Numerous pulmonary nodules are again noted. Mild airspace opacity and interstitial thickening has improved since prior exam. No evidence for overt pulmonary edema. IMPRESSION: 1. No evidence for pulmonary edema. 2. Redemonstration of numerous pulmonary nodules and mediastinal and bilateral hilar adenopathy consistent with metastatic disease. ACT 112: Negative or not required by law. Electronically signed by: Bernardo Phelps M.D. 05/19/2022 3:[address] 05/19/22 17:59 CT OF THE HEAD WITHOUT CONTRAST CLINICAL HISTORY: Altered mental status. Follow-up subarachnoid hemorrhage. Lung cancer. COMPARISON STUDY: MRI of the brain May 03, [address] performed earlier today. CT DOSE: 773.57 mGy.cm TECHNIQUE: Helical axial images of the head were obtained without IV contrast. Automated exposure control was utilized for the study. A dose lowering technique was utilized adhering to the principles of ALARA. FINDINGS: A small focus of acute subarachnoid hemorrhage overlying the posterior right frontal lobe remains unchanged. No additional sites of hemorrhage are present. Ventricular system is normal. Basal cisterns are patent. A 9 mm hypodensity within the right aspect of the splenium of the corpus callosum has developed. This favors a developing acute infarct. No additional infarcts are identified. There are no significant calvarial abnormalities. IMPRESSION: 1. 9 mm hypodensity within the right aspect of the splenium of the corpus callosum. This favors a developing acute infarct. 2. Minimal acute subarachnoid hemorrhage overlying the posterior right frontal lobe, unchanged. ACT 112: Negative or not required by law. Electronically signed by: Bernardo Phelps M.D. 05/19/2022 7:[address] 05/20/22 00:[address] DOSE: 1795.19 mGy.cm HISTORY: Headache. TECHNIQUE: Multiaxial CT images of the head were performed without the use of intravenous contrast. Automated exposure control was utilized for this study. A dose lowering technique was utilized adhering to the principles of ALARA. Comparison: Head CT 05/19/2022. Findings: The paranasal sinuses and mastoid air cells are clear. The calvarium and skull base are intact. Trace subarachnoid hemorrhage within the right high convexity has slightly improved. Small hypodensity near the right corpus callosum on image 19 is also similar to the prior study. This could represent an age-indeterminate infarct. Impression: 1. Trace subarachnoid hemorrhage within the right high convexity has slightly improved. 2. No change in the small hypodensity near the right corpus callosum which could represent an age-indeterminate infarct. ACT 112: Negative or not required by law. Electronically signed by: Tang Lyons M.D. 05/20/2022 8:22 AM Head CTA 05/20/22 14:41 HEAD & NECK CTA HISTORY: Right-sided acute stroke. TECHNIQUE: Multiaxial CT images of the head were performed following the intravenous administration of contrast to evaluate the major cerebral vessels. Multiaxial CT images of the neck were also performed following the intravenous administration of contrast to evaluate the major cervical vessels. Maximum intensity projection images were also obtained. A dose lowering technique was utilized adhering to the principles of ALARA. COMPARISON: Head CT and brain MRI 05/20/2022. FINDINGS: Small hypodensity adjacent to the right side of the corpus callosum is again noted and is consistent with the patient's known infarct. Trace subarachnoid hemorrhage at the right high convexity is also unchanged. Visualized intracranial internal carotid arteries, distal vertebral arteries, and basilar artery are widely patent. There is no significant stenosis, occlusion, or aneurysm seen within the bilateral ACAs, MCAs, or [place]. The major dural venous sinuses appear patent. There is a persistent left posterior circulation noted. The aortic arch and proximal great vessels are widely patent. There is no significant stenosis, occlusion, or dissection identified within the bilateral common carotid, internal carotid, or vertebral arteries. Multiple scattered pulmonary nodules and emphysema are again noted. Right paratracheal lymphadenopathy persists. This is consistent with metastatic disease. Mild to moderate calcified plaque within the left carotid bifurcation. There is a small pulmonary embolus seen within a right upper lobe subsegmental pulmonary. This is best seen on image 39. IMPRESSION: 1. No significant stenosis, occlusion, or aneurysm within the [place]. 2. No significant stenosis, occlusion, or dissection identified within the carotid or vertebral arteries. 3. Small hypodensity adjacent to the right side of the corpus callosum is again noted and is consistent with the patient's known infarct. 4. Trace subarachnoid hemorrhage at the right high convexity is also unchanged. 5. Redemonstration of the pulmonary metastatic disease as described above. 6. There is a small age-indeterminate pulmonary embolus seen within a right upper lobe subsegmental pulmonary. ACT 112: Negative or not required by law. Electronically signed by: Tang Lyons M.D. 05/20/2022 3:59 PM Neck CTA 05/20/22 14:41 HEAD & NECK CTA HISTORY: Right-sided acute stroke. TECHNIQUE: Multiaxial CT images of the head were performed following the intravenous administration of contrast to evaluate the major cerebral vessels. Multiaxial CT images of the neck were also performed following the intravenous administration of contrast to evaluate the major cervical vessels. Maximum intensity projection images were also obtained. A dose lowering technique was utilized adhering to the principles of ALARA. COMPARISON: Head CT and brain MRI 05/20/2022. FINDINGS: Small hypodensity adjacent to the right side of the corpus callosum is again noted and is consistent with the patient's known infarct. Trace subarachnoid hemorrhage at the right high convexity is also unchanged. Visualized intracr anial internal carotid arteries, distal vertebral arteries, and basilar artery are widely patent. There is no significant stenosis, occlusion, or aneurysm seen within the bilateral ACAs, MCAs, or [place]. The major dural venous sinuses appear patent. There is a persistent left posterior circulation noted. The aortic arch and proximal great vessels are widely patent. There is no significant stenosis, occlusion, or dissection identified within the bilateral common carotid, internal carotid, or vertebral arteries. Multiple scattered pulmonary nodules and emphysema are again noted. Right paratracheal lymphadenopathy persists. This is consistent with metastatic disease. Mild to moderate calcified plaque within the left carotid bifurcation. There is a small pulmonary embolus seen within a right upper lobe subsegmental pulmonary. This is best seen on image 39. IMPRESSION: 1. No significant stenosis, occlusion, or aneurysm within the [place]. 2. No significant stenosis, occlusion, or dissection identified within the carotid or vertebral arteries. 3. Small hypodensity adjacent to the right side of the corpus callosum is again noted and is consistent with the patient's known infarct. 4. Trace subarachnoid hemorrhage at the right high convexity is also unchanged. 5. Redemonstration of the pulmonary metastatic disease as described above. 6. There is a small age-indeterminate pulmonary embolus seen within a right upper lobe subsegmental pulmonary. ACT 112: Negative or not required by law. Electronically signed by: Tang Lyons M.D. 05/20/2022 3:59 PM Brain MRI 05/20/22 22:09 Brain MRI WITHOUT CONTRAST HISTORY: Headache. Abnormal head CT. Subarachnoid hemorrhage. stroke TECHNIQUE: Multiplanar multisequence MRI of the brain was performed without the use of contrast. Of note, the patient was unable to complete the entire examination. Therefore the axial T2 and coronal FLAIR sequences were not obtained. COMPARISON STUDY: Head CT 05/12/2022. Brain MRI 05/03/2022. FINDINGS: Scattered small foci of restricted diffusion seen within the right parietal lobe, right occipital lobe, and left cerebellar hemisphere consistent with acute embolic infarcts. Dominant focus adjacent to the right corpus callosum measures 1 cm. Otherwise, the midline structures are intact. No definite mass or midline shift. The patient's trace subarachnoid hemorrhage at the right high convexity is better appreciated on the same day head CT. IMPRESSION: 1. Scattered small foci of restricted diffusion seen within the right parietal lobe, right occipital lobe, and left cerebellar hemisphere consistent with acute embolic infarcts. 2. The patient's trace subarachnoid hemorrhage at the right high convexity is better appreciated on the same day head CT. ACT 112: Negative or not required by law. Electronically signed by: Tang Lyons M.D. 05/20/2022 12:07 PM Carotid Doppler Study 05/20/22 22:11 BILATERAL CAROTID DOPPLER STUDY HISTORY: Right-sided stroke. COMPARISON: None. TECHNIQUE: Real-time, grayscale, and color Doppler sonography of the carotid arteries was performed. Imaging reviewed in the transverse and longitudinal planes. All measurements were calculated based on NASCET criteria. FINDINGS: Antegrade flow is seen in the bilateral vertebral arteries. Mild to moderate calcified plaque within the left carotid bifurcation. The peak systolic velocity within the right ICA is 87 cm/s. The right systolic ratio is 0.9. The peak systolic velocity within the left ICA is 58 cm/s. The left systolic ratio is 0.9. IMPRESSION: No hemodynamically significant stenosis seen within the carotid arteries. ACT 112: Negative or not required by law. Electronically signed by: Tang Lyons M.D. 05/20/2022 12:17 PM Venous Doppler Study 05/21/22 00:00 LEFT LOWER EXTREMITY VENOUS DOPPLER HISTORY: Left leg edema, r/o dvt COMPARISON STUDY: None. FINDINGS: There is normal compressibility, flow, and augmentation within the left lower extremity deep venous system. IMPRESSION: No DVT within the left lower extremity. ACT 112: Negative or not required by law. Electronically signed by: Tang Lyons M.D. 05/21/2022 7:33 AM Foot X-Ray 05/21/22 10:59 XR foot LT 2V CLINICAL HISTORY: Left foot edema. Evaluate for fracture. COMPARISON: None FINDINGS: Tarsometatarsal joints are intact. No acute fractures are identified although sensitivity for detection of fractures within the toes is diminished given chronic deformities. Mild posterior and plantar calcaneal spurring is noted. 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 Dorsal foot soft tissue swelli ng is noted. IMPRESSION: No acute fracture or dislocation within the left foot. ACT 112: Negative or not required by law. Electronically signed by: Bernardo Phelps M.D. 05/21/2022 12:06 PM
--- NOTE | 2022-05-22 16:20 | Electrocardiogram Report ---
Test Reason : Blood Pressure : / mmHG Vent. Rate : 076 BPM Atrial Rate : 076 BPM P-R Int : 172 ms QRS Dur : 122 ms QT Int : 408 ms P-R-T Axes : 069 025 021 degrees QTc Int : 459 ms Sinus rhythm with occasional Premature ventricular complexes Right bundle branch block Moderate voltage criteria for LVH, may be normal variant Abnormal ECG When compared with ECG of 19-MAY-2022 10:10, Fusion complexes are no longer Present Premature ventricular complexes are now Present Premature supraventricular complexes are no longer Present Nonspecific T wave abnormality no longer evident in Anterior leads Confirmed by Charlie Garcia ([id number]) on 05/22/2022 4:19:52 PM Referred By: REFERRED SELF Confirmed By:Charlie Garcia
--- NOTE | 2022-05-22 16:44 | Hospitalist Progress Note ---
Date of Service May 22, 2022 Assessment & Plan (1) Subarachnoid hemorrhage: Plan: (1) Subarachnoid hemorrhage: Plan: Subarachnoid hemorrhage likely due to anticoagulant therapy Last dose of Eliquis was Sunday Repeat CT head this morning May 15, 2022: Stable subarachnoid hemorrhage in the right posterior frontal lobe. No new hemorrhage is seen. Platelet count trended down to 50 K, 1 unit platelet pheresis ordered No other signs of active bleeding 05/[address] head: Stable subarachnoid hemorrhage Platelet count 50 K No other signs of active bleeding Acute CVA, likely embolic infarcts Developed some alteration mental status 05/19/2022 Brain MRI:1. Scattered small foci of restricted diffusion seen within the right parietal lobe, right occipital lobe, and left cerebellar hemisphere consistent with acute embolic infarcts. 2. The patient's trace subarachnoid hemorrhage at the right high convexity is better appreciated on the same day head CT. Carotid Doppler study: No hemodynamically significant stenosis Aspirin 81 mg p.o. daily started Discussed with neurologist on-call Dr. Holt-recommend CT angiogram of head and neck Dr. Euceda will be reevaluating the patient today, possibly restarting Eliquis sooner given development of acute embolic infarcts 05/21 Plan to resume therapeutic dose of Eliquis tomorrow Will transfuse with 1 unit of platelets today, with pretreatment Goal platelet more than 80-100,000 as per neurology service 05/22 Platelet count increased to 203,000 Patient has no new neurologic deficits noted, left lower leg weakness actually improving Discussed with neurologist Dr. Holt, recommend to resume Eliquis 5 mg p.o. twice daily starting today, aspirin discontinued Repeat CAT scan in 2 days to follow-up subarachnoid hemorrhage Constipation Laxatives ordered Left foot edema Doppler ultrasound: Negative for DVT From acute CVA? Elevate the foot foot x-ray: No acute fracture or dislocation within the left foot. Will give Lasix 20 mg p.o. 1 dose for lower extremity edema Atrial fibrillation RVR Troponin elevation No cardiac symptoms Cardiology service consulted- appreciate recommendations Echocardiogram: Unrevealing, no left ventricular wall mural thrombus Started on amiodarone drip, now transition to amiodarone p.o. 200 mg 3 times daily Apixaban 5 mg p.o. twice daily resumed today Monitor closely Lung cancer with metastasis chronic respiratory failure secondary to lung adenocarcinoma on chemotherapy First chemotherapy session last admission Bilateral splenic and renal infarcts Progressing compared to CAT scan during last admission Eliquis on hold in light of subarachnoid hemorrhage-- > Eliquis resumed today Monitor closely hypertension, stable DM2 diet controlled, hemoglobin A1c of 6.4 from November 2019 chronic anemia, hemoglobin at baseline past tobacco abuse. Basal bolus insulin adjusted for n.p.o. status, ISS BG goal 1 10-1 40, update hemoglobin A1c --> 7.4 DVT prophylaxis. Mikayla DNR Disposition PT and OT evaluation Lives with son at home plan of care discussed with patient in detail and at length Also discussed plan of care with patient's daughter last night all questions answered they are understanding, agreeable, comfortable with the plan of care Admission and Anticipated Discharge Date Admission Date: May 18, 2022 Subjective Follow-up for subarachnoid hemorrhage, multiple thromboembolic acute infarcts Etc. Seen sitting up in bedside chair, on room air, comfortable, not in distress In good spirits States he feels improved overall today Left lower leg weakness improving, able to ambulate to the bathroom better, but reports swelling of bilateral lower extremities, no pain, no tenderness Denies shortness of breath, cough, fevers or chills, chest pain Denies headache, dizziness, new neurologic symptoms No other symptoms Review of Systems Review of Systems: all noted and negative except for above Physical Exam Physical Exam: General- oriented x 3, not in distress, speaks in sentences with no effort or accessory muscle use Eyes- anicteric Neck- no JVD Lungs- clear BS bilaterally, no rales/wheezes Heart- normal rate, regular rhythm; no murmurs Abdomen- normal bowel sounds, nondistended, soft, nontender Extremities-mild bilateral lower extremity edema, no erythema/tenderness/warmth, no calf tenderness Neuro- alert, oriented x 3; no gross focal neurologic deficits Skin- warm & dry Results & Data Results & Data ([facility]) Vital Signs (Past 12 Hours) Vital Signs Temp Pulse Pulse Resp BP Pulse Ox O2 Del Method 05/22/22 16:09 89 05/22/22 07:15 77 05/22/22 12:29 36.7 C 83 18 131/74 90 Room Air 05/22/22 11:40 Nasal Cannula 05/22/22 08:26 36.8 C 73 20 138/79 91 Room Air O2 Flow Rate 05/22/22 16:09 05/22/22 07:15 05/22/22 12:29 05/22/22 11:40 2 05/22/22 08:26 all noted and reviewed including below
[2022-05-22] MEDS ORDERED: FUROSEMIDE 20 MG TAB PO ONE (17:00)
[2022-05-22] MEDS: APIXABAN 5 MG TABLET PO SCH (20:25)
[2022-05-22] MEDS: LORazepam 0.5 MG TAB PO PRN (22:07)
[2022-05-23 06:19] LABS: Basophils # (auto) 0.01 K/uL (0-0.2); Basophils % (auto) 0.2 %; Eosinophils # (auto) 0.12 K/uL (0-0.50); Eosinophils % (auto) 2.8 %; Hematocrit (blood only) 35.6 % (42.0-52.0); Hemoglobin 11.9 g/dl (14.0-18.0); Immature Granulocytes # (auto) 0.02 K/uL (0.01-0.20); Immature Granulocytes % (auto) 0.5 %; Lymphocytes # (auto) 0.79 K/uL (1.2-3.4); Lymphocytes % (auto) 18.3 %; Mean Corpuscular Hemoglobin 29.4 pg (25.0-34.0); Mean Corpuscular Hgb Conc 33.4 g/dL (32.0-36.0); Mean Corpuscular Volume 87.9 fL (80.0-100.0); Mean Platelet Volume 10.3 fL (9.4-12.4); Monocytes # (auto) 0.54 K/uL (0.11-0.59); Monocytes % (auto) 12.5 %; Neutrophils # (auto) 2.83 K/uL (1.40-6.50); Neutrophils % (auto) 65.7 %; Platelet Count 130 K/uL (130-400); RDW Coefficient of Variation 13.9 % (11.5-14.5); RDW Standard Deviation 42.9 fL (36.4-46.3); Red Blood Count 4.05 M/uL (4.70-6.10); White Blood Count 4.31 K/ul (4.8-10.8)
[2022-05-23 06:35] LABS: BUN Creatinine Ratio 23.9 (10-20); Calcium 9.4 mg/dl (8.5-10.1); Creatinine Clr Calc Pharmacy 79.6 ml/min; Est GFR (African American) 98.8 ml/min; Est GFR (Non-African American) 85.2 ml/min; Potassium 4.2 mmol/L (3.5-5.1)
--- NOTE | 2022-05-23 08:02 | Cardiology Progress Note ---
Date of Service May 23, 2022 Assessment & Plan (1) Paroxysmal atrial fibrillation: Plan: Maintaining NSR on monitor. Having short salvos of VT and PVCs -Continue rhythm control strategy with metoprolol and amiodarone. -Continue Amiodarone 200 mg TID while inpatient. At discharge will consider reduction to 200 mg BID- Clinical course pending. -ASA discontinued , Eliquis resumed evening of 05/22/22 (2) Embolic stroke: Plan: -Noted high risk for ongoing cardioembolic stroke, and systemic embolic events (3) Subarachnoid hemorrhage: Plan: -Neurology input noted and appreciated (4) Adenocarcinoma of lung, stage 4: Plan: -prognosis poor. (5) Thrombocytopenia: Plan: -Question if the new thrombocytopenia is due to suppression from his single chemotherapy treatment performed over 2 weeks ago or consumptive related to the SAH. Platelet count improved , having one transfusion. DVT prophylaxis: knee high SCDs , Eliquis Plan Case discussed with Dr. Long- will follow. Admission and Anticipated Discharge Date Admission Date: May 18, 2022 Supervising Physician Co-Signing Physician Notes Supervising Physician Attestation: I have personally performed a history and physical examination on the patient. I agree with the nurse practitioner's findings and plan as documented with the following additions. Subjective: Patient without acute complaint. Exam: Cardiovascular regular with ectopic beats, no murmurs, trace edema, nonpitting Data: EKG on 05/22/2022 revealed sinus rhythm with PVCs. Assessment and Plan: Assessment as above -Given concerns of ongoing embolic events both stroke and systemic embolic events, have transition the patient back off of aspirin and onto Eliquis 5 mg twice daily. Plan is for a repeat CT tomorrow morning 05/24/2022. -Increase activity as tolerated. Malcolm Long, DO Subjective Medically complex 72-year-old male with history of spontaneous subarachnoid hemorrhage while on Eliquis. Patient carries a history of new onset atrial fibrillation as well as stage IV adenocarcinoma of the lung. On chemo therapy, notable low platelet count. 05/19: Patient reverted back into A. fib RVR rates around 150 around 11:20 AM. Intermittent A. fib noted by approximately 5 PM and was back in sinus rhythm by 9 PM. Developed mental status change. Repeat CT of the brain revealed a new acute infarct. Small acute subarachnoid hemorrhage unchanged. Aspirin 81 mg daily was started. Developed a fever after receiving 1 unit of platelets 05/20: Amiodarone infusion started. Patient continued on metoprolol succinate 12.5 mg twice daily. Limited echo-LVEF 60 to 65% with no left ventricular mural thrombus. Normal wall motion. Normal RV. No pericardial effusion. Mild AI. Suffered an embolic stroke 05/21: IV amiodarone transition to oral. 05/22: Aspirin discontinued. Started on Eliquis 5 mg twice daily-first dose in the evening. Continued on metoprolol succinate 12.5 mg twice daily and amiodarone 200 mg 3 times daily with meals. 05/23: Patient seen and examined at bedside. Chart and telemetry reviewed. Tele: SR with PVCs, 80-90s. short salvos of VT 3-4 beats. Upon entrance into the room patient resting in his chair. Eager for discharge. No acute concerns over night. No neurologic changes. No cardiac concerns. Review of Systems Review of Systems: All systems reviewed & are unremarkable except as noted in HPI & below Physical Exam Constitutional: WD/WN, vitals as above no acute distress Eyes: PERRL, conjunctivae normal, anicteric sclerae Neck: normal visual inspection and trachea midline Respiratory: normal respiratory effort, lungs clear to auscultation Cardiovascular: RRR, no murmur, no edema Heart Sounds: normal S1 and normal S2 Vessels: no JVD Extremities: + edema (Trace BL nonpitting lower extremity edema) Gastrointestinal (Abdomen): normal bowel sounds, soft, nontender, no hepatosplenomegaly Musculoskeletal: no cyanosis or clubbing, extremities motor strength 5/5 Skin: no rashes, warm and dry Neurologic: PERRL, EOMI, accommodation nl, no face palsy, no dysarthria Psychiatric: A+Ox3, euthymic affect Results & Data ([facility]) Vital Signs (Past 12 Hours) Vital Signs Temp Pulse Pulse Resp BP Pulse Ox O2 Del Method 05/23/22 07:46 83 05/23/22 02:54 37.4 C 80 19 156/69 H 93 Room Air 05/22/22 23:00 65 05/22/22 20:00 Nasal Cannula O2 Flow Rate 05/23/22 07:46 05/23/22 02:54 05/22/22 23:00 05/22/22 20:00 2 Laboratory Results CBC 05/23/22 Range/Units 06:01 WBC 4.31 L (4.8-10.8) K/ul RBC 4.05 L (4.70-6.10) M/uL Hgb 11.9 L (14.0-18.0) g/dl Hct 35.6 L (42.0-52.0) % Plt Count 130 (130-400) K/uL Neut # (Auto) 2.83 (1.40-6.50) K/uL Lymph # (Auto) 0.79 L (1.2-3.4) K/uL Cataño # (Auto) 0.54 (0.11-0.59) K/uL Eos # (Auto) 0.12 (0-0.50) K/uL Baso # (Auto) 0.01 (0-0.2) K/uL Comprehensive Metabolic Panel 05/23/22 Range/Units 06:01 Sodium 139 (136-145) mmol/L Potassium 4.2 (3.5-5.1) mmol/L Chloride 102 (98-107) mmol/L Carbon Dioxide 27 (21-32) mmol/L BUN 21 (6-23) mg/dl Creatinine 0.88 (0.6-1.4) mg/dl Glucose 136 H (70-99(Fasting)) mg/dl Calcium 9.4 (8.5-10.1) mg/dl Intake and Output 05/22/22 05/23/22 05/23/22 22:59 06:59 14:59 Intake Total 360 / 360 Output Total 926 / 1227 301 / 1227 200 / 200 Balance -566 / -867 -301 / -867 -200 / -200 Intake: Oral 360 / 360 Output: Urine 925 / 1225 300 / 1225 200 / 200 # Bowel Movements 1 / 2 1 / 2 Other: # Unmeasured Voids 1 # Urine Diapers 1
[2022-05-23] MEDS: FOLIC ACID 1 MG TAB PO SCH (08:57)
[2022-05-23] MEDS: ATORVASTATIN 20 MG TAB PO SCH (08:57)
[2022-05-23] MEDS: AMIODARONE 200 MG TAB PO SCH ×3 (08:57→17:59)
[2022-05-23] MEDS: DOCUSATE SODIUM/SENNA 50/8.6MG TAB PO SCH (08:57)
[2022-05-23] MEDS: PANTOprazole 40 MG TAB PO SCH (08:57)
[2022-05-23] MEDS: METOPROLOL SUCC 25MG EXT REL TAB PO SCH ×2 (08:57→20:14)
[2022-05-23] MEDS: APIXABAN 5 MG TABLET PO SCH ×2 (08:57→20:15)
[2022-05-23] MEDS: INSULIN ASPART PER UNIT SC SCH ×4 (09:06→20:17)
[2022-05-23] MEDS ORDERED: FUROSEMIDE INJ 20 MG/2 ML VIAL IV ONE (16:45)
[2022-05-23] MEDS: LIDOCAINE 5% 1 PATCH TD SCH (17:59)
--- NOTE | 2022-05-23 18:56 | Hospitalist Progress Note ---
Date of Service May 23, 2022 Assessment & Plan (1) Subarachnoid hemorrhage: Plan: (1) Subarachnoid hemorrhage: Plan: Subarachnoid hemorrhage likely due to anticoagulant therapy (Eliquis for A fib) Last dose of Eliquis was 2 days prior t admission Repeat CT head May 15, 2022:Stable subarachnoid hemorrhage in the right posterior frontal lobe. No new hemorrhage is seen. Repeat CT head 05/19: Stable subarachnoid hemorrhage Platelet count 50 K Required 2 units of platelet pheresis Eliquis resumed 05/22 per neurology, as patient was having embolic infarcts, repeat CT head tomorrow May 24, 2022 to assess stability of subarachnoid hemorrhage So far, no signs of new neurologic symptoms Acute CVA, likely embolic infarcts In the setting of atrial fibrillation Developed some alteration mental status 05/19/2022 Brain MRI:1. Scattered small foci of restricted diffusion seen within the right parietal lobe, right occipital lobe, and left cerebellar hemisphere consistent with acute embolic infarcts. 2. The patient's trace subarachnoid hemorrhage at the right high convexity is better appreciated on the same day head CT. Carotid Doppler study: No hemodynamically significant stenosis Aspirin 81 mg p.o. daily started Discussed with neurologist on-call Dr. Holt-recommend CT angiogram of head and neck Dr. Euceda will be reevaluating the patient today, possibly restarting Eliquis sooner given development of acute embolic infarcts Eliquis resumed 05/22 per neurology Patient has no new neurologic deficits noted, left lower leg weakness actually improving Repeat CAT scan May 24 to follow-up subarachnoid hemorrhage Radiology service consulted Acute thrombocytopenia Likely consumptive secondary to subarachnoid hemorrhage Required 2 units of platelet pheresis Platelet level improved from 50 K now 130 K Case discussed with patient's oncologist Dr. Alonso Lung cancer with metastasis Currently on room air chronic respiratory failure secondary to lung adenocarcinoma on chemotherapy First chemotherapy session 3 weeks ago Supposed to have second chemotherapy this coming , discussed with oncologist Dr. Alonso, postpone next chemo to next week Oncology clinic will be calling the patient for appointment Constipation Laxatives ordered Bilateral lower extremity edema Doppler ultrasound: Negative for DVT Likely from volume overload, secondary to IV fluids, transfusion Additional Lasix 20 mg IV given today Monitor Atrial fibrillation RVR Echocardiogram: Unrevealing, no left ventricular wall mural thrombus Started on amiodarone drip, now transitioned to amiodarone p.o. 200 mg 3 times daily Apixaban 5 mg p.o. twice daily resumed yesterday Monitor closely Bilateral splenic and renal infarcts Progressing compared to CAT scan during last admission Mikayla on hold in light of subarachnoid hemorrhage-- > Mikayla resumed Monitor closely hypertension, stable DM2 diet controlled, hemoglobin A1c of 6.4 from November 2019 chronic anemia, hemoglobin at baseline past tobacco abuse. Basal bolus insulin adjusted for n.p.o. status, ISS BG goal 1 10-1 40, update hemoglobin A1c --> 7.4 DVT prophylaxis. Mikayla DNR Disposition PT and OT evaluation Will transition to acute rehab in 1 to 2 days Chemotherapy next week plan of care discussed with patient and his son in detail and at length all questions answered they are understanding, agreeable, comfortable with the plan of care Admission and Anticipated Discharge Date Admission Date: May 18, 2022 Subjective Follow-up for subarachnoid hemorrhage, with subsequent multiple embolic infarcts, A. fib, recent diagnosis of metastatic lung cancer, etc. Seen resting in bed side chair, comfortable, not in distress, in good spirits Looks better overall States he feels fine No headache, dizziness, blurring of vision, no focal weakness or numbness Reports left lower extremity weakness is improving, able to ambulate better No shortness of breath, palpitations, dizziness, chest pain Review of Systems Review of Systems: all noted and negative except for above Physical Exam Physical Exam: General- oriented x 3, not in distress, speaks in sentences with no effort or accessory muscle use Eyes- anicteric Neck- no JVD Lungs- clear breath sounds bilaterally, no rales/wheezes Heart- normal rate, regular rhythm; no murmurs Abdomen- normal bowel sounds, nondistended, soft, nontender Extremities- no pretibial edema, no calf tenderness Neuro- alert, oriented x 3; no gross focal neurologic deficits Skin- warm & dry Results & Data Results & Data ([facility]) Vital Signs (Past 12 Hours) Vital Signs Temp Pulse Pulse Pulse Resp BP BP 05/23/22 15:35 37.1 C 78 18 125/63 05/23/22 16:22 72 05/23/22 11:20 36.8 C 78 20 144/68 H 05/23/22 07:25 36.5 C 76 18 137/71 05/23/22 07:46 83 Pulse Ox O2 Del Method O2 Flow Rate 05/23/22 15:35 93 Room Air 05/23/22 16:22 05/23/22 11:20 92 Room Air 05/23/22 07:25 93 Nasal Cannula 2 05/23/22 07:46 all noted and reviewed including below
[2022-05-23] MEDS: LORazepam 0.5 MG TAB PO PRN (22:15)
[2022-05-24 07:33] LABS: BUN Creatinine Ratio 26.1 (10-20); Calcium 9.1 mg/dl (8.5-10.1); Creatinine Clr Calc Pharmacy 63.1 ml/min; Est GFR (African American) 75.9 ml/min; Est GFR (Non-African American) 65.5 ml/min; Potassium 3.8 mmol/L (3.5-5.1)
--- NOTE | 2022-05-24 08:17 | Cardiology Progress Note ---
Date of Service May 24, 2022 Assessment & Plan (1) Paroxysmal atrial fibrillation: Plan: Maintaining NSR on monitor. Having short salvos of VT and PVCs -Continue rhythm control strategy with metoprolol and amiodarone. -Continue Amiodarone 200 mg TID while inpatient. Recommend at discharge to reduce amiodarone to 200 mg BID- follow up in 4 weeks as outpatient. -ASA discontinued, Eliquis resumed evening of 05/22/22 (2) Embolic stroke: Plan: -Noted high risk for ongoing cardioembolic stroke, and systemic embolic events (3) Subarachnoid hemorrhage: Plan: -Neurology input noted and appreciated (4) Adenocarcinoma of lung, stage 4: Plan: -prognosis poor. (5) Thrombocytopenia: Plan: -Question if the new thrombocytopenia is due to suppression from his single chemotherapy treatment performed over 2 weeks ago or consumptive related to the SAH. Platelet count improved , having one transfusion. DVT prophylaxis: knee high SCDs , Eliquis Plan Case discussed with Dr. Long- Plans for repeat head CT per neurology. No further changes from cardiology at this time. Plan with amiodarone as stated above. Admission and Anticipated Discharge Date Admission Date: May 18, 2022 Supervising Physician Co-Signing Physician Notes Supervising Physician Attestation: I have personally performed a history and physical examination on the patient. I agree with the nurse practitioner's findings and plan as documented with the following additions. Subjective: Patient without acute complaint. Exam: Cardiovascular regular with ectopic beats, no murmurs, trace edema, nonpitting Data: CT of the brain reveals resolution of the SAH as per radiology report, and expected evolution of the small scattered infarcts within the right parietal/occipital lobes. Assessment and Plan: Assessment as above -Given concerns of ongoing embolic events both stroke and systemic embolic events, have transitioned the patient back off of aspirin and onto Eliquis 5 mg twice daily. -Continue amiodarone. Transition to BID at discharge. Continue metoprolol. Malcolm Long, DO Subjective Medically complex 72-year-old male with history of spontaneous subarachnoid hemorrhage while on Eliquis. Patient carries a history of new onset atrial fibrillation as well as stage IV adenocarcinoma of the lung. On chemo therapy, notable low platelet count. 05/19: Patient reverted back into A. fib RVR rates around 150 around 11:20 AM. Intermittent A. fib noted by approximately 5 PM and was back in sinus rhythm by 9 PM. Developed mental status change. Repeat CT of the brain revealed a new acute infarct. Small acute subarachnoid hemorrhage unchanged. Aspirin 81 mg daily was started. Developed a fever after receiving 1 unit of platelets 05/20: Amiodarone infusion started. Patient continued on metoprolol succinate 12.5 mg twice daily. Limited echo-LVEF 60 to 65% with no left ventricular mural thrombus. Normal wall motion. Normal RV. No pericardial effusion. Mild AI. Suffered an embolic stroke 05/21: IV amiodarone transition to oral. 05/22: Aspirin discontinued. Started on Eliquis 5 mg twice daily-first dose in the evening. Continued on metoprolol succinate 12.5 mg twice daily and amiodarone 200 mg 3 times daily with meals. 05/23: No acute changes 05/24: Patient seen and examined at bedside. Chart and telemetry reviewed. Tele: SR with PVCs, 70s- short salvos of VT 3-4 beats. No acute concerns over night. Per the patient he is planning on going to rehab close to his home in [place]- he is eager for discharge. Review of Systems Review of Systems: All systems reviewed & are unremarkable except as noted in HPI & below Physical Exam Constitutional: WD/WN, vitals as above no acute distress Eyes: PERRL, conjunctivae normal, anicteric sclerae Neck: normal visual inspection and trachea midline Respiratory: normal respiratory effort, lungs clear to auscultation Cardiovascular: RRR, no murmur, no edema Heart Sounds: normal S1 and normal S2 Vessels: no JVD Extremities: + edema (Trace BL nonpitting lower extremity edema) Gastrointestinal (Abdomen): normal bowel sounds, soft, nontender, no hepatosplenomegaly Musculoskeletal: no cyanosis or clubbing, extremities motor strength 5/5 Skin: no rashes, warm and dry Neurologic: PERRL, EOMI, accommodation nl, no face palsy, no dysarthria Psychiatric: A+Ox3, euthymic affect Results & Data ([facility]) Vital Signs (Past 12 Hours) Vital Signs Temp Pulse Pulse Resp BP Pulse Ox O2 Del Method 05/24/22 03:04 36.7 C 80 18 119/64 91 Room Air 05/23/22 23:00 77 05/23/22 22:00 37.9 C H 79 18 114/71 92 Nasal Cannula O2 Flow Rate 05/24/22 03:04 05/23/22 23:00 05/23/22 22:00 2 Laboratory Results Comprehensive Metabolic Panel 05/24/22 Range/Units 06:28 Sodium 139 (136-145) mmol/L Potassium 3.8 (3.5-5.1) mmol/L Chloride 102 (98-107) mmol/L Carbon Dioxide 29 (21-32) mmol/L BUN 29 H (6-23) mg/dl Creatinine 1.11 (0.6-1.4) mg/dl Glucose 134 H (70-99(Fasting)) mg/dl Calcium 9.1 (8.5-10.1) mg/dl Intake and Output 05/23/22 05/24/22 05/24/22 22:59 06:59 14:59 Output Total 500 / 850 Balance -500 / -700 Output: Urine 500 / 850
[2022-05-24] MEDS: PANTOprazole 40 MG TAB PO SCH (08:44)
[2022-05-24] MEDS: APIXABAN 5 MG TABLET PO SCH ×2 (08:44→21:26)
[2022-05-24] MEDS: ATORVASTATIN 20 MG TAB PO SCH (08:44)
[2022-05-24] MEDS: METOPROLOL SUCC 25MG EXT REL TAB PO SCH ×2 (08:44→21:25)
[2022-05-24] MEDS: FOLIC ACID 1 MG TAB PO SCH (08:44)
[2022-05-24] MEDS: DOCUSATE SODIUM/SENNA 50/8.6MG TAB PO SCH (08:44)
[2022-05-24] MEDS: AMIODARONE 200 MG TAB PO SCH ×3 (08:44→17:26)
[2022-05-24] MEDS: INSULIN ASPART PER UNIT SC SCH ×4 (08:45→21:15)
[2022-05-24] MEDS: LIDOCAINE 5% 1 PATCH TD SCH (08:45)
--- NOTE | 2022-05-24 13:44 | CT Scan Report ---
HEAD CT NONCONTRAST CT DOSE: 537.48 mGy.cm HISTORY: Stroke TECHNIQUE: Multiaxial CT images of the head were performed without the use of intravenous contrast. A utomated exposure control was utilized for this study. A dose lowering technique was utilized adheri ng to the principles of ALARA. Comparison: Head CT 05/20/2022. Findings: The paranasal sinuses and mastoid air cells are clear. Trace subarachnoid hemorrhage within the right high convexity on image 22 has almost completely resolved. Small hypodense foci within the right parietal/occipital lobes are again noted and are consistent with the known subacute infarcts. No intracranial mass or midline shift identified. Impression: 1. Near-complete resolution of the trace subarachnoid hemorrhage at the right high convexity. 2. Expected evolution of the small scattered infarcts within the right parietal/occipital lobes. ACT 112: Negative or not required by law. Electronically signed by: Tang Lyons M.D. 05/24/2022 1:43 PM
--- NOTE | 2022-05-24 16:36 | Neurology Progress Note ---
Date of Service May 24, 2022 Assessment & Plan (1) Subarachnoid hemorrhage: Plan Assessment and plan: 1. Small subarachnoid hemorrhage, nontraumatic, located at right frontal convexity Impression: The patient initially presented with left lower extremity weakness a nd soft fall. He was started on heparin infusion with bolus. He was also on Eliquis, although, he missed a dose prior to emergency department visit.Next day, head CT showed small subarachnoid hemorrhage and anticoagulation has been on hold since then. Unfortunately, the patient has had multiorgan, probably cardioembolic ischemic strokes including brain, spleen and kidneys. He has atrial fibrillation. He has stage IV adenocarcinoma, which might cause hypercoagulable state. He has thrombocytopenia. Risks and benefits of anticoagulation is discussed with hospitalist physician, the patient and his family. After platelet infusions >100K. Eliquis was started and aspirin was stopped. Repeat HCT today near total resolution of SAH. Plan/recommendations: Continue on Eliquis 5 mg BID. --The patient is stable neurologically to discharge to rehab. Neurology clinic f/u. I contacted with [facility] neurology for f/u appointment. We will sign off. 2. Multifocal, bihemispheric, ischemic cerebrovascular accidents Impression: Brain MRI today showed acute, ischemic strokes as described above. Highly suggestive of central embolic etiology as seen in atrial fibrillation. The patient also has malignancy, which might cause hypercoagulable state. Plan/recommendations: As seen above. 3. Stage IV adenocarcinoma of lungs Impression: The patient was diagnosed with adenocarcinoma recently, and started on chemotherapy. Plan/recommendations: The patient will be followed by hematology oncology regarding continuation of chemotherapy and thrombocytopenia. Admission and Anticipated Discharge Date Admission Date: May 18, 2022 Subjective The patient has been neurologically stable. His ambulation and leg weakness has been improved mostly. He is waiting for discharge to rehab facility. Repeat head CT today showed resolution of subarachnoid hemorrhage while on Eliquis. Evolving ischemic strokes were also reported. Platelet count has been improving. Next chemotherapy is postponed for now. The patient eats and sleeps well. He denies any new neurological symptoms. Review of Systems Review of Systems: All systems reviewed & are unremarkable except as noted in Subjective Physical Exam Physical Exam: General Examination: Constitutional: Well developed ill-looking person in no acute distress. HENT: Normal exam with inspection. CV: Hearth rhythm is regular currently. Neck: Supple, no carotid bruits. Lungs: Non-labored and comfortable breathing on oxygen treatment Abdomen: Soft, non-tender, non-distended. Skin: No rash or ecchymosis. Extremities: No edema or cyanosis but slightly swollen left ankle and cold and pale left foot NEUROLOGICAL EXAMINATION: Mental Status: Alert and oriented to place, person and time. Cranial Nerves: II-XII are intact. No nystagmus. Funduscopy: Normal looking optic discs. Motor: 5/5 in upper extremities and right leg. Left leg strength has been improving with current strength of 5-/5. Tone: Normal without spasticity or rigidity. Sensory: Decreased sensation in left leg. Coordination: No dysmetria with FTN testing. Speech: Fluent. Comprehension is intact. Gait: Ambulates independently with walker Musculoskeletal: Normal muscle bulk, no atrophy. DTRs: 2+ in upper and lower extremities except ankles are 1+ symmetrically No Babinsky. Results & Data ([facility]) Vital Signs (Past 12 Hours) Vital Signs Temp Pulse Pulse Resp BP Pulse Ox O2 Del Method 05/24/22 15:13 80 05/24/22 12:20 36.6 C 82 20 121/71 92 Room Air 05/24/22 11:20 94 Nasal Cannula 05/24/22 08:00 Nasal Cannula 05/24/22 09:35 69 05/24/22 08:03 37.2 C 74 18 124/64 90 Nasal Cannula O2 Flow Rate 05/24/22 15:13 05/24/22 12:20 05/24/22 11:20 2 05/24/22 08:00 2 05/24/22 09:35 05/24/22 08:03 2 Laboratory Results Laboratory Results - last 24 hr 05/23/22 05/23/22 05/24/22 17:10 20:09 06:28 Sodium 139 Potassium 3.8 Chloride 102 Carbon Dioxide 29 Anion Gap 8 BUN 29 H Creatinine 1.11 Est Cr Clr Drug Dosing 63.1 Est GFR ( Amer) 75.9 Est GFR (Non-Af Amer) 65.5 BUN/Creatinine Ratio 26.1 H Glucose 134 H POC Glucose 113 H 146 H Calcium 9.1 05/24/22 05/24/22 07:41 12:16 Sodium Potassium Chloride Carbon Dioxide Anion Gap BUN Creatinine Est Cr Clr Drug Dosing Est GFR ( Amer) Est GFR (Non-Af Amer) BUN/Creatinine Ratio Glucose POC Glucose 136 H 130 H Calcium Diagnostic Findings Abdomen/Pelvis CT 05/17/22 18:[address] WITH IV CONTRAST CT DOSE: 376.11 mGy.cm HISTORY: Acute generalized abdominal pain abd pain TECHNIQUE: Multiaxial CT images of the abdomen and pelvis were performed following the IV administration of 80 cc of Optiray, A dose lowering technique was utilized adhering to the principles of ALARA. COMPARISON STUDY: CT abdomen and pelvis May 03, 2022 FINDINGS: Innumerable pulmonary nodules are redemonstrated, several of which demonstrate central cavitation up to approximately 1.5 cm. There is mildly improved aeration of the lower lobes with decreased consolidative opacities and intralobular septal thickening. Trace pleural effusions have also decreased in size. No pneumatosis or pneumoperitoneum. The study is degraded by respiratory motion artifact. Coronary artery calcifications. Decreased attenuation of the splenic infarct compared to the prior study. Bilateral renal infarcts are present, left greater than right with the left infarcts new/progressed from the prior study. Mild left sided pelvocaliectasis. Prostamegaly. Unremarkable urinary bladder. Atherosclerosis of the aorta without aneurysm. No lymphadenopathy identified. Unremarkable spleen and right adrenal gland. Indeterminate 1.6 cm left adrenal gland nodule redemonstrated. Cholecystectomy with pneumobilia again noted. The liver is otherwise unremarkable. Patent portal vein. Small hiatal hernia. Colonic diverticulosis. Moderate fecal retention. Normal appendix. No ascites or mesenteric inflammation. Atrophy of the upper thigh mu sculature again noted. Degenerative changes of the spine, pelvis and hips. Unchanged mild superior endplate compression at L1. IMPRESSION: 1. Cardiomegaly with decreased pulmonary edema and pleural effusions. 2. Innumerable bibasilar pulmonary nodules are redemonstrated, several of which demonstrate central cavitation. Several of the nodules have decreased in size from the prior study suggestive of septic emboli. Continued follow-up recommended to exclude pulmonary metastasis. 3. Splenic and bilateral renal infarcts. The left renal infarcts are new/progressed from the May 03, 2022 exam. 4. No bowel obstruction or bowel wall thickening. 5. Additional findings as above. ACT 112: Negative or not required by law. The above report was generated using voice recognition software. It may contain grammatical, syntax or spelling errors. Electronically signed by: Emmanuel Montanez M.D. 05/17/2022 8:25 PM Chest X-Ray 05/17/22 18:02 XR chest 1V portable HISTORY: 72 years-old Male Chest pain, nonspecific acute chest pain COMPARISON: Chest radiograph May 02, 2022, CTA chest 05/01/2022. TECHNIQUE: AP view the chest FINDINGS: Cardiac silhouette is mildly enlarged. No pneumothorax or large pleural effusion. Persistent mediastinal lymphadenopathy. Mixed interstitial and alveolar opacities, right greater than left with pulmonary nodules are again noted. There is mildly improved aeration of the lung bases with resolution of the pulmonary nodules and interstitial pulmonary edema. IMPRESSION: 1. Interval resolution of the small pleural effusions and pulmonary edema. 2. Pulmonary nodules with intermixed airspace opacities and mediastinal lymphadenopathy is better appreciated on the comparison CTA of the chest. ACT 112: Negative or not required by law. The above report was generated using voice recognition software. It may contain grammatical, syntax or spelling errors. Electronically signed by: Emmanuel Montanez M.D. 05/17/2022 6:[address] 05/18/22 00:06 CT head/brain wo con, CT head/brain wo con CLINICAL HISTORY: Headache Technique: Contiguous axial CT images of the head were acquired from the base of the skull to the vertex without intravenous contrast administration. Images were viewed in brain, subdural and bone windows. Automated dose lowering techniques and/or adjustment according to patient size were utilized for this exam. Exams were performed at 12:33 AM and 6:04 AM. Comparison: Comparison is made to MRI brain 05/03/2022 Findings: 12:33 AM: There is a small focus of subarachnoid hemorrhage in the right posterior frontal lobe sulcus. No mass effect or midline shift is seen. Imaged portions of the paranasal sinuses and mastoid air cells are clear. The orbits appear normal. There is soft tissue thickening in the left parietal scalp which is unchanged. 6:04 AM: Subarachnoid hemorrhage in the right posterior frontal lobe is unchanged. There is no new hemorrhage. Impression: Subarachnoid hemorrhage in the right posterior frontal lobes which is stable across the 2 exams. ACT 112: Negative or not required by law. Electronically signed by: Vijay Ledezma M.D. 05/18/2022 7:[address] 05/18/22 06:00 CT head/brain wo con, CT head/brain wo con CLINICAL HISTORY: Headache Technique: Contiguous axial CT images of the head were acquired from the base of the skull to the vertex without intravenous contrast administration. Images were viewed in brain, subdural and bone windows. Automated dose lowering techniques and/or adjustment according to patient size were utilized for this exam. Exams were performed at 12:33 AM and 6:04 AM. Comparison: Comparison is made to MRI brain 05/03/2022 Findings: 12:33 AM: There is a small focus of subarachnoid hemorrhage in the right posterior frontal lobe sulcus. No mass effect or midline shift is seen. Imaged portions of the paranasal sinuses and mastoid air cells are clear. The orbits appear normal. There is soft tissue thickening in the left parietal scalp which is unchanged. 6:04 AM: Subarachnoid hemorrhage in the right posterior frontal lobe is unchanged. There is no new hemorrhage. Impression: Subarachnoid hemorrhage in the right posterior frontal lobes which is stable across the 2 exams. ACT 112: Negative or not required by law. Electronically signed by: Vijay Ledezma M.D. 05/18/2022 7:[address] 05/19/22 08:00 CT head/brain wo con CLINICAL HISTORY: ff up Subarachnoid hemorrhage Technique: Contiguous axial CT images of the head were acquired from the base of the skull to the vertex without intravenous contrast administration. Images were viewed in brain, subdural and bone windows. Automated dose lowering techniques and/or adjustment according to patient size were utilized for this exam. Comparison: Comparison is made to CT head 05/18/2022 Findings: Redemonstration of subarachnoid hemorrhage in the right posterior frontal lobe. No new hemorrhage is seen. No mass effect or midline shift. Stable age-related changes. Imaged portions of the paranasal sinuses and mastoid air cells are clear. The orbits appear normal. There are no acute fractures of the calvaria or scalp swelling. Impression: Stable subarachnoid hemorrhage in the right posterior frontal lobe. No new hemorrhage is seen. ACT 112: Negative or not required by law. Electronically signed by: Vijay Ledezma M.D. 05/19/2022 8:41 AM Chest X-Ray 05/19/22 15:33 XR chest 1V portable CLINICAL HISTORY: Hypoxia, s/p platelet transfusion. Lung adenocarcinoma COMPARISON STUDY: Chest CT May 01, 2022 and chest radiograph May 17, 2022 FINDINGS: No pneumothorax or pleural effusion is present. Cardiac size is normal. Mediastinal and bilateral hilar adenopathy is better depicted on prior chest CT. Numerous pulmonary nodules are again noted. Mild airspace opacity and interstitial thickening has improved since prior exam. No evidence for overt pulmonary edema. IMPRESSION: 1. No evidence for pulmonary edema. 2. Redemonstration of numerous pulmonary nodules and mediastinal and bilateral hilar adenopathy consistent with metastatic disease. ACT 112: Negative or not required by law. Electronically signed by: Bernardo Phelps M.D. 05/19/2022 3:[address] 05/19/22 17:59 CT OF THE HEAD WITHOUT CONTRAST CLINICAL HISTORY: Altered mental status. Follow-up subarachnoid hemorrhage. Lung cancer. COMPARISON STUDY: MRI of the brain May 03, [address] performed earlier today. CT DOSE: 773.57 mGy.cm TECHNIQUE: Helical axial images of the head were obtained without IV contrast. Automated exposure control was utilized for the study. A dose lowering technique was utilized adhering to the principles of ALARA. FINDINGS: A small focus of acute subarachnoid hemorrhage overlying the posterior right frontal lobe remains unchanged. No additional sites of hemorrhage are present. Ventricular system is normal. Basal cisterns are patent. A 9 mm hypodensity within the right aspect of the splenium of the corpus callosum has developed. This favors a developing acute infarct. No additional infarcts are identified. There are no significant calvarial abnormalities. IMPRESSION: 1. 9 mm hypodensity within the right aspect of the splenium of the corpus callosum. This favors a developing acute infarct. 2. Minimal acute subarachnoid hemorrhage overlying the posterior right frontal lobe, unchanged. ACT 112: Negative or not required by law. Electronically signed by: Bernardo Phelps M.D. 05/19/2022 7:[address] 05/20/22 00:[address] DOSE: 1795.19 mGy.cm HISTORY: Headache. TECHNIQUE: Multiaxial CT images of the head were performed without the use of intravenous contrast. Automated exposure control was utilized for this study. A dose lowering technique was utilized adhering to the principles of ALARA. Comparison: Head CT 05/19/2022. Findings: The paranasal sinuses and mastoid air cells are clear. The calvarium and skull base are intact. Trace subarachnoid hemorrhage within the right high convexity has slightly improved. Small hypodensity near the right corpus callosum on image 19 is also similar to the prior study. This could represent an age-indeterminate infarct. Impression: 1. Trace subarachnoid hemorrhage within the right high convexity has slightly improved. 2. No change in the small hypodensity near the right corpus callosum which could represent an age-indeterminate infarct. ACT 112: Negative or not required by law. Electronically signed by: Tang Lyons M.D. 05/20/2022 8:22 AM Head CTA 05/20/22 14:41 HEAD & NECK CTA HISTORY: Right-sided acute stroke. TECHNIQUE: Multiaxial CT images of the head were performed following the intravenous administration of contrast to evaluate the major cerebral vessels. Multiaxial CT images of the neck were also performed following the intravenous administration of contrast to evaluate the major cervical vessels. Maximum intensity projection images were also obtained. A dose lowering technique was utilized adhering to the principles of ALARA. COMPARISON: Head CT and brain MRI 05/20/2022. FINDINGS: Small hypodensity adjacent to the right side of the corpus callosum is again noted and is consistent with the patient's known infarct. Trace subarachnoid hemorrhage at the right high convexity is also unchanged. Visualized intracranial internal carotid arteries, distal vertebral arteries, and basilar artery are widely patent. There is no significant stenosis, occlusion, or aneurysm seen within the bilateral ACAs, MCAs, or manager of project management. The major dural venous sinuses appear patent. There is a persistent left posterior circulation noted. The aortic arch and proximal great vessels are widely patent. There is no significant stenosis, occlusion, or dissection identified within the bilateral common carotid, internal carotid, or vertebral arteries. Multiple scattered pulmonary nodules and emphysema are again noted. Right paratracheal lymphadenopathy persists. This is consistent with metastatic disease. Mild to moderate calcified plaque within the left carotid bifurcation. There is a small pulmonary embolus seen within a right upper lobe subsegmental pulmonary. This is best seen on image 39. IMPRESSION: 1. No significant stenosis, occlusion, or aneurysm within the grayling of Rose. 2. No significant stenosis, occlusion, or dissection identified within the carotid or vertebral arteries. 3. Small hypodensity adjacent to the right side of the corpus callosum is again noted and is consistent with the patient's known infarct. 4. Trace subarachnoid hemorrhage at the right high convexity is also unchanged. 5. Redemonstration of the pulmonary metastatic disease as described above. 6. There is a small age-indeterminate pulmonary embolus seen within a right upper lobe subsegmental pulmonary. ACT 112: Negative or not required by law. Electronically signed by: Tang Lyons M.D. 05/20/2022 3:59 PM Neck CTA 05/20/22 14:41 HEAD & NECK CTA HISTORY: Right-sided acute stroke. TECHNIQUE: Multiaxial CT images of the head were performed following the intravenous administration of contrast to evaluate the major cerebral vessels. Multiaxial CT images of the neck were also performed following the intravenous administration of contrast to evaluate the major cervical vessels. Maximum intensity projection images were also obtained. A dose lowering technique was utilized adhering to the principles of ALARA. COMPARISON: Head CT and brain MRI 05/20/2022. FINDINGS: Small hypodensity adjacent to the right side of the corpus callosum is again noted and is consistent with the patient's known infarct. Trace subarachnoid hemorrhage at the right high convexity is also unchanged. Visualized intracranial internal carotid arteries, distal vertebral arteries, and basilar artery are widely patent. There is no significant stenosis, occlusion, or aneurysm seen within the bilateral ACAs, MCAs, or manager of project management. The major dural venous sinuses appear patent. There is a persistent left posterior circulation noted. The aortic arch and proximal great vessels are widely patent. There is no significant stenosis, occlusion, or dissection identified within the bilateral common carotid, internal carotid, or vertebral arteries. Multiple scattered pulmonary nodules and emphysema are again noted. Right paratracheal lymphadenopathy persists. This is consistent with metastatic disease. Mild to moderate calcified plaque within the left carotid bifurcation. There is a small pulmonary embolus seen within a right upper lobe subsegmental pulmonary. This is best seen on image 39. IMPRESSION: 1. No significant stenosis, occlusion, or aneurysm within the grayling of Rose. 2. No significant stenosis, occlusion, or dissection identified within the carotid or vertebral arteries. 3. Small hypodensity adjacent to the right side of the corpus callosum is again noted and is consistent with the patient's known infarct. 4. Trace subarachnoid hemorrhage at the right high convexity is also unchanged. 5. Redemonstration of the pulmonary metastatic disease as described above. 6. There is a small age-indeterminate pulmonary embolus seen within a right upper lobe subsegmental pulmonary. ACT 112: Negative or not required by law. Electronically signed by: Tang Lyons M.D. 05/20/2022 3:59 PM Brain MRI 05/20/22 22:09 Brain MRI WITHOUT CONTRAST HISTORY: Headache. Abnormal head CT. Subarachnoid hemorrhage. stroke TECHNIQUE: Multiplanar multisequence MRI of the brain was performed without the use of contrast. Of note, the patient was unable to complete the entire examination. Therefore the axial T2 and coronal FLAIR sequences were not obtained. COMPARISON STUDY: Head CT 05/12/2022. Brain MRI 05/03/2022. FINDINGS: Scattered small foci of restricted diffusion seen within the right parietal lobe, right occipital lobe, and left cerebellar hemisphere consistent with acute embolic infarcts. Dominant focus adjacent to the right corpus callosum measures 1 cm. Otherwise, the midline structures are intact. No definite mass or midline shift. The patient's trace subarachnoid hemorrhage at the right high convexity is better appreciated on the same day head CT. IMPRESSION: 1. Scattered small foci of restricted diffusion seen within the right parietal lobe, right occipital lobe, and left cerebellar hemisphere consistent with acute embolic infarcts. 2. The patient's trace subarachnoid hemorrhage at the right high convexity is better appreciated on the same day head CT. ACT 112: Negative or not required by law. Electronically signed by: Tang Lyons M.D. 05/20/2022 12:07 PM Carotid Doppler Study 05/20/22 22:11 BILATERAL CAROTID DOPPLER STUDY HISTORY: Right-sided stroke. COMPARISON: None. TECHNIQUE: Real-time, grayscale, and color Doppler sonography of the carotid arteries was performed. Imaging reviewed in the transverse and longitudinal planes. All measurements were calculated based on NASCET criteria. FINDINGS: Antegrade flow is seen in the bilateral vertebral arteries. Mild to moderate calcified plaque within the left carotid bifurcation. The peak systolic velocity within the right ICA is 87 cm/s. The right systolic ratio is 0.9. The peak systolic velocity within the left ICA is 58 cm/s. The left systolic ratio is 0.9. IMPRESSION: No hemodynamically significant stenosis seen within the carotid arteries. ACT 112: Negative or not required by law. Electronically signed by: Tang Lyons M.D. 05/20/2022 12:17 PM Venous Doppler Study 05/21/22 00:00 LEFT LOWER EXTREMITY VENOUS DOPPLER HISTORY: Left leg edema, r/o dvt COMPARISON STUDY: None. FINDINGS: There is normal compressibility, flow, and augmentation within the left lower extremity deep venous system. IMPRESSION: No DVT within the left lower extremity. ACT 112: Negative or not required by law. Electronically signed by: Tang Lyons M.D. 05/21/2022 7:33 AM Foot X-Ray 05/21/22 10:59 XR foot LT 2V CLINICAL HISTORY: Left foot edema. Evaluate for fracture. COMPARISON: None FINDINGS: Tarsometatarsal joints are intact. No acute fractures are identified although sensitivity for detection of fractures within the toes is diminished given chronic deformities. Mild posterior and plantar calcaneal spurring is noted. 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 Dorsal foot soft tissue swelling is noted. IMPRESSION: No acute fracture or dislocation within the left foot. ACT 112: Negative or not required by law. Electronically signed by: Bernardo Phelps M.D. 05/21/2022 12:[address] 05/24/22 12:[address] DOSE: 537.48 mGy.cm HISTORY: Stroke TECHNIQUE: Multiaxial CT images of the head were performed without the use of intravenous contrast. Automated exposure control was utilized for this study. A dose lowering technique was utilized adhering to the principles of ALARA. Comparison: Head CT 05/20/2022. Findings: The paranasal sinuses and mastoid air cells are clear. Trace subarachnoid hemorrhage within the right high convexity on image 22 has almost completely resolved. Small hypodense foci within the right parietal/occipital lobes are again noted and are consistent with the known subacute infarcts. No intracranial mass or midline shift identified. Impression: 1. Near-complete resolution of the trace subarachnoid hemorrhage at the right high convexity. 2. Expected evolution of the small scattered infarcts within the right parietal/occipital lobes. ACT 112: Negative or not required by law. Electronically signed by: Tang Lyons M.D. 05/24/2022 1:43 PM
--- NOTE | 2022-05-24 17:37 | Hospitalist Progress Note ---
Date of Service May 24, 2022 Assessment & Plan (1) Subarachnoid hemorrhage: Plan: (1) Subarachnoid hemorrhage: Plan: Subarachnoid hemorrhage likely due to anticoagulant therapy (Eliquis for A fib) Last dose of Eliquis was 2 days prior t admission Repeat CT head May 15, 2022:Stable subarachnoid hemorrhage in the right posterior frontal lobe. No new hemorrhage is seen. 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 Scattered small foci of restricted diffusion seen within the right parietal lobe, right occipital lobe, and left cerebellar hemisphere consistent with acute embolic infarcts. 2. The patient's trace subarachnoid hemorrhage at the right high convexity is better appreciated on the same day head CT. Carotid Doppler study: No hemodynamically significant stenosis Aspirin 81 mg p.o. daily started Discussed with neurologist on-call Dr. Holt-recommend CT angiogram of head and neck Dr. Euceda will be reevaluating the patient today, possibly restarting Eliquis sooner given development of acute embolic infarcts Eliquis resumed 05/22 per neurology Patient has no new neurologic deficits noted, left lower leg weakness actually improving Repeat CAT scan May 24 to follow-up subarachnoid hemorrhage As above Acute thrombocytopenia Likely consumptive secondary to subarachnoid hemorrhage Required 2 units of platelet pheresis Platelet level improved from 50 K now 130 K Case discussed with patient's oncologist Dr. Alonso Platelet count has been normalized Lung cancer with metastasis Currently on room air chronic respiratory failure secondary to lung adenocarcinoma on chemotherapy First chemotherapy session 3 weeks ago Supposed to have second chemotherapy this coming , discussed with oncologist Dr. Alonso, postpone next chemo to next week Oncology clinic will be calling the patient for appointment Discussed again with the oncologist today and the patient will receive chemotherapy following discharge from the [facility]hab Discussed with the patient and the son Constipation Laxatives ordered Bilateral lower extremity edema Doppler ultrasound: Negative for DVT Likely from volume overload, secondary to IV fluids, transfusion Additional Lasix 20 mg IV given today Monitor Atrial fibrillation RVR Echocardiogram: Unrevealing, no left ventricular wall mural thrombus Started on amiodarone drip, now transitioned to amiodarone p.o. 200 mg 3 times daily Apixaban 5 mg p.o. twice daily resumed yesterday Monitor closely Bilateral splenic and renal infarcts Progressing compared to CAT scan during last admission Eliquis on hold in light of subarachnoid hemorrhage-- > Eliquis resumed Monitor closely No acute issues hypertension, stable-remains at 121/71 as of 05/24/2022 DM2 diet controlled, hemoglobin A1c of 6.4 from November 2019 chronic anemia, hemoglobin at baseline past tobacco abuse. Basal bolus insulin adjusted for n.p.o. status, ISS BG goal 1 10-1 40, update hemoglobin A1c --> 7.4 DVT prophylaxis. Eliquis DNR Disposition PT and OT evaluation Will transition to acute rehab in 1 to 2 days Chemotherapy next week Discussed with the son and the patient Remains medically stable and will be discharged tomorrow Admission and Anticipated Discharge Date Admission Date: May 18, 2022 Subjective 05/24/2022 The patient was seen and examined in telemetry unit He has been feeling much better and has had physical therapy He denies any significant symptoms and is ready to be discharged Review of Systems Review of Systems: All systems reviewed and are unremarkable except as noted below Musculoskeletal: No acute arthritis involving any joint Physical Exam Physical Exam: Sitting on a chair without any acute distress Constitutional: well developed, well nourished, + ill appearing and average body habitus Eyes: PERRL, conjunctivae normal, anicteric sclerae ENMT: external ear and nose normal, oropharynx normal Neck: trachea midline, no thyromegaly Respiratory: no respiratory distress Auscultation: lungs clear to auscultation bilaterally Cardiovascular: Rate/Rhythm: regular rate and regular rhythm; not tachycardic Heart Sounds: normal S1 and normal S2; no murmur Extremities: + edema (Trace edema bilaterally) Gastrointestinal (Abdomen): Inspection/Auscultation: normal bowel sounds; abdomen not distended Percussion/Palpation: abdomen soft; abdomen nontender Musculoskeletal: No acute arthritis involving any joint Neurologic: Alert, awake and oriented x3 No focal sensory or no motor deficit appreciated Psychiatric: A+Ox3, euthymic affect Lymphatic: no cervical or axillary lymphadenopathy Results & Data Results & Data ([facility]) Vital Signs (Past 12 Hours) Vital Signs Temp Pulse Pulse Resp BP Pulse Ox O2 Del Method 05/24/22 15:13 80 05/24/22 12:20 36.6 C 82 20 121/71 92 Room Air 05/24/22 11:20 94 Nasal Cannula 05/24/22 08:00 Nasal Cannula 05/24/22 09:35 69 05/24/22 08:03 37.2 C 74 18 124/64 90 Nasal Cannula O2 Flow Rate 05/24/22 15:13 05/24/22 12:20 05/24/22 11:20 2 05/24/22 08:00 2 05/24/22 09:35 05/24/22 08:03 2 Laboratory Results BMP 05/24/22 06:28 Sodium 139 Potassium 3.8 Chloride 102 Carbon Dioxide 29 BUN 29 H Creatinine 1.11 Glucose 134 H Calcium 9.1 Medications Administered Current Inpatient Medications Amiodarone HCl (Amiodarone 200 Mg Tab) 200 mg PO TIDM [facility] Stop: 06/20/22 16:59 Last Admin: 05/24/22 17:26 Dose: 200 mg Apixaban (Apixaban 5 Mg Tablet) 5 mg PO BID [facility] Stop: 06/21/22 20:59 Last Admin: 05/24/22 08:44 Dose: 5 mg Atorvastatin Calcium (Atorvastatin 20 Mg Tab) 20 mg PO QAM [facility] Stop: 06/19/22 08:59 Last Admin: 05/24/22 08:44 Dose: 20 mg Dextrose (Dextrose 50% 50 Ml Syringe) 25 - 50 ml IV UD PRN; Protocol PRN Reason: Hypoglycemia Protocol Stop: 06/17/22 01:48 Folic Acid (Folic Acid 1 Mg Tab) 1 mg PO QAM [facility] Stop: 06/17/22 08:59 Last Admin: 05/24/22 08:44 Dose: 1 mg Glucagon (Glucagon For Inj 1 Mg Vial) 1 mg SQ UD PRN; Protocol PRN Reason: Hypoglycemia Protocol Stop: 06/17/22 01:48 Glucose (Glucose 40% Gel 15 Gm Tube) 15 - 30 gm PO UD PRN; Protocol PRN Reason: Hypoglycemia Protocol Stop: 06/17/22 01:48 Glucose (Glucose 10 Tab/Tube) 4 - 8 tab PO UD PRN; Protocol PRN Reason: Hypoglycemia Treatment Stop: 06/17/22 01:48 Insulin Aspart (Insulin Aspart Per Unit) 0 units SC ACHS [facility] Stop: 06/17/22 01:48 Last Admin: 05/24/22 17:28 Dose: 3 units Lidocaine (Lidocaine 5% 1 Patch) 1 patch TD QAM [facility] Stop: 06/22/22 16:44 Last Admin: 05/24/22 08:45 Dose: Not Given Lorazepam (Lorazepam 0.5 Mg Tab) 0.5 mg PO DAILY PRN PRN Reason: anxiety Stop: 06/19/22 14:40 Last Admin: 05/23/22 22:15 Dose: 0.5 mg Magnesium Hydroxide (Magnesium Hydroxide Susp 30 Ml Udc) 30 ml PO Q6H PRN PRN Reason: Constipation Stop: 06/18/22 13:22 Last Admin: 05/21/22 11:44 Dose: 30 ml Metoprolol Succinate (Metoprolol Succ 25mg Ext Rel Tab) 12.5 mg PO BID [facility] Stop: 06/17/22 08:59 Last Admin: 05/24/22 08:44 Dose: 12.5 mg Miscellaneous (Carbohydrates For Hypoglycemia ) 15 - 30 gm PO UD PRN PRN Reason: Hypoglycemia Protocol Stop: 06/17/22 01:48 Miscellaneous (Remove Lidoderm Patch) 1 each N/A DAILY@2100 [facility] Stop: 06/22/22 20:59 Last Admin: 05/23/22 20:15 Dose: 1 each Miscellaneous Information (Pharmacist Discharge Med Rec Consult) 1 each N/A UD PRN PRN Reason: Consult Stop: 06/18/22 22:08 Pantoprazole Sodium ([facility]antopraz[facility] 40 Mg Tab) [facility]: 06/17/22 14:44 Last Admin: 05/24/22 08:44 Dose: 40 mg Polyethylene Glycol (Polyethylene (Miralax) 17 Gm Pack) 17 gm PO DAILY PRN PRN Reason: Constipation Stop: 06/18/22 13:22 Last Admin: 05/20/22 13:23 Dose: 17 gm Senna/Docusate Sodium (Docusate Sodium/Senna 50/8.6mg Tab) 1 tab PO QAM [facility] Stop: 06/20/22 08:59 Last Admin: 05/24/22 08:44 Dose: 1 tab Tramadol HCl (Tramadol Hcl 50 Mg Tablet) 50 mg PO Q6H PRN PRN Reason: moderate to severe pain Stop: 06/17/22 14:44 Last Admin: 05/18/22 15:17 Dose: 50 mg
[2022-05-24] MEDS ORDERED: COUGH DROP (SUGAR FREE) LOZ 24 LOZ/1 BOX BUCCAL PRN (20:25)
[2022-05-24] MEDS: LORazepam 0.5 MG TAB PO PRN (21:24)
[2022-05-24] MEDS ORDERED: DICLOFENAC SOD 1% GEL 100 GM TUBE EXT PRN (21:38)
[2022-05-25 05:20] LABS: Creatinine Clr Calc Pharmacy 69.4 ml/min; Est GFR (African American) 85.1 ml/min; Est GFR (Non-African American) 73.4 ml/min
[2022-05-25] MEDS ORDERED: AMIODARONE 200 MG TAB PO SCH (08:00)
[2022-05-25] MEDS: INSULIN ASPART PER UNIT SC SCH ×2 (08:31→12:15)
[2022-05-25] MEDS: METOPROLOL SUCC 25MG EXT REL TAB PO SCH (08:32)
[2022-05-25] MEDS: APIXABAN 5 MG TABLET PO SCH (08:32)
[2022-05-25] MEDS: FOLIC ACID 1 MG TAB PO SCH (08:33)
[2022-05-25] MEDS: PANTOprazole 40 MG TAB PO SCH (08:33)
[2022-05-25] MEDS: LIDOCAINE 5% 1 PATCH TD SCH (08:34)
[2022-05-25] MEDS: DOCUSATE SODIUM/SENNA 50/8.6MG TAB PO SCH (08:38)
--- NOTE | 2022-05-25 08:46 | Communication Note ---
Date of Service: May 25, 2022 Chart and telemetry reviewed. Tele: NSR 60-70s, occasional PVCs. No short salvos of VT seen x24 hours. No sinus pauses. Reduce Amiodarone to 200 mg BID with meals starting today- this should be continued at discharge. Eliquis per neurology. ASA discontinued. No further recommendations from a cardiology standpoint- I will arrange for outpatient follow up in our clinic within about 4 weeks. BRET Oakes [facility]
--- NOTE | 2022-05-25 10:51 | Hospitalist Progress Note ---
Date of Service May 25, 2022 Assessment & Plan (1) Subarachnoid hemorrhage: Plan: (1) Subarachnoid hemorrhage: Plan: Subarachnoid hemorrhage likely due to anticoagulant therapy (Eliquis for A fib) Last dose of Eliquis was 2 days prior t admission Repeat CT head May 15, 2022:Stable subarachnoid hemorrhage in the right posterior frontal lobe. No new hemorrhage is seen. 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 Scattered small foci of restricted diffusion seen within the right parietal lobe, right occipital lobe, and left cerebellar hemisphere consistent with acute embolic infarcts. 2. The patient's trace subarachnoid hemorrhage at the right high convexity is better appreciated on the same day head CT. Carotid Doppler study: No hemodynamically significant stenosis Aspirin 81 mg p.o. daily started Discussed with neurologist on-call Dr. Holt-recommend CT angiogram of head and neck Dr. Euceda will be reevaluating the patient today, possibly restarting Eliquis sooner given development of acute embolic infarcts Eliquis resumed 05/22 per neurology Patient has no new neurologic deficits noted, left lower leg weakness actually improving Repeat CAT scan May 24 to follow-up subarachnoid hemorrhage No new symptoms Acute thrombocytopenia Likely consumptive secondary to subarachnoid hemorrhage Required 2 units of platelet pheresis Platelet level improved from 50 K now 130 K Case discussed with patient's oncologist Dr. Alonso Platelet count has been normalized Lung cancer with metastasis Currently on room air chronic respiratory failure secondary to lung adenocarcinoma on chemotherapy First chemotherapy session 3 weeks ago Supposed to have second chemotherapy this coming , discussed with oncologist Dr. Alonso, postpone next chemo to next week Oncology clinic will be calling the patient for appointment Discussed again with the oncologist today and the patient will receive [facility] Discussed with the patient and the son Reassured about outpatient chemotherapy [facility] Constipation Laxatives ordered Bilateral lower extremity edema Doppler ultrasound: Negative for DVT Likely from volume overload, secondary to IV fluids, transfusion Additional Lasix 20 mg IV given today No more edema we will continue any home dose of furosemide Atrial fibrillation RVR Echocardiogram: Unrevealing, no left ventricular wall mural thrombus Started on amiodarone drip, now transitioned to amiodarone p.o. 200 mg 3 times daily Apixaban 5 mg p.o. twice daily resumed yesterday Rate is controlled Bilateral splenic and renal infarcts Progressing compared to CAT scan during last admission Eliquis on hold in light of subarachnoid hemorrhage-- > Eliquis resumed Monitor closely No acute issues hypertension, stable-remains at 121/71 as of 05/24/2022 DM2 diet controlled, hemoglobin A1c of 6.4 from November 2019 chronic anemia, hemoglobin at baseline past tobacco abuse. Basal bolus insulin adjusted for n.p.o. status, ISS BG goal 1 10-1 40, update hemoglobin A1c --> 7.4 DVT prophylaxis. Eliquis DNR Disposition PT and OT evaluation Will transition to acute rehab in 1 to 2 days Chemotherapy next week Discussed with the son and the patient Remained stable and [facility] Admission and Anticipated Discharge Date Admission Date: May 18, 2022 Subjective 05/24/2022 The patient was seen and examined in telemetry unit He has been feeling much better and has had physical therapy He denies any significant symptoms and is ready to be discharged 05/25/2022 The patient was seen and examined in telemetry unit He has been stable and denies any symptoms No arrhythmias on telemetry [facility] Review of Systems Review of Systems: All systems reviewed and are unremarkable except as noted below Musculoskeletal: No acute arthritis involving any joint Physical Exam Physical Exam: Sitting on a chair without any acute distress Constitutional: well developed, well nourished, + ill appearing and average body habitus Eyes: PERRL, conjunctivae normal, anicteric sclerae ENMT: external ear and nose normal, oropharynx normal Neck: trachea midline, no thyromegaly Respiratory: no respiratory distress Auscultation: lungs clear to auscultation bilaterally Cardiovascular: Rate/Rhythm: regular rate and regular rhythm; not tachycardic Heart Sounds: normal S1 and normal S2; no murmur Extremities: + edema (Trace edema bilaterally) Gastrointestinal (Abdomen): Inspection/Auscultation: normal bowel sounds; abdomen not distended Percussion/Palpation: abdomen soft; abdomen nontender Musculoskeletal: No acute arthritis involving any joint Neurologic: normal touch/pain/proprioception and moves all extremities; no focal motor deficits Psychiatric: A+Ox3, euthymic affect Lymphatic: no cervical or axillary lymphadenopathy Results & Data Results & Data ([facility]) Vital Signs (Past 12 Hours) Vital Signs Temp Pulse Pulse Resp BP Pulse Ox O2 Del Method 05/25/22 08:00 65 05/25/22 07:31 37 C 72 20 127/69 92 Room Air 05/25/22 03:07 37.1 C 70 18 124/67 94 Nasal Cannula 05/25/22 00:02 36.9 C 70 18 132/63 91 Room Air O2 Flow Rate 05/25/22 08:00 05/25/22 07:31 05/25/22 03:07 2.0 05/25/22 00:02 Laboratory Results BMP 05/25/22 04:47 Creatinine 1.01 Medications Administered Current Inpatient Medications Amiodarone HCl (Amiodarone 200 Mg Tab) 200 mg PO BIDM [facility] Stop: 06/24/22 07:59 Last Admin: 05/25/22 08:33 Dose: 200 mg Apixaban (Apixaban 5 Mg Tablet) 5 mg PO BID [facility] Stop: 06/21/22 20:59 Last Admin: 05/25/22 08:32 Dose: 5 mg Atorvastatin Calcium (Atorvastatin 20 Mg Tab) 20 mg PO QAM [facility] Stop: 06/19/22 08:59 Last Admin: 05/24/22 08:44 Dose: 20 mg Dextrose (Dextrose 50% 50 Ml Syringe) 25 - 50 ml IV UD PRN; Protocol PRN Reason: Hypoglycemia Protocol Stop: 06/17/22 01:48 Diclofenac Sodium (Diclofenac Sod 1% Gel 100 Gm Tube) 2 gm EXT BID PRN; Protocol PRN Reason: Pain Stop: 06/24/22 08:59 Last Admin: 05/25/22 02:45 Dose: 2 gm Folic Acid (Folic Acid 1 Mg Tab) 1 mg PO QAM [facility] Stop: 06/17/22 08:59 Last Admin: 05/25/22 08:33 Dose: 1 mg Glucagon (Glucagon For Inj 1 Mg Vial) 1 mg SQ UD PRN; Protocol PRN Reason: Hypoglycemia Protocol Stop: 06/17/22 01:48 Glucose (Glucose 40% Gel 15 Gm Tube) 15 - 30 gm PO UD PRN; Protocol PRN Reason: Hypoglycemia Protocol Stop: 06/17/22 01:48 Glucose (Glucose 10 Tab/Tube) 4 - 8 tab PO UD PRN; Protocol PRN Reason: Hypoglycemia Treatment Stop: 06/17/22 01:48 Insulin Aspart (Insulin Aspart Per Unit) 0 units SC ACHS [facility] Stop: 06/17/22 01:48 Last Admin: 05/25/22 08:31 Dose: 3 units Lidocaine (Lidocaine 5% 1 Patch) 1 patch TD QAM [facility] Stop: 06/22/22 16:44 Last Admin: 05/25/22 08:34 Dose: Not Given Lorazepam (Lorazepam 0.5 Mg Tab) 0.5 mg PO DAILY PRN PRN Reason: anxiety Stop: 06/19/22 14:40 Last Admin: 05/24/22 21:24 Dose: 0.5 mg Magnesium Hydroxide (Magnesium Hydroxide Susp 30 Ml Udc) 30 ml PO Q6H PRN PRN Reason: Constipation Stop: 06/18/22 13:22 Last Admin: 05/21/22 11:44 Dose: 30 ml Menthol (Cough Drop (Sugar Free) Stephania 24 Stephania/1 Box) 1 stephania BUCCAL BID PRN PRN Reason: Sore Throat Stop: 06/23/22 20:24 Last Admin: 05/24/22 21:24 Dose: 1 stephania Metoprolol Succinate (Metoprolol Succ 25mg Ext Rel Tab) 12.5 mg PO BID [facility] Stop: 06/17/22 08:59 Last Admin: 05/25/22 08:32 Dose: 12.5 mg Miscellaneous (Carbohydrates For Hypoglycemia ) 15 - 30 gm PO UD PRN PRN Reason: Hypoglycemia Protocol Stop: 06/17/22 01:48 Miscellaneous (Remove Lidoderm Patch) 1 each N/A DAILY@2100 [facility] Stop: 06/22/22 20:59 Last Admin: 05/24/22 21:26 Dose: 1 each Miscellaneous Information (Pharmacist Discharge Med Rec Consult) 1 each N/A UD PRN PRN Reason: Consult Stop: 06/18/22 22:08 Pantoprazole Sodium (Pantoprazole 40 Mg Tab) 40 mg PO QAM [facility] Stop: 06/17/22 14:44 Last Admin: 05/25/22 08:33 Dose: 40 mg Polyethylene Glycol (Polyethylene (Miralax) 17 Gm Pack) 17 gm PO DAILY PRN PRN Reason: Constipation Stop: 06/18/22 13:22 Last Admin: 05/20/22 13:23 Dose: 17 gm Senna/Docusate Sodium (Docusate Sodium/Senna 50/8.6mg Tab) [facility] [place]: 06/20/22 08:59 Last Admin: 05/25/22 08:38 Dose: Not Given Tramadol HCl (Tramadol Hcl 50 Mg Tablet) 50 mg PO Q6H PRN PRN Reason: moderate to severe pain Stop: 06/17/22 14:44 Last Admin: 05/18/22 15:17 Dose: 50 mg
[2022-05-25] MEDS ORDERED: STROKE PATIENT DISCHARGE STA (11:03)
--- NOTE | 2022-05-25 11:06 | Discharge Summary ---
Date of Service May 25, 2022 Admission HPI Per Admitting Provider History obtained from patient, family, and records. Medical history significant for chronic respiratory failure secondary to lung adenocarcinoma on chemotherapy, PAF on Eliquis, hypertension, DM2 diet- controlled, chronic anemia (baseline hemoglobin 12-13), past tobacco abuse. Last confinement 2 weeks ago for new diagnosis of lung adenocarcinoma stage IV. Chemotherapy initiated during confinement. Patient discharged on home O2. Paroxysmal A. fib also noted during confinement. Patient discharged on Eliquis. Patient not feeling well the last few days. Achy abdominal discomfort with nausea symptoms. Poor appetite. Patient stopped taking his pills 2 days ago because it hurts his stomach. Patient had transient left leg weakness today causing him to fall. Transient headache symptoms. No unusual chest pain, SOB, fever, chills, cough. Patient brought to the ER for evaluation. IV Heparin initiated at the ER with note of renal infarcts on CT. 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 Admission Exam Per Admitting Provider Physical Exam: GENERAL: Comfortable, pleasant, slightly hard of hearing, no respiratory distress SKIN: Pallor, warm HEENT: Pale palpebral conjunctivae, no ptosis, dry buccal mucosa NECK : Supple, no tenderness CHEST : Decreased breath sounds, no tenderness HEART : Irregular, no obvious murmurs ABDOMEN: Some distention, nontender EXTREMITIES : No LE swelling/tenderness, no other conspicuous deformities noted NEUROLOGIC : Coherent, no facial asymmetry, slightly hard of hearing, gait and stance not assessed Principal Diagnosis Subarachnoid hemorrhage-resolved, acute CVA, atrial fibrillation, question of the lung with metastasis on chemotherapy Discharge Exam Sitting on a chair without any acute distress Constitutional well developed, well nourished, + ill appearing and average body habitus Eyes PERRL, conjunctivae normal, anicteric sclerae ENMT external ear and nose normal, oropharynx normal Neck trachea midline, no thyromegaly Respiratory no respiratory distress Auscultation: lungs clear to auscultation bilaterally Cardiovascular Rate/Rhythm: regular rate and regular rhythm; not tachycardic Heart Sounds: normal S1 and normal S2; no murmur Extremities: + edema (Trace edema bilaterally) Gastrointestinal (Abdomen) Inspection/Auscultation: normal bowel sounds; abdomen not distended Percussion/Palpation: abdomen soft; abdomen nontender Neurologic normal touch/pain/proprioception and moves all extremities; no focal motor deficits Psychiatric A+Ox3, euthymic affect Lymphatic no cervical or axillary lymphadenopathy Discharge Data Allergies Allergy/AdvReac Type Severity Reaction Status Date / Time melatonin Allergy Mild Rash Verified 05/18/22 22:33 Consultations 05/17/22 20:42 ED Decision to Admit Stat 05/18/22 01:49 Consult Neurology Routine 05/18/22 07:37 Consult Cardiology Routine Ordered Studies 05/17/22 18:02 CT Abd and Pelvis [CT abd pelvis IV con only] Stat 05/18/22 00:06 CT head/brain wo con Stat 05/18/22 06:00 CT head/brain wo con Urgent 05/19/22 08:00 CT head/brain wo con Routine 05/19/22 17:59 CT head/brain wo con Urgent 05/20/22 00:20 CT head/brain wo con Urgent 05/20/22 14:41 CT angio head w con Urgent CT angio neck with con Urgent 05/20/22 22:09 MR brain wo con Routine 05/20/22 22:11 US carotid doppler BI Routine 05/21/22 00:00 US venous doppler LE LT Urgent 05/24/22 12:32 CT head/brain wo con Routine Hospital Course (1) Subarachnoid hemorrhage: (1) Subarachnoid hemorrhage: Plan: Subarachnoid hemorrhage likely due to anticoagulant therapy (Eliquis for A fib) Last dose of Eliquis was 2 days prior t admission Repeat CT head May 15, 2022:Stable subarachnoid hemorrhage in the right posterior frontal lobe. No new hemorrhage is seen. Repeat CT head 05/19: Stable subarachnoid hemorrhage Repeat CT scan on 05/24/2022 showed near complete resolution of the hemorrhage at the right high convexity with expected evolution of the small scattered infarct within the right parietal/occipital lobes Platelet count has been normalized Received 2 units of platelet pheresis Clinically much better without any acute symptom Remains stable without any significant symptoms Will be discharged to [facility] this afternoon Acute CVA, likely embolic infarcts In the setting of atrial fibrillation Developed some alteration mental status 05/19/2022 Brain MRI:1. Scattered small foci of restricted diffusion seen within the right parietal lobe, right occipital lobe, and left cerebellar hemisphere consistent with acute embolic infarcts. 2. The patient's trace subarachnoid hemorrhage at the right high convexity is better appreciated on the same day head CT. Carotid Doppler study: No hemodynamically significant stenosis Aspirin 81 mg p.o. daily started Discussed with neurologist on-call Dr. Holt-recommend CT angiogram of head and neck Dr. Euceda will be reevaluating the patient today, possibly restarting Eliquis sooner given development of acute embolic infarcts Eliquis resumed 05/22 per neurology Patient has no new neurologic deficits noted, left lower leg weakness actually improving Repeat CAT scan May 24 to follow-up subarachnoid hemorrhage No new symptoms Acute thrombocytopenia Likely consumptive secondary to subarachnoid hemorrhage Required 2 units of platelet pheresis Platelet level improved from 50 K now 130 K Case discussed with patient's oncologist Dr. Alonso Platelet count has been normalized Lung cancer with metastasis Currently on room air chronic respiratory failure secondary to lung adenocarcinoma on chemotherapy First chemotherapy session 3 weeks ago Supposed to have second chemotherapy this coming , discussed with oncologist Dr. Alonso, postpone next chemo to next week Oncology clinic will be calling the patient for appointment Discussed again with the oncologist today and the patient will receive chemotherapy following discharge from the [facility]/rehab Discussed with the patient and the son Reassured about outpatient chemotherapy following discharge from [facility] Constipation Laxatives ordered Bilateral lower extremity edema Doppler ultrasound: Negative for DVT Likely from volume overload, secondary to IV fluids, transfusion Additional Lasix 20 mg IV given today No more edema we will continue any home dose of furosemide Atrial fibrillation RVR Echocardiogram: Unrevealing, no left ventricular wall mural thrombus Started on amiodarone drip, now transitioned to amiodarone p.o. 200 mg 3 times daily Apixaban 5 mg p.o. twice daily resumed yesterday Rate is controlled Bilateral splenic and renal infarcts Progressing compared to CAT scan during last admission Eliquis on hold in light of subarachnoid hemorrhage-- > Eliquis resumed Monitor closely No acute issues hypertension, stable-remains at 121/71 as of 05/24/2022 DM2 diet controlled, hemoglobin A1c of 6.4 from November 2019 chronic anemia, hemoglobin at baseline past tobacco abuse. Basal bolus insulin adjusted for n.p.o. status, ISS BG goal 1 10-1 40, update hemoglobin A1c --> 7.4 DVT prophylaxis. Eliquis DNR Disposition PT and OT evaluation Will transition to acute rehab in 1 to 2 days Chemotherapy next week Discussed with the son and the patient Remained stable and will be discharged to [facility] this afternoon Total Time Total Time Spent Total Time Spent (In Minutes): 45 minutes Discharge Plan Discharge Items Reason For Visit: ICH Discharge Diagnosis: Subarachnoid hemorrhage-resolved, acute CVA, atrial fibrillation, question of the lung with metastasis on chemotherapy Condition on Discharge: Fair Activity: Resume your previous activity Non-emergency contact: Primary Care Provider Call non-emergency contact if: you have any medication questions and your symptoms worsen Follow-up/Referrals: Luc Guevara MD [Primary Care Provider] - (Please make an appointment with your PCP within 1 week following discharge from the facility) Rose Marie Alonso MD [Physician] - (Dr. Alonso's office will call you for next chemo following discharge from the [facility]) Diet: Carb Consistent or DM2 Addtl Attending Provider Instructions: Please take precautions to avoid falls Take your medications as advised Please keep appointments with your healthcare providers Pending Studies at Discharge: No Stand-Alone Forms: My [facility], Medications to Prevent Stroke Skilled Items Patient informed of condition?: Yes DNR: Yes Discharge Level of Care: Acute rehab Communicable Disease: No Discharge Prognosis: Stable Lines: None Urinary Catheter: No Medications and DC Order Prescriptions: New atorvastatin 20 mg Tablet 20 mg PO QAM 30 Days Qty: 30 0RF polyethylene glycol 3350 [Miralax] 17 gram Powder In Packet 17 g PO DAILY PRN (Reason: constipation) 30 Days Qty: 30 0RF amiodarone 200 mg Tablet 200 mg PO BIDM 30 Days Qty: 60 0RF sennosides-docusate sodium [Senokot-S] 8.6-50 mg Tablet 1 tab PO QAM 30 Days Qty: 30 0RF tramadol 50 mg Tablet 50 mg PO Q6H PRN (Reason: pain) Qty: 15 0RF lorazepam 0.5 mg Tablet 0.5 mg PO DAILY PRN (Reason: anxiety) 5 Days Qty: 5 0RF pantoprazole 40 mg Tablet,Delayed Release (Dr/Ec) 40 mg PO QAM 30 Days Qty: 30 0RF lidocaine 5 % Adhesive Patch,Medicated 1 patch transdermal QAM 30 Days Qty: 30 0RF diclofenac sodium [Voltaren Arthritis Pain] 1 % Gel 2 g EXT BID PRN (Reason: pain) Qty: 50 0RF Continued albuterol sulfate 90 mcg/actuation HFA aerosol inhaler 2 puff INHALATION Q4H PRN (Reason: Shortness Of Breath Or Wheezing) folic acid 1 mg Tablet 1 mg PO QAM 30 Days Qty: 30 0RF metoprolol succinate 25 mg Tablet Extended Release 24 Hr 12.5 mg PO BID 30 Days Qty: 30 0RF Eliquis 5 mg tablet 5 mg PO BID 30 Days Qty: 60 1RF Krames/Other Patient Handouts: Managing Type 2 Diabetes Admission Data Admit Date/Time: 05/18/22 01:04 Attending Provider: Leta Peres Admit Provider: Eleno Garcia Primary Care Provider: Luc Guevara Other Providers: Eleno Garcia ; Ralph Wheeler ; Raúl Senior ; Malcolm Long ; Betito Baeza ; Jordin Diane ; Jalen Genao ; Dale Hassan ; Aye Hartman ; Nesha Almendarez ; Clover Bonner ; Noah Lopez ; [facility] ; [facility] ; Joey Horowitz
[2022-05-25] MEDS: ATORVASTATIN 20 MG TAB PO SCH (12:01)
== END 2022-05-25 15:14 | DRG 64 ==
LOC: ED 17:39 → 4W 05-18 01:04 → SUATTDRO 05-18 01:04 → 4W 05-18 01:40

== ENCOUNTER 2022-05-30 17:54 | Inpatient (IN) ==
--- NOTE | 2022-05-30 17:50 | Emergency Department Note ---
Impression & Plan Dizziness, Adenocarcinoma of lung, stage 4, Nausea, Hypokalemia, Hypomagnesemia ED Provider Note Provider: Aniceto Tavarez MD DATE OF SERVICE: 05/30/2022 CHIEF COMPLAINT: Dizziness, left-sided numbness HISTORY OF PRESENT ILLNESS: Patient is a 72-year-old gentleman presenting via ambulance from [facility] the onset between 11 AM and noon of left-sided numbness and weakness with associated nausea and dizziness. EMS reports facility noted him to be somewhat ashen or yoo in color as well. No trauma reported. Patient has been restarted on anticoagulation. Reports he was recently hospitalized here with cancer diagnosis as well as recent stroke. Did recently have subarachnoid hemorrhage by report. Patient reports some head fullness and states it feels a bit similar to prior episode of stroke. Left-sided numbness is much improved now and hardly relays any. Nausea is much improved receive Zofran prior to arrival for EMS. Denies chest pain or shortness of breath at this time beyond baseline. PAST MEDICAL HISTORY: As noted above MEDICATIONS: Reviewed medication list from the facility SOCIAL HISTORY: Currently getting rehab at [facility] after recent admission here at the hospital PHYSICAL EXAM: GENERAL: alert and oriented in no acute distress on stretcher somewhat fatigued in appearance Head: normocephalic and atraumatic EYES: No injection, discharge or icterus. NECK: Trachea midline. Supple. ENT: Mucous membranes pink and moist. LUNGS: Airway patent. No retractions. Breath sounds clear HEART: Regular rate and rhythm. No chest wall tenderness ABDOMEN: Soft and non-tender, without guarding or rebound. SKIN: Acyanotic, warm, dry, without rashes EXTREMITIES: Without swelling, tenderness or deformity NEUROLOGICAL: No focal deficits. No aphasia. No facial droop or slurred speech. Tongue midline. Normal strength and tone in the extremities. Sensation to gross touch normal. No pronator drift. Good handgrip strength bilaterally. EK bpm normal sinus rhythm. No PVC or PAC. Right bundle branch block is present. No acute ST segment elevation or depression with a QTc of 456. CONTINUOUS CARDIAC MONITORING: was ordered and showed a heart rate of 60s bpm in normal sinus rhythm Patient's laboratory studies and imaging reviewed. Differential includes Infection, dehydration, metabolic abnormality, hypo/hyperglycemia, electrolyte disturbance, anemia, hypoxia, cardiac sources, intracerebral event/neurologic, as well as other pathologies. IMPRESSION/MEDICAL DECISION MAKING: Patient with significant recent history and reviewed medical record with recent diagnosis of cancer, subarachnoid hemorrhage, and CVA. 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 Dizziness with nausea nausea is improving. Benign abdomen otherwise. Basic labs obtained. Made a stroke alert prior to arrival given reports of some left-sided numbness with dizziness. Minimal to no symptoms upon arrival. Recent head bleed precludes use of thrombolytics at this anticoagulation. CTAs were obtained of the head and neck as well to look for any acute blockages. CT reports reviewed. Question possible recrudescence given his symptoms versus new CVA given his history of stroke and head bleed as well as cancer. Lower suspicion for infection. No seizure-like activity reported low suspicion for this at this time. No significant leukocytosis with slightly worse anemia 9.8 from a baseline of the high 11's. No reported signs or symptoms concerning for bleeding at this time and will likely need trended. No signs of significant renal dysfunction with some borderline hypokalemia 3.2. Low magnesium of 1.5. IV supplementation ordered for both. Troponin elevation of concern and much improved from previous levels CT reports without new acute findings. Question occult possible small CVA. Patient denies any nausea now. Again focal deficits NIH is 0 and no indication for thrombolytics or advanced neurological procedure such as thrombectomy. Still reports some dizziness we will trial some meclizine to see if this may help. Discussed with him and family at bedside staying for further evaluation. They were in agreement. Hospitalist was contacted and case discussed. DIAGNOSIS: Dizziness, nausea, anemia, transient left-sided numbness, hypokalemia, hypomagnesemia, stage IV lung cancer DISPOSITION: Hospitalist will evaluate Patient was agreeable with this plan. Past Med/Surg History Medical History 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 Advanced care planning/counseling discussion Cancer related pain Dyspnea and respiratory abnormalities Palliative care encounter Social History Smoking Status: Former smoker Tobacco Type: Cigarettes Hx Alcohol Use: No Hx Substance Use: No Preferred Language: Danish Communication Ability: Effective Director Of Litigation Required: No Beliefs That Will Affect Care: Cheondoism Current Living Situation: Alone Feels Safe at Home: Yes Assistive Devices: Oxygen - Continuous Allergies Allergies Allergy/AdvReac Type Severity Reaction Status Date / Time melatonin Allergy Intermediate Rash Verified 05/30/22 18:41 Home Meds Home Medications Medication Instructions Recorded Confirmed albuterol sulfate 90 mcg/actuation 2 puff inhalation Q4H PRN 05/01/22 05/30/22 aerosol inhaler Shortness Of Breath Or Wheezing acetaminophen 325 mg tablet 650 mg PO Q4H PRN Pain (Scale 05/30/22 05/30/22 (Tylenol) Score 1-3) diphenhydramine HCl 2 % topical 1 applic topical Q6H PRN Itching 05/30/22 05/30/22 gel (Benadryl) diphenhydramine HCl 25 mg capsule 50 mg PO Q6H PRN Itching 05/30/22 05/30/22 (Benadryl) docusate sodium 100 mg capsule 100 mg PO BID 05/30/22 05/30/22 insulin regular human 100 unit/mL 1 sliding scale dose subcut ACHS 05/30/22 05/30/22 injection solution (Humulin R Regular U-100 Insulin) lorazepam 0.5 mg tablet 0.5 mg PO DAILY PRN Anxiety 05/30/22 05/30/22 magnesium hydroxide 400 mg/5 mL 30 ml PO DAILY PRN Constipation 05/30/22 05/30/22 oral suspension (Milk of Magnesia) meclizine 25 mg tablet 50 mg PO TID 05/30/22 05/30/22 polyethylene glycol 3350 17 gram 17 g PO QDL PRN constipation 05/30/22 05/30/22 oral powder packet (Miralax) sennosides 8.6 mg-docusate sodium 1 tab-cap PO QDL PRN Constipation 05/30/22 05/30/22 50 mg tablet (Senokot-S) Previous Rx's Medication Instructions Recorded apixaban 5 mg tablet (Eliquis) 5 mg PO BID 30 days #60 tabs 05/06/22 folic acid 1 mg tablet 1 mg PO QAM 30 days #30 tabs 05/06/22 metoprolol succinate 25 mg 12.5 mg PO BID 30 days #30 tabs 05/06/22 tablet,extended release 24 hr amiodarone 200 mg tablet 200 mg PO BIDM 30 days #60 tabs 05/25/22 atorvastatin 20 mg tablet 20 mg PO QAM 30 days #30 tabs 05/25/22 diclofenac sodium 1 % topical gel 2 g EXT BID PRN pain #50 grams 05/25/22 (Voltaren Arthritis Pain) pantoprazole 40 mg tablet,delayed 40 mg PO QAM 30 days #30 tabs 05/25/22 release sennosides 8.6 mg-docusate sodium 1 tab PO QAM 30 days #30 tabs 05/25/22 50 mg tablet (Senokot-S) Results & Data (ED) Vital Signs Vital Signs - 24 hr 05/30/22 17:37 05/30/22 17:37 05/30/22 18:13 Temperature 36.9 C Temperature Source Oral Pulse Rate 56 L 68 Pulse Rate from SpO2 Sensor Pulse Rhythm Regular Pulse Strength Normal Respiratory Rate 14 16 Respiratory Effort / Characteristics Non-Labored Respiratory Depth Normal Respiratory Pattern Regular Blood Pressure 137/66 Blood Pressure Mean 89 Blood Pressure Position Lying Pulse Oximetry 99 98 Oxygen Delivery Method Room Air Nasal Cannula Oxygen Flow Rate 2 Sepsis Recent Fever Within 48 Hours No Sepsis New/Unexplained Change in Mental Status N/A Sepsis Action Taken by Nursing No Action Required 05/30/22 18:13 05/30/22 18:30 05/30/22 18:30 Temperature Temperature Source Pulse Rate 60 Pulse Rate from SpO2 Sensor 58 L Pulse Rhythm Pulse Strength Respiratory Rate 18 Respiratory Effort / Characteristics Respiratory Depth Respiratory Pattern Blood Pressure 137/66 126/56 L Blood Pressure Mean 89 79 Blood Pressure Position Pulse Oximetry 94 Oxygen Delivery Method Oxygen Flow Rate Sepsis Recent Fever Within 48 Hours Sepsis New/Unexplained Change in Mental Status Sepsis Action Taken by Nursing 05/30/22 19:00 05/30/22 19:00 Temperature Temperature Source Pulse Rate 61 Pulse Rate from SpO2 Sensor Pulse Rhythm Pulse Strength Respiratory Rate 16 Respiratory Effort / Characteristics Respiratory Depth Respiratory Pattern Blood Pressure 129/59 L Blood Pressure Mean 82 Blood Pressure Position Pulse Oximetry 97 Oxygen Delivery Method Nasal Cannula Oxygen Flow Rate 2 Sepsis Recent Fever Within 48 Hours Sepsis New/Unexplained Change in Mental Status Sepsis Action Taken by Nursing Laboratory Data 05/30/22 18:10 05/30/22 18:10 Lab Results 05/30/22 05/30/22 05/30/22 Range/Units 18:10 18:10 18:10 WBC 5.27 (4.8-10.8) K/ul RBC 3.37 L (4.70-6.10) M/uL Hgb 9.8 L (14.0-18.0) g/dl Hct 29.9 L (42.0-52.0) % MCV 88.7 (80.0-100.0) fL MCH 29.1 (25.0-34.0) pg MCHC 32.8 (32.0-36.0) g/dL RDW Std Deviation 45.2 (36.4-46.3) fL RDW Coeff of Dean 14.2 (11.5-14.5) % Plt Count 234 (130-400) K/uL MPV 9.7 (9.4-12.4) fL Immature Gran % (Auto) 0.9 % Neut % (Auto) 74.7 % Lymph % (Auto) 10.4 % Ross % (Auto) 10.2 % Eos % (Auto) 3.4 % Baso % (Auto) 0.4 % Neut # (Auto) 3.93 (1.40-6.50) K/uL Lymph # (Auto) 0.55 L (1.2-3.4) K/uL Ross # (Auto) 0.54 (0.11-0.59) K/uL Eos # (Auto) 0.18 (0-0.50) K/uL Baso # (Auto) 0.02 (0-0.2) K/uL Immature Gran # (Auto) 0.05 (0.01-0.20) K/uL PT 12.5 H (9.0-12.0) Seconds INR 1.2 H (0.9-1.1) APTT 23.4 (21.0-31.0) Seconds PTT Ratio 0.9 Sodium (136-145) mmol/L Potassium (3.5-5.1) mmol/L Chloride (98-107) mmol/L Carbon Dioxide (21-32) mmol/L Anion Gap (3-11) BUN (6-23) mg/dl Creatinine (0.6-1.4) mg/dl Est Cr Clr Drug Dosing ml/min Est GFR ( Amer) ml/min Est GFR (Non-Af Amer) ml/min BUN/Creatinine Ratio (10-20) Glucose (70-99(Fasting)) mg/dl POC Glucose (70-99) mg/dl Calcium (8.5-10.1) mg/dl Magnesium (1.7-2.4) mg/dl Total Bilirubin (0.2-1.0) mg/dl AST (13-39) U/L ALT (7-52) U/L Alkaline Phosphatase (34-104) U/L Troponin I High Sens (0-20) pg/ml Total Protein (6.0-8.3) gm/dl Albumin (3.4-5.0) gm/dl Globulin (2.5-4.0) gm/dl Albumin/Globulin Ratio (0.9-2) Urine Color Urine Appearance (Clear) Urine pH (4.5-7.5) Ur Specific [place] (1.000-1.030) Urine Protein (Negative) Urine Glucose (UA) (Negative) Urine Ketones (Negative) Urine Blood (Negative) Urine Nitrite (Negative) Urine Bilirubin (Negative) Urine Urobilinogen (Negative) Ur Leukocyte Esterase (Negative) SARS-CoV-2, RNA, NAAT (NEGATIVE) Blood Type O Positive Antibody Screen NEGATIVE 05/30/22 05/30/22 05/30/22 Range/Units 18:10 18:13 19:25 WBC (4.8-10.8) K/ul RBC (4.70-6.10) M/uL Hgb (14.0-18.0) g/dl Hct (42.0-52.0) % MCV (80.0-100.0) fL MCH (25.0-34.0) pg MCHC (32.0-36.0) g/dL RDW Std Deviation (36.4-46.3) fL RDW Coeff of Dean (11.5-14.5) % Plt Count (130-400) K/uL MPV (9.4-12.4) fL Immature Gran % (Auto) % Neut % (Auto) % Lymph % (Auto) % Ross % (Auto) % Eos % (Auto) % Baso % (Auto) % Neut # (Auto) (1.40-6.50) K/uL Lymph # (Auto) (1.2-3.4) K/uL Ross # (Auto) (0.11-0.59) K/uL Eos # (Auto) (0-0.50) K/uL Baso # (Auto) (0-0.2) K/uL Immature Gran # (Auto) (0.01-0.20) K/uL PT (9.0-12.0) Seconds INR (0.9-1.1) APTT (21.0-31.0) Seconds PTT Ratio Sodium 136 (136-145) mmol/L Potassium 3.2 L (3.5-5.1) mmol/L Chloride 102 (98-107) mmol/L Carbon Dioxide 30 (21-32) mmol/L Anion Gap 4 (3-11) BUN 19 (6-23) mg/dl Creatinine 0.86 (0.6-1.4) mg/dl Est Cr Clr Drug Dosing 75.7 ml/min Est GFR ( Amer) 99.7 ml/min Est GFR (Non-Af Amer) 86.0 ml/min BUN/Creatinine Ratio 22.1 H (10-20) Glucose 151 H (70-99(Fasting)) mg/dl POC Glucose 142 H (70-99) mg/dl Calcium 8.0 L (8.5-10.1) mg/dl Magnesium 1.5 L (1.7-2.4) mg/dl Total Bilirubin 0.5 (0.2-1.0) mg/dl AST 18 (13-39) U/L ALT 19 (7-52) U/L Alkaline Phosphatase 67 (34-104) U/L Troponin I High Sens 17.7 (0-20) pg/ml Total Protein 5.6 L (6.0-8.3) gm/dl Albumin 3.0 L (3.4-5.0) gm/dl Globulin 2.6 (2.5-4.0) gm/dl Albumin/Globulin Ratio 1.2 (0.9-2) Urine Color Yellow Urine Appearance Clear (Clear) Urine pH 6.0 (4.5-7.5) Ur Specific [place] > 1.045 H (1.000-1.030) Urine Protein Negative (Negative) Urine Glucose (UA) Negative (Negative) Urine Ketones Negative (Negative) Urine Blood Negative (Negative) Urine Nitrite Negative (Negative) Urine Bilirubin Negative (Negative) Urine Urobilinogen Negative (Negative) Ur Leukocyte Esterase Negative (Negative) SARS-CoV-2, RNA, NAAT (NEGATIVE) Blood Type Antibody Screen 05/30/22 Range/Units 19:30 WBC (4.8-10.8) K/ul RBC (4.70-6.10) M/uL Hgb (14.0-18.0) g/dl Hct (42.0-52.0) % MCV (80.0-100.0) fL MCH (25.0-34.0) pg MCHC (32.0-36.0) g/dL RDW Std Deviation (36.4-46.3) fL RDW Coeff of Dean (11.5-14.5) % Plt Count (130-400) K/uL MPV (9.4-12.4) fL Immature Gran % (Auto) % Neut % (Auto) % Lymph % (Auto) % Ross % (Auto) % Eos % (Auto) % Baso % (Auto) % Neut # (Auto) (1.40-6.50) K/uL Lymph # (Auto) (1.2-3.4) K/uL Ross # (Auto) (0.11-0.59) K/uL Eos # (Auto) (0-0.50) K/uL Baso # (Auto) (0-0.2) K/uL Immature Gran # (Auto) (0.01-0.20) K/uL PT (9.0-12.0) Seconds INR (0.9-1.1) APTT (21.0-31.0) Seconds PTT Ratio Sodium (136-145) mmol/L Potassium (3.5-5.1) mmol/L Chloride (98-107) mmol/L Carbon Dioxide (21-32) mmol/L Anion Gap (3-11) BUN (6-23) mg/dl Creatinine (0.6-1.4) mg/dl Est Cr Clr Drug Dosing ml/min Est GFR ( Amer) ml/min Est GFR (Non-Af Amer) ml/min BUN/Creatinine Ratio (10-20) Glucose (70-99(Fasting)) mg/dl POC Glucose (70-99) mg/dl Calcium (8.5-10.1) mg/dl Magnesium (1.7-2.4) mg/dl Total Bilirubin (0.2-1.0) mg/dl AST (13-39) U/L ALT (7-52) U/L Alkaline Phosphatase (34-104) U/L Troponin I High Sens (0-20) pg/ml Total Protein (6.0-8.3) gm/dl Albumin (3.4-5.0) gm/dl Globulin (2.5-4.0) gm/dl Albumin/Globulin Ratio (0.9-2) Urine Color Urine Appearance (Clear) Urine pH (4.5-7.5) Ur Specific [place] (1.000-1.030) Urine Protein (Negative) Urine Glucose (UA) (Negative) Urine Ketones (Negative) Urine Blood (Negative) Urine Nitrite (Negative) Urine Bilirubin (Negative) Urine Urobilinogen (Negative) Ur Leukocyte Esterase (Negative) SARS-CoV-2, RNA, NAAT NEGATIVE (NEGATIVE) Blood Type Antibody Screen Administered Medications Discontinued Medications Potassium Chloride (K Geoffrey / Wtr) 10 meq in 100 mls @ 100 mls/hr IV Q1H ASHLEY; Protocol Stop: 05/30/22 21:29 Last Infusion: 05/30/22 22:33 Dose: 0 mls/hr Documented By: Admin: 05/30/22 21:06 Dose: 100 mls/hr Documented By: Infusion: 05/30/22 20:54 Dose: 100 mls/hr Documented By: Admin: 05/30/22 19:54 Dose: 100 mls/hr Documented By: GINA Magnesium Sulfate/Dextrose (Magnesium Sulfate / D5w) 1 gm in 100 mls @ 200 mls/hr IV Q30M ASHLEY Stop: 05/30/22 20:22 Last Infusion: 05/30/22 22:33 Dose: 0 mls/hr Documented By: Admin: 05/30/22 20:47 Dose: 100 mls/hr Documented By: Infusion: 05/30/22 20:32 Dose: 0 mls/hr Documented By: Admin: 05/30/22 19:53 Dose: 200 mls/hr Documented By: GINA Ioversol (Optiray 320 500ml) 117 ml IV ONCE ONE Stop: 05/30/22 18:02 Last Admin: 05/30/22 18:02 Dose: 117 ml Documented By: DILMA Meclizine HCl (Meclizine Hcl 25 Mg Tab) 25 mg PO NOW STA Stop: 05/30/22 19:45 Last Admin: 05/30/22 20:47 Dose: 25 mg Documented By: AMS Imaging Data Radiologist's Impression: Chest X-Ray 05/30/22 17:48 XR chest 1V portable HISTORY: 72 years-old Male weakness acute weakness COMPARISON: CTA chest 05/01/2022, chest radiograph 05/19/2022 TECHNIQUE: AP view of the chest FINDINGS: Emphysema with chronic interstitial coarsening. Stable appearance of the pulmonary metastasis. Probable trace pleural effusions. Cardiomegaly. No pneumothorax. Bilateral hilar lymphadenopathy again noted. Bones appear grossly intact. IMPRESSION: 1. Emphysema without acute process. 2. Pathologic hilar lymphadenopathy with pulmonary metastatic disease redemonstrated. ACT 112: Negative or not required by law. The above report was generated using voice recognition software. It may contain grammatical, syntax or spelling errors. Electronically signed by: Emmanuel Montanez M.D. 05/30/2022 6:[address] 05/30/22 17:48 CT head/brain wo con CLINICAL HISTORY: 72 years-old Male with neuro deficit, acute stroke suspected. Acute strokelike symptoms TECHNIQUE: Multiple axial CT images of the head were obtained without contrast. A dose lowering technique was utilized adhering to the principles of ALARA. CT DOSE: 989.14 mGy.cm COMPARISON: May 24, 2022, brain MRI 05/20/2022 FINDINGS: There is no midline shift, intracranial mass, hydrocephalus, territorial ischemia or abnormal extra-axial collection. Trace residual subarachnoid hemorrhage within the superior right frontal lobe on image 21 series 2. Involutional changes with chronic microvascular ischemic disease. Expected evolution of the subacute scattered tiny infarcts within the right cerebral hemisphere. The calvarium is intact. Small right mastoid effusion. Left mastoid air cells are clear. Mild mucosal thickening of the right maxillary sinus with volume loss. IMPRESSION: 1. No acute territorial infarct or midline shift identified. 2. Trace residual subarachnoid hemorrhage within the superior right frontal lobe is similar to the 05/24/2022 exam. 3. Expected evolution of the small subacute infarcts of the right cerebral hemisphere. ACT 112: Negative or not required by law. The above report was generated using voice recognition software. It may contain grammatical, syntax or spelling errors. Electronically signed by: Emmanuel Montanez M.D. 05/30/2022 6:10 PM Head CTA 05/30/22 17:48 CT angio head w con, CT angio neck with con CLINICAL HISTORY: 72 years-old Male with neuro deficit, acute stroke suspected. Acute strokelike symptoms COMPARISON STUDY: Head CT of same day and also 05/24/2022, brain MRI 05/20/2022 TECHNIQUE: Following the IV administration of 111 cc of Optiray, CT angiogram of the head and neck was performed from the skull base to the vertex. Images are reviewed in the axial, sagittal, and coronal planes. 3-D MIPS images are created and assessed. IV contrast was administered without complication. All measurements were obtained according to NASCET criteria. A dose lowering technique was utilized adhering to the principles of ALARA. FINDINGS: CT ANGIOGRAM OF THE HEAD AND NECK: Three-vessel morphology of the thoracic aortic arch. Patency of the innominate and imaged subclavian arteries. Common carotid arteries are patent. Moderate atherosclerotic plaque of the left carotid bulb and proximal left ICA without significant stenosis. The middle cerebral arteries are patent bilaterally. There is a branch of the A2 segment left anterior cerebral artery on image 166 series 5 which appears to demonstrate focal narrowing/cut off and is similar to the prior study. The vertebrobasilar system and posterior cerebral arteries are widely patent. origin of the left posterior cerebral artery. There is no aneurysm, high-grade stenosis, or proximal branch occlusion identified. Dural sinuses appear patent. Trace residual subarachnoid hemorrhage within the superior right frontal lobe on image 21 series 2. Involutional changes with chronic microvascular ischemic disease. Expected evolution of the subacute scattered tiny infarcts within the right cerebral hemisphere. The calvarium is intact. Small right mastoid effusion. Left mastoid air cells are clear. Mild mucosal thickening of the right maxillary sinus with volume loss. The previously questioned age-indeterminate tiny pulmonary embolus within the right upper lobe is not well visualized on today's exam. Emphysema with pulmonary metastatic disease again noted. Calcification of the left thyroid. Pathologic tracheoesophageal adenopathy measuring up to 1.5 cm. IMPRESSION: 1. No acute territorial infarct or midline shift identified. 2. No aneurysm, dissection, high-grade stenosis or new arterial occlusion. 3. Trace residual subarachnoid hemorrhage within the superior right frontal lobe is similar to the 05/24/2022 exam. 4. Expected evolution of the small subacute infarcts of the right cerebral hemisphere. 5. Pulmonary emphysema with pulmonary metastasis redemonstrated along with pathologic mediastinal lymphadenopathy. ACT 112: Negative or not required by law. The above report was generated using voice recognition software. It may contain grammatical, syntax or spelling errors. Electronically signed by: Emmanuel Montanez M.D. 05/30/2022 6:25 PM Neck CTA 05/30/22 17:48 CT angio head w con, CT angio neck with con CLINICAL HISTORY: 72 years-old Male with neuro deficit, acute stroke suspected. Acute strokelike symptoms COMPARISON STUDY: Head CT of same day and also 05/24/2022, brain MRI 05/20/2022 TECHNIQUE: Following the IV administration of 111 cc of Optiray, CT angiogram of the head and neck was performed from the skull base to the vertex. Images are reviewed in the axial, sagittal, and coronal planes. 3-D MIPS images are created and assessed. IV contrast was administered without complication. All measurements were obtained according to NASCET criteria. A dose lowering technique was utilized adhering to the principles of ALARA. FINDINGS: CT ANGIOGRAM OF THE HEAD AND NECK: Three-vessel morphology of the thoracic aortic arch. Patency of the innominate and imaged subclavian arteries. Common carotid arteries are patent. Moderate atherosclerotic plaque of the left carotid bulb and proximal left ICA without significant stenosis. The middle cerebral arteries are patent bilaterally. There is a branch of the A2 segment left anterior cerebral artery on image 166 series 5 which appears to demonstrate focal narrowing/cut off and is similar to the prior study. The vertebrobasilar system and posterior cerebral arteries are widely patent. origin of the left posterior cerebral artery. There is no aneurysm, high-grade stenosis, or proximal branch occlusion identified. Dural sinuses appear patent. Trace residual subarachnoid hemorrhage within the superior right frontal lobe on image 21 series 2. Involutional changes with chronic microvascular ischemic disease. Expected evolution of the subacute scattered tiny infarcts within the right cerebral hemisphere. The calvarium is intact. Small right mastoid effusion. Left mastoid air cells are clear. Mild mucosal thickening of the right maxillary sinus with volume loss. The previously questioned age-indeterminate tiny pulmonary embolus within the right upper lobe is not well visualized on today's exam. Emphysema with pulmonary metastatic disease again noted. Calcification of the left thyroid. Pathologic tracheoesophageal adenopathy measuring up to 1.5 cm. IMPRESSION: 1. No acute territorial infarct or midline shift identified. 2. No aneurysm, dissection, high-grade stenosis or new arterial occlusion. 3. Trace residual subarachnoid hemorrhage within the superior right frontal lobe is similar to the 05/24/2022 exam. 4. Expected evolution of the small subacute infarcts of the right cerebral hemisphere. 5. Pulmonary emphysema with pulmonary metastasis redemonstrated along with pathologic mediastinal lymphadenopathy. ACT 112: Negative or not required by law. The above report was generated using voice recognition software. It may contain grammatical, syntax or spelling errors. Electronically signed by: Emmanuel Montanez M.D. 05/30/2022 6:25 PM Discharge Plan Visit Data Chief Complaint: Stroke Alert ED Provider: Aniceto Tavarez Discharge Problem: Dizziness, Adenocarcinoma of lung, stage 4, Nausea, Hypokalemia, Hypomagnesemia Patient Disposition: Being Evaluated by Hospitalist
[2022-05-30] MEDS ORDERED: OPTIRAY 320 500ml IV ONE (18:01)
--- NOTE | 2022-05-30 18:12 | CT Scan Report ---
CT head/brain wo con CLINICAL HISTORY: 72 years-old Male with neuro deficit, acute stroke suspected. Acute strokelike sym ptoms TECHNIQUE: Multiple axial CT images of the head were obtained without contrast. A dose lowering tech nique was utilized adhering to the principles of ALARA. CT DOSE: 989.14 mGy.cm COMPARISON: May 24, 2022, brain MRI 05/20/2022 FINDINGS: There is no midline shift, intracranial mass, hydrocephalus, territorial ischemia or abnormal extra-a xial collection. Trace residual subarachnoid hemorrhage within the superior right frontal lobe on [place] ge 21 series 2. Involutional changes with chronic microvascular ischemic disease. Expected evolution of the subacute scattered tiny infarcts within the right cerebral hemisphere. The calvarium is intact. Small right mastoid effusion. Left mastoid air cells are clear. Mild mucosa l thickening of the right maxillary sinus with volume loss. IMPRESSION: 1. No acute territorial infarct or midline shift identified. 2. Trace residual subarachnoid hemorrhage within the superior right frontal lobe is similar to the 05/24/2022 exam. 3. Expected evolution of the small subacute infarcts of the right cerebral hemisphere. ACT 112: Negative or not required by law. The above report was generated using voice recognition software. It may contain grammatical, syntax o r spelling errors. Electronically signed by: Emmanuel Montanez M.D. 05/30/2022 6:10 PM
--- NOTE | 2022-05-30 18:27 | CT Scan Report ---
CT angio head w con, CT angio neck with con CLINICAL HISTORY: 72 years-old Male with neuro deficit, acute stroke suspected. Acute strokelike s ymptoms COMPARISON STUDY: Head CT of same day and also 05/24/2022, brain MRI 05/20/2022 TECHNIQUE: Following the IV administration of 111 cc of Optiray, CT angiogram of the head and neck wa s performed from the skull base to the vertex. Images are reviewed in the axial, sagittal, and pressley l planes. 3-D MIPS images are created and assessed. IV contrast was administered without complication . All measurements were obtained according to NASCET criteria. A dose lowering technique was utilized adhering to the principles of ALARA. FINDINGS: CT ANGIOGRAM OF THE HEAD AND NECK: Three-vessel morphology of the thoracic aortic arch. Patency of the innominate and imaged subclavian arteries. Common carotid arteries are patent. Moderate atherosclerotic plaque of the left carotid bul b and proximal left ICA without significant stenosis. The middle cerebral arteries are patent bilater ally. There is a branch of the A2 segment left anterior cerebral artery on image 166 series 5 which a ppears to demonstrate focal narrowing/cut off and is similar to the prior study. The vertebrobasilar system and posterior cerebral arteries are widely patent. origin of the left posterior cerebral artery. There is no aneurysm, high-grade stenosis, or proximal branch occlusion identified. Dural si nuses appear patent. Trace residual subarachnoid hemorrhage within the superior right frontal lobe on image 21 series 2. I nvolutional changes with chronic microvascular ischemic disease. Expected evolution of the subacute s cattered tiny infarcts within the right cerebral hemisphere. The calvarium is intact. Small right mastoid effusion. Left mastoid air cells are clear. Mild mucosa l thickening of the right maxillary sinus with volume loss. The previously questioned age-indetermina te tiny pulmonary embolus within the right upper lobe is not well visualized on today's exam. Emphyse ma with pulmonary metastatic disease again noted. Calcification of the left thyroid. Pathologic trach eoesophageal adenopathy measuring up to 1.5 cm. IMPRESSION: 1. No acute territorial infarct or midline shift identified. 2. No aneurysm, dissection, high-grade stenosis or new arterial occlusion. 3. Trace residual subarachnoid hemorrhage within the superior right frontal lobe is similar to the 05/24/2022 exam. 4. Expected evolution of the small subacute infarcts of the right cerebral hemisphere. 5. Pulmonary emphysema with pulmonary metastasis redemonstrated along with pathologic mediastinal lym phadenopathy. ACT 112: Negative or not required by law. The above report was generated using voice recognition software. It may contain grammatical, syntax o r spelling errors. Electronically signed by: Emmanuel Montanez M.D. 05/30/2022 6:25 PM
--- NOTE | 2022-05-30 18:28 | XRay Report ---
XR chest 1V portable HISTORY: 72 years-old Male weakness acute weakness COMPARISON: CTA chest 05/01/2022, chest radiograph 05/19/2022 TECHNIQUE: AP view of the chest FINDINGS: Emphysema with chronic interstitial coarsening. Stable appearance of the pulmonary metastasis. Probab le trace pleural effusions. Cardiomegaly. No pneumothorax. Bilateral hilar lymphadenopathy again note d. Bones appear grossly intact. IMPRESSION: 1. Emphysema without acute process. 2. Pathologic hilar lymphadenopathy with pulmonary metastatic disease redemonstrated. ACT 112: Negative or not required by law. The above report was generated using voice recognition software. It may contain grammatical, syntax o r spelling errors. Electronically signed by: Emmanuel Montanez M.D. 05/30/2022 6:27 PM
[2022-05-30 18:35] LABS: Basophils # (auto) 0.02 K/uL (0-0.2); Basophils % (auto) 0.4 %; Eosinophils # (auto) 0.18 K/uL (0-0.50); Eosinophils % (auto) 3.4 %; Hematocrit (blood only) 29.9 % (42.0-52.0); Hemoglobin 9.8 g/dl (14.0-18.0); Immature Granulocytes # (auto) 0.05 K/uL (0.01-0.20); Immature Granulocytes % (auto) 0.9 %; Lymphocytes # (auto) 0.55 K/uL (1.2-3.4); Lymphocytes % (auto) 10.4 %; Mean Corpuscular Hemoglobin 29.1 pg (25.0-34.0); Mean Corpuscular Hgb Conc 32.8 g/dL (32.0-36.0); Mean Corpuscular Volume 88.7 fL (80.0-100.0); Mean Platelet Volume 9.7 fL (9.4-12.4); Monocytes # (auto) 0.54 K/uL (0.11-0.59); Monocytes % (auto) 10.2 %; Neutrophils # (auto) 3.93 K/uL (1.40-6.50); Neutrophils % (auto) 74.7 %; Platelet Count 234 K/uL (130-400); RDW Coefficient of Variation 14.2 % (11.5-14.5); RDW Standard Deviation 45.2 fL (36.4-46.3); Red Blood Count 3.37 M/uL (4.70-6.10); White Blood Count 5.27 K/ul (4.8-10.8)
[2022-05-30 18:42] LABS: Albumin Globulin Ratio 1.2 (0.9-2); BUN Creatinine Ratio 22.1 (10-20); Bilirubin,Total 0.5 mg/dl (0.2-1.0); Creatinine Clr Calc Pharmacy 75.7 ml/min; Est GFR (African American) 99.7 ml/min; Globulin 2.6 gm/dl (2.5-4.0); Magnesium 1.5 mg/dl (1.7-2.4); Potassium 3.2 mmol/L (3.5-5.1); Total Protein 5.6 gm/dl (6.0-8.3)
[2022-05-30 18:49] LABS: Troponin I High Sensitivity 17.7 pg/ml (0-20)
[2022-05-30 18:52] LABS: INR 1.2 (0.9-1.1); Partial Thromboplastin Ratio 0.9; Partial Thromboplastin Time 23.4 Seconds (21.0-31.0); Prothrombin Time 12.5 Seconds (9.0-12.0)
[2022-05-30] MEDS ORDERED: MECLIZINE HCL 25 MG TAB PO STA (19:44)
[2022-05-30] MEDS: MAGNESIUM SULFATE / D5W 1 GM/100 ML BAG IV SCH ×2 (19:53→20:47)
[2022-05-30] MEDS: POTASSIUM CHLORIDE / WTR 10 MEQ/100 ML PLCT IV SCH ×2 (19:54→21:06)
[2022-05-30 20:01] LABS: Appearance Urine Clear (Clear); Bilirubin Urine Negative (Negative); Blood Urine Negative (Negative); Color Urine Yellow; Glucose Urine UA Negative (Negative); Ketones Urine Negative (Negative); Leukocyte Esterase Urine Negative (Negative); Nitrite Urine Negative (Negative); Protein Urine Negative (Negative); Specific Gravity Urine > 1.045 (1.000-1.030); Urobilinogen Urine Negative (Negative)
[2022-05-30] MEDS ORDERED: ACETAMINOPHEN 1,000 MG/100 ML VIAL IV STA (20:52)
[2022-05-30] MEDS ORDERED: LORazepam 0.5 MG TAB PO STA (21:23)
[2022-05-30] MEDS ORDERED: CARBOHYDRATES FOR HYPOGLYCEMIA PO PRN (22:14)
[2022-05-30] MEDS ORDERED: ALBUTEROL HFA 8 GM INHALER INH PRN (22:14)
[2022-05-30] MEDS ORDERED: GLUCOSE 40% GEL 15 GM TUBE PO PRN (22:14)
[2022-05-30] MEDS ORDERED: NITROGLYCERIN SL 0.4 MG/TAB TAB SL PRN (22:14)
[2022-05-30] MEDS ORDERED: ACETAMINOPHEN 1,000 MG/100 ML VIAL IV PRN (22:14)
[2022-05-30] MEDS ORDERED: GLUCAGON FOR INJ 1 MG VIAL SQ PRN (22:14)
[2022-05-30] MEDS ORDERED: DOCUSATE SODIUM/SENNA 50/8.6MG TAB PO PRN (22:14)
[2022-05-30] MEDS ORDERED: ONDANSETRON INJ 2 MG/ML 2 ML VIAL IV PRN (22:14)
[2022-05-30] MEDS ORDERED: DICLOFENAC SOD 1% GEL 100 GM TUBE EXT PRN (22:14)
[2022-05-30] MEDS ORDERED: PHARMACIST DISCHARGE MED REC CONSULT PRN (22:14)
[2022-05-30] MEDS ORDERED: GLUCOSE 10 TAB/TUBE PO PRN (22:14)
[2022-05-30] MEDS ORDERED: DEXTROSE 50% 50 ML SYRINGE IV PRN (22:14)
[2022-05-30] MEDS: SODIUM CHLORIDE 0.9% 1000ML 1,000 ML IV SCH (23:07)
[2022-05-30] MEDS: APIXABAN 5 MG TABLET PO SCH (23:09)
[2022-05-30] MEDS: METOPROLOL SUCC 25MG EXT REL TAB PO SCH (23:09)
[2022-05-30] MEDS: DOCUSATE SODIUM 100 MG CAP PO SCH (23:10)
[2022-05-30] MEDS: MECLIZINE HCL 25 MG TAB PO SCH (23:10)
--- NOTE | 2022-05-30 23:27 | History and Physical Report ---
DATE OF ADMISSION: 05/30/2022. CHIEF COMPLAINT: Stroke-like symptoms. HISTORY OF PRESENT ILLNESS: This is a 72-year-old male with past medical history significant for chronic respiratory failure, secondary to stage IV lung adenocarcinoma, recently diagnosed, was given chemo recently, history of paroxysmal atrial fibrillation, on Eliquis, hypertension, diabetes, diet controlled, chronic anemia, baseline hemoglobin 12-13, past tobacco abuse. He was first admitted on 05/02/2022 with shortness of breath and found to have stage IV adenocarcinoma of lung. During that admission, he had a chemo, seen by heme/onc and was discharged on 05/06/2022 and came back on 05/18/2022 with left leg weakness and found to have subarachnoid hemorrhage. His Eliquis was held SAH improved, then during the hospitalization, he also had acute CVA, likely embolic infarcts in the right parietal lobe and right occipital lobe and left cerebellar hemisphere and , his Eliquis was resumed on 05/22/2022 per Neurology. He also had acute thrombocytopenia, received 2 units of platelets during the last admission and platelets improved, normalized. He was discharged to rehab on 05/25/2022. Seems ambulating with a walker on regular food, but takes pills with applesauce.Today, looks like between 11 a.m. and noon, he felt left-sided numbness and weakness and nausea and dizziness. Seemed ashen - yoo in color. No trauma was reported and the patient was brought to the hospital and stroke alert was called. Initial workup with CTA of the head and neck and CTA of the head was unremarkable. Currently, the patient says his left-sided numbness improved. He is alert and oriented. Daughter is in the room. Has been having some headache and dizziness. No blurred visions, no earache, no runny nose, no sore throat. Cough is getting better. No chest pain, no shortness of breath. Currently, no nausea, no abdominal pain. He says bowels are moving okay now. Normal bladder movements. No swelling in the legs. Hemodynamically stable. ALLERGIES: MELATONIN. PAST MEDICAL HISTORY: As mentioned above. PAST SURGICAL HISTORY: Cholecystectomy. FAMILY HISTORY: Significant for diabetes. SOCIAL HISTORY: Past tobacco use. Occasional alcohol use. NO drug use MEDICATIONS: Currently, the patient is on Tylenol 650 mg p.o. q. 4 hours p.r.n., albuterol 2 puffs inhalation q. 4 hours p.r.n., amiodarone 200 mg p.o. b.i.d., atorvastatin 20 mg p.o. a.m., diclofenac sodium 2 gm external b.i.d. p.r.n., Benadryl topical q. 6 hours p.r.n., Benadryl 50 mg p.o. q. 6 hours p.r.n., Colace 100 mg p.o. b.i.d., Eliquis 5 mg p.o. b.i.d., folic acid 1 mg p.o. a.m., insulin sliding scale, lorazepam 0.5 mg p.o. daily p.r.n., milk of magnesia p.r.n., meclizine 50 mg p.o. t.i.d., metoprolol succinate 12.5 mg p.o. b.i.d., Protonix 40 mg p.o. a.m., MiraLax 17 g p.o. daily p.r.n., Senokot-S 1 tablet p.o. a.m. REVIEW OF SYSTEMS: As per HPI. Rest of review of systems is negative. PHYSICAL EXAMINATION: GENERAL: The patient is alert and oriented, not in acute distress. VITAL SIGNS: Temperature 36.9, pulse 61, respiratory rate 16, blood pressure 129/59, oxygen 97% on 2 liters. HEENT: Pupils equal, round and reactive to light. Oral mucosa moist. NECK: No JVD, no neck masses. CARDIOVASCULAR: S1 and S2 heard. Regular rate and rhythm. No murmur, no gallop. RESPIRATORY SYSTEM: Normal AP diameter. No accessory muscle use. No wheezing, no crackles. ABDOMEN: Soft, bowel sounds present, nontender, no distention. CENTRAL NERVOUS SYSTEM: Alert and oriented. Speech is clear. No obvious facial droop. Power 5/5 in all extremities. Able to lift his extremities. Coordination of movements okay. No obvious pronator drift. Sensation intact. Position sense intact. EXTREMITIES: No edema, no erythema. LABORATORY DATA: WBC 5.2, hemoglobin 9.8, hematocrit 29.9, platelets 234. PT 12.5, INR 1.2, APTT 23.4. Sodium 136, potassium 3.2, chloride 102, bicarbonate 30, BUN 19, creatinine 0.8, serum glucose 151, calcium 8, magnesium 1.5, total bilirubin 0.5, AST 18, ALT 19, alkaline phosphatase 67. Troponin I high sensitivity 17. Urinalysis negative. SARS-CoV-2 rapid test negative. IMAGING DATA: CT angio head with contrast, CT angio neck with contrast, no acute territorial infarct or midline shift identified. No aneurysm, dissection or high-grade stenosis or new arterial occlusion. Trace residual subarachnoid hemorrhage within the superior right frontal lobe, similar to 05/24/2022 exam. Expected resolution of small subacute infarct of the right cerebellar hemisphere, pulmonary emphysema with pulmonary metastasis , pathological mediastinal lymphadenopathy. CT head without contrast, no acute territorial infarct or midline shift. Trace residual subarachnoid hemorrhage within the superior right frontal lobe, similar to 05/24/2022. Expected resolution of small subacute infarct of the right cerebellar hemisphere. Chest x-ray, emphysema without acute process. Pathological hilar lymphadenopathy with pulmonary metastatic disease. EKG, normal sinus rhythm, at a rate of 60, right bundle-branch block, nonspecific T-wave abnormalities, no acute ST changes seen. ASSESSMENT AND PLAN: This is a 72-year-old male, who presents with stroke like symptoms 1. Stroke-like symptoms with left-sided numbness that has resolved now. Stroke alert was called. Initial workup was negative. The patient recently had been in the hospital with subarachnoid hemorrhage and during that admission he developed acute infarcts in the setting of atrial fibrillation infarcts in right parietal lobe, right occipital lobe and right cerebellar hemisphere. Eliquis restarted. Currently, imaging studies no new changes. Continue with Eliquis. We will follow the stroke workup with MRI scan. Neuro consult. Speech evaluation. PT/OT. Monitor in the tele floor. 2. Stage IV adenocarcinoma of lung: Chemo as per hem/onc. 3. Anemia: Hemoglobin is 9.8. Denies any signs of bleeding. It was around 11 last admission. We will follow the repeat labs. We will check stool for Hemoccult, as the patient is on Eliquis. 4. Recent subarachnoid hemorrhage: Seems stable on CAT scan. 5. Constipation: Laxatives as needed. 6. Atrial fibrillation: Rate controlled with amiodarone, metoprolol and on Eliquis. 7. Hypertension: Continue home medication. Monitor the blood pressure. 8. Diabetes: HbA1c 6.4 from 11/2019.insulin sliding scale, diabetic diet. 9. Deep venous thrombosis prophylaxis: On Eliquis. 10. Code status: Daughter wants him to be full code for now. DISPOSITION: Closely monitor in the tele floor. PT/OT. Social service to help with discharge planning. Job ID: [id number] [email or web address]
[2022-05-31] MEDS: INSULIN ASPART PER UNIT SC SCH ×5 (00:29→20:35)
[2022-05-31] MEDS ORDERED: diphenhydrAMINE 50 MG/ML VIAL IV STA (04:04)
[2022-05-31] MEDS ORDERED: methylPREDNISolone 60 MG in SYRINGE 0 ML IV ONE (04:15)
[2022-05-31 06:28] LABS: Potassium 3.8 mmol/L (3.5-5.1)
[2022-05-31 06:32] LABS: Hematocrit (blood only) 33.9 % (42.0-52.0); Hemoglobin 11.1 g/dl (14.0-18.0); Mean Corpuscular Hemoglobin 28.9 pg (25.0-34.0); Mean Corpuscular Hgb Conc 32.7 g/dL (32.0-36.0); Mean Corpuscular Volume 88.3 fL (80.0-100.0); Mean Platelet Volume 9.8 fL (9.4-12.4); Platelet Count 241 K/uL (130-400); RDW Coefficient of Variation 14.4 % (11.5-14.5); RDW Standard Deviation 45.6 fL (36.4-46.3); Red Blood Count 3.84 M/uL (4.70-6.10); White Blood Count 5.08 K/ul (4.8-10.8)
[2022-05-31 06:34] LABS: BUN Creatinine Ratio 15.1 (10-20); Chol HDL Ratio 2.6 (0-5); Creatinine Clr Calc Pharmacy 81.5 ml/min; Est GFR (African American) 99.7 ml/min
[2022-05-31 07:01] LABS: Estimated Average Glucose 160 mg/dl; Hemoglobin A1C 7.2 % (4.5-5.6)
--- NOTE | 2022-05-31 08:10 | Communication Note ---
Date of Service: May 31, 2022 Patient on the floor developed generalized erythematous rash given iv benadryl and solumderol one dose, also his home Benadryl cream applied. Improving. Patient has hx of Hepatitis B surface antigen positive.
[2022-05-31] MEDS: FOLIC ACID 1 MG TAB PO SCH (08:33)
[2022-05-31] MEDS: MECLIZINE HCL 25 MG TAB PO SCH ×3 (08:33→20:27)
[2022-05-31] MEDS: METOPROLOL SUCC 25MG EXT REL TAB PO SCH ×2 (08:33→20:27)
[2022-05-31] MEDS: PANTOprazole 40 MG TAB PO SCH (08:33)
[2022-05-31] MEDS: DOCUSATE SODIUM/SENNA 50/8.6MG TAB PO SCH (08:34)
[2022-05-31] MEDS: AMIODARONE 200 MG TAB PO SCH ×2 (08:34→17:48)
[2022-05-31] MEDS: APIXABAN 5 MG TABLET PO SCH ×2 (08:34→20:27)
[2022-05-31] MEDS: DOCUSATE SODIUM 100 MG CAP PO SCH ×2 (08:34→20:27)
[2022-05-31] MEDS: ATORVASTATIN 20 MG TAB PO SCH (08:34)
[2022-05-31] MEDS: diphenhydrAMINE Capsule 25 MG CAP PO PRN (08:59)
[2022-05-31] MEDS ORDERED: methylPREDNISolone 40 MG in SYRINGE 0 ML IV ONE (09:30)
[2022-05-31 09:52] LABS: Basophils # (auto) 0.03 K/uL (0-0.2); Basophils % (auto) 0.6 %; Eosinophils # (auto) 0.22 K/uL (0-0.50); Eosinophils % (auto) 4.4 %; Immature Granulocytes # (auto) 0.03 K/uL (0.01-0.20); Immature Granulocytes % (auto) 0.6 %; Lymphocytes # (auto) 0.38 K/uL (1.2-3.4); Lymphocytes % (auto) 7.6 %; Monocytes # (auto) 0.36 K/uL (0.11-0.59); Monocytes % (auto) 7.2 %; Neutrophils # (auto) 4.01 K/uL (1.40-6.50); Neutrophils % (auto) 79.6 %
[2022-05-31] MEDS: SODIUM CHLORIDE 0.9% 1000ML 1,000 ML IV SCH (12:26)
--- NOTE | 2022-05-31 13:44 | Electrocardiogram Report ---
Test Reason : Blood Pressure : / mmHG Vent. Rate : 060 BPM Atrial Rate : 060 BPM P-R Int : 208 ms QRS Dur : 124 ms QT Int : 456 ms P-R-T Axes : 075 002 009 degrees QTc Int : 456 ms Poor data quality, interpretation may be adversely affected Normal sinus rhythm Right bundle branch block Minor Nonspecific T wave abnormality Anterior leads Abnormal ECG When compared with ECG of 22-MAY-2022 09:24, Premature ventricular complexes are no longer Present Nonspecific T wave abnormality now evident in Anterior leads Confirmed by Demond Dinh ([id number]) on 05/31/2022 10:52:42 AM Referred By: [facility] Confirmed By:Demond Dinh
[2022-05-31] MEDS: ACETAMINOPHEN 500 MG TAB PO PRN (14:46)
--- NOTE | 2022-05-31 15:16 | Hospitalist Progress Note ---
Date of Service May 31, 2022 Assessment & Plan (1) Dizziness: Plan: Patient is a 72 yr male who presents with stroke like symptoms Stroke-like symptoms/Dizziness H/O subarachnoid hemorrhage, CVA Presents with left sided weakness and numbness --Head CT: No acute territorial infarct or midline shift identified. Trace residual subarachnoid hemorrhage within the superior right frontal lobe is similar to the 05/24/2022 exam. Expected evolution of the small subacute infarcts of the right cerebral hemisphere. --Head/Neck CTA: No acute territorial infarct or midline shift identified. No aneurysm, dissection, high-grade stenosis or new arterial occlusion. Trace residual subarachnoid hemorrhage within the superior right frontal lobe is similar to the 05/24/2022 exam. Expected evolution of the small subacute infarcts of the right cerebral hemisphere. Pulmonary emphysema with pulmonary metastasis redemonstrated along with pathologic mediastinal lymphadenopathy. --Refused MRI due to claustrophobia --Check Orthostatics --Speech/PT/OT eval --PT recommends Rehab -- Neurology consulted Continue Eliquis, Lipitor Fall precautions We will repeat CT head tomorrow Continue IV fluids Possible Allergic Reaction ? Due to Contrast Rash resolved Received Solu-Medrol, Benadryl Monitor Stage IV Adenocarcinoma of lung: Chemo as per hem/onc Anemia of Chronic Disease No acute bleeding issues Monitor CBC Recent subarachnoid hemorrhage: Imaging studies not suggestive of any acute issues Constipation: Laxatives as needed Atrial fibrillation: Continue amiodarone, metoprolol, Eliquis. Hypertension: BP Variable Continue Metoprolol DM II HbA1c 6.4 Continue ISS Monitor BGs DVT Px: Eliquis Code status: DNI/DNR: as per my discussion with patient and patient's Son Admission and Anticipated Discharge Date Admission Date: May 30, 2022 Subjective Patient is seen and examined at bedside States having dizziness and left-sided weakness, ambulatory dysfunction Refuses MRI due to claustrophobia Denies any chest pain, shortness of breath, nausea, abdominal pain Discussed with patient's family at bedside Review of Systems Review of Systems: All systems reviewed & are unremarkable except as noted in Subjective Physical Exam Physical Exam: Physical Exam: Vitals signs as noted above General Appearance:Moderately built and nourished, no apparent distress Head: normocephalic, Atraumatic Eyes: normal inspection, EOMI Neck: supple, Trachea midline Respiratory/Chest: Normal breath sounds, CTA, No accessory muscle use Cardiovascular: S1, S2, No murmur Abdomen/GI:Soft, Non tender, Bowel sounds present Extremities/Musculoskeletal:normal inspection, no edema Neurologic/Psych:AAOX3, Left LE 3-4/5, Otherwise no focal deficits Skin: normal color, warm Results & Data Results & Data ([facility]) Vital Signs (Past 12 Hours) Vital Signs Temp Pulse Pulse Resp BP Pulse Ox O2 Del Method 05/31/22 11:17 36.6 C 60 19 105/64 93 Nasal Cannula 05/31/22 07:59 Nasal Cannula 05/31/22 07:43 36.7 C 67 18 138/72 93 Nasal Cannula 05/31/22 07:17 62 05/31/22 03:20 36.7 C 64 20 121/61 90 Nasal Cannula O2 Flow Rate 05/31/22 11:17 1 05/31/22 07:59 2 05/31/22 07:43 1 05/31/22 07:17 05/31/22 03:20 2 Laboratory Results Short CBC 05/30/22 05/31/22 Range/Units 18:10 05:47 WBC 5.27 5.08 (4.8-10.8) K/ul Hgb 9.8 L 11.1 L (14.0-18.0) g/dl Hct 29.9 L 33.9 L (42.0-52.0) % Plt Count 234 241 (130-400) K/uL BMP 05/30/22 05/31/22 18:10 05:47 Sodium 136 139 Potassium 3.2 L 3.8 Chloride 102 107 Carbon Dioxide 30 28 BUN 19 13 Creatinine 0.86 0.86 Glucose 151 H 154 H Calcium 8.0 L 9.0 Liver Function 05/30/22 Range/Units 18:10 Total Bilirubin 0.5 (0.2-1.0) mg/dl AST 18 (13-39) U/L ALT 19 (7-52) U/L Alkaline Phosphatase 67 (34-104) U/L Albumin 3.0 L (3.4-5.0) gm/dl Urine 05/30/22 Range/Units 19:25 Urine Color Yellow Urine Appearance Clear (Clear) Urine pH 6.0 (4.5-7.5) Ur Specific [place] > 1.045 H (1.000-1.030) Urine Protein Negative (Negative) Urine Glucose (UA) Negative (Negative)
--- NOTE | 2022-05-31 15:47 | Neurology Consultation ---
Date of Consultation May 31, 2022 Assessment & Plan (1) Dizziness: Impression: The patient experience dizziness, vertiginous symptoms, with nausea and left-sided weakness with paresthesia, and was brought to emergency department yesterday. Head CT was negative for acute pathology. The patient feels better today, with mostly improved vertiginous symptoms. He is still feels somewhat dizzy, after standing up which lasts only for seconds. Recommendations/plan: Rule out orthostatic hypotension. Bronaugh-Hallpike maneuver is negative to suggest benign paroxysmal positional vertigo. Recrudescence of recent stroke symptoms is likely. The patient refused brain MRI. Repeat head CT with and without contrast tomorrow. Continue on Eliquis for stroke prevention. Physical therapy and Occupational Therapy. There is no indication for additional stroke work-up at this time. (2) Nausea: Impression: Mostly improved. (3) Subarachnoid hemorrhage: Impression: During last hospitalization, the patient had small subarachnoid hemorrhage. The patient was eventually started on Eliquis again, based on stable subarachnoid hemorrhage as seen in head CT's. Repeat head CT yesterday did not show any enlargement either. (4) Atrial fibrillation with RVR: Impression: The patient has been on Eliquis for paroxysmal atrial fibrillation. Risks and rapid ventricular rate was reported. Rate has been well controlled currently. (5) Adenocarcinoma of lung, stage 4: Impression: The patient received chemotherapy but second treatment is postponed due to recent cerebrovascular accident. (6) Embolic stroke: Impression: Hearing loss hospitalization, imaging studies showed multiple, bihemispheric cerebrovascular accidents, highly suggestive of cardioembolic mechanism. The patient also has stage IV adenocarcinoma, which might cause hypercoagulable state. Recommendations/plan: Continue on Eliquis 5 mg twice a day. History of Present Illness Reason for Consultation: Stroke like symptoms Requesting Physician: Justo Corley MD Attending Physician: Justo Corley MD History of Present Illness The patient is a 72-year-old gentleman, who was recently diagnosed with stage IV adenocarcinoma of the lung, and was hospitalized for embolic stroke as well as subarachnoid hemorrhage, and was discharged to rehab 6 days ago, who was brought to emergency department yesterday, after the patient experienced dizziness, vertiginous symptoms, nausea, and left-sided weakness with paresthesia. Left- sided weakness and paresthesia were mostly resolved when he arrived to the emergency department. Head CT without contrast did not show acute intracranial pathology including intracranial hemorrhage. There was small subarachnoid hemorrhage, which has not been changed since the last visit. CT angiogram of head and neck did not show hemodynamically significant stenosis. The patient reports feeling better today without dizziness, vertiginous symptoms, and he believes that his left sided weakness and numbness has been improved. The patient complains of bilateral lower extremity proximal leg weakness, but otherwise, his neurological examination is nonfocal currently. Brain MRI was planned, but the patient refused because of his experience of claustrophobia during prior brain MRI. He did not want anesthesia for MRI. Laboratory work-up did not show thrombocytopenia, or evidence of infectious process. The patient is in agreement with repeat head CT with and without contrast. The patient was hospitalized recently, after having stroke symptoms, and was started on heparin infusion based on findings of splenic and renal infarcts. Unfortunately, head CT showed subarachnoid hemorrhage next day, and anticoagulants were stopped as well as aspirin. With repeated head CT findings of stable small subarachnoid hemorrhage, the patient was eventually started on Eliquis again, based on brain MRI findings of bihemispheric, several embolic s trokes. The patient has history of atrial fibrillation. The patient was having thrombocytopenia, which was corrected with thrombocyte solutions prior to restarting on Eliquis. The patient was treated on chemotherapy but second therapy was postponed due to recent cerebrovascular accident. The patient was discharged to rehab and he was cooperating with therapy. However, he reports that his leg strength has not been improved back to his baseline even with rehabilitation. I have reviewed the patient's chart including imaging studies and visualized them personally. I have discussed the case with the patient and family and answered their questions in detail. Allergies Allergy/AdvReac Type Severity Reaction Status Date / Time melatonin Allergy Intermediate Rash Verified 05/30/22 18:41 Home Medications Medication Instructions Recorded Confirmed Type albuterol sulfate 90 mcg/actuation 2 puff inhalation Q4H PRN 05/01/22 05/30/22 History aerosol inhaler Shortness Of Breath Or Wheezing apixaban 5 mg tablet (Eliquis) 5 mg PO BID 30 days #60 tabs 05/06/22 05/30/22 Rx folic acid 1 mg tablet 1 mg PO QAM 30 days #30 tabs 05/06/22 05/30/22 Rx metoprolol succinate 25 mg 12.5 mg PO BID 30 days #30 tabs 05/06/22 05/30/22 Rx tablet,extended release 24 hr amiodarone 200 mg tablet 200 mg PO BIDM 30 days #60 tabs 05/25/22 05/30/22 Rx atorvastatin 20 mg tablet 20 mg PO QAM 30 days #30 tabs 05/25/22 05/30/22 Rx diclofenac sodium 1 % topical gel 2 g EXT BID PRN pain #50 grams 05/25/22 05/30/22 Rx (Voltaren Arthritis Pain) pantoprazole 40 mg tablet,delayed 40 mg PO QAM 30 days #30 tabs 05/25/22 05/30/22 Rx release sennosides 8.6 mg-docusate sodium 1 tab PO QAM 30 days #30 tabs 05/25/22 05/30/22 Rx 50 mg tablet (Senokot-S) acetaminophen 325 mg tablet 650 mg PO Q4H PRN Pain (Scale 05/30/22 05/30/22 History (Tylenol) Score 1-3) diphenhydramine HCl 2 % topical 1 applic topical Q6H PRN Itching 05/30/22 05/30/22 History gel (Benadryl) diphenhydramine HCl 25 mg capsule 50 mg PO Q6H PRN Itching 05/30/22 05/30/22 History (Benadryl) docusate sodium 100 mg capsule 100 mg PO BID 05/30/22 05/30/22 History insulin regular human 100 unit/mL 1 sliding scale dose subcut ACHS 05/30/22 05/30/22 History injection solution (Humulin R Regular U-100 Insulin) lorazepam 0.5 mg tablet 0.5 mg PO DAILY PRN Anxiety 05/30/22 05/30/22 History magnesium hydroxide 400 mg/5 mL 30 ml PO DAILY PRN Constipation 05/30/22 05/30/22 History oral suspension (Milk of Magnesia) meclizine 25 mg tablet 50 mg PO TID 05/30/22 05/30/22 History polyethylene glycol 3350 17 gram 17 g PO QDL PRN constipation 05/30/22 05/30/22 History oral powder packet (Miralax) sennosides 8.6 mg-docusate sodium 1 tab-cap PO QDL PRN Constipation 05/30/22 05/30/22 History 50 mg tablet (Senokot-S) Patient History Medical History 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 Advanced care planning/counseling discussion Cancer related pain Dyspnea and respiratory abnormalities Palliative care encounter Social History Smoking Status: Former smoker Tobacco Type: Cigarettes Second Hand Exposure: No; Do You Dip or Chew Tobacco: No; Tobacco Cessation Education Requested by Patient: No Hx Alcohol Use: No Hx Substance Use: No Preferred Language: Scottish Communication Ability: Effective Machine Worker Required: No Beliefs That Will Affect Care: Quaker Current Living Situation: Rehab Other Information That Helps Us Care for You: No Feels Safe at Home: Yes Safety Concerns: Feels Safe At This Time Assistive Devices: None Review of Systems Review of Systems: All systems reviewed & are unremarkable except as noted in HPI & below Physical Exam Physical Exam: General Examination: Constitutional: Well developed person in no acute distress. HENT: Normal exam with inspection. CV: Hearth rhythm is irregular. Neck: Supple, no carotid bruits. Lungs: Non-labored and comfortable breathing. Abdomen: Soft, non-tender, non-distended. Skin: No rash or ecchymosis. Extremities: No edema or cyanosis NEUROLOGICAL EXAMINATION: Mental Status: Alert and oriented to place, person and time. Cranial Nerves: II-XII are intact. No nystagmus. Funduscopy: Normal looking optic discs. Motor: 5/5 in all extremities without asymmetry except bilateral hip flexors are 4/5. Tone: Normal without spasticity or rigidity. Sensory: Decreased sensation in feet. Coordination: No dysmetria with FTN testing. Speech: Fluent. Comprehension is intact. Gait: He can walk with walker. No obvious ataxia. DTRs: 2+ in upper and 1+ in lower extremities. +/- left Babinsky. Pat Hallpike: Negative bilaterally. Results & Data ([facility]) Vital Signs (Past 12 Hours) Vital Signs Temp Pulse Pulse Resp BP Pulse Ox O2 Del Method 05/31/22 11:17 36.6 C 60 19 105/64 93 Nasal Cannula 05/31/22 07:59 Nasal Cannula 05/31/22 07:43 36.7 C 67 18 138/72 93 Nasal Cannula 05/31/22 07:17 62 O2 Flow Rate 05/31/22 11:17 1 05/31/22 07:59 2 05/31/22 07:43 1 05/31/22 07:17 Laboratory Results Laboratory Results - last 24 hr 05/30/22 05/30/22 05/30/22 18:10 18:10 18:10 WBC 5.27 RBC 3.37 L Hgb 9.8 L Hct 29.9 L MCV 88.7 MCH 29.1 MCHC 32.8 RDW Std Deviation 45.2 RDW Coeff of Dean 14.2 Plt Count 234 MPV 9.7 Immature Gran % (Auto) 0.9 Neut % (Auto) 74.7 Lymph % (Auto) 10.4 [place] % (Auto) 10.2 Eos % (Auto) 3.4 Baso % (Auto) 0.4 Neut # (Auto) 3.93 Lymph # (Auto) 0.55 L [place] # (Auto) 0.54 Eos # (Auto) 0.18 Baso # (Auto) 0.02 Immature Gran # (Auto) 0.05 PT 12.5 H INR 1.2 H APTT 23.4 PTT Ratio 0.9 Sodium Potassium Chloride Carbon Dioxide Anion Gap BUN Creatinine Est Cr Clr Drug Dosing Est GFR ( Amer) Est GFR (Non-Af Amer) BUN/Creatinine Ratio Glucose POC Glucose Estimat Average Glucose Hemoglobin A1c Calcium Magnesium Total Bilirubin AST ALT Alkaline Phosphatase Troponin I High Sens Total Protein Albumin Globulin Albumin/Globulin Ratio Triglycerides Cholesterol LDL Cholesterol, Calc VLDL Cholesterol, Calc HDL Cholesterol Cholesterol/HDL Ratio Urine Color Urine Appearance Urine pH Ur Specific [place] Urine Protein Urine Glucose (UA) Urine Ketones Urine Blood Urine Nitrite Urine Bilirubin Urine Urobilinogen Ur Leukocyte Esterase SARS-CoV-2, RNA, NAAT Blood Type O Positive Antibody Screen NEGATIVE 05/30/22 05/30/22 05/30/22 18:10 18:10 18:13 WBC RBC Hgb Hct MCV MCH MCHC RDW Std Deviation RDW Coeff of Dean Plt Count MPV Immature Gran % (Auto) Neut % (Auto) Lymph % (Auto) [place] % (Auto) Eos % (Auto) Baso % (Auto) Neut # (Auto) Lymph # (Auto) [place] # (Auto) Eos # (Auto) Baso # (Auto) Immature Gran # (Auto) PT INR APTT PTT Ratio Sodium 136 Potassium 3.2 L Chloride 102 Carbon Dioxide 30 Anion Gap 4 BUN 19 Creatinine 0.86 Est Cr Clr Drug Dosing 75.7 Est GFR ( Amer) 99.7 Est GFR (Non-Af Amer) 86.0 BUN/Creatinine Ratio 22.1 H Glucose 151 H POC Glucose 142 H Estimat Average Glucose 160 Hemoglobin A1c 7.2 H Calcium 8.0 L Magnesium 1.5 L Total Bilirubin 0.5 AST 18 ALT 19 Alkaline Phosphatase 67 Troponin I High Sens 17.7 Total Protein 5.6 L Albumin 3.0 L Globulin 2.6 Albumin/Globulin Ratio 1.2 Triglycerides Cholesterol LDL Cholesterol, Calc VLDL Cholesterol, Calc HDL Cholesterol Cholesterol/HDL Ratio Urine Color Urine Appearance Urine pH Ur Specific [place] Urine Protein Urine Glucose (UA) Urine Ketones Urine Blood Urine Nitrite Urine Bilirubin Urine Urobilinogen Ur Leukocyte Esterase SARS-CoV-2, RNA, NAAT Blood Type Antibody Screen 05/30/22 05/30/22 05/31/22 19:25 19:30 00:13 WBC RBC Hgb Hct MCV MCH MCHC RDW Std Deviation RDW Coeff of Dean Plt Count MPV Immature Gran % (Auto) Neut % (Auto) Lymph % (Auto) [place] % (Auto) Eos % (Auto) Baso % (Auto) Neut # (Auto) Lymph # (Auto) [place] # (Auto) Eos # (Auto) Baso # (Auto) Immature Gran # (Auto) PT INR APTT PTT Ratio Sodium Potassium Chloride Carbon Dioxide Anion Gap BUN Creatinine Est Cr Clr Drug Dosing Est GFR ( Amer) Est GFR (Non-Af Amer) BUN/Creatinine Ratio Glucose POC Glucose 151 H Estimat Average Glucose Hemoglobin A1c Calcium Magnesium Total Bilirubin AST ALT Alkaline Phosphatase Troponin I High Sens Total Protein Albumin Globulin Albumin/Globulin Ratio Triglycerides Cholesterol LDL Cholesterol, Calc VLDL Cholesterol, Calc HDL Cholesterol Cholesterol/HDL Ratio Urine Color Yellow Urine Appearance Clear Urine pH 6.0 Ur Specific [place] > 1.045 H Urine Protein Negative Urine Glucose (UA) Negative Urine Ketones Negative Urine Blood Negative Urine Nitrite Negative Urine Bilirubin Negative Urine Urobilinogen Negative Ur Leukocyte Esterase Negative SARS-CoV-2, RNA, NAAT NEGATIVE Blood Type Antibody Screen 05/31/22 05/31/22 05/31/22 05:47 05:47 05:47 WBC 5.08 RBC 3.84 L Hgb 11.1 L Hct 33.9 L MCV 88.3 MCH 28.9 MCHC 32.7 RDW Std Deviation 45.6 RDW Coeff of Dean 14.4 Plt Count 241 MPV 9.8 Immature Gran % (Auto) 0.6 Neut % (Auto) 79.6 Lymph % (Auto) 7.6 [place] % (Auto) 7.2 Eos % (Auto) 4.4 Baso % (Auto) 0.6 Neut # (Auto) 4.01 Lymph # (Auto) 0.38 L [place] # (Auto) 0.36 Eos # (Auto) 0.22 Baso # (Auto) 0.03 Immature Gran # (Auto) 0.03 PT INR APTT PTT Ratio Sodium 139 Potassium 3.8 Chloride 107 Carbon Dioxide 28 Anion Gap 4 BUN 13 Creatinine 0.86 Est Cr Clr Drug Dosing 81.5 Est GFR ( Amer) 99.7 Est GFR (Non-Af Amer) 86.0 BUN/Creatinine Ratio 15.1 Glucose 154 H POC Glucose Estimat Average Glucose Hemoglobin A1c Calcium 9.0 Magnesium 2.0 Cancelled Total Bilirubin AST ALT Alkaline Phosphatase Troponin I High Sens Total Protein Albumin Globulin Albumin/Globulin Ratio Triglycerides 95 Cholesterol 102 LDL Cholesterol, Calc 43 VLDL Cholesterol, Calc 19 HDL Cholesterol 40 Cholesterol/HDL Ratio 2.6 Urine Color Urine Appearance Urine pH Ur Specific [place] Urine Protein Urine Glucose (UA) Urine Ketones Urine Blood Urine Nitrite Urine Bilirubin Urine Urobilinogen Ur Leukocyte Esterase SARS-CoV-2, RNA, NAAT Blood Type Antibody Screen 05/31/22 05/31/22 07:42 11:45 WBC RBC Hgb Hct MCV MCH MCHC RDW Std Deviation RDW Coeff of Dean Plt Count MPV Immature Gran % (Auto) Neut % (Auto) Lymph % (Auto) [place] % (Auto) Eos % (Auto) Baso % (Auto) Neut # (Auto) Lymph # (Auto) [place] # (Auto) Eos # (Auto) Baso # (Auto) Immature Gran # (Auto) PT INR APTT PTT Ratio Sodium Potassium Chloride Carbon Dioxide Anion Gap BUN Creatinine Est Cr Clr Drug Dosing Est GFR ( Amer) Est GFR (Non-Af Amer) BUN/Creatinine Ratio Glucose POC Glucose 183 H 234 H Estimat Average Glucose Hemoglobin A1c Calcium Magnesium Total Bilirubin AST ALT Alkaline Phosphatase Troponin I High Sens Total Protein Albumin Globulin Albumin/Globulin Ratio Triglycerides Cholesterol LDL Cholesterol, Calc VLDL Cholesterol, Calc HDL Cholesterol Cholesterol/HDL Ratio Urine Color Urine Appearance Urine pH Ur Specific [place] Urine Protein Urine Glucose (UA) Urine Ketones Urine Blood Urine Nitrite Urine Bilirubin Urine Urobilinogen Ur Leukocyte Esterase SARS-CoV-2, RNA, NAAT Blood Type Antibody Screen Diagnostic Findings Chest X-Ray 05/30/22 17:48 XR chest 1V portable HISTORY: 72 years-old Male weakness acute weakness COMPARISON: CTA chest 05/01/2022, chest radiograph 05/19/2022 TECHNIQUE: AP view of the chest FINDINGS: Emphysema with chronic interstitial coarsening. Stable appearance of the pulmonary metastasis. Probable trace pleural effusions. Cardiomegaly. No pneumothorax. Bilateral hilar lymphadenopathy again noted. Bones appear grossly intact. IMPRESSION: 1. Emphysema without acute process. 2. Pathologic hilar lymphadenopathy with pulmonary metastatic disease redemonstrated. ACT 112: Negative or not required by law. The above report was generated using voice recognition software. It may contain grammatical, syntax or spelling errors. Electronically signed by: Emmanuel Montanez M.D. 05/30/2022 6:[address] 05/30/22 17:48 CT head/brain wo con CLINICAL HISTORY: 72 years-old Male with neuro deficit, acute stroke suspected. Acute strokelike symptoms TECHNIQUE: Multiple axial CT images of the head were obtained without contrast. A dose lowering technique was utilized adhering to the principles of ALARA. CT DOSE: 989.14 mGy.cm COMPARISON: May 24, 2022, brain MRI 05/20/2022 FINDINGS: There is no midline shift, intracranial mass, hydrocephalus, territorial ischemia or abnormal extra-axial collection. Trace residual subarachnoid hemorrhage within the superior right frontal lobe on image 21 series 2. Involutional changes with chronic microvascular ischemic disease. Expected evolution of the subacute scattered tiny infarcts within the right cerebral hemisphere. The calvarium is intact. Small right mastoid effusion. Left mastoid air cells are clear. Mild mucosal thickening of the right maxillary sinus with volume loss. IMPRESSION: 1. No acute territorial infarct or midline shift identified. 2. Trace residual subarachnoid hemorrhage within the superior right frontal lobe is similar to the 05/24/2022 exam. 3. Expected evolution of the small subacute infarcts of the right cerebral hemisphere. ACT 112: Negative or not required by law. The above report was generated using voice recognition software. It may contain grammatical, syntax or spelling errors. Electronically signed by: Emmanuel Montanez M.D. 05/30/2022 6:10 PM Head CTA 05/30/22 17:48 CT angio head w con, CT angio neck with con CLINICAL HISTORY: 72 years-old Male with neuro deficit, acute stroke suspected. Acute strokelike symptoms COMPARISON STUDY: Head CT of same day and also 05/24/2022, brain MRI 05/20/2022 TECHNIQUE: Following the IV administration of 111 cc of Optiray, CT angiogram of the head and neck was performed from the skull base to the vertex. Images are reviewed in the axial, sagittal, and coronal planes. 3-D MIPS images are created and assessed. IV contrast was administered without complication. All measurements were obtained according to NASCET criteria. A dose lowering technique was utilized adhering to the principles of ALARA. FINDINGS: CT ANGIOGRAM OF THE HEAD AND NECK: Three-vessel morphology of the thoracic aortic arch. Patency of the innominate and imaged subclavian arteries. Common carotid arteries are patent. Moderate atherosclerotic plaque of the left carotid bulb and proximal left ICA without significant stenosis. The middle cerebral arteries are patent bilaterally. There is a branch of the A2 segment left anterior cerebral artery on image 166 series 5 which appears to demonstrate focal narrowing/cut off and is similar to the prior study. The vertebrobasilar system and posterior cerebral arteries are widely patent. origin of the left posterior cerebral artery. There is no aneurysm, high-grade stenosis, or proximal branch occlusion identified. Dural sinuses appear patent. Trace residual subarachnoid hemorrhage within the superior right frontal lobe on image 21 series 2. Involutional changes with chronic microvascular ischemic disease. Expected evolution of the subacute scattered tiny infarcts within the right cerebral hemisphere. The calvarium is intact. Small right mastoid effusion. Left mastoid air cells are clear. Mild mucosal thickening of the right maxillary sinus with volume loss. The previously questioned age-indeterminate tiny pulmonary embolus within the right upper lobe is not well visualized on today's exam. Emphysema with pulmonary metastatic disease again noted. Calcification of the left thyroid. Pathologic tracheoesophageal adenopathy measuring up to 1.5 cm. IMPRESSION: 1. No acute territorial infarct or midline shift identified. 2. No aneurysm, dissection, high-grade stenosis or new arterial occlusion. 3. Trace residual subarachnoid hemorrhage within the superior right frontal lobe is similar to the 05/24/2022 exam. 4. Expected evolution of the small subacute infarcts of the right cerebral hemisphere. 5. Pulmonary emphysema with pulmonary metastasis redemonstrated along with pathologic mediastinal lymphadenopathy. ACT 112: Negative or not required by law. The above report was generated using voice recognition software. It may contain grammatical, syntax or spelling errors. Electronically signed by: Emmanuel Montanez M.D. 05/30/2022 6:25 PM Neck CTA 05/30/22 17:48 CT angio head w con, CT angio neck with con CLINICAL HISTORY: 72 years-old Male with neuro deficit, acute stroke suspected. Acute strokelike symptoms COMPARISON STUDY: Head CT of same day and also 05/24/2022, brain MRI 05/20/2022 TECHNIQUE: Following the IV administration of 111 cc of Optiray, CT angiogram of the head and neck was performed from the skull base to the vertex. Images are reviewed in the axial, sagittal, and coronal planes. 3-D MIPS images are created and assessed. IV contrast was administered without complication. All measureme nts were obtained according to NASCET criteria. A dose lowering technique was utilized adhering to the principles of ALARA. FINDINGS: CT ANGIOGRAM OF THE HEAD AND NECK: Three-vessel morphology of the thoracic aortic arch. Patency of the innominate and imaged subclavian arteries. Common carotid arteries are patent. Moderate atherosclerotic plaque of the left carotid bulb and proximal left ICA without significant stenosis. The middle cerebral arteries are patent bilaterally. There is a branch of the A2 segment left anterior cerebral artery on image 166 series 5 which appears to demonstrate focal narrowing/cut off and is similar to the prior study. The vertebrobasilar system and posterior cerebral arteries are widely patent. origin of the left posterior cerebral artery. There is no a neurysm, high-grade stenosis, or proximal branch occlusion identified. Dural sinuses appear patent. Trace residual subarachnoid hemorrhage within the superior right frontal lobe on image 21 series 2. Involutional changes with chronic microvascular ischemic disease. Expected evolution of the subacute scattered tiny infarcts within the right cerebral hemisphere. The calvarium is intact. Small right mastoid effusion. Left mastoid air cells are clear. Mild mucosal thickening of the right maxillary sinus with volume loss. The previously questioned age-indeterminate tiny pulmonary embolus within the right upper lobe is not well visualized on today's exam. Emphysema with pulmonary metastatic disease again noted. Calcification of the left thyroid. Pathologic tracheoesophageal adenopathy measuring up to 1.5 cm.
[2022-05-31] MEDS: LORazepam 0.5 MG TAB PO PRN (21:10)
[2022-06-01] MEDS: diphenhydrAMINE Capsule 25 MG CAP PO PRN ×2 (02:15→20:16)
[2022-06-01 06:36] LABS: Basophils # (auto) 0.04 K/uL (0-0.2); Basophils % (auto) 0.5 %; Eosinophils # (auto) 0.09 K/uL (0-0.50); Eosinophils % (auto) 1.2 %; Hematocrit (blood only) 31.4 % (42.0-52.0); Hemoglobin 10.1 g/dl (14.0-18.0); Immature Granulocytes # (auto) 0.05 K/uL (0.01-0.20); Immature Granulocytes % (auto) 0.6 %; Lymphocytes # (auto) 0.71 K/uL (1.2-3.4); Lymphocytes % (auto) 9.1 %; Mean Corpuscular Hgb Conc 32.2 g/dL (32.0-36.0); Mean Corpuscular Volume 90.2 fL (80.0-100.0); Mean Platelet Volume 9.9 fL (9.4-12.4); Monocytes # (auto) 0.84 K/uL (0.11-0.59); Monocytes % (auto) 10.8 %; Neutrophils # (auto) 6.08 K/uL (1.40-6.50); Neutrophils % (auto) 77.8 %; Platelet Count 242 K/uL (130-400); RDW Coefficient of Variation 14.4 % (11.5-14.5); RDW Standard Deviation 46.9 fL (36.4-46.3); Red Blood Count 3.48 M/uL (4.70-6.10); White Blood Count 7.81 K/ul (4.8-10.8)
[2022-06-01 06:42] LABS: BUN Creatinine Ratio 22.8 (10-20); Calcium 8.1 mg/dl (8.5-10.1); Creatinine Clr Calc Pharmacy 76.2 ml/min; Est GFR (African American) 95.3 ml/min; Est GFR (Non-African American) 82.2 ml/min; Magnesium 1.6 mg/dl (1.7-2.4)
--- NOTE | 2022-06-01 07:14 | CT Scan Report ---
CT head/brain wo con CLINICAL HISTORY: 72 years-old Male with Stroke like symptoms. Acute strokelike symptoms TECHNIQUE: Multiple axial CT images of the head were obtained without contrast. A dose lowering tech nique was utilized adhering to the principles of ALARA. CT DOSE: 638.56 mGycm COMPARISON: Head CT 05/30/2022, brain MRI 05/20/2022 FINDINGS: There is no midline shift, intracranial mass, hydrocephalus, territorial ischemia or abnormal extra-a xial collection. Trace residual subarachnoid hemorrhage within the superior right frontal lobe on w[place] ge 23 series 2 is similar to decreased from prior. Involutional changes with chronic microvascular is chemic disease. Expected evolution of the subacute scattered tiny infarcts within the right cerebral hemisphere. The calvarium is intact. Small right mastoid effusion. Left mastoid air cells are clear. Mild mucosal thickening of the right maxillary sinus with volume loss. IMPRESSION: 1. No acute territorial infarct or midline shift identified. 2. Trace residual subarachnoid hemorrhage within the superior right frontal lobe is similar to slight ly improved from prior. 3. Expected evolution of the small subacute infarcts of the right cerebral hemisphere. ACT 112: Negative or not required by law. The above report was generated using voice recognition software. It may contain grammatical, syntax o r spelling errors. Electronically signed by: Emmanuel Montanez M.D. 06/01/2022 7:12 AM
[2022-06-01] MEDS: INSULIN ASPART PER UNIT SC SCH ×4 (08:36→20:32)
[2022-06-01] MEDS: APIXABAN 5 MG TABLET PO SCH ×2 (09:01→20:06)
[2022-06-01] MEDS: AMIODARONE 200 MG TAB PO SCH ×2 (09:01→17:53)
[2022-06-01] MEDS: ATORVASTATIN 20 MG TAB PO SCH (09:02)
[2022-06-01] MEDS: DOCUSATE SODIUM 100 MG CAP PO SCH ×2 (09:02→20:06)
[2022-06-01] MEDS: MECLIZINE HCL 25 MG TAB PO SCH ×3 (09:02→20:07)
[2022-06-01] MEDS: FOLIC ACID 1 MG TAB PO SCH (09:02)
[2022-06-01] MEDS: PANTOprazole 40 MG TAB PO SCH (09:03)
[2022-06-01] MEDS: METOPROLOL SUCC 25MG EXT REL TAB PO SCH ×2 (09:03→20:06)
[2022-06-01] MEDS: DOCUSATE SODIUM/SENNA 50/8.6MG TAB PO SCH (09:21)
[2022-06-01] MEDS: ACETAMINOPHEN 500 MG TAB PO PRN ×2 (09:21→20:16)
[2022-06-01] MEDS ORDERED: MAGNESIUM SULFATE / D5W 1 GM/100 ML BAG IV ONE (09:44)
--- NOTE | 2022-06-01 17:42 | Hospitalist Progress Note ---
Date of Service June 01, 2022 Assessment & Plan (1) Dizziness: Plan: Patient is a 72 yr male who presents with stroke like symptoms Stroke-like symptoms/Dizziness H/O subarachnoid hemorrhage, CVA Presents with left sided weakness and numbness --Head CT: No acute territorial infarct or midline shift identified. Trace residual subarachnoid hemorrhage within the superior right frontal lobe is similar to the 05/24/2022 exam. Expected evolution of the small subacute infarcts of the right cerebral hemisphere. --Head/Neck CTA: No acute territorial infarct or midline shift identified. No aneurysm, dissection, high-grade stenosis or new arterial occlusion. Trace residual subarachnoid hemorrhage within the superior right frontal lobe is similar to the 05/24/2022 exam. Expected evolution of the small subacute infarcts of the right cerebral hemisphere. Pulmonary emphysema with pulmonary metastasis redemonstrated along with pathologic mediastinal lymphadenopathy. --Refused MRI due to claustrophobia - Orthostatics normal --Repeat CT head: No acute territorial infarct or midline shift identified. Trace residual subarachnoid hemorrhage within the superior right frontal lobe is similar to slightly improved from prior. Expected evolution of the small subacute infarcts of the right cerebral hemisphere. --Speech/PT/OT eval --PT recommends Rehab --Appreciate Neurology Input Continue Eliquis, Lipitor Fall precautions Hypomagnesemia Replete electrolytes as needed Monitor Possible Allergic Reaction ? Due to Contrast Rash resolved Received Solu-Medrol, Benadryl Monitor Stage IV Adenocarcinoma of lung: Chemo as per hem/onc Anemia of Chronic Disease No acute bleeding issues Monitor CBC Recent subarachnoid hemorrhage: Imaging studies not suggestive of any acute issues Constipation: Laxatives as needed Atrial fibrillation: Continue amiodarone, metoprolol, Eliquis. Hypertension: BP Variable Continue Metoprolol DM II HbA1c 6.4 Continue ISS Monitor BGs DVT Px: Eliquis Code status: DNI/DNR: as per my discussion with patient and patient's Son Admission and Anticipated Discharge Date Admission Date: May 30, 2022 Subjective Patient is seen and examined at bedside States having generalized weakness Less dizziness today Reports headache Had PT eval earlier today Discussed with patient's son over the phone Denies any chest pain, shortness of breath, nausea, abdominal pain Review of Systems Review of Systems: All systems reviewed & are unremarkable except as noted in Subjective Physical Exam Physical Exam: Physical Exam: Vitals signs as noted above General Appearance:Moderately built and nourished, no apparent distress Head: normocephalic, Atraumatic Eyes: normal inspection, EOMI Neck: supple, Trachea midline Respiratory/Chest: Normal breath sounds, CTA, No accessory muscle use Cardiovascular: S1, S2, No murmur Abdomen/GI:Soft, Non tender, Bowel sounds present Extremities/Musculoskeletal:normal inspection, no edema Neurologic/Psych:AAOX3, Left LE 3-4/5, Otherwise no focal deficits Skin: normal color, warm Results & Data Results & Data ([facility]) Vital Signs (Past 12 Hours) Vital Signs Temp Pulse Resp BP Pulse Ox O2 Del Method O2 Flow Rate 06/01/22 16:07 36.8 C 60 19 139/65 95 Room Air 06/01/22 11:05 36.8 C 59 L 19 125/63 95 Nasal Cannula 1 06/01/22 08:00 Nasal Cannula 2 06/01/22 07:20 36.8 C 60 18 123/62 95 Nasal Cannula 1 Laboratory Results Short CBC 06/01/22 Range/Units 05:45 WBC 7.81 (4.8-10.8) K/ul Hgb 10.1 L (14.0-18.0) g/dl Hct 31.4 L (42.0-52.0) % Plt Count 242 (130-400) K/uL BMP 06/01/22 05:45 Sodium 140 Potassium 4.0 Chloride 110 H Carbon Dioxide 28 BUN 21 Creatinine 0.92 Glucose 204 H Calcium 8.1 L
--- NOTE | 2022-06-01 18:13 | Neurology Progress Note ---
Date of Service June 01, 2022 Assessment & Plan (1) Dizziness: Plan: Impression: The patient experience dizziness, vertiginous symptoms, with nausea and left-sided weakness with paresthesia, and was brought to emergency department two days ago. Symptoms have been resolved mostly, other than bilateral leg proximal weakness, and intermittent dizziness. Repeated head CT did not show acute intracranial pathology. Recrudescence of recent stroke symptoms considered a likely explanation of the patient's wrist on the left- sided weakness. Recommendations/plan: Continue on Eliquis and lipitor for stroke prevention. Physical therapy and Occupational Therapy. There is no indication for additional stroke work-up at this time. The patient is neurologically stable to discharge. We will sign off. Please contact neurology again as needed. (2) Nausea: Plan: Impression: Mostly improved. (3) Subarachnoid hemorrhage: Plan: Impression: During last hospitalization, the patient had small subarachnoid hemorrhage. The patient was eventually started on Eliquis again, based on stable subarachnoid hemorrhage as seen in head CT's. Repeat head CT yesterday did not show any enlargement either. (4) Atrial fibrillation with RVR: Plan: Impression: The patient has been on Eliquis for paroxysmal atrial fibrillation. Risks and rapid ventricular rate was reported. Rate has been well controlled currently. (5) Adenocarcinoma of lung, stage 4: Plan: Impression: The patient received chemotherapy but second treatment is postponed due to recent cerebrovascular accident. (6) Embolic stroke: Plan: Impression: Hearing loss hospitalization, imaging studies showed multiple, bihemispheric cerebrovascular accidents, highly suggestive of cardioembolic mechanism. The patient also has stage IV adenocarcinoma, which might cause hypercoagulable state. Recommendations/plan: Continue on Eliquis 5 mg twice a day. Admission and Anticipated Discharge Date Admission Date: May 30, 2022 Subjective The patient reports feeling tired easily, and proximal leg weakness. His dizziness has been resolved mostly. He has no focal neurological deficit currently. Repeat head CT did not show acute pathology. Review of Systems Review of Systems: All systems reviewed & are unremarkable except as noted in Subjective Physical Exam Physical Exam: General Examination: Constitutional: Well developed person in no acute distress. HENT: Normal exam with inspection. CV: Hearth rhythm is irregular. Neck: Supple, no carotid bruits. Lungs: Non-labored and comfortable breathing. Abdomen: Soft, non-tender, non-distended. Skin: No rash or ecchymosis. Extremities: No edema or cyanosis NEUROLOGICAL EXAMINATION: Mental Status: Alert and oriented to place, person and time. Cranial Nerves: II-XII are intact. No nystagmus. Funduscopy: Normal looking optic discs. Motor: 5/5 in all extremities without asymmetry except bilateral hip flexors are 4/5. Tone: Normal without spasticity or rigidity. Sensory: Decreased sensation in feet. Coordination: No dysmetria with FTN testing. Speech: Fluent. Comprehension is intact. Gait: He can walk with walker. No obvious ataxia. DTRs: 2+ in upper and 1+ in lower extremities. +/- left Babinsky. Pat Hallpike: Negative bilaterally. Results & Data ([facility]) Vital Signs (Past 12 Hours) Vital Signs Temp Pulse Resp BP Pulse Ox O2 Del Method O2 Flow Rate 06/01/22 16:07 36.8 C 60 19 139/65 95 Room Air 06/01/22 11:05 36.8 C 59 L 19 125/63 95 Nasal Cannula 1 06/01/22 08:00 Nasal Cannula 2 06/01/22 07:20 36.8 C 60 18 123/62 95 Nasal Cannula 1 Laboratory Results Laboratory Results - last 24 hr 05/31/22 06/01/22 06/01/22 19:47 05:45 05:45 WBC 7.81 RBC 3.48 L Hgb 10.1 L Hct 31.4 L MCV 90.2 MCH 29.0 MCHC 32.2 RDW Std Deviation 46.9 H RDW Coeff of Dean 14.4 Plt Count 242 MPV 9.9 Immature Gran % (Auto) 0.6 Neut % (Auto) 77.8 Lymph % (Auto) 9.1 [place] % (Auto) 10.8 Eos % (Auto) 1.2 Baso % (Auto) 0.5 Neut # (Auto) 6.08 Lymph # (Auto) 0.71 L [place] # (Auto) 0.84 H Eos # (Auto) 0.09 Baso # (Auto) 0.04 Immature Gran # (Auto) 0.05 Sodium 140 Potassium 4.0 Chloride 110 H Carbon Dioxide 28 Anion Gap 2 L BUN 21 Creatinine 0.92 Est Cr Clr Drug Dosing 76.2 Est GFR ( Amer) 95.3 Est GFR (Non-Af Amer) 82.2 BUN/Creatinine Ratio 22.8 H Glucose 204 H POC Glucose 221 H Calcium 8.1 L Magnesium 1.6 L 06/01/22 06/01/22 06/01/22 07:30 11:49 17:01 WBC RBC Hgb Hct MCV MCH MCHC RDW Std Deviation RDW Coeff of Dean Plt Count MPV Immature Gran % (Auto) Neut % (Auto) Lymph % (Auto) Free[place] % (Auto) Eos % (Auto) Baso % (Auto) Neut # (Auto) Lymph # (Auto) Free[place] # (Auto) Eos # (Auto) Baso # (Auto) Immature Gran # (Auto) Sodium Potassium Chloride Carbon Dioxide Anion Gap BUN Creatinine Est Cr Clr Drug Dosing Est GFR ( Amer) Est GFR (Non-Af Amer) BUN/Creatinine Ratio Glucose POC Glucose 165 H 148 H 170 H Calcium Magnesium Diagnostic Findings Chest X-Ray 05/30/22 17:48 XR chest 1V portable HISTORY: 72 years-old Male weakness acute weakness COMPARISON: CTA chest 05/01/2022, chest radiograph 05/19/2022 TECHNIQUE: AP view of the chest FINDINGS: Emphysema with chronic interstitial coarsening. Stable appearance of the pulmonary metastasis. Probable trace pleural effusions. Cardiomegaly. No p neumothorax. Bilateral hilar lymphadenopathy again noted. Bones appear grossly intact. IMPRESSION: 1. Emphysema without acute process. 2. Pathologic hilar lymphadenopathy with pulmonary metastatic disease redemonstrated. ACT 112: Negative or not required by law. The above report was generated using voice recognition software. It may contain grammatical, syntax or spelling errors. Electronically signed by: Emmanuel Montanez M.D. 05/30/2022 6:[address] 05/30/22 17:48 CT head/brain wo con CLINICAL HISTORY: 72 years-old Male with neuro deficit, acute stroke suspected. Acute strokelike symptoms TECHNIQUE: Multiple axial CT images of the head were obtained without contrast. A dose lowering technique was utilized adhering to the principles of ALARA. CT DOSE: 989.14 mGy.cm COMPARISON: May 24, 2022, brain MRI 05/20/2022 FINDINGS: There is no midline shift, intracranial mass, hydrocephalus, territorial ischemia or abnormal extra-axial collection. Trace residual subarachnoid hemorrhage within the superior right frontal lobe on image 21 series 2. Involutional changes with chronic microvascular ischemic disease. Expected niraj lution of the subacute scattered tiny infarcts within the right cerebral hemisphere. The calvarium is intact. Small right mastoid effusion. Left mastoid air cells are clear. Mild mucosal thickening of the right maxillary sinus with volume loss. IMPRESSION: 1. No acute territorial infarct or midline shift identified. 2. Trace residual subarachnoid hemorrhage within the superior right frontal lobe is similar to the 05/24/2022 exam. 3. Expected evolution of the small subacute infarcts of the right cerebral hemisphere. ACT 112: Negative or not required by law. The above report was generated using voice recognition software. It may contain grammatical, syntax or spelling errors. Electronically signed by: Emmanuel Montanez M.D. 05/30/2022 6:10 PM Head CTA 05/30/22 17:48 CT angio head w con, CT angio neck with con CLINICAL HISTORY: 72 years-old Male with neuro deficit, acute stroke suspected. Acute strokelike symptoms COMPARISON STUDY: Head CT of same day and also 05/24/2022, brain MRI 05/20/2022 TECHNIQUE: Following the IV administration of 111 cc of Optiray, CT angiogram of the head and neck was performed from the skull base to the vertex. Images are reviewed in the axial, sagittal, and coronal planes. 3-D MIPS images are created and assessed. IV contrast was administered without complication. All measurements were obtained according to NASCET criteria. A dose lowering technique was utilized adhering to the principles of ALARA. FINDINGS: CT ANGIOGRAM OF THE HEAD AND NECK: Three-vessel morphology of the thoracic aortic arch. Patency of the innominate and imaged subclavian arteries. Common carotid arteries are patent. Moderate atherosclerotic plaque of the left carotid bulb and proximal left ICA without significant stenosis. The middle cerebral arteries are patent bilaterally. There is a branch of the A2 segment left anterior cerebral artery on image 166 series 5 which appears to demonstrate focal narrowing/cut off and is similar to the prior study. The vertebrobasilar system and posterior cerebral arteries are widely patent. origin of the left posterior cerebral artery. There is no aneurysm, high-grade stenosis, or proximal branch occlusion identified. Dural sinuses appear patent. Trace residual subarachnoid hemorrhage within the superior right frontal lobe on image 21 series 2. Involutional changes with chronic microvascular ischemic disease. Expected evolution of the subacute scattered tiny infarcts within the right cerebral hemisphere. The calvarium is intact. Small right mastoid effusion. Left mastoid air cells are clear. Mild mucosal thickening of the right maxillary sinus with volume loss. The previously questioned age-indeterminate tiny pulmonary embolus within the right upper lobe is not well visualized on today's exam. Emphysema with pulmonary metastatic disease again noted. Calcification of the left thyroid. Pathologic tracheoesophageal adenopathy measuring up to 1.5 cm. IMPRESSION: 1. No acute territorial infarct or midline shift identified. 2. No aneurysm, dissection, high-grade stenosis or new arterial occlusion. 3. Trace residual subarachnoid hemorrhage within the superior right frontal lobe is similar to the 05/24/2022 exam. 4. Expected evolution of the small subacute infarcts of the right cerebral hemisphere. 5. Pulmonary emphysema with pulmonary metastasis redemonstrated along with pathologic mediastinal lymphadenopathy. ACT 112: Negative or not required by law. The above report was generated using voice recognition software. It may contain grammatical, syntax or spelling errors. Electronically signed by: Emmanuel Montanez M.D. 05/30/2022 6:25 PM Neck CTA 05/30/22 17:48 CT angio head w con, CT angio neck with con CLINICAL HISTORY: 72 years-old Male with neuro deficit, acute stroke suspected. Acute strokelike symptoms COMPARISON STUDY: Head CT of same day and also 05/24/2022, brain MRI 05/20/2022 TECHNIQUE: Following the IV administration of 111 cc of Optiray, CT angiogram of the head and neck was performed from the skull base to the vertex. Images are reviewed in the axial, sagittal, and coronal planes. 3-D MIPS images are created and assessed. IV contrast was administered without complication. All measurements were obtained according to NASCET criteria. A dose lowering technique was utilized adhering to the principles of ALARA. FINDINGS: CT ANGIOGRAM OF THE HEAD AND NECK: Three-vessel morphology of the thoracic aortic arch. Patency of the innominate and imaged subclavian arteries. Common carotid arteries are patent. Moderate atherosclerotic plaque of the left carotid bulb and proximal left ICA without significant stenosis. The middle cerebral arteries are patent bilaterally. There is a branch of the A2 segment left anterior cerebral artery on image 166 series 5 which appears to demonstrate focal narrowing/cut off and is similar to the prior study. The vertebrobasilar system and posterior cerebral arteries are widely patent. origin of the left posterior cerebral artery. There is no aneurysm, high-grade stenosis, or proximal branch occlusion identified. Dural si nuses appear patent. Trace residual subarachnoid hemorrhage within the superior right frontal lobe on image 21 series 2. Involutional changes with chronic microvascular ischemic disease. Expected evolution of the subacute scattered tiny infarcts within the right cerebral hemisphere. The calvarium is intact. Small right mastoid effusion. Left mastoid air cells are clear. Mild mucosal thickening of the right maxillary sinus with volume loss. The previously questioned age-indeterminate tiny pulmonary embolus within the right upper lobe is not well visualized on today's exam. Emphysema with p ulmonary metastatic disease again noted. Calcification of the left thyroid. Pathologic tracheoesophageal adenopathy measuring up to 1.5 cm. IMPRESSION: 1. No acute territorial infarct or midline shift identified. 2. No aneurysm, dissection, high-grade stenosis or new arterial occlusion. 3. Trace residual subarachnoid hemorrhage within the superior right frontal lobe is similar to the 05/24/2022 exam. 4. Expected evolution of the small subacute infarcts of the right cerebral hemisphere. 5. Pulmonary emphysema with pulmonary metastasis redemonstrated along with pathologic mediastinal lymphadenopathy. ACT 112: Negative or not required by law. The above report was generated using voice recognition software. It may contain grammatical, syntax or spelling errors. Electronically signed by: Emmanuel Montanez M.D. 05/30/2022 6:[address] 06/01/22 07:00 CT head/brain wo con CLINICAL HISTORY: 72 years-old Male with Stroke like symptoms. Acute strokelike symptoms TECHNIQUE: Multiple axial CT images of the head were obtained without contrast. A dose lowering technique was utilized adhering to the principles of ALARA. CT DOSE: 638.56 mGycm COMPARISON: Head CT 05/30/2022, brain MRI 05/20/2022 FINDINGS: There is no midline shift, intracranial mass, hydrocephalus, territorial ischemia or abnormal extra-axial collection. Trace residual subarachnoid hemorrhage within the superior right frontal lobe on image 23 series 2 is similar to decreased from prior. Involutional changes with chronic microvascular ischemic disease. Expected evolution of the subacute scattered tiny infarcts within the right cerebral hemisphere. The calvarium is intact. Small right mastoid effusion. Left mastoid air cells are clear. Mild mucosal thickening of the right maxillary sinus with volume loss. IMPRESSION: 1. No acute territorial infarct or midline shift identified. 2. Trace residual subarachnoid hemorrhage within the superior right frontal lobe is similar to slightly improved from prior. 3. Expected evolution of the small subacute infarcts of the right cerebral hemisphere. ACT 112: Negative or not required by law. The above report was generated using voice recognition software. It may contain grammatical, syntax or spelling errors. Electronically signed by: Emmanuel Montanez M.D. 06/01/2022 7:12 AM
[2022-06-01] MEDS: LORazepam 0.5 MG TAB PO PRN (20:16)
[2022-06-02 06:16] LABS: Basophils # (auto) 0.03 K/uL (0-0.2); Basophils % (auto) 0.5 %; Eosinophils # (auto) 0.15 K/uL (0-0.50); Eosinophils % (auto) 2.4 %; Hematocrit (blood only) 33.1 % (42.0-52.0); Hemoglobin 10.9 g/dl (14.0-18.0); Immature Granulocytes # (auto) 0.05 K/uL (0.01-0.20); Immature Granulocytes % (auto) 0.8 %; Mean Corpuscular Hemoglobin 29.3 pg (25.0-34.0); Mean Corpuscular Hgb Conc 32.9 g/dL (32.0-36.0); Mean Platelet Volume 10.1 fL (9.4-12.4); Monocytes # (auto) 0.63 K/uL (0.11-0.59); Monocytes % (auto) 10.1 %; Neutrophils # (auto) 4.39 K/uL (1.40-6.50); Neutrophils % (auto) 70.2 %; Platelet Count 239 K/uL (130-400); RDW Coefficient of Variation 14.6 % (11.5-14.5); RDW Standard Deviation 46.2 fL (36.4-46.3); Red Blood Count 3.72 M/uL (4.70-6.10); White Blood Count 6.25 K/ul (4.8-10.8)
[2022-06-02 06:42] LABS: Calcium 8.6 mg/dl (8.5-10.1); Magnesium 1.6 mg/dl (1.7-2.4)
[2022-06-02 06:48] LABS: BUN Creatinine Ratio 26.6 (10-20); Creatinine Clr Calc Pharmacy 74.5 ml/min; Est GFR (African American) 92.9 ml/min; Est GFR (Non-African American) 80.1 ml/min
[2022-06-02] MEDS: INSULIN ASPART PER UNIT SC SCH ×2 (08:48→13:02)
[2022-06-02] MEDS ORDERED: MAGNESIUM CHLORIDE W/CALCIUM 64MG DELAYED REL TAB PO SCH (09:00)
[2022-06-02] MEDS: MECLIZINE HCL 25 MG TAB PO SCH ×2 (09:17→13:33)
[2022-06-02] MEDS: ATORVASTATIN 20 MG TAB PO SCH (09:18)
[2022-06-02] MEDS: FOLIC ACID 1 MG TAB PO SCH (09:18)
[2022-06-02] MEDS: DOCUSATE SODIUM 100 MG CAP PO SCH (09:18)
[2022-06-02] MEDS: METOPROLOL SUCC 25MG EXT REL TAB PO SCH (09:18)
[2022-06-02] MEDS: APIXABAN 5 MG TABLET PO SCH (09:18)
[2022-06-02] MEDS: DOCUSATE SODIUM/SENNA 50/8.6MG TAB PO SCH (09:19)
[2022-06-02] MEDS: AMIODARONE 200 MG TAB PO SCH (09:19)
[2022-06-02] MEDS: PANTOprazole 40 MG TAB PO SCH (09:19)
[2022-06-02] MEDS ORDERED: MAGNESIUM SULFATE / D5W 1 GM/100 ML BAG IV ONE (09:51)
--- NOTE | 2022-06-02 12:50 | Hospitalist Progress Note ---
Date of Service June 02, 2022 Assessment & Plan (1) Dizziness: Plan: Patient is a 72 yr male who presents with stroke like symptoms Stroke-like symptoms/Dizziness H/O subarachnoid hemorrhage, CVA Presents with left sided weakness and numbness --Head CT: No acute territorial infarct or midline shift identified. Trace residual subarachnoid hemorrhage within the superior right frontal lobe is similar to the 05/24/2022 exam. Expected evolution of the small subacute infarcts of the right cerebral hemisphere. --Head/Neck CTA: No acute territorial infarct or midline shift identified. No aneurysm, dissection, high-grade stenosis or new arterial occlusion. Trace residual subarachnoid hemorrhage within the superior right frontal lobe is similar to the 05/24/2022 exam. Expected evolution of the small subacute infarcts of the right cerebral hemisphere. Pulmonary emphysema with pulmonary metastasis redemonstrated along with pathologic mediastinal lymphadenopathy. --Refused MRI due to claustrophobia - Orthostatics normal --Repeat CT head: No acute territorial infarct or midline shift identified. Trace residual subarachnoid hemorrhage within the superior right frontal lobe is similar to slightly improved from prior. Expected evolution of the small subacute infarcts of the right cerebral hemisphere. --Speech/PT/OT eval --PT recommends Rehab--Patient refuses rehab, prefers to have PT as outpatient --Appreciate Neurology Input Continue Eliquis, Lipitor Fall precautions Plan to discharge home today Advised to follow up with Neurology upon discharge Hypomagnesemia Replete electrolytes as needed Monitor Possible Allergic Reaction ? Due to Contrast Rash resolved Received Solu-Medrol, Benadryl Resolved Stage IV Adenocarcinoma of lung: Chemo as per hem/onc Anemia of Chronic Disease No acute bleeding issues Monitor CBC Recent subarachnoid hemorrhage: Imaging studies not suggestive of any acute issues Constipation: Laxatives as needed Atrial fibrillation: Continue amiodarone, metoprolol, Eliquis. Hypertension: Stable Continue Metoprolol DM II HbA1c 6.4 Continue ISS Monitor BGs DVT Px: Eliquis Code status: DNI/DNR: as per my discussion with patient and patient's Son Disposition Home Admission and Anticipated Discharge Date Admission Date: May 30, 2022 Subjective Patient is seen and examined at bedside No new complaints Still has some left leg weakness Dizziness intermittently Prefers to be discharged home Denies any chest pain, shortness of breath, nausea, abdominal pain Review of Systems Review of Systems: All systems reviewed & are unremarkable except as noted in Subjective Physical Exam Physical Exam: Physical Exam: Vitals signs as noted above General Appearance:Moderately built and nourished, no apparent distress Head: normocephalic, Atraumatic Eyes: normal inspection, EOMI Neck: supple, Trachea midline Respiratory/Chest: Normal breath sounds, CTA, No accessory muscle use Cardiovascular: S1, S2, No murmur Abdomen/GI:Soft, Non tender, Bowel sounds present Extremities/Musculoskeletal:normal inspection, no edema Neurologic/Psych:AAOX3, Left LE 3-4/5, Otherwise no focal deficits Skin: normal color, warm Results & Data Results & Data ([facility]) Vital Signs (Past 12 Hours) Vital Signs Temp Pulse Resp BP Pulse Ox O2 Del Method O2 Flow Rate 06/02/22 12:29 36.7 C 61 17 131/68 95 Nasal Cannula 2 06/02/22 08:14 36.8 C 67 19 132/65 95 Nasal Cannula 2 06/02/22 03:00 36.9 C 61 18 130/61 94 Room Air Laboratory Results Short CBC 06/02/22 Range/Units 05:40 WBC 6.25 (4.8-10.8) K/ul Hgb 10.9 L (14.0-18.0) g/dl Hct 33.1 L (42.0-52.0) % Plt Count 239 (130-400) K/uL BMP 06/02/22 05:40 Sodium 140 Potassium 4.0 Chloride 105 Carbon Dioxide 29 BUN 25 H Creatinine 0.94 Glucose 128 H Calcium 8.6
--- NOTE | 2022-06-02 12:53 | Discharge Summary ---
Date of Service June 02, 2022 Admission HPI Per Admitting Provider CHIEF COMPLAINT: Stroke-like symptoms. HISTORY OF PRESENT ILLNESS: This is a 72-year-old male with past medical history significant for chronic respiratory failure, secondary to stage IV lung adenocarcinoma, recently diagnosed, was given chemo recently, history of paroxysmal atrial fibrillation, on Eliquis, hypertension, diabetes, diet controlled, chronic anemia, baseline hemoglobin 12-13, past tobacco abuse. He was first admitted on 05/02/2022 with shortness of breath and found to have stage IV adenocarcinoma of lung. During that admission, he had a chemo, seen by heme/onc and was discharged on 05/06/2022 and came back on 05/18/2022 with left leg weakness and found to have subarachnoid hemorrhage. His Eliquis was held SAH improved, then during the hospitalization, he also had acute CVA, likely embolic infarcts in the right parietal lobe and right occipital lobe and left cerebellar hemisphere and , his Eliquis was resumed on 05/22/2022 per Neurology. He also had acute thrombocytopenia, received 2 units of platelets during the last admission and platelets improved, normalized. He was discharged to rehab on 05/25/2022. Seems ambulating with a walker on regular food, but takes pills with applesauce.Today, looks like between 11 a.m. and noon, he felt left-sided numbness and weakness and nausea and dizziness. Seemed ashen - yoo in color. No trauma was reported and the patient was brought to the hospital and stroke alert was called. Initial workup with CTA of the head and neck and CTA of the head was unremarkable. Currently, the patient says his left-sided numbness improved. He is alert and oriented. Daughter is in the room. Has been having some headache and dizziness. No blurred visions, no earache, no runny nose, no sore throat. Cough is getting better. No chest pain, no shortness of breath. Currently, no nausea, no abdominal pain. He says bowels are moving okay now. Normal bladder movements. No swelling in the legs. Hemodynamically stable. Admission Exam Per Admitting Provider PHYSICAL EXAMINATION: GENERAL: The patient is alert and oriented, not in acute distress. VITAL SIGNS: Temperature 36.9, pulse 61, respiratory rate 16, blood pressure 129/59, oxygen 97% on 2 liters. HEENT: Pupils equal, round and reactive to light. Oral mucosa moist. NECK: No JVD, no neck masses. CARDIOVASCULAR: S1 and S2 heard. Regular rate and rhythm. No murmur, no gallop. RESPIRATORY SYSTEM: Normal AP diameter. No accessory muscle use. No wheezing, no crackles. ABDOMEN: Soft, bowel sounds present, nontender, no distention. CENTRAL NERVOUS SYSTEM: Alert and oriented. Speech is clear. No obvious facial droop. Power 5/5 in all extremities. Able to lift his extremities. Coordination of movements okay. No obvious pronator drift. Sensation intact. Position sense intact. EXTREMITIES: No edema, no erythema. Principal Diagnosis Dizziness Hypomagnesemia Stroke-like symptoms Discharge Data Allergies Allergy/AdvReac Type Severity Reaction Status Date / Time melatonin Allergy Intermediate Rash Verified 05/30/22 18:41 Consultations 05/30/22 19:38 ED Decision to Admit Stat 05/31/22 08:00 Consult Neurology Routine Procedures Performed Laboratory Results WBC 6.25 K/ul (4.8-10.8) 06/02/22 05:40 RBC 3.72 M/uL (4.70-6.10) L 06/02/22 05:40 Hgb 10.9 g/dl (14.0-18.0) L 06/02/22 05:40 Hct 33.1 % (42.0-52.0) L 06/02/22 05:40 MCV 89.0 fL (80.0-100.0) 06/02/22 05:40 MCH 29.3 pg (25.0-34.0) 06/02/22 05:40 MCHC 32.9 g/dL (32.0-36.0) 06/02/22 05:40 RDW Std Deviation 46.2 fL (36.4-46.3) 06/02/22 05:40 RDW Coeff of Dean 14.6 % (11.5-14.5) H 06/02/22 05:40 Plt Count 239 K/uL (130-400) 06/02/22 05:40 MPV 10.1 fL (9.4-12.4) 06/02/22 05:40 Immature Gran % (Auto) 0.8 % 06/02/22 05:40 Neut % (Auto) 70.2 % 06/02/22 05:40 Lymph % (Auto) 16.0 % 06/02/22 05:40 Scott % (Auto) 10.1 % 06/02/22 05:40 Eos % (Auto) 2.4 % 06/02/22 05:40 Baso % (Auto) 0.5 % 06/02/22 05:40 Neut # (Auto) 4.39 K/uL (1.40-6.50) 06/02/22 05:40 Lymph # (Auto) 1.00 K/uL (1.2-3.4) L 06/02/22 05:40 Scott # (Auto) 0.63 K/uL (0.11-0.59) H 06/02/22 05:40 Eos # (Auto) 0.15 K/uL (0-0.50) 06/02/22 05:40 Baso # (Auto) 0.03 K/uL (0-0.2) 06/02/22 05:40 Immature Gran # (Auto) 0.05 K/uL (0.01-0.20) 06/02/22 05:40 PT 12.5 Seconds (9.0-12.0) H 05/30/22 18:10 INR 1.2 (0.9-1.1) H 05/30/22 18:10 APTT 23.4 Seconds (21.0-31.0) 05/30/22 18:10 PTT Ratio 0.9 05/30/22 18:10 Sodium 140 mmol/L (136-145) 06/02/22 05:40 Potassium 4.0 mmol/L (3.5-5.1) 06/02/22 05:40 Chloride 105 mmol/L (98-107) 06/02/22 05:40 Carbon Dioxide 29 mmol/L (21-32) 06/02/22 05:40 Anion Gap 6 (3-11) 06/02/22 05:40 BUN 25 mg/dl (6-23) H 06/02/22 05:40 Creatinine 0.94 mg/dl (0.6-1.4) 06/02/22 05:40 Est Cr Clr Drug Dosing 74.5 ml/min 06/02/22 05:40 Est GFR ( Amer) 92.9 ml/min 06/02/22 05:40 Est GFR (Non-Af Amer) 80.1 ml/min 06/02/22 05:40 BUN/Creatinine Ratio 26.6 (10-20) H 06/02/22 05:40 Glucose 128 mg/dl (70-99(Fasting)) H 06/02/22 05:40 POC Glucose 146 mg/dl (70-99) H 06/02/22 11:52 Estimat Average Glucose 160 mg/dl 05/30/22 18:10 Hemoglobin A1c 7.2 % (4.5-5.6) H 05/30/22 18:10 Calcium 8.6 mg/dl (8.5-10.1) 06/02/22 05:40 Magnesium 1.6 mg/dl (1.7-2.4) L 06/02/22 05:40 Total Bilirubin 0.5 mg/dl (0.2-1.0) 05/30/22 18:10 AST 18 U/L (13-39) 05/30/22 18:10 ALT 19 U/L (7-52) 05/30/22 18:10 Alkaline Phosphatase 67 U/L (34-104) 05/30/22 18:10 Troponin I High Sens 17.7 pg/ml (0-20) 05/30/22 18:10 Total Protein 5.6 gm/dl (6.0-8.3) L 05/30/22 18:10 Albumin 3.0 gm/dl (3.4-5.0) L 05/30/22 18:10 Globulin 2.6 gm/dl (2.5-4.0) 05/30/22 18:10 Albumin/Globulin Ratio 1.2 (0.9-2) 05/30/22 18:10 Triglycerides 95 mg/dl (0-150) 05/31/22 05:47 Cholesterol 102 mg/dl (0-200) 05/31/22 05:47 LDL Cholesterol, Calc 43 mg/dl 05/31/22 05:47 VLDL Cholesterol, Calc 19 mg/dl (0-30) 05/31/22 05:47 HDL Cholesterol 40 mg/dl 05/31/22 05:47 Cholesterol/HDL Ratio 2.6 (0-5) 05/31/22 05:47 Urine Color Yellow 05/30/22 19:25 Urine Appearance Clear (Clear) 05/30/22 19:25 Urine pH 6.0 (4.5-7.5) 05/30/22 19:25 Ur Specific [place] > 1.045 (1.000-1.030) H 05/30/22 19:25 Urine Protein Negative (Negative) 05/30/22 19:25 Urine Glucose (UA) Negative (Negative) 05/30/22 19:25 Urine Ketones Negative (Negative) 05/30/22 19:25 Urine Blood Negative (Negative) 05/30/22 19:25 Urine Nitrite Negative (Negative) 05/30/22 19:25 Urine Bilirubin Negative (Negative) 05/30/22 19:25 Urine Urobilinogen Negative (Negative) 05/30/22 19:25 Ur Leukocyte Esterase Negative (Negative) 05/30/22 19:25 SARS-CoV-2, RNA, NAAT NEGATIVE (NEGATIVE) 05/30/22 19:30 Blood Type O Positive 05/30/22 18:10 Antibody Screen NEGATIVE 05/30/22 18:10 Impressions Chest X-Ray 05/30/22 17:48 XR chest 1V portable HISTORY: 72 years-old Male weakness acute weakness COMPARISON: CTA chest 05/01/2022, chest radiograph 05/19/2022 TECHNIQUE: AP view of the chest FINDINGS: Emphysema with chronic interstitial coarsening. Stable appearance of the pulmonary metastasis. Probable trace pleural effusions. Cardiomegaly. No pneumothorax. Bilateral hilar lymphadenopathy again noted. Bones appear grossly intact. IMPRESSION: 1. Emphysema without acute process. 2. Pathologic hilar lymphadenopathy with pulmonary metastatic disease redemonstrated. ACT 112: Negative or not required by law. The above report was generated using voice recognition software. It may contain grammatical, syntax or spelling errors. Electronically signed by: Emmanuel Montanez M.D. 05/30/2022 6:27 PM Head CTA 05/30/22 17:48 CT angio head w con, CT angio neck with con CLINICAL HISTORY: 72 years-old Male with neuro deficit, acute stroke suspected. Acute strokelike symptoms COMPARISON STUDY: Head CT of same day and also 05/24/2022, brain MRI 05/20/2022 TECHNIQUE: Following the IV administration of 111 cc of Optiray, CT angiogram of the head and neck was performed from the skull base to the vertex. Images are reviewed in the axial, sagittal, and coronal planes. 3-D MIPS images are created and assessed. IV contrast was administered without complication. All measurements were obtained according to NASCET criteria. A dose lowering technique was utilized adhering to the principles of ALARA. FINDINGS: CT ANGIOGRAM OF THE HEAD AND NECK: Three-vessel morphology of the thoracic aortic arch. Patency of the innominate and imaged subclavian arteries. Common carotid arteries are patent. Moderate atherosclerotic plaque of the left carotid bulb and proximal left ICA without significant stenosis. The middle cerebral arteries are patent bilaterally. There is a branch of the A2 segment left anterior cerebral artery on image 166 series 5 which appears to demonstrate focal narrowing/cut off and is similar to the prior study. The vertebrobasilar system and posterior cerebral arteries are widely patent. origin of the left posterior cerebral artery. There is no aneurysm, high-grade stenosis, or proximal branch occlusion identified. Dural sinuses appear patent. Trace residual subarachnoid hemorrhage within the superior right frontal lobe on image 21 series 2. Involutional changes with chronic microvascular ischemic disease. Expected evolution of the subacute scattered tiny infarcts within the right cerebral hemisphere. The calvarium is intact. Small right mastoid effusion. Left mastoid air cells are clear. Mild mucosal thickening of the right maxillary sinus with volume loss. The previously questioned age-indeterminate tiny pulmonary embolus within the right upper lobe is not well visualized on today's exam. Emphysema with pulmonary metastatic disease again noted. Calcification of the left thyroid. Pathologic tracheoesophageal adenopathy measuring up to 1.5 cm. IMPRESSION: 1. No acute territorial infarct or midline shift identified. 2. No aneurysm, dissection, high-grade stenosis or new arterial occlusion. 3. Trace residual subarachnoid hemorrhage within the superior right frontal lobe is similar to the 05/24/2022 exam. 4. Expected evolution of the small subacute infarcts of the right cerebral hemisphere. 5. Pulmonary emphysema with pulmonary metastasis redemonstrated along with pathologic mediastinal lymphadenopathy. ACT 112: Negative or not required by law. The above report was generated using voice recognition software. It may contain grammatical, syntax or spelling errors. Electronically signed by: Emmanuel Montanez M.D. 05/30/2022 6:25 PM Neck CTA 05/30/22 17:48 CT angio head w con, CT angio neck with con CLINICAL HISTORY: 72 years-old Male with neuro deficit, acute stroke suspected. Acute strokelike symptoms COMPARISON STUDY: Head CT of same day and also 05/24/2022, brain MRI 05/20/2022 TECHNIQUE: Following the IV administration of 111 cc of Optiray, CT angiogram of the head and neck was performed from the skull base to the vertex. Images are reviewed in the axial, sagittal, and coronal planes. 3-D MIPS images are created and assessed. IV contrast was administered without complication. All measurements were obtained according to NASCET criteria. A dose lowering technique was utilized adhering to the principles of ALARA. FINDINGS: CT ANGIOGRAM OF THE HEAD AND NECK: Three-vessel morphology of the thoracic aortic arch. Patency of the innominate and imaged subclavian arteries. Common carotid arteries are patent. Moderate atherosclerotic plaque of the left carotid bulb and proximal left ICA without significant stenosis. The middle cerebral arteries are patent bilaterally. There is a branch of the A2 segment left anterior cerebral artery on image 166 series 5 which appears to demonstrate focal narrowing/cut off and is similar to the prior study. The vertebrobasilar system and posterior cerebral arteries are widely patent. origin of the left posterior cerebral artery. There is no aneurysm, high-grade stenosis, or proximal branch occlusion identified. Dural sinuses appear patent. Trace residual subarachnoid hemorrhage within the superior right frontal lobe on image 21 series 2. Involutional changes with chronic microvascular ischemic disease. Expected evolution of the subacute scattered tiny infarcts within the right cerebral hemisphere. The calvarium is intact. Small right mastoid effusion. Left mastoid air cells are clear. Mild mucosal thickening of the right maxillary sinus with volume loss. The previously questioned age-indeterminate tiny pulmonary embolus within the right upper lobe is not well visualized on today's exam. Emphysema with pulmonary metastatic disease again noted. Calcification of the left thyroid. Pathologic tracheoesophageal adenopathy measuring up to 1.5 cm. IMPRESSION: 1. No acute territorial infarct or midline shift identified. 2. No aneurysm, dissection, high-grade stenosis or new arterial occlusion. 3. Trace residual subarachnoid hemorrhage within the superior right frontal lobe is similar to the 05/24/2022 exam. 4. Expected evolution of the small subacute infarcts of the right cerebral hemisphere. 5. Pulmonary emphysema with pulmonary metastasis redemonstrated along with pathologic mediastinal lymphadenopathy. ACT 112: Negative or not required by law. The above report was generated using voice recognition software. It may contain grammatical, syntax or spelling errors. Electronically signed by: Emmanuel Montanez M.D. 05/30/2022 6:[address] 06/01/22 07:00 CT head/brain wo con CLINICAL HISTORY: 72 years-old Male with Stroke like symptoms. Acute strokelike symptoms TECHNIQUE: Multiple axial CT images of the head were obtained without contrast. A dose lowering technique was utilized adhering to the principles of ALARA. CT DOSE: 638.56 mGycm COMPARISON: Head CT 05/30/2022, brain MRI 05/20/2022 FINDINGS: There is no midline shift, intracranial mass, hydrocephalus, territorial ischemia or abnormal extra-axial collection. Trace residual subarachnoid hemorrhage within the superior right frontal lobe on image 23 series 2 is similar to decreased from prior. Involutional changes with chronic microvascular ischemic disease. Expected evolution of the subacute scattered tiny infarcts within the right cerebral hemisphere. The calvarium is intact. Small right mastoid effusion. Left mastoid air cells are clear. Mild mucosal thickening of the right maxillary sinus with volume loss. IMPRESSION: 1. No acute territorial infarct or midline shift identified. 2. Trace residual subarachnoid hemorrhage within the superior right frontal lobe is similar to slightly improved from prior. 3. Expected evolution of the small subacute infarcts of the right cerebral hemisphere. ACT 112: Negative or not required by law. The above report was generated using voice recognition software. It may contain grammatical, syntax or spelling errors. Electronically signed by: Emmanuel Montanez M.D. 06/01/2022 7:12 AM Ordered Studies 05/30/22 17:48 CT angio head w con Stat CT angio neck with con Stat CT head/brain wo con Stat 06/01/22 07:00 CT head/brain wo con Routine Hospital Course (1) Dizziness: Patient is a 72 yr male who presents with stroke like symptoms Stroke-like symptoms/Dizziness H/O subarachnoid hemorrhage, CVA Presents with left sided weakness and numbness Dizziness, likely a sequela of recent CVA --Head CT: No acute territorial infarct or midline shift identified. Trace residual subarachnoid hemorrhage within the superior right frontal lobe is similar to the 05/24/2022 exam. Expected evolution of the small subacute infarcts of the right cerebral hemisphere. --Head/Neck CTA: No acute territorial infarct or midline shift identified. No aneurysm, dissection, high-grade stenosis or new arterial occlusion. Trace residual subarachnoid hemorrhage within the superior right frontal lobe is similar to the 05/24/2022 exam. Expected evolution of the small subacute infarcts of the right cerebral hemisphere. Pulmonary emphysema with pulmonary metastasis redemonstrated along with pathologic mediastinal lymphadenopathy. --Refused MRI due to claustrophobia - Orthostatics normal --Repeat CT head: No acute territorial infarct or midline shift identified. Trace residual subarachnoid hemorrhage within the superior right frontal lobe is similar to slightly improved from prior. Expected evolution of the small subacute infarcts of the right cerebral hemisphere. --Speech/PT/OT eval --PT recommends Rehab--Patient refuses rehab, prefers to have PT as outpatient --Appreciate Neurology Input Continue Eliquis, Lipitor Fall precautions Plan to discharge home today Advised to follow up with Neurology upon discharge Hypomagnesemia Replete electrolytes as needed Monitor Possible Allergic Reaction ? Due to Contrast Rash resolved Received Solu-Medrol, Benadryl Resolved Stage IV Adenocarcinoma of lung: Chemo as per hem/onc Anemia of Chronic Disease No acute bleeding issues Monitor CBC Recent subarachnoid hemorrhage: Imaging studies not suggestive of any acute issues Constipation: Laxatives as needed Atrial fibrillation: Continue amiodarone, metoprolol, Eliquis. Hypertension: Stable Continue Metoprolol DM II HbA1c 6.4 Continue ISS Monitor BGs DVT Px: Eliquis Code status: DNI/DNR: as per my discussion with patient and patient's Son Disposition Home Total Time Total Time Spent Total Time Spent (In Minutes): 56 minutes Discharge Plan Discharge Items Patient Disposition: Home - Home Health Services Reason For Visit: STROKE LIKE SYMPTOMS Discharge Diagnosis: Dizziness Hypomagnesemia Stroke-like symptoms Activity: Per Instructions section Exercise/Sports: Gradually increase as tolerated Non-emergency contact: Primary Care Provider and Neurologist Call non-emergency contact if: you have any medication questions, your symptoms worsen, your pain is concerning for you and you have a fever Follow-up/Referrals: Malcolm Long DO [[employer]] - (Date & Time 06/19/2022 10:30 AM Provider Malcolm Long DO Department Cardiology, [facility] ) Luc Guevara MD [Outside Practitioners] - (Date & Time 06/07/2022 12:40 PM Provider [place] MD Department [facility] ) Diet: Carb Consistent or DM2 and Heart Healthy Diet Texture: Easy to Chew Addtl Attending Provider Instructions: Follow-up with your primary care physician on 06/07/2022 12:40 PM Follow-up with your yield improvement engineer on 06/19/2022 10:30 AM Follow-up with your neurologist in 4 to 6 weeks as advised Seek immediate medical attention if your symptoms reoccur or worsen Please take all medications as instructed on discharge list below. Please call if you have any questions or problems. You can reach a [facility] hospitalist on duty at [facility] 24 hours a day by calling [phone] Risk Factors for Stroke: You can reduce your chances of stroke by working with your medical provider to adopt a healthy lifestyle. Some specific ways to lower your chance of stroke are: * If you are a smoker, now is the time to stop smoking cigarettes * If you are diabetic, improve the control of your blood sugars * Avoid excessive amounts of alcohol * Control high blood pressure * Lose weight if you are overweight * Be sure to lead an active lifestyle * Eat a healthy diet low in salt, cholesterol and fat You should know about other risk factors for stroke that you are unable to control. These include: * Age 55 years or older * Male gender * Certain racial groups: , or / * Family History of Stroke, Mini stroke or Heart Attack * Sickle Cell Disease Follow Up: It is important for you to keep your follow up appointments with your medical provider. Who to Call and When: Medical Emergencies: Call 911 immediately if you experience any of the following warning signs and symptoms of Stroke: * Sudden numbness or weakness of the face, arm or leg, especially on one side of the body * Sudden confusion, trouble speaking or understanding * Sudden trouble seeing in one or both eyes * Sudden trouble walking, dizziness, loss of balance or coordination * Sudden severe headache with no cause Do not delay calling 911 if you experience any warning signs or symptoms of a stroke. Delay in seeking medical attention may affect what treatments can be given to you. . Pending Studies at Discharge: No Stand-Alone Forms: My [facility] Nearlyweds, Smoking Cessation Medications and DC Order Prescriptions: New Mag 64 64 mg Tablet,Delayed Release (Dr/Ec) 64 mg PO QAM Qty: 30 1RF Continued albuterol sulfate 90 mcg/actuation HFA aerosol inhaler 2 puff INHALATION Q4H PRN (Reason: Shortness Of Breath Or Wheezing) folic acid 1 mg Tablet 1 mg PO QAM 30 Days Qty: 30 0RF metoprolol succinate 25 mg Tablet Extended Release 24 Hr 12.5 mg PO BID 30 Days Qty: 30 0RF Eliquis 5 mg tablet 5 mg PO BID 30 Days Qty: 60 1RF atorvastatin 20 mg Tablet 20 mg PO QAM 30 Days Qty: 30 0RF amiodarone 200 mg Tablet 200 mg PO BIDM 30 Days Qty: 60 0RF sennosides-docusate sodium [Senokot-S] 8.6-50 mg Tablet 1 tab PO QAM 30 Days Qty: 30 0RF pantoprazole 40 mg Tablet,Delayed Release (Dr/Ec) 40 mg PO QAM 30 Days Qty: 30 0RF diclofenac sodium [Voltaren Arthritis Pain] 1 % Gel 2 g EXT BID PRN (Reason: pain) Qty: 50 0RF acetaminophen [Tylenol] 325 mg Tablet 650 mg PO Q4H PRN (Reason: Pain (Scale Score 1-3)) Benadryl 2 % Gel 1 applic TOPICAL Q6H PRN (Reason: Itching) sennosides-docusate sodium [Senokot-S] 8.6-50 mg Tablet 1 tab-cap PO QDL PRN (Reason: Constipation) lorazepam 0.5 mg Tablet 0.5 mg PO DAILY PRN (Reason: Anxiety) magnesium hydroxide [Milk of Magnesia] 400 mg/5 mL Suspension 30 ml PO DAILY PRN (Reason: Constipation) meclizine 25 mg Tablet 50 mg PO TID diphenhydramine HCl [Benadryl] 25 mg Capsule 50 mg PO Q6H PRN (Reason: Itching) Humulin R Regular U-100 Insuln 100 unit/mL Solution 1 sliding scale dose SUBCUT ACHS Rx Instructions: BSG-70-130= 0 UNITS, BSG 131-180= 2 UNITS, BSG 181-240= 4 UNITS, BSG 241-300= 6 UNITS, BSG 301-350= 8 UNITS, BSG 351-400= 10 UNITS, GREATER THAN 400= 12 UNITS CALL . docusate sodium 100 mg Capsule 100 mg PO BID polyethylene glycol 3350 [Miralax] 17 gram powder in packet 17 g PO QDL PRN (Reason: constipation) Discharge Orders: Discharge Order (Routine); Ordered 06/02/22 Ordered By: Justo Jesus/Other Patient Handouts: Type 2 Diabetes Admission Data Admit Date/Time: 05/30/22 20:52 Attending Provider: Justo Corley Admit Provider: Arenl Lund Primary Care Provider: [facility] Other Providers: Arnel Lund ; Chino Rose ; Wes Dale ; Susie Parkinson ; Sivan Mello ; Nesha Roman ; Ralph Valenzuela ; Nesha Paul ; Neo Holt ; Moraima Yen ; Michael Greenwood ; Brittany Alicea ; Julia Pepper ; Ralph Wheeler ; Raúl Kelly
== END 2022-06-02 15:54 | disposition home or self-care (01) | DRG 57 ==
LOC: ED 17:54 → SUATTDRO 20:52 → 4W 20:52